=== PATIENT | male | born 1955 | race Caucasian/White ===

== ENCOUNTER → 2018-02-01 09:53 | Outpatient (REF) | payer MEDICAID, SELFPAY ==
[2018-02-01 13:54] LABS: Basophils % 0.3 % (0.1-2.0); Eosinophils # 0.3 K/mm3 (0.0-0.4); Eosinophils % 4.4 % (0.1-12.0); Hemoglobin 14.1 g/dL (14.1-18.0); Lymphocytes # 2.4 K/mm3 (0.7-4.5); Lymphocytes % 34.7 K/mm3 (10-50); Mean Corpuscular HGB Conc 32.1 g/dL (31.8-35.4); Mean Corpuscular Hemoglobin 28.7 pg (27.0-31.2); Mean Corpuscular Volume 89.5 fl (80-94); Mean Platelet Volume 8.4 fl (7.4-10.4); Monocytes # 0.4 K/mm3 (0.1-1.0); Monocytes % 6.1 % (1.7-9.3); Neutrophils # 3.8 K/mm3 (1.8-7.8); Neutrophils % 54.4 % (37.0-80.0); Platelet Count 220 K/mm3 (142-424); Red Blood Count 4.92 M/mm3 (4.60-6.20)
[2018-02-01 14:14] LABS: Alanine Aminotransferase 25 U/L (12-78); Albumin Level 3.7 gm/dL (3.4-5.0); Albumin/Globulin Ratio 0.9 (1.1-1.8); Alkaline Phosphatase 84 U/L (46-116); Anion Gap 14.3 mEq/L (5-15); Aspartate Amino Transferase 16 U/L (15-37); Bilirubin,Total 0.3 mg/dL (0.2-1.0); Blood Urea Nitrogen 13 mg/dL (7-18); Calcium 9.2 mg/dL (8.5-10.1); Carbon Dioxide 27 mmol/L (21.0-32.0); Chloride 103 mmol/L (98-107); Chol/HDL Ratio 4.1 (1-3.5); Cholesterol 124 mg/dL (140-200); Creatinine,Serum 0.91 mg/dL (0.70-1.30); Estimated Glomerular Filt Rate 85 ml/min (>60); GFR (African American) 103 ML/MIN (>60); Globulin 3.9 gm/dl (1.3-3.2); Glucose 243 mg/dL (74-106); HDL Cholesterol 30 mg/dL (27-67); LDL Cholesterol 66 mg/dL (0-130); Potassium 4.3 mmoL/L (3.5-5.1); Sodium 140 mmol/L (136-145); T4 (Thyroxine) 9.5 ug/dl (4.7-13.3); Thyroid Stimulating Hormone 0.03 uIU/ml (0.358-3.740); Total Protein,Serum 7.6 gm/dL (6.4-8.2); Triglycerides 142 mg/dL (30-200); VLDL Cholesterol 28 mg/dL (0-40)
[2018-02-02 06:04] LABS: Vitamin B12 222 pg/mL (232-1245); Vitamin D 25 Hydroxy 42.8 ng/mL (30.0-100.0)
[2018-02-02 16:15] LABS: Hemoglobin A1C 8.8 % (0.0-7.0)
[2018-02-05 12:34] LABS: Testosterone, Total, LC/MS 223.7 ng/dL (264.0-916.0); Testosterone,Free 6.7 pg/mL (6.6-18.1)
== END ==
LOC: LAB 09:53
PROVIDERS: Visit Provider Physician Assistant
DX: E11.9 Type 2 diabetes mellitus without complications (principal); E34.9 Endocrine disorder, unspecified; D51.9 Vitamin B12 deficiency anemia, unspecified; E55.9 Vitamin D deficiency, unspecified
CPT/HCPCS: 80053; 80061; 82607; 82652; 83036; 84402; 84436; 84443; 85025

== ENCOUNTER → 2018-05-27 08:00 | Outpatient (CLI) | payer MEDICAID, SELFPAY ==
--- NOTE | 2018-05-27 08:19 | XR_ITS ---
XR chest 2V HISTORY: ITS.REASON: SOB ORDERING PHYSICIAN: Lety Berman PATIENT AGE: 62 years COMPARISON: 07/28/2015 FINDINGS: There is cardiomegaly without failure. The lungs are clear bilaterally. No acute bony anomalies. IMPRESSION: Cardiomegaly otherwise negative
[2018-05-27 08:50] LABS: Basophils % 0.2 % (0.1-2.0); Eosinophils # 0.5 K/mm3 (0.0-0.4); Eosinophils % 5.6 % (0.1-12.0); Hematocrit 43.6 % (42.0-52.0); Hemoglobin 14.1 g/dL (14.1-18.0); Lymphocytes # 2.5 K/mm3 (0.7-4.5); Lymphocytes % 30.9 K/mm3 (10-50); Mean Corpuscular HGB Conc 32.3 g/dL (31.8-35.4); Mean Corpuscular Hemoglobin 28.1 pg (27.0-31.2); Mean Corpuscular Volume 87.1 fl (80-94); Mean Platelet Volume 7.4 fl (7.4-10.4); Monocytes # 0.4 K/mm3 (0.1-1.0); Monocytes % 4.6 % (1.7-9.3); Neutrophils # 4.8 K/mm3 (1.8-7.8); Neutrophils % 58.6 % (37.0-80.0); Platelet Count 204 K/mm3 (142-424); Red Cell Distribution Width 16.3 % (11.5-17.5); White Blood Count 8.2 K/mm3 (4.8-10.8)
[2018-05-27 10:51] LABS: Alanine Aminotransferase 20 U/L (12-78); Albumin Level 3.6 gm/dL (3.4-5.0); Alkaline Phosphatase 63 U/L (46-116); Anion Gap 12.9 mEq/L (5-15); Aspartate Amino Transferase 16 U/L (15-37); Bilirubin,Total 0.4 mg/dL (0.2-1.0); Blood Urea Nitrogen 10 mg/dL (7-18); Calcium 8.9 mg/dL (8.5-10.1); Carbon Dioxide 28 mmol/L (21.0-32.0); Chloride 102 mmol/L (98-107); Chol/HDL Ratio 3.9 (1-3.5); Cholesterol 143 mg/dL (140-200); Creatinine,Serum 1.11 mg/dL (0.70-1.30); Estimated Glomerular Filt Rate 68 ml/min (>60); GFR (African American) 82 ML/MIN (>60); Globulin 3.6 gm/dl (1.3-3.2); Glucose 160 mg/dL (74-106); HDL Cholesterol 37 mg/dL (27-67); LDL Cholesterol 70 mg/dL (0-130); Potassium 3.9 mmoL/L (3.5-5.1); Sodium 139 mmol/L (136-145); Thyroid Stimulating Hormone 47.91 uIU/ml (0.358-3.740); Total Protein,Serum 7.2 gm/dL (6.4-8.2); Triglycerides 178 mg/dL (30-200); VLDL Cholesterol 36 mg/dL (0-40)
== END ==
PROVIDERS: PCP Physician Assistant; Visit Provider Nurse Practitioner Family
DX: R06.02 Shortness of breath (principal); I25.10 Atherosclerotic heart disease of native coronary artery without angina pectoris; I10 Essential (primary) hypertension; E78.00 Pure hypercholesterolemia, unspecified; E11.9 Type 2 diabetes mellitus without complications
CPT/HCPCS: 36415; 71046; 80053; 80061; 84443; 85025

== ENCOUNTER → 2018-06-04 14:24 | Outpatient (CLI) | payer MEDICAID, SELFPAY ==
[2018-06-04 16:17] LABS: Hemoglobin A1C 9.6 % (0.0-7.0)
[2018-06-07 12:56] LABS: Vitamin B12 495 pg/mL (232-1245)
[2018-06-07 12:57] LABS: Vitamin D 25 Hydroxy 30.6 ng/mL (30.0-100.0)
== END ==
PROVIDERS: Visit Provider Physician Assistant
DX: E11.42 Type 2 diabetes mellitus with diabetic polyneuropathy (principal); E34.9 Endocrine disorder, unspecified
CPT/HCPCS: 82607; 82652; 83036

== ENCOUNTER → 2018-08-30 13:19 | Outpatient (CLI) | payer MEDICAID, SELFPAY ==
[2018-08-30 13:55] LABS: Basophils % 0.3 % (0.1-2.0); Eosinophils # 0.4 K/mm3 (0.0-0.4); Eosinophils % 5.1 % (0.1-12.0); Hematocrit 46.3 % (42.0-52.0); Hemoglobin 14.7 g/dL (14.1-18.0); Lymphocytes # 2.4 K/mm3 (0.7-4.5); Lymphocytes % 29.2 % (10-50); Mean Corpuscular HGB Conc 31.8 g/dL (31.8-35.4); Mean Corpuscular Hemoglobin 27.9 pg (27.0-31.2); Mean Corpuscular Volume 87.6 fl (80-94); Monocytes # 0.5 K/mm3 (0.1-1.0); Monocytes % 6.1 % (1.7-9.3); Neutrophils # 4.9 K/mm3 (1.8-7.8); Neutrophils % 59.3 % (37.0-80.0); Platelet Count 238 K/mm3 (142-424); Red Blood Count 5.28 M/mm3 (4.60-6.20); Red Cell Distribution Width 15.6 % (11.5-17.5); White Blood Count 8.2 K/mm3 (4.8-10.8)
[2018-08-30 14:17] LABS: Alanine Aminotransferase 27 U/L (12-78); Albumin Level 3.5 gm/dL (3.4-5.0); Albumin/Globulin Ratio 0.9 (1.1-1.8); Alkaline Phosphatase 80 U/L (46-116); Anion Gap 15.1 mEq/L (5-15); Aspartate Amino Transferase 11 U/L (15-37); Bilirubin,Total 0.5 mg/dL (0.2-1.0); Blood Urea Nitrogen 16 mg/dL (7-18); Carbon Dioxide 26 mmol/L (21.0-32.0); Chloride 99 mmol/L (98-107); Chol/HDL Ratio 3.9 (1-3.5); Cholesterol 110 mg/dL (140-200); Creatinine,Serum 0.91 mg/dL (0.70-1.30); Estimated Glomerular Filt Rate 85 ml/min (>60); GFR (African American) 102 ML/MIN (>60); Glucose 265 mg/dL (74-106); HDL Cholesterol 28 mg/dL (27-67); LDL Cholesterol 42 mg/dL (0-130); Potassium 4.1 mmoL/L (3.5-5.1); Sodium 136 mmol/L (136-145); T4 (Thyroxine) 11.9 ug/dl (4.7-13.3); Thyroid Stimulating Hormone 0.01 uIU/ml (0.358-3.740); Total Protein,Serum 7.5 gm/dL (6.4-8.2); Triglycerides 200 mg/dL (30-200); VLDL Cholesterol 40 mg/dL (0-40)
[2018-08-30 17:31] LABS: Hemoglobin A1C 8.2 % (0.0-7.0)
[2018-08-31 09:59] LABS: PSA, Free 0.19 ng/mL; Prostate Specific Ag 1.1 ng/mL (0.0-4.0); Vitamin B12 260 pg/mL (232-1245); Vitamin D 25 Hydroxy 37.3 ng/mL (30.0-100.0)
[2018-09-07 15:35] LABS: Testosterone, Total, LC/MS 127.2 ng/dL (264.0-916.0)
== END ==
PROVIDERS: Visit Provider Physician Assistant
DX: Z12.5 Encounter for screening for malignant neoplasm of prostate (principal); E11.9 Type 2 diabetes mellitus without complications; E55.9 Vitamin D deficiency, unspecified; E03.9 Hypothyroidism, unspecified; D51.9 Vitamin B12 deficiency anemia, unspecified; E78.5 Hyperlipidemia, unspecified
CPT/HCPCS: 80053; 80061; 82607; 82652; 83036; 84153; 84154; 84403; 84436; 84443; 85025

== ENCOUNTER → 2018-10-08 13:39 | Outpatient (CLI) | payer MEDICAID, SELFPAY ==
[2018-10-08 17:37] LABS: T4 (Thyroxine) 10.7 ug/dl (4.7-13.3); Thyroid Stimulating Hormone 0.01 uIU/ml (0.358-3.740)
== END ==
PROVIDERS: Visit Provider Physician Assistant
DX: E03.9 Hypothyroidism, unspecified (principal)
CPT/HCPCS: 36415; 84436; 84443

== ENCOUNTER → 2018-12-06 14:48 | Outpatient (CLI) | payer MEDICAID, SELFPAY ==
[2018-12-06 15:46] LABS: Hemoglobin A1C 7.7 % (0.0-7.0)
[2018-12-06 16:01] LABS: Basophils % 0.2 % (0.1-2.0); Eosinophils # 0.3 K/mm3 (0.0-0.4); Eosinophils % 3.7 % (0.1-12.0); Hematocrit 43.3 % (42.0-52.0); Hemoglobin 14.4 g/dL (14.1-18.0); Lymphocytes # 1.8 K/mm3 (0.7-4.5); Lymphocytes % 25.8 % (10-50); Mean Corpuscular HGB Conc 33.3 g/dL (31.8-35.4); Mean Corpuscular Hemoglobin 28.7 pg (27.0-31.2); Mean Corpuscular Volume 86.3 fl (80-94); Mean Platelet Volume 8.2 fl (7.4-10.4); Monocytes # 0.4 K/mm3 (0.1-1.0); Monocytes % 5.8 % (1.7-9.3); Neutrophils # 4.6 K/mm3 (1.8-7.8); Neutrophils % 64.5 % (37.0-80.0); Platelet Count 199 K/mm3 (142-424); Red Blood Count 5.02 M/mm3 (4.60-6.20); Red Cell Distribution Width 15.6 % (11.5-17.5); White Blood Count 7.1 K/mm3 (4.8-10.8)
[2018-12-06 16:52] LABS: Alanine Aminotransferase 31 U/L (12-78); Albumin Level 3.8 gm/dL (3.4-5.0); Alkaline Phosphatase 82 U/L (46-116); Aspartate Amino Transferase 12 U/L (15-37); Bilirubin,Total 0.5 mg/dL (0.2-1.0); Blood Urea Nitrogen 13 mg/dL (7-18); Calcium 9.6 mg/dL (8.5-10.1); Carbon Dioxide 25 mmol/L (21.0-32.0); Chloride 100 mmol/L (98-107); Chol/HDL Ratio 4.3 (1-3.5); Cholesterol 120 mg/dL (140-200); Creatinine,Serum 0.91 mg/dL (0.70-1.30); Estimated Glomerular Filt Rate 85 ml/min (>60); GFR (African American) 102 ML/MIN (>60); Glucose 234 mg/dL (74-106); HDL Cholesterol 28 mg/dL (27-67); LDL Cholesterol 55 mg/dL (0-130); Sodium 138 mmol/L (136-145); T4 (Thyroxine) 11.8 ug/dl (4.7-13.3); Thyroid Stimulating Hormone 0.02 uIU/ml (0.358-3.740); Total Protein,Serum 7.8 gm/dL (6.4-8.2); Triglycerides 187 mg/dL (30-200); VLDL Cholesterol 37 mg/dL (0-40)
[2018-12-08 08:05] LABS: PSA, Free 0.19 ng/mL; Prostate Specific Ag 0.9 ng/mL (0.0-4.0); Vitamin D 25 Hydroxy 37.6 ng/mL (30.0-100.0)
== END ==
PROVIDERS: Visit Provider Physician Assistant
DX: E11.649 Type 2 diabetes mellitus with hypoglycemia without coma (principal); Z79.4 Long term (current) use of insulin
CPT/HCPCS: 80053; 80061; 82652; 83036; 84153; 84154; 84436; 84443; 85025

== ENCOUNTER → 2018-12-14 08:57 | Outpatient (POV) | payer MEDICAID, SELFPAY | PROVIDERS: Visit Provider Otolaryngology | DX: Z00.00 Encounter for general adult medical examination without abnormal findings (principal) ==

== ENCOUNTER → 2018-12-29 12:38 | Outpatient (CLI) | payer MEDICAID, SELFPAY ==
--- NOTE | 2018-12-29 12:48 | CT_ITS ---
CT Temporal bone Without INDICATION: ITS.REASON: OTORRHEA,HEARING LOSS,DYSFUCTION OF EUSTACHIAN TUBES ORDERING PHYSICIAN: Orly Arroyo MD PATIENT AGE: 63 years COMPARISON: 12/18/2015 TECHNIQUE: Axial images are obtained without contrast. Sagittal and coronal reformatted images are reviewed as well. All CT scans at the facility use one or more dose reduction, viz: automated exposure control, ma/kV adjustment per patient size (including targeted exams where dose is matched to indication, i.e. head), or iterative reconstruction technique. FINDINGS: Thin section axial images are obtained of the cervical spine without contrast and compared to prior head CT of 12/18/2015. There is history of prior ear surgery. There is bilateral opacification of the mastoid sinuses with bilateral aditus ad antrum and middle ear opacification. There is deformity of the middle ear ossicles on both sides and may be related to prior surgery and/or infection. There is mild bilateral scutal erosion with partial opacification of the antrum bilaterally. These findings do appear chronic and do not appear significantly changed from 12/18/2015. Soft tissue fullness is present in both external auditory canals is well. Incidental note is made of moderate mucosal thickening of the ethmoid sinuses. IMPRESSION: 1. Bilateral mastoid air cell opacification. 2. Soft tissue/fluid filling the bilateral aditus ad antrum and middle ears with chronic deformity of bilateral ossicles which may be related to prior surgery and/or infection 3. Soft tissue fullness within both external auditory canals. 4.. Paranasal sinus disease
== END ==
PROVIDERS: PCP Physician Assistant; Visit Provider Otolaryngology
DX: H92.12 Otorrhea, left ear (principal); H90.6 Mixed conductive and sensorineural hearing loss, bilateral; H69.83 Other specified disorders of Eustachian tube, bilateral; Z90.89 Acquired absence of other organs
CPT/HCPCS: 70480

== ENCOUNTER → 2019-03-08 14:41 | Outpatient (CLI) | payer MEDICAID, SELFPAY ==
[2019-03-08 15:00] LABS: Basophils % 0.5 % (0.1-2.0); Eosinophils # 0.3 K/mm3 (0.0-0.4); Eosinophils % 3.6 % (0.1-12.0); Hematocrit 46.2 % (42.0-52.0); Hemoglobin 14.7 g/dL (14.1-18.0); Lymphocytes # 2.1 K/mm3 (0.7-4.5); Lymphocytes % 28.9 % (10-50); Mean Corpuscular HGB Conc 31.8 g/dL (31.8-35.4); Mean Corpuscular Hemoglobin 28.4 pg (27.0-31.2); Mean Corpuscular Volume 89.5 fl (80-94); Mean Platelet Volume 8.4 fl (7.4-10.4); Monocytes # 0.5 K/mm3 (0.1-1.0); Monocytes % 6.4 % (1.7-9.3); Neutrophils # 4.3 K/mm3 (1.8-7.8); Neutrophils % 60.7 % (37.0-80.0); Platelet Count 210 K/mm3 (142-424); Red Blood Count 5.16 M/mm3 (4.60-6.20); Red Cell Distribution Width 14.9 % (11.5-17.5); White Blood Count 7.2 K/mm3 (4.8-10.8)
[2019-03-08 15:19] LABS: Alanine Aminotransferase 22 U/L (12-78); Albumin Level 3.6 gm/dL (3.4-5.0); Albumin/Globulin Ratio 0.9 (1.1-1.8); Alkaline Phosphatase 83 U/L (46-116); Anion Gap 17.3 mEq/L (5-15); Aspartate Amino Transferase 10 U/L (15-37); Bilirubin,Total 0.5 mg/dL (0.2-1.0); Blood Urea Nitrogen 16 mg/dL (7-18); Calcium 8.8 mg/dL (8.5-10.1); Carbon Dioxide 24 mmol/L (21.0-32.0); Chloride 103 mmol/L (98-107); Chol/HDL Ratio 3.9 (1-3.5); Cholesterol 108 mg/dL (140-200); Estimated Glomerular Filt Rate 76 ml/min (>60); GFR (African American) 92 ML/MIN (>60); Globulin 3.8 gm/dl (1.3-3.2); Glucose 203 mg/dL (74-106); HDL Cholesterol 28 mg/dL (27-67); LDL Cholesterol 45 mg/dL (0-130); Potassium 4.3 mmoL/L (3.5-5.1); Sodium 140 mmol/L (136-145); T4 (Thyroxine) 7.2 ug/dl (4.7-13.3); Thyroid Stimulating Hormone 0.03 uIU/ml (0.358-3.740); Total Protein,Serum 7.4 gm/dL (6.4-8.2); Triglycerides 173 mg/dL (30-200); VLDL Cholesterol 35 mg/dL (0-40)
[2019-03-08 17:38] LABS: Hemoglobin A1C 7.5 % (0.0-7.0)
[2019-03-10 08:31] LABS: Vitamin D 25 Hydroxy 40.1 ng/mL (30.0-100.0)
[2019-03-10 09:32] LABS: Testosterone,Total 64 ng/dL (264-916)
[2019-03-10 14:08] LABS: Vitamin B12 228 pg/mL (232-1245)
== END ==
PROVIDERS: Visit Provider Physician Assistant
DX: E11.9 Type 2 diabetes mellitus without complications (principal); E03.9 Hypothyroidism, unspecified; D51.9 Vitamin B12 deficiency anemia, unspecified; E34.9 Endocrine disorder, unspecified; E55.9 Vitamin D deficiency, unspecified; Z79.4 Long term (current) use of insulin
CPT/HCPCS: 80053; 80061; 82607; 82652; 83036; 84403; 84436; 84443; 85025

== ENCOUNTER → 2019-06-14 08:10 | Outpatient (CLI) | payer MEDICAID, SELFPAY ==
--- NOTE | 2019-06-14 08:11 | CT_ITS ---
PROCEDURE: CT ABDOMEN PELVIS WO CON CLINICAL HISTORY: Ventral hernia, umbilical hernia Painful umbilical hernia COMPARISON: No exams were available for comparison TECHNIQUE: Axial images obtained with sagittal and coronal reformats. All CT scans at the facility use one or more dose reduction, viz: automated exposure control, ma/kV adjustment per patient size (including targeted exams where dose is matched to indication, i.e. head), or iterative reconstruction technique. FINDINGS: Severe coronary artery calcification is noted. The liver, gallbladder, spleen, adrenal glands, and pancreas have an unremarkable appearance. There is mild haziness of the mesenteric fat with scattered small mesenteric lymph nodes. This is a nonspecific finding. No renal or ureteral calculi. No hydronephrosis. No evidence of appendicitis, intestinal obstruction, free air, or diverticulitis. There is a mild amount of retained colonic feces. There is a small umbilical hernia which contains fat. No evidence of bowel within the hernia. The fat does not appear inflamed within the hernia. No acute bony anomalies. There is a small left inguinal hernia also containing fat IMPRESSION: 1. No acute abdominal or pelvic findings. 2. There is a small umbilical hernia which contains fat. 3. There also a small left inguinal hernia containing fat. 4. Coronary artery disease Dictated by: Mauricio Cunningham MD 06/14/2019 10:14 Signed by: <Electronically signed by Mauricio Cunningham MD in [facility]> 06/14/2019 10:14
[2019-06-21 15:51] LABS: Testosterone, Total, LC/MS 704
[2019-06-21 15:52] LABS: Testosterone,Free 16.3
== END ==
PROVIDERS: Urology; PCP Physician Assistant; Visit Provider Physician Assistant
DX: K42.9 Umbilical hernia without obstruction or gangrene (principal); K43.9 Ventral hernia without obstruction or gangrene; E53.8 Deficiency of other specified B group vitamins; R79.89 Other specified abnormal findings of blood chemistry
CPT/HCPCS: 36415; 74176; 84402; 84403

== ENCOUNTER → 2019-06-14 14:31 | Outpatient (CLI) | payer MEDICAID, SELFPAY | PROVIDERS: Visit Provider Urology | DX: R79.89 Other specified abnormal findings of blood chemistry (principal) | CPT/HCPCS: 36415; 84402; 84403 ==

== ENCOUNTER → 2019-07-04 09:32 | Outpatient (CLI) | payer MEDICAID, SELFPAY ==
--- NOTE | 2019-07-04 09:35 | XR_ITS ---
PROCEDURE: XR KNEE LT 4V CLINICAL INDICATION: KNee pain Knee pain COMPARISON: [id number] KNEE-4 OR 5 VIEWS-RT from 10/16/2015 [id number] KNEE-4 OR 5 VIEWS-LT from 10/16/2015 [id number] KNEE-3 VIEWS-RT from 06/21/2016 Knee L from 05/13/2019 FINDINGS: There are moderate osteoarthritic changes involving the medial and lateral compartment with severe osteoarthritic changes of the patellofemoral joint. Prominent osteophytes are present at the intercondylar region of the distal femur and the tibial spine area. There is a 5 mm calcific density projecting over the lateral joint space suggesting a loose body. No fracture or dislocation. Prominent osteophytes are present along the superior patella IMPRESSION: No change in the moderate to severe osteoarthritis of the left knee with osteophytes and possible loose body along the lateral compartment Dictated by: Mauricio Cunningham MD 07/04/2019 11:43 Electronically signed by Mauricio Cunningham MD in [facility] 07/04/2019 11:43
--- NOTE | 2019-07-04 09:35 | XR_ITS ---
PROCEDURE: XR KNEE RT 4V CLINICAL INDICATION: knee pain COMPARISON: [id number] KNEE-4 OR 5 VIEWS-RT from 10/16/2015 [id number] KNEE-4 OR 5 VIEWS-LT from 10/16/2015 [id number] KNEE-3 VIEWS-RT from 06/21/2016 Knee L from 05/13/2019 FINDINGS: No fracture or dislocation. No lytic or blastic change. There is normal mineralization. Mild osteoarthritic changes are present at the medial lateral compartment with moderate to severe osteoarthritic changes of the patellofemoral joint. Lucency is noted along the superior aspect of the patella consistent with bipartite patella. No fracture or dislocation. No lytic or blastic changes with no significant change from the previous exam.. Other findings:None. IMPRESSION: Osteoarthritic changes as detailed above Dictated by: Mauricio Cunningham MD 07/04/2019 14:17 Electronically signed by Mauricio Cunningham MD in [facility] 07/04/2019 14:17
== END ==
PROVIDERS: PCP Physician Assistant; Visit Provider Orthopaedic Surgery
DX: M25.562 Pain in left knee (principal); M25.561 Pain in right knee
CPT/HCPCS: 73564

== ENCOUNTER → 2019-08-30 10:12 | Outpatient (POV) | payer MEDICAID, SELFPAY | PROVIDERS: Visit Provider Otolaryngology | DX: Z00.00 Encounter for general adult medical examination without abnormal findings (principal) ==

== ENCOUNTER → 2019-09-22 10:19 | Outpatient (CLI) | payer MEDICAID, SELFPAY ==
[2019-09-22 10:21] LABS: Microscopic, Urine URINE MICROSCOPIC (MICROSCOPIC)
[2019-09-22 10:39] LABS: Appearance,Urine CLEAR (Clear); Bilirubin,Urine Negative (Negative); Blood, Urine Negative (Negative); Color,Urine YELLOW (Yellow); Glucose,Urine (UA) 3+ (Negative); Ketones,Urine Negative (Negative); Leukocyte Esterase,Urine Negative (Negative); Nitrate,Urine Negative (Negative); Protein,Urine Negative (Negative); Urobilinogen,Urine 0.2 EU/dl (0.2)
[2019-09-22 10:49] LABS: Basophils % 0.2 % (0.1-2.0); Eosinophils # 0.3 K/mm3 (0.0-0.4); Eosinophils % 3.8 % (0.1-12.0); Hematocrit 46.3 % (42.0-52.0); Hemoglobin 14.8 g/dL (14.1-18.0); Lymphocytes # 1.9 K/mm3 (0.7-4.5); Lymphocytes % 27.5 % (10-50); Mean Corpuscular Hemoglobin 28.5 pg (27.0-31.2); Mean Platelet Volume 8.2 fl (7.4-10.4); Monocytes # 0.3 K/mm3 (0.1-1.0); Monocytes % 4.8 % (1.7-9.3); Neutrophils # 4.5 K/mm3 (1.8-7.8); Neutrophils % 63.7 % (37.0-80.0); Platelet Count 197 K/mm3 (142-424); Red Cell Distribution Width 15.4 % (11.5-17.5)
[2019-09-22 11:11] LABS: Squamous Epithelial Cell,Urine Occasional #/hpf (0-5); WBC,Urine Occasional #/hpf (0-3)
[2019-09-22 11:40] LABS: Anion Gap 14.6 mEq/L (5-15); Blood Urea Nitrogen 11 mg/dL (7-18); Calcium 8.8 mg/dL (8.5-10.1); Carbon Dioxide 30 mmol/L (21.0-32.0); Chloride 100 mmol/L (98-107); Creatinine,Serum 1.07 mg/dL (0.70-1.30); Estimated Glomerular Filt Rate 70 ml/min (>60); GFR (African American) 85 ML/MIN (>60); Glucose 311 mg/dL (74-106); Potassium 4.6 mmoL/L (3.5-5.1); Sodium 140 mmol/L (136-145)
== END ==
PROVIDERS: Visit Provider Surgery
DX: K42.9 Umbilical hernia without obstruction or gangrene (principal)
CPT/HCPCS: 36415; 80048; 81001; 85025

== ENCOUNTER → 2019-10-18 19:06 | Outpatient (CLI) | payer MEDICAID, SELFPAY ==
[2019-10-18 19:29] LABS: Basophils % 0.3 % (0.1-2.0); Eosinophils # 0.3 K/mm3 (0.0-0.4); Eosinophils % 3.7 % (0.1-12.0); Hematocrit 46.4 % (42.0-52.0); Hemoglobin 15.6 g/dL (14.1-18.0); Lymphocytes # 2.8 K/mm3 (0.7-4.5); Lymphocytes % 33.3 % (10-50); Mean Corpuscular HGB Conc 33.5 g/dL (31.8-35.4); Mean Corpuscular Hemoglobin 28.9 pg (27.0-31.2); Mean Corpuscular Volume 86.3 fl (80-94); Mean Platelet Volume 8.3 fl (7.4-10.4); Monocytes # 0.4 K/mm3 (0.1-1.0); Neutrophils # 4.9 K/mm3 (1.8-7.8); Neutrophils % 57.7 % (37.0-80.0); Platelet Count 204 K/mm3 (142-424); Red Blood Count 5.38 M/mm3 (4.60-6.20); Red Cell Distribution Width 15.2 % (11.5-17.5); White Blood Count 8.4 K/mm3 (4.8-10.8)
[2019-10-18 20:02] LABS: Hemoglobin A1C 8.2 % (0.0-7.0)
[2019-10-18 21:51] LABS: Alanine Aminotransferase 21 U/L (12-78); Albumin Level 3.9 gm/dL (3.4-5.0); Albumin/Globulin Ratio 1.1 (1.1-1.8); Alkaline Phosphatase 94 U/L (46-116); Aspartate Amino Transferase 10 U/L (15-37); Bilirubin,Total 0.5 mg/dL (0.2-1.0); Blood Urea Nitrogen 15 mg/dL (7-18); Calcium 9.1 mg/dL (8.5-10.1); Carbon Dioxide 23 mmol/L (21.0-32.0); Chloride 99 mmol/L (98-107); Chol/HDL Ratio 4.2 (1-3.5); Cholesterol 130 mg/dL (140-200); Creatinine,Serum 0.85 mg/dL (0.70-1.30); Estimated Glomerular Filt Rate 91 ml/min (>60); GFR (African American) 111 ML/MIN (>60); Globulin 3.7 gm/dl (1.3-3.2); Glucose 217 mg/dL (74-106); HDL Cholesterol 31 mg/dL (27-67); LDL Cholesterol 55 mg/dL (0-130); Sodium 137 mmol/L (136-145); T4 (Thyroxine) 11.7 ug/dl (4.7-13.3); Thyroid Stimulating Hormone 0.01 uIU/ml (0.358-3.740); Total Protein,Serum 7.6 gm/dL (6.4-8.2); Triglycerides 219 mg/dL (30-200); VLDL Cholesterol 44 mg/dL (0-40)
[2019-10-21 06:27] LABS: Vitamin D 25 Hydroxy 22.1 ng/mL (30.0-100.0)
== END ==
PROVIDERS: Visit Provider Physician Assistant
DX: E11.9 Type 2 diabetes mellitus without complications (principal); E78.5 Hyperlipidemia, unspecified; E55.9 Vitamin D deficiency, unspecified; I10 Essential (primary) hypertension; Z12.5 Encounter for screening for malignant neoplasm of prostate; Z79.84 Long term (current) use of oral hypoglycemic drugs
CPT/HCPCS: 80053; 80061; 82652; 83036; 84436; 84443; 85025; G0103

== ENCOUNTER → 2020-03-14 12:59 | Outpatient (CLI) | payer MEDICAID, SELFPAY ==
[2020-03-14 14:19] LABS: Basophils % 0.7 % (0.1-2.0); Eosinophils # 0.2 K/mm3 (0.0-0.4); Eosinophils % 3.7 % (0.1-12.0); Hematocrit 46.3 % (42.0-52.0); Hemoglobin 15.1 g/dL (14.1-18.0); Lymphocytes # 1.9 K/mm3 (0.7-4.5); Lymphocytes % 29.6 % (10-50); Mean Corpuscular HGB Conc 32.7 g/dL (31.8-35.4); Mean Corpuscular Hemoglobin 28.9 pg (27.0-31.2); Mean Corpuscular Volume 88.3 fl (80-94); Mean Platelet Volume 8.4 fl (7.4-10.4); Monocytes # 0.3 K/mm3 (0.1-1.0); Monocytes % 4.3 % (1.7-9.3); Neutrophils % 61.7 % (37.0-80.0); Platelet Count 226 K/mm3 (142-424); Red Blood Count 5.24 M/mm3 (4.60-6.20); Red Cell Distribution Width 15.4 % (11.5-17.5); White Blood Count 6.5 K/mm3 (4.8-10.8)
[2020-03-14 14:31] LABS: Chloride 101 mmol/L (98-107)
[2020-03-14 14:32] LABS: Potassium 4.3 mmoL/L (3.5-5.1); Sodium 138 mmol/L (136-145)
[2020-03-14 14:34] LABS: Alanine Aminotransferase 20 U/L (12-78); Alkaline Phosphatase 100 U/L (38-126); Anion Gap 14.3 mEq/L (5-15); Aspartate Amino Transferase 21 U/L (17-59); Bilirubin,Total 0.7 mg/dl (0.2-1.3); Blood Urea Nitrogen 14 mg/dl (9-20); Carbon Dioxide 27 mmol/L (22.0-30.0); Estimated Glomerular Filt Rate 86 ml/min (>60); GFR (African American) 103 ML/MIN (>60)
[2020-03-14 14:35] LABS: Albumin Level 4.2 g/dl (3.5-5.0); Albumin/Globulin Ratio 1.3 (1.1-1.8); Calcium 9.3 mg/dl (8.4-10.2); Chol/HDL Ratio 3.4 (1-3.5); Cholesterol 134 mg/dl (140-200); Globulin 3.3 g/dL (1.3-3.2); Glucose 216 mg/dl (74-100); HDL Cholesterol 40 mg/dl (40-60); Total Protein,Serum 7.5 g/dl (6.3-8.2); Triglycerides 259 mg/dl (30-150); VLDL Cholesterol 52 mg/dL (0-40)
[2020-03-14 15:27] LABS: Hemoglobin A1C 8.1 % (4.0-6.0)
[2020-03-14 15:31] LABS: T4 (Thyroxine) 9.7 ug/dl (5.53-11.0)
[2020-03-14 15:45] LABS: Thyroid Stimulating Hormone < 0.02 uIU/mL (0.465-4.68)
[2020-03-15 10:01] LABS: Vitamin B12 399 pg/mL (232-1245)
[2020-03-15 10:01] LABS: Testosterone,Total 84 ng/dL (264-916); Vitamin D 25 Hydroxy 21.4 ng/mL (30.0-100.0)
[2020-03-15 10:49] LABS: Microalbumin, Urine 21.1 ug/mL (Not Estab.)
== END ==
PROVIDERS: Visit Provider Physician Assistant
DX: E11.9 Type 2 diabetes mellitus without complications (principal); D51.9 Vitamin B12 deficiency anemia, unspecified; E34.9 Endocrine disorder, unspecified; E55.9 Vitamin D deficiency, unspecified; Z79.4 Long term (current) use of insulin
CPT/HCPCS: 80053; 80061; 82043; 82607; 82652; 83036; 84403; 84436; 84443; 85025

== ENCOUNTER → 2020-04-02 09:38 | Outpatient (CLI) | payer MEDICAID, SELFPAY ==
--- NOTE | 2020-04-02 09:45 | XR_ITS ---
PROCEDURE: XR KNEE RT 4V CLINICAL INDICATION: rt knee pain COMPARISON: [id number] KNEE-3 VIEWS-RT from 06/21/2016 Knee L from 05/13/2019 XR KNEE LT 4V from 07/04/2019 XR KNEE RT 4V from 07/04/2019 FINDINGS: There is stable mild degenerative narrowing of the medial and lateral compartments and stable moderate narrowing of the patellofemoral compartment. Scattered syndesmophytes are again noted within the superior patellar recess. There is no acute fracture or dislocation. Soft tissues are unremarkable. IMPRESSION: Stable tricompartmental degenerative changes as above, no fracture Dictated by: Tam Connelly 04/02/2020 11:25 Electronically signed by Tam Connelly in [place] 04/02/2020 11:25
== END ==
PROVIDERS: PCP Physician Assistant; Visit Provider Orthopaedic Surgery
DX: M25.561 Pain in right knee (principal)
CPT/HCPCS: 73564

== ENCOUNTER → 2020-04-24 12:03 | Outpatient (CLI) | payer MEDICAID, SELFPAY ==
--- NOTE | 2020-04-24 12:22 | XR_ITS ---
PROCEDURE: XR CHEST 2V CLINICAL HISTORY: pre op Hypertension, shortness of air COMPARISON: CXR CHEST(2 VIEWS-NOT PORTABLE) from 07/28/2015 CXR2V XR chest 2V from 05/27/2018 XR CHEST 2V from 12/13/2019 FINDINGS: The cardiomediastinal silhouette and pulmonary vascularity are within normal limits. The lungs are clear without infiltrates, suspicious nodules, or pleural effusions. No acute bony abnormalities. IMPRESSION: No acute findings. Dictated by: Mauricio Cunningham MD 04/24/2020 21:16 Electronically signed by Mauricio Cunningham MD in [facility] 04/24/2020 21:16
[2020-04-24 12:35] LABS: Basophils % 0.3 % (0.1-2.0); Eosinophils # 0.3 K/mm3 (0.0-0.4); Eosinophils % 3.4 % (0.1-12.0); Hematocrit 42.4 % (42.0-52.0); Hemoglobin 14.5 g/dL (14.1-18.0); Lymphocytes % 38.2 % (10-50); Mean Corpuscular HGB Conc 34.2 g/dL (31.8-35.4); Mean Corpuscular Hemoglobin 30.2 pg (27.0-31.2); Mean Corpuscular Volume 88.3 fl (80-94); Mean Platelet Volume 8.1 fl (7.4-10.4); Monocytes # 0.4 K/mm3 (0.1-1.0); Monocytes % 5.1 % (1.7-9.3); Neutrophils # 4.1 K/mm3 (1.8-7.8); Platelet Count 189 K/mm3 (142-424); Red Cell Distribution Width 15.7 % (11.5-17.5); White Blood Count 7.8 K/mm3 (4.8-10.8)
[2020-04-24 13:00] LABS: Activated Partial Thrombo Time 23.7 seconds (23.6-34.0); INR 0.99 (0.9-1.1); Prothrombin Time 10.2 seconds (9.4-11.8)
[2020-04-24 13:02] LABS: Hemoglobin A1C 8.3 % (4.0-6.0)
[2020-04-24 13:15] LABS: Chloride 101 mmol/L (98-107); Sodium 138 mmol/L (136-145)
[2020-04-24 13:16] LABS: Potassium 4.1 mmoL/L (3.5-5.1)
[2020-04-24 13:18] LABS: Alanine Aminotransferase 23 U/L (12-78); Albumin/Globulin Ratio 1.4 (1.1-1.8); Alkaline Phosphatase 97 U/L (38-126); Anion Gap 16.1 mEq/L (5-15); Aspartate Amino Transferase 19 U/L (17-59); Bilirubin,Total 0.6 mg/dl (0.2-1.3); Blood Urea Nitrogen 9 mg/dl (9-20); Carbon Dioxide 25 mmol/L (22.0-30.0); Estimated Glomerular Filt Rate 86 ml/min (>60); GFR (African American) 103 ML/MIN (>60); Globulin 2.8 g/dL (1.3-3.2); Total Protein,Serum 6.8 g/dl (6.3-8.2)
[2020-04-24 13:19] LABS: Calcium 9.4 mg/dl (8.4-10.2); Chol/HDL Ratio 4.1 (1-3.5); Cholesterol 122 mg/dl (140-200); Glucose 180 mg/dl (74-100); HDL Cholesterol 30 mg/dl (40-60); Triglycerides 266 mg/dl (30-150); VLDL Cholesterol 53 mg/dL (0-40)
[2020-04-24 13:30] LABS: Direct LDL Cholesterol 73.22 mg/dL (100-129)
[2020-04-24 13:36] LABS: T4 (Thyroxine) 8.2 ug/dl (5.53-11.0)
[2020-04-24 13:49] LABS: Thyroid Stimulating Hormone < 0.02 uIU/mL (0.465-4.68)
== END ==
PROVIDERS: Visit Provider Physician Assistant
DX: Z01.818 Encounter for other preprocedural examination (principal)
CPT/HCPCS: 36415; 71046; 80053; 80061; 83036; 84436; 84443; 85025; 85610; 85730

== ENCOUNTER → 2020-05-29 08:51 | Outpatient (CLI) | payer MEDICAID, SELFPAY ==
[2020-05-29 10:23] LABS: Coronavirus 19 IgG Antibody Negative (Negative); Coronavirus 19 IgM Antibody Negative (Negative)
== END ==
PROVIDERS: Visit Provider Orthopaedic Surgery
DX: Z20.828 Contact with and (suspected) exposure to other viral communicable diseases (principal)
CPT/HCPCS: 36415; 86328

== ENCOUNTER 2020-05-31 11:44 | Day surgery (SDC) | payer MEDICAID, SELFPAY ==
[2020-05-31 12:12] VITALS: BP 139/72; PULSE 63; RESP 18; TEMP 36.6; O2SAT 96; BMI 41.0
[2020-05-31 13:43] LABS: POC Glucose,Bedside 185 (70-110)
--- NOTE | 2020-05-31 14:20 | XR_ITS ---
PROCEDURE: XR KNEE RT 2V CLINICAL INDICATION: RT KNEE FOREIGN Foreign body removal COMPARISON: CR XR KNEE RT 4V from 04/02/2020 FINDINGS: Multiple images submitted with the C-arm during the operative procedure. Fluoroscopy time 17 seconds IMPRESSION: C-arm utilization for foreign body removal Dictated by: Mauricio Cunningham MD 05/31/2020 17:09 Mauricio Cunningham MD in [place] 05/31/2020 17:09
[2020-05-31 14:40] VITALS: BP 150/61; PULSE 67; RESP 18; TEMP 36.7; O2SAT 95
--- NOTE | 2020-05-31 14:49 | HMH.ANESCL ---
[facility] Anesthesia Checklist - Patient Identification Patient Identification: Arm Band, Verbal (Name & ) - Structural Data Admitted From: Home Planned Operative Procedure/s: Right knee foreign body removal Consent for Planned Operative Procedure(s) Verified: Yes Verified Documents: Surgical Consent, History and Physical, Cardiac Clearance - NPO Status Verified Time NPO: 23:30 - Chart Verification Results Verified: CBC, BMP, PT, PTT, INR - Additional verifications Anesthesia Reactions: No Hx Blood Transfusions: No Blood Transfusion Reaction: No - Airway Assessment C-Spine Mobility Assessed: Yes TMJ Mobility Assessed: Yes Dentition: Poor Dentition - Neurological Assessment Level of Consciousness: Awake, Alert, Appropriate, Follows Commands Hx Seizures: No Numbness or tingling in extremities: Yes (Peripheral neuropathy) - Anesthesia Plan Anesthesia Risk discussed: Yes Anesthesia Plan: Verified ASA Class: III Anesthesia Type: MAC [facility] History I have reviewed the patient's past medical history: Yes 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: Reports:: Anxiety, Carotid Stenosis, Coronary Artery Disease, Cerebrovascular Accident, Depression, Diabetes Mellitus Type 2, Hyperlipidemia, Hypertension, Lung Disease, Myocardial Infarction Denies:: Cancer, Diabetes Mellitus Type 1, Internal Pacemaker, MRSA, Seizures *Have you ever received a pneumonia vaccine?: Yes *Have you received a flu vaccine this season?: Yes Other 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: Reports: Arthritis, Hypothyroidism, Thyroid Disease. Denies: Blood Transfusion Reaction Anesthesia experience/problems:: no prior complications Laterality Cases: Bilateral: Cataract, Tonsillectomy Other Surgeries: Yes: Cardiac Catheterization, Cardiac Surgery, Colonoscopy, Coronary Stent, Hernia Repair, Other. No: Pacemaker Amputation: No Fractures: Yes - *Social History Smoking Status: Never smoker Alcohol Intake: never Substance Use Type: denies use *Occupational Status:: disabled Housing: house Household Members: spouse *Travel in the last 8 weeks: None - Psychiatric History Pschychiatric History:: Reports:: Anxiety, Depression Family Hx:: Heart Attack, Diabetes, Asthma, Cancer
[2020-05-31 14:50] VITALS: BP 145/85; PULSE 68; RESP 18; O2SAT 96
[2020-05-31 15:00] VITALS: BP 125/66; PULSE 59; RESP 18; O2SAT 97
[2020-05-31 15:01] LABS: POC Glucose,Bedside 145 (70-110)
[2020-05-31 15:10] VITALS: BP 128/57; PULSE 57; RESP 18; O2SAT 97
--- NOTE | 2020-05-31 16:22 | HMH.OPNOTE ---
Date of procedure: 05/31/20 Pre-op Diagnosis:: loose body R knee Post-op Diagnosis:: loose body R knee Procedure performed:: removal of loose body R knee Surgeon:: Orly Hernandez MD Finish Cleaner(s):: Soraya Calderón STRIPPER AND TAPER:: Timothy Camarena Anesthesia: MAC, local Estimated blood loss (mL): 5 Clinical Note:: 64yo M with a history of B/L knee pain, R > L. This has responded well to conservative treatment, including intra-articular corticosteroid injection; the last injection was given on 07/04/2019 (L knee). This did help his pain, and the addition of gabapentin since his that visit helps keep his pain at a manageable level. His primary concern at this time is the R knee, which has no pain at baseline. However, with motion he has frequent sharp, severe pains and locking of the knee. He has a palpable ossification lateral to the patella; when this pops he has pain, but after pushing on the bone and moving it upwards, the pain disappears. This happens several times per day, and he feels if the popping were gone he'd have far fewer issues with the knee. He feels if the lateral ossification were removed, he wound have very few issues with this knee. 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 It is unclear if the bone is intra-articular or not, but being as palpable and mobile as it is, I suspect it may be superficial. I discussed surgery with the patient, and he is not interested in TKA at this time. Additionally, after I discussed the low likelihood of improved pain/long-term function with arthroscopy, the patient is not interested in this either. I discussed the risks of loose body removal surgery with the patient, including but not limited to: bleeding, infection, hemarthrosis, post-operative stiffness, persistent pain and/or limp, and need for additional surgery in the future. The patient vocalized understanding and provided informed consent for the procedure. Operative findings:: limited lateral arthrotomy was made direct visualization of lateral femoral condyle and patellofemoral joint; significant DJD seen with lateral femoral and patellar osteophytes small, mobile osteophyte in lateral parapatellar tissues, accessed through arthrotomy Operative note:: The patient was identified in pre-operative holding and the R leg signed by myself with marking pen. Consent was verified with the patient and all questions were answered. Pre-operative labs were confirmed to be within acceptable limits, and covid antibody screen negative. He was then taken to the OR and transferred to the operative table, where all bony prominences were well-padded. 900mg clindamycin was infused intravenously and light intravenous sedation given. A non-sterile tourniquet was placed on the upper right thigh and the right leg prepped and draped in the usual sterile fashion. Timeout was performed, identifying the correct patient, correct procedure, and correct site. The procedure was begun by providing local analgesia to the surgical site. 10cc of local was infiltrated at the lateral aspect of the knee, just lateral to the patella, directly over the palpable superficial bony loose body. This local was a 50:50 mixture of 1% lidocaine and 0.5% marcaine. The right lower extremity was then exsanguinated with an esmarch and the tourniquet inflated to 250mmHg. A longitudinal incision was made over the lateral aspect of the right knee, aproximately 3cm lateral to the patella and 5cm long. Subcutaneous tissue was bluntly spread with tenotomy scissors and the loose body was not identified. It was felt to be deeper, and a limited lateral arthrotomy was necessary. A fresh 15 blade was used to make a small incision in the lateral joint capsule, around 3cm long, and through this incision the loose body was identified. It was not floating freely, but was tethered to the lateral facet of the patella with fibrous tissue. The bone fragment, along with a small osteophyte on the superolat
== END 2020-05-31 15:10 | disposition home or self-care (01) ==
LOC: OR 11:44
PROVIDERS: PCP Physician Assistant; Visit Provider Orthopaedic Surgery
PROC: (CPT 27331; principal; 2020-05-31 13:30)
DX: M25.761 Osteophyte, right knee (principal); I10 Essential (primary) hypertension; E11.9 Type 2 diabetes mellitus without complications; Z79.4 Long term (current) use of insulin; Z88.0 Allergy status to penicillin; Z79.82 Long term (current) use of aspirin
CPT/HCPCS: 27331; 73560; 76000; 82962; 96374

== ENCOUNTER → 2020-10-25 17:10 | Outpatient (CLI) | payer MEDICAID, SELFPAY ==
[2020-10-25 18:06] LABS: Basophils % 0.4 % (0.1-2.0); Eosinophils # 0.2 K/mm3 (0.0-0.4); Eosinophils % 2.6 % (0.1-12.0); Hematocrit 43.4 % (42.0-52.0); Hemoglobin 14.3 g/dL (14.1-18.0); Lymphocytes # 2.3 K/mm3 (0.7-4.5); Lymphocytes % 33.6 % (10-50); Mean Corpuscular HGB Conc 32.9 g/dL (31.8-35.4); Mean Corpuscular Hemoglobin 30.2 pg (27.0-31.2); Mean Corpuscular Volume 91.7 fl (80-94); Mean Platelet Volume 8.4 fl (7.4-10.4); Monocytes # 0.4 K/mm3 (0.1-1.0); Monocytes % 5.4 % (1.7-9.3); Neutrophils % 58.1 % (37.0-80.0); Platelet Count 228 K/mm3 (142-424); Red Blood Count 4.73 M/mm3 (4.60-6.20); Red Cell Distribution Width 16.2 % (11.5-17.5); White Blood Count 6.8 K/mm3 (4.8-10.8)
[2020-10-25 18:14] LABS: Alanine Aminotransferase 28 U/L (12-78); Albumin Level 4.2 g/dl (3.5-5.0); Albumin/Globulin Ratio 1.3 (1.1-1.8); Alkaline Phosphatase 107 U/L (38-126); Anion Gap 15.4 mEq/L (5-15); Aspartate Amino Transferase 26 U/L (17-59); Bilirubin,Total 0.7 mg/dl (0.2-1.3); Blood Urea Nitrogen 14 mg/dl (9-20); Calcium 9.8 mg/dl (8.4-10.2); Carbon Dioxide 27 mmol/L (22.0-30.0); Chloride 98 mmol/L (98-107); Chol/HDL Ratio 3.8 (1-3.5); Cholesterol 148 mg/dl (140-200); Estimated Glomerular Filt Rate 85 ml/min (>60); GFR (African American) 103 ML/MIN (>60); Globulin 3.3 g/dL (1.3-3.2); Glucose 268 mg/dl (74-100); HDL Cholesterol 39 mg/dl (40-60); Potassium 4.4 mmoL/L (3.5-5.1); Sodium 136 mmol/L (136-145); Total Protein,Serum 7.5 g/dl (6.3-8.2); Triglycerides 211 mg/dl (30-150); VLDL Cholesterol 42 mg/dL (0-40)
[2020-10-25 18:24] LABS: Direct LDL Cholesterol 87.24 mg/dL (100-129)
[2020-10-25 18:30] LABS: 25-OH Vitamin D, Total 20.6 ng/mL (30-100)
[2020-10-25 18:33] LABS: Free T4 (Free Thyroxine) 2.11 ng/dl (0.78-2.19)
[2020-10-25 18:48] LABS: Prostate Specific Ag Screen 0.7 ng/ml (0.0-4.0); Thyroid Stimulating Hormone < 0.02 uIU/mL (0.465-4.68)
[2020-10-25 18:49] LABS: Hemoglobin A1C 8.1 % (4.0-6.0)
[2020-10-25 19:06] LABS: Vitamin B12 316 pg/mL (239-931)
[2020-10-27 19:39] LABS: Testosterone,Total 68 ng/dL (264-916)
== END ==
PROVIDERS: Visit Provider Physician Assistant
DX: E03.9 Hypothyroidism, unspecified (principal); E11.9 Type 2 diabetes mellitus without complications; E78.5 Hyperlipidemia, unspecified; E34.9 Endocrine disorder, unspecified; D51.9 Vitamin B12 deficiency anemia, unspecified; E55.9 Vitamin D deficiency, unspecified; Z12.5 Encounter for screening for malignant neoplasm of prostate; Z79.4 Long term (current) use of insulin
CPT/HCPCS: 80053; 80061; 82306; 82607; 83036; 84403; 84439; 84443; 85025; G0103

== ENCOUNTER → 2020-12-17 13:49 | Outpatient (CLI) | payer MEDICAID, SELFPAY ==
[2020-12-17 14:15] LABS: Microalbumin/Creatinine Ratio 36.8
[2020-12-17 14:16] LABS: Amphetamine/Metha Screen,Urine Negative ng/ml (<1000)
[2020-12-17 14:17] LABS: Barbiturates Screen,Urine Negative ng/ml (<200)
[2020-12-17 14:18] LABS: Benzodiazepines Screen,Urine Negative ng/ml (<200); Cannabinoid Screen,Urine Negative ng/ml (<50)
[2020-12-17 14:19] LABS: Cocaine Screen,Urine Negative ng/ml (<300)
[2020-12-17 14:20] LABS: Methadone Screen,Urine Negative ng/ml (<300); Opiate Screen,Urine Negative ng/ml (<300)
[2020-12-17 14:21] LABS: Phencyclidine Screen,Urine Negative ng/ml (<25)
[2020-12-17 14:22] LABS: Creatinine,Urine Random 47 mg/dL (Not Estab.)
== END ==
PROVIDERS: Visit Provider Physician Assistant
DX: Z79.899 Other long term (current) drug therapy (principal); E11.9 Type 2 diabetes mellitus without complications; Z79.4 Long term (current) use of insulin
CPT/HCPCS: 80305; 82043; 82570

== ENCOUNTER → 2021-02-26 08:38 | Outpatient (CLI) | payer MEDICAID, SELFPAY | PROVIDERS: Visit Provider Surgery | DX: Z01.818 Encounter for other preprocedural examination (principal); Z20.822 Contact with and (suspected) exposure to COVID-19; Z12.11 Encounter for screening for malignant neoplasm of colon | CPT/HCPCS: U0003 ==

== ENCOUNTER → 2021-04-16 14:43 | Outpatient (CLI) | payer MEDICAID, SELFPAY ==
[2021-04-16 14:58] LABS: Basophils % 0.3 % (0.1-2.0); Eosinophils # 0.2 K/mm3 (0.0-0.4); Eosinophils % 3.6 % (0.1-12.0); Hematocrit 40.6 % (42.0-52.0); Hemoglobin 13.9 g/dL (14.1-18.0); Lymphocytes % 30.8 % (10-50); Mean Corpuscular HGB Conc 34.3 g/dL (31.8-35.4); Mean Corpuscular Hemoglobin 30.3 pg (27.0-31.2); Mean Corpuscular Volume 88.3 fl (80-94); Mean Platelet Volume 8.5 fl (7.4-10.4); Monocytes # 0.4 K/mm3 (0.1-1.0); Monocytes % 5.7 % (1.7-9.3); Neutrophils # 3.9 K/mm3 (1.8-7.8); Neutrophils % 59.5 % (37.0-80.0); Platelet Count 196 K/mm3 (142-424); Red Cell Distribution Width 15.6 % (11.5-17.5); White Blood Count 6.6 K/mm3 (4.8-10.8)
[2021-04-16 16:47] LABS: Alanine Aminotransferase 31 U/L (12-78); Albumin Level 4.3 g/dl (3.5-5.0); Albumin/Globulin Ratio 1.4 (1.1-1.8); Alkaline Phosphatase 96 U/L (38-126); Anion Gap 18.3 mEq/L (5-15); Aspartate Amino Transferase 27 U/L (17-59); Bilirubin,Total 0.5 mg/dl (0.2-1.3); Blood Urea Nitrogen 18 mg/dl (9-20); Calcium 9.4 mg/dl (8.4-10.2); Carbon Dioxide 23 mmol/L (22.0-30.0); Chloride 102 mmol/L (98-107); Chol/HDL Ratio 3.9 (1-3.5); Cholesterol 161 mg/dl (140-200); Estimated Glomerular Filt Rate 75 ml/min (>60); GFR (African American) 91 ML/MIN (>60); Globulin 3.1 g/dL (1.3-3.2); Glucose 255 mg/dl (74-100); HDL Cholesterol 41 mg/dl (40-60); Potassium 4.3 mmoL/L (3.5-5.1); Sodium 139 mmol/L (136-145); Total Protein,Serum 7.4 g/dl (6.3-8.2); Triglycerides 229 mg/dl (30-150); VLDL Cholesterol 46 mg/dL (0-40)
[2021-04-16 17:41] LABS: Hemoglobin A1C 9.1 % (4.0-6.0)
[2021-04-16 18:23] LABS: Free T4 (Free Thyroxine) 1.77 ng/dl (0.78-2.19)
[2021-04-16 19:03] LABS: Direct LDL Cholesterol 94.12 mg/dL (100-129)
[2021-04-16 21:33] LABS: Thyroid Stimulating Hormone 0.07 uIU/mL (0.465-4.68)
[2021-04-16 21:52] LABS: Vitamin B12 254 pg/mL (239-931)
[2021-04-16 22:39] LABS: 25-OH Vitamin D, Total 23.4 ng/mL (30-100)
[2021-04-18 09:39] LABS: Testosterone,Total 84 ng/dL (264-916)
== END ==
PROVIDERS: Visit Provider Physician Assistant
DX: R41.3 Other amnesia (principal); E03.9 Hypothyroidism, unspecified; E11.9 Type 2 diabetes mellitus without complications; E78.5 Hyperlipidemia, unspecified; D51.9 Vitamin B12 deficiency anemia, unspecified; E34.9 Endocrine disorder, unspecified; E55.9 Vitamin D deficiency, unspecified; Z79.4 Long term (current) use of insulin
CPT/HCPCS: 80053; 80061; 82306; 82607; 83036; 84403; 84439; 84443; 85025

== ENCOUNTER → 2021-04-23 11:08 | Outpatient (CLI) | payer MEDICAID, SELFPAY | PROVIDERS: Visit Provider Surgery | DX: Z01.818 Encounter for other preprocedural examination (principal); Z20.822 Contact with and (suspected) exposure to COVID-19 | CPT/HCPCS: U0003 ==

== ENCOUNTER 2021-04-25 06:11 | Day surgery (SDC) | payer MEDICAID, SELFPAY ==
[2021-04-23 14:19] VITALS: BMI 44.6
[2021-04-25 06:36] VITALS: BP 126/69; PULSE 64; RESP 20; TEMP 36.6; O2SAT 96
[2021-04-25 06:47] LABS: POC Glucose,Bedside 134 (70-110)
--- NOTE | 2021-04-25 06:54 | P.PN_ITS ---
[facility] Anesthesia Checklist - Patient Identification Patient Identification: Arm Band - Structural Data Admitted From: Home Planned Operative Procedure/s: Colonoscopy Consent for Planned Operative Procedure(s) Verified: Yes - NPO Status Verified Time NPO: 00:00 - Additional verifications Anesthesia Reactions: No Hx Blood Transfusions: No Blood Transfusion Reaction: No - Airway Assessment C-Spine Mobility Assessed: Yes TMJ Mobility Assessed: Yes Dentition: Edentulous - Neurological Assessment Level of Consciousness: Awake Hx Seizures: No Numbness or tingling in extremities: No - Anesthesia Plan Anesthesia Risk discussed: Yes Anesthesia Plan: Verified ASA Class: III Anesthesia Type: MAC [facility] History I have reviewed the patient's past medical history: Yes 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: Reports:: Anxiety, Carotid Stenosis, Coronary Artery Disease, Cerebrovascular Accident, Depression, Diabetes Mellitus Type 2, Hyperlipidemia, Hypertension, Lung Disease, Myocardial Infarction Denies:: Cancer, Diabetes Mellitus Type 1, Internal Pacemaker, MRSA, Seizures *Have you ever received a pneumonia vaccine?: No *Have you received a flu vaccine this season?: Yes Other 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: Reports: Arthritis, Hypothyroidism, Thyroid Disease. Denies: Blood Transfusion Reaction Anesthesia experience/problems:: None Laterality Cases: Right: Arthroscopy Knee, Carotid Endarterectomy, Bilateral: Cataract, Tonsillectomy Other Surgeries: Yes: No Previous Surgery, Cardiac Catheterization, Cardiac Surgery, Colonoscopy, Coronary Stent, Hernia Repair, Other. No: Pacemaker Amputation: No Fractures: Yes - *Social History Last grade of school completed: 11th or 12th Smoking Status: Never smoker Alcohol Intake: never Substance Use Type: denies use *Occupational Status:: disabled Housing: house Household Members: spouse *Travel in the last 8 weeks: None - Psychiatric History Pschychiatric History:: Reports:: Anxiety, Depression Family Hx:: Non-contributory
[2021-04-25 07:18] VITALS: O2SAT 97
[2021-04-25 08:17] VITALS: BP 110/63; PULSE 71; RESP 18; TEMP 36.8; O2SAT 93
--- NOTE | 2021-04-25 08:18 | HMH.SCOPE ---
- Procedure: Date: 04/25/21 Patient Date of :: 1955 Procedure Performed:: Colonoscopy with polypectomy and biopsy Indications:: History of large complex ridge polyp in transverse colon status post piecemeal excision and tattoo Performing Provider:: Phong Navarro MD Referring Provider:: . Sedation:: Monitored anesthesia care Procedure:: After informed consent was obtained the patient was taken to the endoscopy suite. Sedation ensued after the patient was transferred to the left lateral decubitus position. Pulse, blood pressure, and oxygen saturation were monitored throughout the procedure. Digital rectal exam revealed no significant abnormality. The colonoscope was placed in position. The entire colon was evaluated. The colonoscope was carefully removed and the patient was transferred to recovery in stable condition. Please see findings and specimens below for detail. Findings:: Bowel preparation moderate to poor Right colon polyp Complex lobulated large ridge polyp distal to tattoo in transverse colon Distal transverse colon polyp Note: The ridge polyp distal to the tattoo site was biopsied. Attempts to remove by way of snare were unsuccessful after elevation. The polyp was essentially behind a fold and difficult to completely visualize. Additional attempts at removal were deemed unwarranted at this setting. A short-term repeat colonoscopy with focused attention at this site (by the gastroenterology service) is warranted. If the polyp is unable be removed, surgical resection will be required. Specimens:: Right colon polyp Multiple biopsies of complex ridge polyp distal to tattoo in transverse colon Distal transverse colon polyp (snare) Recommendations:: Short-term repeat colonoscopy with focused attention at ridge polyp (by gastroenterology service) Complications:: No immediate with the exception of inability to completely remove polyp at single setting Estimated blood obtained (mL): 1
[2021-04-25 08:27] VITALS: BP 132/80; PULSE 73; RESP 18; O2SAT 96
[2021-04-25 08:37] VITALS: BP 128/79; PULSE 74; RESP 18; O2SAT 99
[2021-04-25 08:47] VITALS: BP 125/72; PULSE 74; RESP 16; O2SAT 100
== END 2021-04-25 08:50 | disposition home or self-care (01) ==
LOC: OUTP 06:12
PROVIDERS: PCP Physician Assistant; Visit Provider Surgery
PROC: 0DJD8ZZ Inspection of Lower Intestinal Tract, Via Natural or Artificial Opening Endoscopic (ICD-10-PCS; CPT 45385; principal; 2021-04-25 07:30)
DX: Z12.11 Encounter for screening for malignant neoplasm of colon (principal); K63.5 Polyp of colon; Z86.010 Personal history of colon polyps; E11.9 Type 2 diabetes mellitus without complications; I10 Essential (primary) hypertension; E78.5 Hyperlipidemia, unspecified; I25.2 Old myocardial infarction; F41.9 Anxiety disorder, unspecified; I25.10 Atherosclerotic heart disease of native coronary artery without angina pectoris; I65.29 Occlusion and stenosis of unspecified carotid artery; Z86.73 Personal history of transient ischemic attack (TIA), and cerebral infarction without residual deficits; E03.9 Hypothyroidism, unspecified; Z95.0 Presence of cardiac pacemaker
CPT/HCPCS: 45385; 45380; 82962; J2704

== ENCOUNTER → 2021-05-08 13:32 | Outpatient (CLI) | payer MEDICAID, SELFPAY ==
--- NOTE | 2021-05-08 13:43 | CT_ITS ---
PROCEDURE: CT HEAD/BRAIN WO CON CLINICAL INDICATION: pain behind left ear Short term memory loss COMPARISON: CT HDWO CT HEAD W/O CONTRAST from 12/18/[address] Temporal bone Without from 12/29/2018 TECHNIQUE: Axial images obtained. All CT scans at the facility use one or more dose reduction, viz: automated exposure control, ma/kV adjustment per patient size (including targeted exams where dose is matched to indication, i.e. head), or iterative reconstruction technique. FINDINGS: No midline shift, mass effect, intracranial hemorrhage, hydrocephalus, or extra-axial fluid collection is evident. The calvarium has an unremarkable appearance. Postsurgical changes are present involving the left mastoid sinus with mucosal thickening in the left mastoid region. There is sclerosis of the mastoid air cells on both sides. Mucosal thickening involves the middle ears on both sides. Intracranial vascular calcification is noted bilaterally. IMPRESSION: 1. No acute intracranial findings. 2. Bilateral mastoid and middle ear disease. The mastoid sinuses may be better evaluated with temporal bone CT if clinically desired Dictated by: Mauricio Cunningham MD 05/09/2021 10:21 Mauricio Cunningham MD in [place] 05/09/2021 10:21
== END ==
PROVIDERS: PCP Physician Assistant; Visit Provider Physician Assistant
DX: R51.9 Headache, unspecified (principal); R41.3 Other amnesia
CPT/HCPCS: 70450

== ENCOUNTER → 2021-05-15 09:17 | Outpatient (CLI) | payer MEDICAID, SELFPAY | PROVIDERS: Visit Provider Internal Medicine Gastroenterology | DX: Z01.812 Encounter for preprocedural laboratory examination (principal); Z11.52 Encounter for screening for COVID-19; Z12.11 Encounter for screening for malignant neoplasm of colon | CPT/HCPCS: U0003 ==

== ENCOUNTER → 2021-05-28 11:54 | Outpatient (CLI) | payer MEDICAID, SELFPAY ==
--- NOTE | 2021-05-28 11:54 | CT_ITS ---
Procedure: CT ANGIO NECK CT ANGIO HEAD CLINICAL HISTORY: memory loss Memory loss and headaches COMPARISON: CT CT HEAD/BRAIN WO CON from 05/08/[address] ANGIO HEAD from 05/28/2021 TECHNIQUE: IV Contrast: 100ml Isovue 370 Axial images obtained with sagittal and coronal reformats. All CT scans at the facility use one or more dose reduction, viz: automated exposure control, ma/kV adjustment per patient size (including targeted exams where dose is matched to indication, i.e. head), or iterative reconstruction technique. FINDINGS: CT angio neck: The aortic arch and brachiocephalic artery and proximal aspect of the common carotids and left subclavian artery appears unremarkable with no significant stenosis. Right carotid: Unremarkable appearing common carotid. There has been a prior right carotid endarterectomy which is widely patent. No evidence of internal carotid stenosis on the right. There is a mild amount of calcific plaque at the petrous portion of the right ICA. The right external carotid is unremarkable. There is mild soft tissue thickening around the right distal common carotid and proximal right ICA consistent with postsurgical change. Left carotid: The common carotid has an unremarkable appearance. Mild amount of eccentric calcific plaque is present at the proximal left ICA with 30 percent stenosis.. The distal left ICA has an unremarkable appearance. Vertebrals: The left vertebral is dominant. Prominent calcific plaque is present in the proximal intracranial segment of the left vertebral artery at the C1 level. Stenosis calculation is somewhat difficult due to the obliquity of the vessel and dense calcification. The stenosis however is felt to be at least 75 percent. The right vertebral artery is hypoplastic only with minimal contribution to the basilar artery. There is a persistent origin of right posterior cerebral artery.. CTA head: Nonocclusive calcific plaque is present in the ICA on both sides within the petrous and cavernous portion. No aneurysm, dissection, or major branch occlusive change apparent. No AVM. There is persistent origin of the right posterior cerebral artery as a normal variant. There No midline shift, mass effect, or enhancing lesion apparent. The left transverse sinus is small as is the left sigmoid sinus. Superior sagittal sinus and right transverse and sigmoid sinus have an unremarkable appearance. The there is a 2.5 x 1.5 cm mucous retention cyst on the left. IMPRESSION: 1. Status post right carotid endarterectomy with widely patent right ICA. 2. Proximally 30 percent stenosis of the proximal left ICA. 3. 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 Dictated by: Mauricio Cunningham MD 05/29/2021 10:04 Mauricio Cunningham MD in [facility] 05/29/2021 10:04
[2021-05-28 13:18] LABS: Anion Gap 11.6 mEq/L (5-15); Blood Urea Nitrogen 9 mg/dl (9-20); Calcium 9.2 mg/dl (8.4-10.2); Carbon Dioxide 28 mmol/L (22.0-30.0); Chloride 103 mmol/L (98-107); Estimated Glomerular Filt Rate 68 ml/min (>60); GFR (African American) 82 ML/MIN (>60); Glucose 190 mg/dl (74-100); Potassium 4.6 mmoL/L (3.5-5.1); Sodium 138 mmol/L (136-145)
== END ==
PROVIDERS: PCP Physician Assistant; Visit Provider Physician Assistant
DX: R41.3 Other amnesia (principal); R51.9 Headache, unspecified; R53.83 Other fatigue
CPT/HCPCS: 36415; 70496; 70498; 80048; Q9967

== ENCOUNTER → 2021-06-24 09:52 | Outpatient (CLI) | payer MEDICAID, SELFPAY | PROVIDERS: PCP Emergency Medicine; Visit Provider Physician Assistant | DX: Z20.822 Contact with and (suspected) exposure to COVID-19 (principal) | CPT/HCPCS: C9803; U0003; U0005 ==

== ENCOUNTER → 2021-08-01 14:11 | Outpatient (CLI) | payer MEDICAID, SELFPAY ==
[2021-08-01 14:22] LABS: Basophils % 0.3 % (0.1-2.0); Eosinophils # 0.2 K/mm3 (0.0-0.4); Eosinophils % 3.1 % (0.1-12.0); Hematocrit 43.2 % (42.0-52.0); Hemoglobin 14.8 g/dL (14.1-18.0); Lymphocytes # 2.2 K/mm3 (0.7-4.5); Lymphocytes % 34.7 % (10-50); Mean Corpuscular HGB Conc 34.2 g/dL (31.8-35.4); Mean Corpuscular Hemoglobin 31.4 pg (27.0-31.2); Mean Corpuscular Volume 91.9 fl (80-94); Mean Platelet Volume 8.6 fl (7.4-10.4); Monocytes # 0.4 K/mm3 (0.1-1.0); Monocytes % 6.1 % (1.7-9.3); Neutrophils # 3.5 K/mm3 (1.8-7.8); Neutrophils % 55.8 % (37.0-80.0); Platelet Count 214 K/mm3 (142-424); Red Blood Count 4.71 M/mm3 (4.60-6.20); Red Cell Distribution Width 14.8 % (11.5-17.5); White Blood Count 6.3 K/mm3 (4.8-10.8)
[2021-08-01 14:31] LABS: Alanine Aminotransferase 29 U/L (12-78); Albumin Level 4.2 g/dl (3.5-5.0); Albumin/Globulin Ratio 1.3 (1.1-1.8); Alkaline Phosphatase 85 U/L (38-126); Anion Gap 14.9 mEq/L (5-15); Aspartate Amino Transferase 27 U/L (17-59); Bilirubin,Total 0.6 mg/dl (0.2-1.3); Blood Urea Nitrogen 12 mg/dl (9-20); Calcium 9.5 mg/dl (8.4-10.2); Carbon Dioxide 25 mmol/L (22.0-30.0); Chloride 99 mmol/L (98-107); Chol/HDL Ratio 3.7 (1-3.5); Cholesterol 158 mg/dl (140-200); Estimated Glomerular Filt Rate 97 ml/min (>60); GFR (African American) 118 ML/MIN (>60); Globulin 3.2 g/dL (1.3-3.2); Glucose 247 mg/dl (74-100); HDL Cholesterol 43 mg/dl (40-60); Potassium 4.9 mmoL/L (3.5-5.1); Sodium 134 mmol/L (136-145); Total Protein,Serum 7.4 g/dl (6.3-8.2); Triglycerides 185 mg/dl (30-150); VLDL Cholesterol 37 mg/dL (0-40)
[2021-08-01 14:34] LABS: Microalbumin/Creatinine Ratio 29.1
[2021-08-01 14:37] LABS: Creatinine,Urine Random 104 mg/dL (Not Estab.)
[2021-08-01 14:47] LABS: 25-OH Vitamin D, Total 31.4 ng/mL (30-100)
[2021-08-01 14:49] LABS: T4 (Thyroxine) 10.2 ug/dl (5.53-11.0)
[2021-08-01 14:51] LABS: Hemoglobin A1C 8.8 % (4.0-6.0)
[2021-08-01 15:03] LABS: Thyroid Stimulating Hormone 0.69 uIU/mL (0.465-4.68)
[2021-08-01 15:20] LABS: Vitamin B12 291 pg/mL (239-931)
[2021-08-07 21:18] LABS: Testosterone, Total, LC/MS 129.8 ng/dL (264.0-916.0); Testosterone,Free 3.6 pg/mL (6.6-18.1)
== END ==
PROVIDERS: Visit Provider Physician Assistant
DX: E11.9 Type 2 diabetes mellitus without complications (principal); I10 Essential (primary) hypertension; E53.8 Deficiency of other specified B group vitamins; R53.83 Other fatigue; E66.9 Obesity, unspecified; Z68.41 Body mass index [BMI] 40.0-44.9, adult; Z79.4 Long term (current) use of insulin
CPT/HCPCS: 80053; 80061; 82043; 82306; 82570; 82607; 83036; 84402; 84403; 84436; 84443; 85025

== ENCOUNTER → 2021-08-28 13:17 | Outpatient (CLI) | payer MEDICAID, SELFPAY | PROVIDERS: PCP Physician Assistant; Visit Provider Nurse Practitioner | DX: Z20.822 Contact with and (suspected) exposure to COVID-19 (principal) | CPT/HCPCS: C9803; U0003; U0005 ==

== ENCOUNTER 2021-09-07 21:26 | Emergency (ER) | payer MEDICAID, SELFPAY ==
[2021-09-07 21:28] VITALS: BP 159/68; PULSE 85; RESP 16; TEMP 36.8; O2SAT 95; BMI 42.0
[2021-09-07 21:56] VITALS: BMI 42.0
--- NOTE | 2021-09-07 21:57 | XR_ITS ---
PROCEDURE INFORMATION: Exam: XR Chest Exam date and time: 09/07/2021 9:57 PM Age: 66 years old Clinical indication: Shortness of breath; Additional info: SOA TECHNIQUE: Imaging protocol: XR of the chest. Views: 2 views. COMPARISON: CR XR CHEST 2V 04/24/2020 12:39 PM FINDINGS: Lungs: Unremarkable. No consolidation. Pleural spaces: Unremarkable. No pleural effusion. No pneumothorax. Heart/Mediastinum: Unremarkable. No cardiomegaly. Bones/joints: Unremarkable. IMPRESSION: No acute findings.
[2021-09-07 22:01] VITALS: BP 144/77; PULSE 76; O2SAT 95
[2021-09-07 22:04] LABS: Coronavirus 19, PCR Not Detected (NotDetected); Influenza A, PCR Not Detected (NotDetected); Influenza B, PCR Not Detected (NotDetected)
[2021-09-07 22:07] LABS: Basophils # 0.1 K/mm3 (0-0.2); Basophils % 0.7 % (0.1-2.0); Eosinophils # 0.1 K/mm3 (0.0-0.4); Eosinophils % 1.4 % (0.1-12.0); Hemoglobin 13.7 g/dL (14.1-18.0); Lymphocytes # 2.4 K/mm3 (0.7-4.5); Lymphocytes % 29.2 % (10-50); Mean Corpuscular HGB Conc 34.2 g/dL (31.8-35.4); Mean Corpuscular Hemoglobin 31.6 pg (27.0-31.2); Mean Corpuscular Volume 92.3 fl (80-94); Mean Platelet Volume 8.4 fl (7.4-10.4); Monocytes # 0.6 K/mm3 (0.1-1.0); Monocytes % 7.3 % (1.7-9.3); Neutrophils % 61.4 % (37.0-80.0); Platelet Count 214 K/mm3 (142-424); Red Blood Count 4.33 M/mm3 (4.60-6.20); Red Cell Distribution Width 15.1 % (11.5-17.5); White Blood Count 8.1 K/mm3 (4.8-10.8)
[2021-09-07 22:13] LABS: Chloride 96 mmol/L (98-107); Potassium 4.4 mmoL/L (3.5-5.1); Sodium 132 mmol/L (136-145)
[2021-09-07 22:16] LABS: Alanine Aminotransferase 28 U/L (12-78); Albumin/Globulin Ratio 1.4 (1.1-1.8); Alkaline Phosphatase 117 U/L (38-126); Anion Gap 14.4 mEq/L (5-15); Aspartate Amino Transferase 23 U/L (17-59); Bilirubin,Total 0.4 mg/dl (0.2-1.3); Blood Urea Nitrogen 18 mg/dl (9-20); Carbon Dioxide 26 mmol/L (22.0-30.0); Creatinine Clearance Estimated 79 mL/min (50-200); Estimated Glomerular Filt Rate 75 ml/min (>60); GFR (African American) 91 ML/MIN (>60); Globulin 2.9 g/dL (1.3-3.2); Total Protein,Serum 6.9 g/dl (6.3-8.2)
[2021-09-07 22:17] LABS: Glucose 470 mg/dl (74-100)
[2021-09-07 22:21] LABS: C-Reactive Protein 58.1 mg/L (0-4)
[2021-09-07 22:22] LABS: Lactic Acid 2.1 mmol/L (0.7-2.1)
[2021-09-07 22:31] VITALS: BP 150/70; PULSE 77; O2SAT 95
[2021-09-07 22:32] LABS: Erythrocyte Sedimentation Rate 46 mm/hr (0-20)
[2021-09-07 22:34] LABS: Procalcitonin 0.056 ng/mL (0.0-2.0)
--- NOTE | 2021-09-07 22:45 | PC.NURSE ---
was notified of patients critical blood glucose level of 470. Ordered to give 10 of regular insulin IV. Verified insulin dosage with Shira Rose rn.
[2021-09-07 23:01] VITALS: BP 136/73; PULSE 72; O2SAT 94
--- NOTE | 2021-09-07 23:08 | HMH.EDURI ---
ED Disposition Clinical Impression: Bronchitis Disposition: Home, Self-Care Condition on Discharge: Good Instructions: DI for Acute Bronchitis Additional Instructions: use meds and see pcp for follow up Prescriptions: Benzonatate [Benzonatate 100mg cap] 100 mg PO TID #21 cap Transmission Status: Pending to [id number] Azithromycin [Zithromax 250mg tab] 250 mg PO DIRECTED #6 tab Transmission Status: Pending to [id number] Referrals: Shira Valladares PA [Primary Care Provider] - - Critical Care Critical Care Time: No Attestation: On 09/07/21, the high probability of a clinically significant, sudden or life threatening deterioration of the following system(s) required my full and direct attention, intervention and personal management. The time I documented below is in addition to time spent performing reported procedures but includes the following listed in this critical care notation. Medical Decision Making - Medical Records Medical records reviewed: Yes: I reviewed the patient's medical records. - Joel Inquiry Pt receiving controlled substance: No Vital Signs: 09/07/21 21:28 09/07/21 22:01 09/07/21 22:31 Temperature 98.3 F Temperature Source Oral Pulse Rate 76 77 Pulse Rate [Apical] 85 Respiratory Rate 16 Blood Pressure 144/77 H 150/70 H Blood Pressure [Right Arm] 159/68 H Blood Pressure Mean 99 105 Blood Pressure Mean [Right Arm] 98 Blood Pressure Source [Right Arm] Automatic Cuff Blood Pressure Position [Right Arm] Sitting 02 Sat by Pulse Oximetry 95 95 95 Oxygen Delivery Method Room Air - Lab Data Lab results reviewed: Yes: I reviewed the patient's lab results. Lab Results 09/07/21 21:49: WBC 8.1, RBC 4.33 L, Hgb 13.7 L, Hct 40.0 L, MCV 92.3, MCH 31.6 H, MCHC 34.2, RDW 15.1, Plt Count 214, MPV 8.4, Neut % (Auto) 61.4, Lymph % (Auto) 29.2, [place] % (Auto) 7.3, Eos % (Auto) 1.4, Baso % (Auto) 0.7, Neut # (Auto) 5.0, Lymph # (Auto) 2.4, [place] # (Auto) 0.6, Eos # (Auto) 0.1, Baso # (Auto) 0.1, ESR 46 H 09/07/21 21:49: Sodium 132 L, Potassium 4.4, Chloride 96 L, Carbon Dioxide 26, Anion Gap 14.4, BUN 18, Creatinine 1.00, Estimated Creat Clear 79, Estimated GFR 75, Est GFR ( Amer) 91, Glucose 470 H*, Calcium 9.0, Total Bilirubin 0.4, AST 23, ALT 28, Alkaline Phosphatase 117, C-Reactive Protein 58.1 H, Total Protein 6.9, Albumin 4.0, Globulin 2.9, Albumin/Globulin Ratio 1.4 09/07/21 21:49: Lactate 2.1 09/07/21 21:49: Procalcitonin 0.056 09/07/21 21:49: SARS-CoV-2 (PCR) Not detected, Influenza A Untype (PCR) Not detected, Influenza Type B (PCR) Not detected Result diagrams: 09/07/21 21:49 09/07/21 21:49 Orders (Tests/Meds): ED MEDICATIONS Generic Name Dose Route Start Last Admin Trade Name Freq PRN Reason Stop Dose Admin Sodium Chloride 1,000 mls @ 999 mls/hr 09/07/21 22:45 09/07/21 22:35 Sod Chlor 0.9% 1000ml Bag IV 09/07/21 23:45 999 mls/hr .Q1H1M OLIVIA Administration Discontinued Medications Generic Name Dose Route Start Last Admin Trade Name Freq PRN Reason Stop Dose Admin Insulin Human Regular 10 unit 09/07/21 22:31 09/07/21 22:35 Insulin Human Regular 100 Units/Ml 10ml Vial IVP 09/07/21 22:32 10 unit ONCE ONE Administration ORDERS Category Date Time Status Rapid Strep Scrn Group A [Strep Scrn Group A (Rapid)] Lab 09/07/21 21:49 Ordered Stat Blood Culture Stat Micro 09/07/21 21:49 Received - Radiology Data #1 Image(s): Chest Image Reviewed: Yes I have reviewed radiologist's interpretation Preliminary Findings: Normal/NAD Medical Decision Narrative: uri sx and has elevated glu -and stable exam and cxr URI/Sore Throat HPI - General Chief Complaint: Upper Respiratory Infection Stated Complaint: cough,REECE, runny nose Time Seen by Provider: 09/07/21 23:08 Mode of Arrival: Ambulatory Source of Information: Patient, Medical Record Limitations: No Limitations
[2021-09-07 23:14] LABS: POC Glucose,Bedside 388 (70-110)
[2021-09-07 23:25] VITALS: BP 118/93; PULSE 80; RESP 20; TEMP 36.8; O2SAT 96
[2021-09-07 23:44] LABS: POC Glucose,Bedside 376 (70-110)
== END 2021-09-07 23:41 | disposition home or self-care (01) ==
PROVIDERS: Emergency Provider Emergency Medicine; PCP Physician Assistant
DX: J20.9 Acute bronchitis, unspecified (principal); Z20.822 Contact with and (suspected) exposure to COVID-19; I10 Essential (primary) hypertension; E78.5 Hyperlipidemia, unspecified; E03.9 Hypothyroidism, unspecified; E11.9 Type 2 diabetes mellitus without complications; F41.8 Other specified anxiety disorders; Z88.0 Allergy status to penicillin; Z79.899 Other long term (current) drug therapy
CPT/HCPCS: 71046; 80053; 82962; 83605; 84145; 85025; 85651; 86140; 87040; 96365; 96375; 99283; C9803; U0003; U0005

== ENCOUNTER → 2021-11-04 11:04 | Outpatient (CLI) | payer MEDICAID, SELFPAY | PROVIDERS: Visit Provider Nurse Practitioner | DX: U07.1 COVID-19 (principal) | CPT/HCPCS: C9803; U0003; U0005 ==

== ENCOUNTER → 2021-11-18 09:38 | Outpatient (CLI) | payer MEDICAID, SELFPAY ==
[2021-11-19 10:39] LABS: Covid-19 Nasal PCR Sendout Lex NOT DETECTED
== END ==
PROVIDERS: PCP Physician Assistant; Visit Provider Nurse Practitioner
DX: Z20.822 Contact with and (suspected) exposure to COVID-19 (principal)
CPT/HCPCS: C9803; U0004; U0005

== ENCOUNTER 2021-12-25 22:17 | Emergency (ER) | payer MEDICAID, SELFPAY ==
--- NOTE | 2021-12-25 22:07 | ECG_ITS ---
APPROVED REPORT Exam: Resting ECG HR:97 bpm ECG Measurements Heart Rate 97 AXES DC 176 P -85 QRSd 94 QRS 79 QT 360 T 70 QTc 415 Conclusion SINUS RHYTHM POSSIBLE LEFT ATRIAL ENLARGEMENT [-0.1mV P-WAVE IN V1/V2] BORDERLINE ECG UNCONFIRMED REPORT Electronically signed by : Florian Hernandez MD 12/26/2021 17:28:08
[2021-12-25 22:17] VITALS: BP 188/91; PULSE 92; RESP 17; TEMP 36.9; O2SAT 98; BMI 42.8
--- NOTE | 2021-12-25 22:27 | XR_ITS ---
PROCEDURE INFORMATION: Exam: XR Chest Exam date and time: 12/25/2021 10:27 PM Age: 66 years old Clinical indication: Sternal or substernal pain; Prior surgery; Surgery type: HX cardiac stent; Patient HX: Chest pain/upper abdomen pain. Nonsmoker TECHNIQUE: Imaging protocol: XR of the chest. Views: 2 views. COMPARISON: CR XR CHEST 2V 09/07/2021 9:57 PM FINDINGS: Lungs: The lungs are adequately inflated. No focal consolidation. Pleural spaces: No pneumothorax or pleural effusion. Heart/Mediastinum: The cardiomediastinal silhouette has normal size and contour. Bones/joints: Multilevel degenerative type changes of the spine. No acute osseous abnormality. Intraperitoneal space: The visualized abdomen is unremarkable. IMPRESSION: No acute cardiopulmonary disease.
[2021-12-25 22:30] VITALS: BP 163/83; PULSE 92; O2SAT 95
[2021-12-25 22:52] LABS: Microscopic, Urine URINE MICROSCOPIC (MICROSCOPIC)
[2021-12-25 22:55] LABS: Appearance,Urine CLEAR (Clear); Blood, Urine Negative (Negative); Color,Urine YELLOW (Yellow); Glucose,Urine (UA) 3+ (Negative); Ketones,Urine Negative (Negative); Leukocyte Esterase,Urine Negative (Negative); Nitrate,Urine Negative (Negative); Protein,Urine Negative (Negative)
[2021-12-25 22:56] LABS: Alanine Aminotransferase 265 U/L (12-78); Albumin Level 4.3 g/dl (3.5-5.0); Alkaline Phosphatase 129 U/L (38-126); Amylase 61 U/L (30-110); Anion Gap 15.3 mEq/L (5-15); Aspartate Amino Transferase 410 U/L (17-59); Bilirubin, Conjugated 1.3 mg/dL (0.0-0.3); Bilirubin,Direct 2.4 mg/dl (0.0-0.4); Bilirubin,Indirect 0.9 mg/dL (0.0-0.9); Bilirubin,Total 3.3 mg/dl (0.2-1.3); Bilirubin,Unconjugated 0.9 mg/dL (0.0-1.1); Blood Urea Nitrogen 12 mg/dl (9-20); Carbon Dioxide 24 mmol/L (22.0-30.0); Chloride 97 mmol/L (98-107); Creatinine Clearance Estimated 79 mL/min (50-200); Estimated Glomerular Filt Rate 97 ml/min (>60); GFR (African American) 118 ML/MIN (>60); INR 0.95 (0.9-1.1); Lipase 424 U/L (23-300); Potassium 4.3 mmoL/L (3.5-5.1); Prothrombin Time 10.8 seconds (10.1-12.5); Sodium 132 mmol/L (136-145); Total Protein,Serum 7.5 g/dl (6.3-8.2)
[2021-12-25 23:00] VITALS: BP 125/77; PULSE 88; O2SAT 95
[2021-12-25 23:01] LABS: Glucose 450 mg/dl (74-100); Lactic Acid 3.1 mmol/L (0.7-2.1)
[2021-12-25 23:02] LABS: C-Reactive Protein 14.4 mg/L (0-4)
[2021-12-25 23:04] LABS: Bilirubin,Urine 1+ (Negative)
--- NOTE | 2021-12-25 23:04 | PC.NURSE ---
MD AWARE OF ELEVATED BLOOD SUGAR.
[2021-12-25 23:06] LABS: WBC,Urine Occasional #/hpf (0-3)
[2021-12-25 23:09] LABS: Erythrocyte Sedimentation Rate 19 mm/hr (0-20)
[2021-12-25 23:16] LABS: Procalcitonin 0.122 ng/mL (0.0-2.0); T4 (Thyroxine) 15.2 ug/dl (5.53-11.0)
--- NOTE | 2021-12-25 23:22 | CT_ITS ---
PROCEDURE INFORMATION: Exam: CT Abdomen And Pelvis With Contrast Exam date and time: 12/25/2021 11:22 PM Age: 66 years old Clinical indication: Abdominal pain; Additional info: Abd pain TECHNIQUE: Imaging protocol: Computed tomography of the abdomen and pelvis with contrast. Radiation optimization: All CT scans at this facility use at least one of these dose optimization techniques: automated exposure control; mA and/or kV adjustment per patient size (includes targeted exams where dose is matched to clinical indication); or iterative reconstruction. Contrast material: ISOVUE; Contrast volume: 75 ml; Contrast route: IV; COMPARISON: CT ABDOMEN PELVIS WO CON 06/14/2019 8:21 AM FINDINGS: Lungs: Lung bases are clear. Pleural spaces: No pleural effusion. Heart: The visualized heart is normal. No pericardial effusion. Liver: Mild enlargement of the liver. Diffusely decreased attenuation of the liver. Gallbladder and bile ducts: The gallbladder has normal size. No biliary ductal dilatation. Pancreas: The pancreas is unremarkable. Spleen: The spleen is unremarkable. Adrenal glands: The adrenal glands are normal. Kidneys and ureters: The kidneys enhance symmetrically without hydronephrosis. Subcentimeter hypodensity within the right kidney is too small further characterize. The ureters have normal course and caliber without stone. Stomach and bowel: The stomach is normal. The small and large bowel have normal course and caliber. No evidence of bowel obstruction. No pericolonic inflammatory stranding. Appendix: The appendix is normal. Intraperitoneal space: No significant peritoneal free fluid. No free peritoneal air. Vasculature: The vasculature demonstrates diffuse mild atherosclerotic calcification. Lymph nodes: No enlarged lymph nodes. Urinary bladder: The bladder is normal without focal wall thickening. Reproductive: Unremarkable as visualized. Bones/joints: Multilevel degenerative type changes of the spine. No acute osseous abnormality. Soft tissues: Fat containing left inguinal hernia. IMPRESSION: 1. No acute intra-abdominal/pelvic abnormality. 2. Hepatic steatosis. 3. Other findings as above.
[2021-12-25 23:27] LABS: Troponin I < 0.01 ng/ml (0.00-0.034)
[2021-12-25 23:29] LABS: Basophils # 0.1 K/mm3 (0-0.2); Basophils % 0.8 % (0.1-2.0); Eosinophils # 0.1 K/mm3 (0.0-0.4); Eosinophils % 1.6 % (0.1-12.0); Hematocrit 43.4 % (42.0-52.0); Hemoglobin 14.5 g/dL (14.1-18.0); Lymphocytes # 1.2 K/mm3 (0.7-4.5); Lymphocytes % 17.6 % (10-50); Mean Corpuscular HGB Conc 33.3 g/dL (31.8-35.4); Mean Corpuscular Hemoglobin 30.1 pg (27.0-31.2); Mean Corpuscular Volume 90.4 fl (80-94); Mean Platelet Volume 8.8 fl (7.4-10.4); Monocytes # 0.4 K/mm3 (0.1-1.0); Monocytes % 5.7 % (1.7-9.3); Neutrophils # 5.2 K/mm3 (1.8-7.8); Neutrophils % 74.4 % (37.0-80.0); Platelet Count 218 K/mm3 (142-424); Red Cell Distribution Width 14.8 % (11.5-17.5)
[2021-12-25 23:30] LABS: Thyroid Stimulating Hormone 0.02 uIU/mL (0.465-4.68)
[2021-12-26] VITALS: BP 142/76; PULSE 73; O2SAT 95
[2021-12-26 00:01] VITALS: PULSE 87
--- NOTE | 2021-12-26 00:13 | HMH.EDNVD ---
ED Disposition Clinical Impression: Elevated LFTs Abdominal pain Qualifiers: Abdominal location: right upper quadrant Qualified Code(s): R10.11 - Right upper quadrant pain Disposition: Home, Self-Care Condition on Discharge: Good Instructions: DI for General Gallbladder Conditions Additional Instructions: fluids and see pcp for follow up Referrals: Shira Valladares PA [Primary Care Provider] - - Critical Care Critical Care Time: No Attestation: On 12/25/21, the high probability of a clinically significant, sudden or life threatening deterioration of the following system(s) required my full and direct attention, intervention and personal management. The time I documented below is in addition to time spent performing reported procedures but includes the following listed in this critical care notation. Medical Decision Making - Medical Records Medical records reviewed: Yes: I reviewed the patient's medical records. - Joel Inquiry Pt receiving controlled substance: No Vital Signs: 12/25/21 22:17 12/25/21 22:30 12/25/21 23:00 Temperature 98.4 F Temperature Source Oral Pulse Rate 92 H 88 Pulse Rate [Left Radial] 92 H Respiratory Rate 17 Blood Pressure 163/83 H 125/77 Blood Pressure [Right Arm] 188/91 H Blood Pressure Mean [Right Arm] 123 Blood Pressure Source [Right Arm] Automatic Cuff Blood Pressure Position [Right Arm] Sitting 02 Sat by Pulse Oximetry 98 95 95 Oxygen Delivery Method Room Air Room Air Room Air 12/26/21 00:00 12/26/21 00:01 12/26/21 00:30 Temperature Temperature Source Pulse Rate 73 87 71 Pulse Rate [Left Radial] Respiratory Rate Blood Pressure 142/76 H 137/65 Blood Pressure [Right Arm] Blood Pressure Mean [Right Arm] Blood Pressure Source [Right Arm] Blood Pressure Position [Right Arm] 02 Sat by Pulse Oximetry 95 95 Oxygen Delivery Method Room Air Room Air 12/26/21 01:00 Temperature Temperature Source Pulse Rate 69 Pulse Rate [Left Radial] Respiratory Rate Blood Pressure 125/71 Blood Pressure [Right Arm] Blood Pressure Mean [Right Arm] Blood Pressure Source [Right Arm] Blood Pressure Position [Right Arm] 02 Sat by Pulse Oximetry 97 Oxygen Delivery Method Room Air - Lab Data Lab results reviewed: Yes: I reviewed the patient's lab results. Lab Results 12/25/21 22:20: Sodium 132 L, Potassium 4.3, Chloride 97 L, Carbon Dioxide 24, Anion Gap 15.3 H, BUN 12, Creatinine 0.80, Estimated Creat Clear 79, Estimated GFR 97, Est GFR ( Amer) 118, Glucose 450 H*, Calcium 9.0, Total Bilirubin 3.3 H, Direct Bilirubin 2.4 H, Conjugated Bilirubin 1.3 H, Indirect Bilirubin 0.9, Unconjugated Bilirubin 0.9, AST 410 H*, ALT 265 H, Alkaline Phosphatase 129 H, Troponin I < 0.01, C-Reactive Protein 14.4 H, Total Protein 7.5, Albumin 4.3, Amylase 61, Lipase 424 H 12/25/21 22:20: ESR 19 12/25/21 22:20: Lactate 3.1 H 12/25/21 22:20: Procalcitonin 0.122, TSH 0.02 L, Thyroxine (T4) 15.2 H 12/25/21 22:20: PT 10.8, INR 0.95 12/25/21 22:20: WBC 7.0, RBC 4.80, Hgb 14.5, Hct 43.4, MCV 90.4, MCH 30.1, MCHC 33.3, RDW 14.8, Plt Count 218, MPV 8.8, Neut % (Auto) 74.4, Lymph % (Auto) 17.6, [place] % (Auto) 5.7, Eos % (Auto) 1.6, Baso % (Auto) 0.8, Neut # (Auto) 5.2, Lymph # (Auto) 1.2, [place] # (Auto) 0.4, Eos # (Auto) 0.1, Baso # (Auto) 0.1 12/25/21 22:47: Urine Color Yellow, Urine Appearance Clear, Urine pH 6.0, Ur Specific [place] 1.010, Urine Protein Negative, Urine Glucose (UA) 3+, Urine Ketones Negative, Urine Blood Negative, Urine Nitrate Negative, Urine Bilirubin 1+ A, Urine Urobilinogen 2.0, Ur Leukocyte Esterase Negative, Urine RBC None, Urine WBC Occasional, Ur Squamous Epith Cells 3-5, Urine Bacteria None 12/26/21 01:39: Troponin I < 0.01 12/26/21 01:39: Lactate 1.5 Result diagrams: 12/25/21 22:20 12/25/21 22:20 Orders (Tests/Meds): ED MEDICATIONS Generic Name Dose Route Start Last Admin Trade Name Freq PRN Reason Stop Dose
--- NOTE | 2021-12-26 00:29 | PC.NURSE ---
Nitro paste removed per MD
[2021-12-26 00:30] VITALS: BP 137/65; PULSE 71; O2SAT 95
[2021-12-26 01:00] VITALS: BP 125/71; PULSE 69; O2SAT 97
[2021-12-26 01:43] LABS: Reflex Lactic Add Lactic Reflex
[2021-12-26 02:02] LABS: Lactic Acid Follow Up (RFLX 1) 1.5 mmol/L (0.7-2.1)
[2021-12-26 02:16] LABS: Troponin I < 0.01 ng/ml (0.00-0.034)
[2021-12-26 02:48] LABS: Hemoglobin A1C 11.3 % (4.0-6.0)
[2021-12-26 03:05] VITALS: BP 119/72; PULSE 74; RESP 18; TEMP 36.6; O2SAT 95
== END 2021-12-26 03:08 | disposition home or self-care (01) ==
PROVIDERS: Emergency Provider Emergency Medicine; PCP Physician Assistant
DX: R10.11 Right upper quadrant pain (principal); R07.9 Chest pain, unspecified; I25.10 Atherosclerotic heart disease of native coronary artery without angina pectoris; R94.5 Abnormal results of liver function studies; F41.8 Other specified anxiety disorders; E11.65 Type 2 diabetes mellitus with hyperglycemia; E78.5 Hyperlipidemia, unspecified; I10 Essential (primary) hypertension; I25.2 Old myocardial infarction; E03.9 Hypothyroidism, unspecified; Z79.899 Other long term (current) drug therapy
CPT/HCPCS: 71046; 74177; 80048; 80076; 81001; 82150; 83036; 83605; 83690; 84145; 84436; 84443; 84484; 85025; 85610; 85651; 86140; 93005; 96365; 96366; 96375; 99284; J2405; Q9967

== ENCOUNTER → 2021-12-27 08:03 | Outpatient (CLI) | payer MEDICAID, SELFPAY ==
--- NOTE | 2021-12-27 08:04 | US_ITS ---
FINAL REPORT CLINICAL HISTORY: epigastric pain, vomiting, elevated LFTs FINDINGS: Sonographic images of the right upper quadrant were obtained. The pancreas is partially obscured.The liver is fatty infiltrated. The gallbladder is partially collapsed with wall thickening up to 6 mm as a nonspecific finding. If indicated, nuclear medicine hepatobiliary scan. The common duct is dilated up to 8 mm as a nonspecific finding. Limited images of the right kidney are unremarkable. IMPRESSION: Partially collapsed gallbladder with nonspecific wall thickening and dilatation of the common duct. If indicated, MRCP may be helpful. Fatty infiltration of the liver. Reviewed, Interpreted and Dictated by Josiah Walden III, MD Transcribed by Matthew Blakely Authenticated by Josiah Walden III, MD on 12/27/2021 09:18:08 AM [facility]
[2021-12-27 13:44] LABS: Alanine Aminotransferase 409 U/L (12-78); Albumin Level 4.1 g/dl (3.5-5.0); Albumin/Globulin Ratio 1.3 (1.1-1.8); Alkaline Phosphatase 193 U/L (38-126); Anion Gap 12.3 mEq/L (5-15); Aspartate Amino Transferase 311 U/L (17-59); Bilirubin,Total 2.5 mg/dl (0.2-1.3); Blood Urea Nitrogen 13 mg/dl (9-20); Calcium 9.1 mg/dl (8.4-10.2); Carbon Dioxide 26 mmol/L (22.0-30.0); Chloride 101 mmol/L (98-107); Estimated Glomerular Filt Rate 97 ml/min (>60); GFR (African American) 118 ML/MIN (>60); Globulin 3.1 g/dL (1.3-3.2); Glucose 270 mg/dl (74-100); Potassium 4.3 mmoL/L (3.5-5.1); Sodium 135 mmol/L (136-145); Total Protein,Serum 7.2 g/dl (6.3-8.2)
[2021-12-27 13:45] LABS: Hemoglobin A1C 10.6 % (4.0-6.0)
[2021-12-28 11:15] LABS: Hep A Ab, IgM Negative (Negative); Hepatitis B Core Antibody IgM Negative (Negative); Hepatitis B Surface Antigen Negative (Negative); Hepatitis C Antibody <0.1 s/co ratio (0.0-0.9)
== END ==
PROVIDERS: PCP Physician Assistant; Visit Provider Physician Assistant
DX: R10.13 Epigastric pain (principal); R79.89 Other specified abnormal findings of blood chemistry; R74.8 Abnormal levels of other serum enzymes; R94.5 Abnormal results of liver function studies
CPT/HCPCS: 76705; 80053; 80074; 83036

== ENCOUNTER → 2021-12-27 14:52 | Outpatient (CLI) | payer MEDICAID, SELFPAY | PROVIDERS: Visit Provider Physician Assistant | DX: R79.89 Other specified abnormal findings of blood chemistry (principal) ==

== ENCOUNTER → 2022-01-07 08:30 | Outpatient (CLI) | payer MEDICAID, SELFPAY ==
--- NOTE | 2022-01-07 08:30 | MR_ITS ---
FINAL REPORT CLINICAL HISTORY: partially collapsed gb. abd pain after eating with nausea and vomiting. abnormal us. COMPARISON: 12/25/2021 FINDINGS: Multiplanar MR imaging of the abdomen was performed without contrast. An MRCP was also obtained. 3-D images were obtained and reviewed. Images of the liver reveal no evidence of mass. The gallbladder is collapsed with mild wall thickening which is nonspecific, chronic cholecystitis is not excluded. The common duct measures 7 mm which is in the upper limits of normal without evidence of bile duct stone. There is a less than 1 cm cyst in the upper pole of the left kidney. IMPRESSION: Collapsed gallbladder with mild wall thickening, chronic cholecystitis is not excluded. Reviewed, Interpreted and Dictated by Josiah Walden III, MD Transcribed by Janay Jade Authenticated by Josiah Walden III, MD on 01/07/2022 12:16:[address] [facility]
== END ==
PROVIDERS: PCP Physician Assistant; Visit Provider Physician Assistant
DX: R93.2 Abnormal findings on diagnostic imaging of liver and biliary tract (principal)
CPT/HCPCS: 74181; 76376

== ENCOUNTER → 2022-01-22 09:52 | Outpatient (CLI) | payer MEDICAID, SELFPAY ==
[2022-01-22 09:55] LABS: MANUAL DIFFERENTIAL MANUAL DIFFERENTIAL (MANUAL DIFF)
[2022-01-22 10:20] LABS: Basophils # 0.1 K/mm3 (0-0.2); Basophils % 0.7 % (0.1-2.0); Eosinophils # 0.3 K/mm3 (0.0-0.4); Eosinophils % 3.8 % (0.1-12.0); Hemoglobin 14.3 g/dL (14.1-18.0); Lymphocytes # 2.1 K/mm3 (0.7-4.5); Lymphocytes % 31.8 % (10-50); Mean Corpuscular HGB Conc 34.1 g/dL (31.8-35.4); Mean Corpuscular Volume 90.7 fl (80-94); Mean Platelet Volume 8.5 fl (7.4-10.4); Monocytes # 0.4 K/mm3 (0.1-1.0); Monocytes % 6.3 % (1.7-9.3); Neutrophils # 3.8 K/mm3 (1.8-7.8); Neutrophils % 57.3 % (37.0-80.0); Platelet Count 207 K/mm3 (142-424); Red Blood Count 4.63 M/mm3 (4.60-6.20); Red Cell Distribution Width 15.3 % (11.5-17.5); White Blood Count 6.6 K/mm3 (4.8-10.8)
[2022-01-22 10:37] LABS: Chloride 101 mmol/L (98-107); Potassium 4.4 mmoL/L (3.5-5.1); Sodium 135 mmol/L (136-145)
[2022-01-22 10:40] LABS: Alanine Aminotransferase 41 U/L (12-78); Albumin/Globulin Ratio 1.4 (1.1-1.8); Alkaline Phosphatase 106 U/L (38-126); Anion Gap 11.4 mEq/L (5-15); Aspartate Amino Transferase 37 U/L (17-59); Bilirubin,Total 0.6 mg/dl (0.2-1.3); Blood Urea Nitrogen 14 mg/dl (9-20); Carbon Dioxide 27 mmol/L (22.0-30.0); Estimated Glomerular Filt Rate 85 ml/min (>60); GFR (African American) 103 ML/MIN (>60); Globulin 2.9 g/dL (1.3-3.2); Total Protein,Serum 6.9 g/dl (6.3-8.2)
[2022-01-22 10:41] LABS: Calcium 8.7 mg/dl (8.4-10.2); Glucose 290 mg/dl (74-100)
[2022-01-22 13:38] LABS: Eosinophils % 2 % (0-3); Lymphocytes % 37 % (10-50); Monocytes % 5 % (2-9); Neutrophils % 56 % (42-76); Platelet Estimate Normal; RBC Morphology Normal; Total Cells Counted 100
== END ==
PROVIDERS: Visit Provider Surgery
DX: K82.9 Disease of gallbladder, unspecified (principal)
CPT/HCPCS: 36415; 80053; 85007; 85014; 85018; 85048; 85049

== ENCOUNTER → 2022-02-25 11:11 | Outpatient (CLI) | payer MEDICAID, SELFPAY | PROVIDERS: Visit Provider Surgery | DX: Z01.812 Encounter for preprocedural laboratory examination (principal); Z11.52 Encounter for screening for COVID-19; K80.10 Calculus of gallbladder with chronic cholecystitis without obstruction; E80.6 Other disorders of bilirubin metabolism | CPT/HCPCS: C9803; U0003; U0005 ==

== ENCOUNTER 2022-02-27 07:34 | Day surgery (SDC) | payer MEDICAID, SELFPAY ==
[2022-02-25 11:30] VITALS: BMI 42.7
[2022-02-27] VITALS (10 sets, daily range): BP systolic 95–169; BP diastolic 47–78; PULSE 58–73; RESP 12–18; TEMP 36.2–38; O2SAT 92–97
[2022-02-27 08:09] LABS: POC Glucose,Bedside 288 (70-110)
--- NOTE | 2022-02-27 08:32 | P.PN_ITS ---
[facility] Anesthesia Checklist - Patient Identification Patient Identification: Arm Band, Verbal (Name & ) - Structural Data Admitted From: Home Planned Operative Procedure/s: Laparascopic Cholecystectomy Consent for Planned Operative Procedure(s) Verified: Yes Verified Documents: Surgical Consent - NPO Status Verified Time NPO: 00:00 - Chart Verification Results Verified: CBC, BMP - Additional verifications Anesthesia Reactions: No Hx Blood Transfusions: No Blood Transfusion Reaction: No - Airway Assessment C-Spine Mobility Assessed: Yes TMJ Mobility Assessed: Yes Dentition: Edentulous - Neurological Assessment Level of Consciousness: Awake, Alert, Appropriate - Anesthesia Plan Anesthesia Risk discussed: Yes ASA Class: III Anesthesia Type: General [facility] History I have reviewed the patient's past medical history: Yes 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: Reports:: Anxiety, Carotid Stenosis, Coronary Artery Disease, Cerebrovascular Accident, Depression, Diabetes Mellitus Type 2, Hyperlipidemia, Hypertension, Lung Disease, Myocardial Infarction Denies:: Cancer, Diabetes Mellitus Type 1, Internal Pacemaker, MRSA, Seizures *Have you ever received a pneumonia vaccine?: Yes *Have you received a flu vaccine this season?: Yes Other 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: Reports: Arthritis, Hypothyroidism, Thyroid Disease. Denies: Blood Transfusion Reaction Anesthesia experience/problems:: none Laterality Cases: Right: Arthroscopy Knee, Carotid Endarterectomy, Bilateral: Tonsillectomy Other Surgeries: Yes: No Previous Surgery, Cardiac Catheterization, Cardiac Surgery, Colonoscopy, Coronary Stent, Hernia Repair, Other. No: Pacemaker Amputation: No Fractures: Yes - *Social History Last grade of school completed: 11th or 12th Smoking Status: Never smoker Alcohol Intake: never Substance Use Type: denies use *Occupational Status:: disabled Housing: house Household Members: spouse *Travel in the last 8 weeks: None - Psychiatric History Pschychiatric History:: Reports:: Anxiety, Depression Family Hx:: Cancer
--- NOTE | 2022-02-27 10:19 | HMH.OPNOTE ---
Date of procedure: 02/27/22 Pre-op Diagnosis:: Chronic calculus cholecystitis Post-op Diagnosis:: Same Procedure performed:: Laparoscopic cholecystectomy Surgeon:: Phong Navarro MD SENIOR BUSINESS PROCESS ANALYST:: Marianne Segura Anesthesia: GETMilad Estimated blood loss (mL): 15 Operative findings:: Severe infundibular thickening Dome down approach utilized secondary to severe infundibular thickening Operative note:: After informed consent was obtained, the patient was taken to the operating room and placed in the supine position. General anesthesia was induced and the abdomen was prepped and draped in a sterile fashion. After infiltration with local anesthetic an infraumbilical incision was made. A Veress needle was placed in position. The abdomen was insufflated. A 5 mm optical trocar was placed in position. Under direct visualization, a 12 mm trocar was placed in the subxiphoid position and 2 additional 5 mm trocars were placed in the right upper quadrant. The gallbladder was elevated up and over the liver margin. The tissue around the cystic duct was carefully dissected. Severe infundibular thickening noted. A dome down approach was chosen secondary to these findings. Harmonic richard were utilized to dissect the gallbladder away from the liver margin with careful attention to the control of the cystic artery. Endoloops (x2) were then placed at the infundibulum. Transection above this site with harmonic richard was completed. The gallbladder was placed in a retrieval bag and removed through the subxiphoid trocar site. The right upper quadrant was thoroughly irrigated. No active bleeding or bile leak was noted. Fascia at the subxiphoid trocar site was reapproximated utilizing the NeoClose device. The remaining trocars were removed. All wounds were irrigated and skin was closed with 4-0 Monocryl in a subcuticular fashion. Steri-Strips were applied. The patient's anesthetic agents were reversed and extubation was completed prior to transfer to recovery in stable condition. Condition: stable Disposition: PACU Specimens:: Gallbladder and contents Complications:: No immediate
--- NOTE | 2022-02-27 10:29 | P.PN_ITS ---
[facility] Anesthesia Record Part I Intake, IV Amount: 900 Estimated blood loss (mL): 15 Urine output (mL): 0 Blood Pressure: 95/47 SaO2: 92 Pulse Rate: 58 Respiratory Rate: 16 Temperature: 98.1 F Patient is:: Drowsy, Oral/Nasal airway Stable to PACU at:: 10:28
[2022-02-27 10:42] LABS: POC Glucose,Bedside 274 (70-110)
--- NOTE | 2022-02-28 08:15 | HMH.ANESII ---
[facility] Anesthesia Record Part II Discharge Time: 10:58 Destination: Surgical Day Care (OP Surgery) PACU nurse assessment reviewed?: Yes Patient Condition:: Good Anesthesia Complications:: None Swallowing reflex intact?: Yes Cyanosis?: No Blood Pressure: 122/61 Pulse Rate: 63 Temperature: 97.7 F Mental Status: Alert & Oriented Pain level:: 0 Nausea and/or vomitting:: None Intake, IV Amount: 0
[2022-02-28 08:16] VITALS: BP 122/61; PULSE 63; TEMP 36.5
== END 2022-02-27 11:30 | disposition home or self-care (01) ==
LOC: OR 07:35
PROVIDERS: PCP Physician Assistant; Visit Provider Surgery
PROC: 0FT44ZZ Resection of Gallbladder, Percutaneous Endoscopic Approach (ICD-10-PCS; CPT 47562; principal; 2022-02-27 09:15)
DX: K80.10 Calculus of gallbladder with chronic cholecystitis without obstruction (principal); I65.29 Occlusion and stenosis of unspecified carotid artery; I25.10 Atherosclerotic heart disease of native coronary artery without angina pectoris; E11.9 Type 2 diabetes mellitus without complications; E78.5 Hyperlipidemia, unspecified; I10 Essential (primary) hypertension; I25.2 Old myocardial infarction; J84.9 Interstitial pulmonary disease, unspecified; F41.9 Anxiety disorder, unspecified; F32.A Depression, unspecified; E03.9 Hypothyroidism, unspecified; Z86.73 Personal history of transient ischemic attack (TIA), and cerebral infarction without residual deficits
CPT/HCPCS: 47562; 82962; 96374; J2405

== ENCOUNTER 2022-04-05 15:10 | Emergency (ER) | payer MEDICAID, SELFPAY ==
[2022-04-05 15:30] VITALS: BP 116/77; PULSE 80; RESP 16; TEMP 36.9; O2SAT 98; BMI 42.8
--- NOTE | 2022-04-05 15:42 | HMH.EDUTC ---
[facility] [place] Clinical Impression: Exposure to COVID-19 virus, Upper respiratory infection, viral Disposition: Home, Self-Care Condition on Discharge: Good Instructions: DI for Viral Upper Respiratory Infection -- Adult Additional Instructions: covid swab was sent to lab, call tomorrow for results. self isolate until test results are known to be negative No sign of a bacterial infection. Likely viral. Viruses can take 7-14 days to run their course. Nasal saline and bulb syringe or nose Jena to remove nasal drainage to help with nasal congestion. Hard to eat, drink, sleep with nasal congestion so important to keep this cleaned out. Monitor temp. Tylenol or Motrin as needed for pain or fever Encourage fluids, water, Gatorade, Powerade, Pedialyte if /toddler/child Warm salt water gargles Warm fluids Sore throat lozenges Sleep elevated Humidifier/vaporizer Follow-up immediately for new or worsening symptoms or no noticeable improvement over the next 48-72 hours. Referrals: Shira Valladares PA [Primary Care Provider] - Time of Disposition: 15:45 Medical Decision Making - Joel Inquiry Pt receiving controlled substance: No Vital Signs: 04/05/22 15:30 Temperature 98.4 F Temperature Source Oral Pulse Rate [Right Brachial] 80 Respiratory Rate 16 Blood Pressure [Right Arm] 116/77 Blood Pressure Mean [Right Arm] 90 Blood Pressure Source [Right Arm] Automatic Cuff Blood Pressure Position [Right Arm] Sitting 02 Sat by Pulse Oximetry 98 Oxygen Delivery Method Room Air Orders (Tests/Meds): ORDERS Category Date Time Status Covid-19 Nasal PCR ([facility]) Routine Lab 04/05/22 15:26 Ordered [facility] [place] - General Chief complaint: [facility] Stated complaint: covid exposure Time Seen by Provider: 04/05/22 15:42 Mode of Arrival: Ambulatory Source of Information: Patient Limitations: No Limitations Description of Symptoms (Recalled from Triage Doc. by RN): PATIENT C/O HEAD COLD X 4-5 DAYS. RECENTLY EXPOSED TO COVID HEENT Symptoms (Recalled from RN notes): Yes Resp Symptoms (Recalled from RN notes): No Skin Symptoms (Recalled from RN notes): No MS Symptoms (Recalled from RN notes): No Functional Status (Recalled from RN notes): WNL - History of Present Illness Provider Complaint: 66 yr old male presents for nasal congestion and headache for 3-4 days. Has been exposed to covid - Related Data Home Medications Medication Instructions Recorded Confirmed ranolazine 500 mg tablet,extended 500 mg PO ONCE tab 11/17/19 03/25/22 release,12 hr aspirin 325 mg tablet 325 mg PO DAILY 03/14/20 03/25/22 Blood Sugar Diagnostic [Blood See Rx Instructions .ROUTE 12/25/21 03/25/22 Glucose Test] .MEDSUPPLY Blood-Glucose Meter [Blood Glucose See Rx Instructions .ROUTE 12/25/21 03/25/22 Monitoring] NEEDED PRN Clopidogrel Bisulfate [Plavix] See Rx Instructions .ROUTE .COMPLEX 12/25/21 03/25/22 Isosorbide Mononitrate [Isosorbide See Rx Instructions .ROUTE .COMPLEX 02/25/22 03/25/22 Mononitrate ER] Lactulose 10 g PO DAILY 02/25/22 03/25/22 Metoprolol Succinate [Metoprolol See Rx Instructions .ROUTE .COMPLEX 02/25/22 03/25/22 Succinate 25mg Tablet*] Previous Rx's Medication Instructions Recorded atorvastatin 80 mg tablet 80 mg PO DAILY #90 tab 05/28/20 canagliflozin 300 mg tablet See Rx Instructions .ROUTE 06/19/20 .COMPLEX #90 tab metformin 500 mg tablet 1,000 mg PO BID #360 tab 06/21/21 lisinopril 2.5 mg tablet 2.5 mg PO DAILY #90 tab 08/12/21 citalopram 40 mg tablet See Rx Instructions .ROUTE 10/28/21 .COMPLEX #90 tab glimepiride 4 mg tablet See Rx Instructions .ROUTE 10/28/21 .COMPLEX #90 tab insulin glargine 100 unit/mL (3 30 unit SQ HS #15 ml 11/12/21 mL) subcutaneous pen cholecalciferol (vitamin D3) 25 1,000 unit PO DAILY #90 cap 12/26/21 mcg (1,000 unit) capsule levothyroxine 200 mcg tablet See Rx Instructions .ROUTE 01/13/22 .COMPLEX #90 tab levothyroxine 50
[2022-04-05 15:44] VITALS: BP 116/77; PULSE 80; RESP 16; TEMP 36.9; O2SAT 98
== END 2022-04-05 15:50 | disposition home or self-care (01) ==
PROVIDERS: Emergency Provider Nurse Practitioner Family; PCP Physician Assistant
DX: J06.9 Acute upper respiratory infection, unspecified (principal); R51.9 Headache, unspecified; R09.81 Nasal congestion; Z20.822 Contact with and (suspected) exposure to COVID-19
CPT/HCPCS: 99212; C9803; G0463; U0003; U0005

== ENCOUNTER → 2022-04-10 16:42 | Outpatient (CLI) | payer MEDICAID, SELFPAY ==
[2022-04-10 14:57] LABS: Basophils % 0.2 % (0.1-2.0); Eosinophils # 0.2 K/mm3 (0.0-0.4); Eosinophils % 2.7 % (0.1-12.0); Hematocrit 38.2 % (42.0-52.0); Hemoglobin 13.1 g/dL (14.1-18.0); Lymphocytes # 1.9 K/mm3 (0.7-4.5); Lymphocytes % 29.4 % (10-50); Mean Corpuscular HGB Conc 34.4 g/dL (31.8-35.4); Mean Corpuscular Volume 90.3 fl (80-94); Mean Platelet Volume 8.2 fl (7.4-10.4); Monocytes # 0.4 K/mm3 (0.1-1.0); Monocytes % 6.2 % (1.7-9.3); Neutrophils # 3.9 K/mm3 (1.8-7.8); Neutrophils % 61.5 % (37.0-80.0); Platelet Count 203 K/mm3 (142-424); Red Blood Count 4.23 M/mm3 (4.60-6.20); Red Cell Distribution Width 14.7 % (11.5-17.5); White Blood Count 6.3 K/mm3 (4.8-10.8)
[2022-04-10 15:26] LABS: Chloride 102 mmol/L (98-107); Potassium 4.7 mmoL/L (3.5-5.1); Sodium 135 mmol/L (136-145)
[2022-04-10 15:29] LABS: Alanine Aminotransferase 34 U/L (12-78); Albumin/Globulin Ratio 1.4 (1.1-1.8); Alkaline Phosphatase 104 U/L (38-126); Anion Gap 14.7 mEq/L (5-15); Aspartate Amino Transferase 34 U/L (17-59); Bilirubin,Total 0.5 mg/dl (0.2-1.3); Blood Urea Nitrogen 9 mg/dl (9-20); Calcium 8.9 mg/dl (8.4-10.2); Carbon Dioxide 23 mmol/L (22.0-30.0); Cholesterol 117 mg/dl (140-200); Estimated Glomerular Filt Rate 114 ml/min (>60); GFR (African American) 137 ML/MIN (>60); Globulin 2.9 g/dL (1.3-3.2); Glucose 347 mg/dl (74-100); Total Protein,Serum 6.9 g/dl (6.3-8.2); Triglycerides 171 mg/dl (30-150); VLDL Cholesterol 34 mg/dL (0-40)
[2022-04-10 15:30] LABS: Chol/HDL Ratio 3.8 (1-3.5); HDL Cholesterol 31 mg/dl (40-60)
[2022-04-10 15:40] LABS: Direct LDL Cholesterol 65.42 mg/dL (100-129)
[2022-04-10 15:45] LABS: 25-OH Vitamin D, Total 31.7 ng/mL (30-100)
[2022-04-10 16:00] LABS: Thyroid Stimulating Hormone < 0.02 uIU/mL (0.465-4.68)
[2022-04-14 12:08] LABS: Testosterone, Total, LC/MS 186.2 ng/dL (264.0-916.0)
== END ==
PROVIDERS: Visit Provider Physician Assistant
DX: E11.40 Type 2 diabetes mellitus with diabetic neuropathy, unspecified (principal); E29.1 Testicular hypofunction; E66.9 Obesity, unspecified; Z68.41 Body mass index [BMI] 40.0-44.9, adult; Z79.4 Long term (current) use of insulin
CPT/HCPCS: 80053; 80061; 82306; 83036; 84402; 84403; 84443; 85025

== ENCOUNTER → 2022-04-18 10:22 | Outpatient (CLI) | payer MEDICAID, SELFPAY ==
[2022-04-18 10:43] LABS: Influenza A, PCR Not Detected (NotDetected); Influenza B, PCR Not Detected (NotDetected)
[2022-04-18 11:28] LABS: Coronavirus 19, PCR Detected (NotDetected)
== END ==
PROVIDERS: PCP Physician Assistant; Visit Provider Physician Assistant
DX: U07.1 COVID-19 (principal)
CPT/HCPCS: C9803; U0003; U0005

== ENCOUNTER → 2023-03-06 12:05 | Outpatient (CLI) | payer MEDICARE, MEDICAID, SELFPAY ==
--- NOTE | 2023-03-06 12:52 | XR_ITS ---
FINAL REPORT CLINICAL HISTORY: right knee pain FINDINGS: RIGHT KNEE 3 views of the right knee were obtained. There is no acute fracture or dislocation. There are moderate degenerative changes. A small joint effusion is seen. Visualized joint spaces are normally aligned. Soft tissues are unremarkable. IMPRESSION: No acute bony abnormality. Reviewed, Interpreted and Dictated by Josiah Walden III, MD Transcribed by Edda Cevallos Authenticated and [facility]
[2023-03-06 13:16] LABS: Basophils % 0.3 % (0.1-2.0); Eosinophils # 0.2 K/mm3 (0.0-0.4); Eosinophils % 2.8 % (0.1-12.0); Hematocrit 39.2 % (42.0-52.0); Lymphocytes # 2.5 K/mm3 (0.7-4.5); Lymphocytes % 32.2 % (10-50); Mean Corpuscular Hemoglobin 29.9 pg (27.0-31.2); Mean Corpuscular Volume 90.5 fl (80-94); Mean Platelet Volume 8.3 fl (7.4-10.4); Monocytes # 0.4 K/mm3 (0.1-1.0); Monocytes % 5.3 % (1.7-9.3); Neutrophils # 4.5 K/mm3 (1.8-7.8); Neutrophils % 59.3 % (37.0-80.0); Platelet Count 232 K/mm3 (142-424); Red Blood Count 4.33 M/mm3 (4.60-6.20); Red Cell Distribution Width 14.9 % (11.5-17.5); White Blood Count 7.6 K/mm3 (4.8-10.8)
[2023-03-06 14:31] LABS: Alanine Aminotransferase 34 U/L (12-78); Albumin Level 4.1 g/dl (3.5-5.0); Albumin/Globulin Ratio 1.4 (1.1-1.8); Alkaline Phosphatase 123 U/L (38-126); Anion Gap 17.7 mEq/L (5-15); Aspartate Amino Transferase 36 U/L (17-59); Bilirubin,Total 0.5 mg/dl (0.2-1.3); Blood Urea Nitrogen 14 mg/dl (9-20); Calcium 8.9 mg/dl (8.4-10.2); Carbon Dioxide 25 mmol/L (22.0-30.0); Chloride 98 mmol/L (98-107); Chol/HDL Ratio 3.7 (1-3.5); Cholesterol 136 mg/dl (140-200); Estimated Glomerular Filt Rate 85 ml/min (>60); GFR (African American) 102 ML/MIN (>60); Globulin 2.9 g/dL (1.3-3.2); Glucose 270 mg/dl (74-100); HDL Cholesterol 37 mg/dl (40-60); Potassium 4.7 mmoL/L (3.5-5.1); Sodium 136 mmol/L (136-145); Triglycerides 225 mg/dl (30-150); VLDL Cholesterol 45 mg/dL (0-40)
[2023-03-06 14:32] LABS: 25-OH Vitamin D, Total 32.4 ng/mL (30-100)
[2023-03-06 14:47] LABS: Free T4 (Free Thyroxine) 1.53 ng/dl (0.78-2.19)
[2023-03-06 15:03] LABS: Prostate Specific Ag Screen 0.6 ng/ml (0.0-4.0); Thyroid Stimulating Hormone 0.33 uIU/mL (0.465-4.68)
[2023-03-06 15:22] LABS: Vitamin B12 208 pg/mL (239-931)
[2023-03-06 15:47] LABS: Hemoglobin A1C 9.7 % (4.0-6.0)
[2023-03-08 06:47] LABS: Testosterone,Total 79 ng/dL (264-916)
== END ==
PROVIDERS: PCP Physician Assistant; Visit Provider Physician Assistant
DX: E11.65 Type 2 diabetes mellitus with hyperglycemia (principal); R53.83 Other fatigue; Z12.5 Encounter for screening for malignant neoplasm of prostate; E55.9 Vitamin D deficiency, unspecified; J30.9 Allergic rhinitis, unspecified; K59.00 Constipation, unspecified; E03.9 Hypothyroidism, unspecified; Z79.4 Long term (current) use of insulin; M25.561 Pain in right knee
CPT/HCPCS: 36415; 73562; 80053; 80061; 82306; 82607; 83036; 84403; 84439; 84443; 85025; G0103

== ENCOUNTER → 2023-04-09 07:44 | Outpatient (CLI) | payer MEDICARE, MEDICAID, SELFPAY ==
--- NOTE | 2023-04-09 07:52 | XR_ITS ---
FINAL REPORT CLINICAL HISTORY: low back pain after fall FINDINGS: LUMBAR SPINE Five views demonstrate no acute fracture. There are mild to moderate degenerative changes with multilevel osteophytes. There is mild rightward curvature. There are mild vascular calcifications. There is no malalignment. IMPRESSION: No acute bony abnormality. Reviewed, Interpreted and Dictated by Josiah Walden III, MD Transcribed by Mayco Parks Authenticated and [facility]
== END ==
PROVIDERS: PCP Physician Assistant; Visit Provider Physician Assistant
DX: M54.50 Low back pain, unspecified (principal); W19.XXXA Unspecified fall, initial encounter
CPT/HCPCS: 72110

== ENCOUNTER → 2023-04-21 07:14 | Outpatient (CLI) | payer MEDICARE, MEDICAID, SELFPAY ==
--- NOTE | 2023-04-21 07:14 | CT_ITS ---
FINAL REPORT TECHNIQUE: Axial imaging of the lumbar spine was obtained without contrast. Sagittal and coronal reformatted images were also obtained and reviewed. This study was performed with techniques to keep radiation doses as low as reasonably achievable (ALARA). Individualized dose reduction techniques using automated exposure control or adjustment of mA and/or kV according to the patient's size were employed. CLINICAL HISTORY: Low back pain, fall 2 weeks ago. FINDINGS: There is no fracture. There is mild retrolisthesis of L2 on 3 with vacuum phenomenon. Moderate degenerative changes are present. L1-L2: An annular bulge is present with mild left neural foraminal narrowing. L2-L3: An annular bulge is present. Facet arthropathy and osteophytes are present. There is a left foraminal disc protrusion with left L3 nerve root impingement. There is moderate right and severe left neural foraminal narrowing. There is mild central canal stenosis with an AP diameter of the thecal sac of 8 mm. L3-L4: An annular bulge is present. Facet arthropathy and osteophytes are present. There is moderate right and mild left neural foraminal narrowing. L4-L5: An annular bulge is present. Facet arthropathy and osteophytes are present. There is moderate bilateral neural foraminal narrowing. L5-S1: An annular bulge is present. Facet arthropathy and osteophytes are present. There is severe bilateral neural foraminal narrowing. There is spurring of the sacroiliac joints. IMPRESSION: Left foraminal disc protrusion at L2-3 results in left L3 nerve root impingement, severe left neural foraminal narrowing and mild central canal stenosis. Multilevel degenerative disc disease and spondylosis. Reviewed, Interpreted and Dictated by Josiah Walden III, MD Transcribed by Janay Jade Authenticated and [facility]
== END ==
PROVIDERS: PCP Physician Assistant; Visit Provider Physician Assistant
DX: M54.50 Low back pain, unspecified (principal)
CPT/HCPCS: 72131

== ENCOUNTER → 2023-04-24 09:00 | Outpatient (CLI) | payer MEDICARE, MEDICAID, SELFPAY ==
--- NOTE | 2023-04-24 09:03 | XR_ITS ---
FINAL REPORT CLINICAL HISTORY: Lt knee pain COMPARISON: 02/01/2019 FINDINGS: LEFT KNEE SERIES Three views of the left knee were obtained. There is no acute fracture or dislocation. There is mild and moderate degenerative change that is stable. There are chronic calcifications adjacent to the patella. IMPRESSION: Mild and moderate degenerative change that is stable. Reviewed, Interpreted and Dictated by Josiah Walden III, MD Transcribed by Mayco Parks Authenticated and . [facility]
== END ==
PROVIDERS: PCP Physician Assistant; Visit Provider Orthopaedic Surgery
DX: M25.562 Pain in left knee (principal)
CPT/HCPCS: 73562

== ENCOUNTER 2023-05-26 10:14 | Emergency (ER) | payer MEDICARE, MEDICAID, SELFPAY ==
[2023-05-26 10:15] VITALS: BP 121/83; PULSE 85; RESP 19; TEMP 36.7; O2SAT 98; BMI 44.1
[2023-05-26 10:37] LABS: UTC Strep Screen (Rapid) Negative (Negative)
--- NOTE | 2023-05-26 10:40 | EXP.UTC ---
Discharge Plan Disposition Patient Disposition: Home, Self-Care Condition: Good Prescriptions Prescriptions: New cefdinir 300 mg capsule 300 mg PO BID 10 Days Qty: 20 0RF benzonatate 100 mg capsule 100 mg PO TID PRN (Reason: cough) Qty: 30 0RF No Action aspirin 325 mg tablet 325 mg PO DAILY ranolazine 500 mg tablet extended release 12 hr 500 mg PO ONCE Patient Comments: TAKE 1 TABLET BY MOUTH ONCE DAILY ergocalciferol (vitamin D2) 1,250 mcg (50,000 unit) capsule See Rx Instructions .ROUTE .COMPLEX Qty: 14 0RF Dose Instruction: Take 1 capsule by mouth once a week Rx Instructions: Take 1 capsule by mouth once a week gabapentin 600 mg tablet See Rx Instructions .ROUTE .COMPLEX Qty: 90 2RF Dose Instruction: TAKE 1 TABLET BY MOUTH EVERY 8 HOURS FOR PAIN Rx Instructions: TAKE 1 TABLET BY MOUTH EVERY 8 HOURS FOR PAIN Trulicity 0.75 mg/0.5 mL pen injector 0.75 mg SQ WEEKLY Qty: 2 2RF Rx Instructions: Inject 0.75 mg ONCE A WEEK (instead of daily like Victoza) for 4 weeks, then we will change to next dpse (1.5 mg - call me and I will send) Invokana 300 mg tablet 300 mg PO DAILY Qty: 30 2RF (DME) Omnipod 5 G6 Intro Kit (Gen 5) Cartridge See Rx Instructions .Route Qty: 1 0RF Rx Instructions: As directed (DME) Omnipod 5 G6 Pods (Gen 5) Cartridge See Rx Instructions .Route Qty: 5 5RF Rx Instructions: As directed atorvastatin 80 mg tablet 80 mg PO DAILY Qty: 90 0RF Rx Instructions: TAKE 1 TABLET BY MOUTH AT BEDTIME FOR CHOLESTEROL (DME) pen needle, diabetic [BD Ultra-Fine Short Pen Needle] 31 gauge x 5/16 needle See Rx Instructions .ROUTE .COMPLEX Qty: 100 2RF Dose Instruction: USE 1 SUBCUTANEOUSLY TWICE DAILY Rx Instructions: USE 1 SUBCUTANEOUSLY TWICE DAILY isosorbide mononitrate 120 mg tablet extended release 24 hr See Rx Instructions .ROUTE .COMPLEX Qty: 90 3RF Dose Instruction: TAKE 1 TABLET BY MOUTH ONCE DAILY FOR HEART Rx Instructions: TAKE 1 TABLET BY MOUTH ONCE DAILY FOR HEART lisinopril 2.5 mg tablet 2.5 mg PO DAILY Qty: 90 3RF (DME) blood sugar diagnostic Strip See Rx Instructions .Route .MEDSUPPLY Qty: 100 2RF Rx Instructions: test 3 times daily or As directed (DME) blood-glucose meter Kit See Rx Instructions .Route NEEDED Qty: 1 0RF Rx Instructions: test sugar three time daily or As directed citalopram 40 mg tablet See Rx Instructions .Route .COMPLEX Qty: 90 3RF Rx Instructions: TAKE 1 TABLET BY MOUTH ONCE DAILY FOR DEPRESSION (DME) lancets [Accu-Chek Softclix Lancets] Misc See Rx Instructions .ROUTE .COMPLEX Qty: 100 2RF Dose Instruction: USE TO CHECK GLUCOSE THREE TIMES DAILY OR DIRECTED Rx Instructions: USE TO CHECK GLUCOSE THREE TIMES DAILY OR DIRECTED cholecalciferol (vitamin D3) [Vitamin D3] 25 mcg (1,000 unit) capsule See Rx Instructions .ROUTE .COMPLEX Qty: 90 0RF Dose Instruction: TAKE 1 CAPSULE BY MOUTH ONCE DAILY FOR SUPPLEMENT Rx Instructions: TAKE 1 CAPSULE BY MOUTH ONCE DAILY FOR SUPPLEMENT metoprolol succinate 25 mg tablet extended release 24 hr See Rx Instructions .ROUTE .COMPLEX Qty: 90 0RF Dose Instruction: Take 1 tablet by mouth once daily for blood pressure Rx Instructions: Take 1 tablet by mouth once daily for blood pressure testosterone cypionate 200 mg/mL oil 200 mg IM WEEKLY Qty: 5 5RF (DME) Dexcom G7 Sensor Device See Rx Instructions .ROUTE .COMPLEX Qty: 1 0RF Dose Instruction: USE DIRECTED Rx Instructions: USE DIRECTED (DME) Dexcom G7 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
[2023-05-26 11:01] VITALS: BP 121/83; PULSE 85; RESP 19; TEMP 36.7; O2SAT 98
== END 2023-05-26 11:02 | disposition home or self-care (01) ==
PROVIDERS: Emergency Provider Nurse Practitioner; PCP Physician Assistant
DX: H66.93 Otitis media, unspecified, bilateral (principal); J02.9 Acute pharyngitis, unspecified; E11.40 Type 2 diabetes mellitus with diabetic neuropathy, unspecified; I25.10 Atherosclerotic heart disease of native coronary artery without angina pectoris; E78.5 Hyperlipidemia, unspecified; I10 Essential (primary) hypertension; E03.9 Hypothyroidism, unspecified; E55.9 Vitamin D deficiency, unspecified; E11.36 Type 2 diabetes mellitus with diabetic cataract; Z86.73 Personal history of transient ischemic attack (TIA), and cerebral infarction without residual deficits
CPT/HCPCS: 87880; 99212; 99214; G0463

== ENCOUNTER 2023-06-20 19:09 | Observation (INO) | payer MEDICARE, MEDICAID, SELFPAY ==
[2023-06-20 19:11] VITALS: BP 155/64; PULSE 78; RESP 18; TEMP 36.6; O2SAT 95; BMI 43.2
[2023-06-20 19:15] VITALS: BP 155/64; PULSE 87; RESP 18; O2SAT 96
--- NOTE | 2023-06-20 19:24 | XR_ITS ---
PROCEDURE INFORMATION: Exam: XR Left Foot Exam date and time: 06/20/2023 7:29 PM Age: 67 years old Clinical indication: Pain; Foot; Left; Additional info: Nail puncture plantar, infection TECHNIQUE: Imaging protocol: Radiologic exam of the left foot. Views: 3 or more views. COMPARISON: CR XR KNEE LT 3V 04/24/2023 9:14 AM FINDINGS: Bones/joints: There is a plantar calcaneal enthesophyte. No acute osseous injury. Soft tissues: There is some soft tissue swelling. No radiopaque foreign body is seen. Vasculature: Scattered atherosclerotic disease of the arterial vasculature. IMPRESSION: No radiopaque foreign body or acute osseous abnormality.
--- NOTE | 2023-06-20 19:26 | ED_ITS ---
Discharge Plan Disposition Patient Disposition: Admitted Chief Complaint: Skin/Abscess/Foreign Body Prescriptions Prescriptions: No Action aspirin 325 mg tablet 325 mg PO DAILY ranolazine 500 mg tablet extended release 12 hr 500 mg PO ONCE Patient Comments: TAKE 1 TABLET BY MOUTH ONCE DAILY ergocalciferol (vitamin D2) 1,250 mcg (50,000 unit) capsule See Rx Instructions .ROUTE .COMPLEX Qty: 14 0RF Dose Instruction: Take 1 capsule by mouth once a week Rx Instructions: Take 1 capsule by mouth once a week gabapentin 600 mg tablet See Rx Instructions .ROUTE .COMPLEX Qty: 90 2RF Dose Instruction: TAKE 1 TABLET BY MOUTH EVERY 8 HOURS FOR PAIN Rx Instructions: TAKE 1 TABLET BY MOUTH EVERY 8 HOURS FOR PAIN Trulicity 0.75 mg/0.5 mL pen injector 0.75 mg SQ WEEKLY Qty: 2 2RF Rx Instructions: Inject 0.75 mg ONCE A WEEK (instead of daily like Victoza) for 4 weeks, then we will change to next dpse (1.5 mg - call me and I will send) Invokana 300 mg tablet 300 mg PO DAILY Qty: 30 2RF (DME) Omnipod 5 G6 Intro Kit (Gen 5) Cartridge See Rx Instructions .Route Qty: 1 0RF Rx Instructions: As directed (DME) Omnipod 5 G6 Pods (Gen 5) Cartridge See Rx Instructions .Route Qty: 5 5RF Rx Instructions: As directed atorvastatin 80 mg tablet 80 mg PO DAILY Qty: 90 0RF Rx Instructions: TAKE 1 TABLET BY MOUTH AT BEDTIME FOR CHOLESTEROL (DME) pen needle, diabetic [BD Ultra-Fine Short Pen Needle] 31 gauge x 5/16 needle See Rx Instructions .ROUTE .COMPLEX Qty: 100 2RF Dose Instruction: USE 1 SUBCUTANEOUSLY TWICE DAILY Rx Instructions: USE 1 SUBCUTANEOUSLY TWICE DAILY lisinopril 2.5 mg tablet 2.5 mg PO DAILY Qty: 90 3RF (DME) blood sugar diagnostic Strip See Rx Instructions .Route .MEDSUPPLY Qty: 100 2RF Rx Instructions: test 3 times daily or As directed (DME) blood-glucose meter Kit See Rx Instructions .Route NEEDED Qty: 1 0RF Rx Instructions: test sugar three time daily or As directed citalopram 40 mg tablet See Rx Instructions .Route .COMPLEX Qty: 90 3RF Rx Instructions: TAKE 1 TABLET BY MOUTH ONCE DAILY FOR DEPRESSION (DME) lancets [Accu-Chek Softclix Lancets] Misc See Rx Instructions .ROUTE .COMPLEX Qty: 100 2RF Dose Instruction: USE TO CHECK GLUCOSE THREE TIMES DAILY OR DIRECTED Rx Instructions: USE TO CHECK GLUCOSE THREE TIMES DAILY OR DIRECTED metoprolol succinate 25 mg tablet extended release 24 hr See Rx Instructions .ROUTE .COMPLEX Qty: 90 0RF Dose Instruction: Take 1 tablet by mouth once daily for blood pressure Rx Instructions: Take 1 tablet by mouth once daily for blood pressure testosterone cypionate 200 mg/mL oil 200 mg IM WEEKLY Qty: 5 5RF (DME) Dexcom G7 [facility] See Rx Instructions .ROUTE .COMPLEX Qty: 1 0RF Dose Instruction: USE DIRECTED Rx Instructions: USE DIRECTED metformin 500 mg tablet See Rx Instructions .ROUTE .COMPLEX Qty: 360 2RF Dose Instruction: TAKE 2 TABLETS BY MOUTH TWICE DAILY FOR DIABETES Rx Instructions: TAKE 2 TABLETS BY MOUTH TWICE DAILY FOR DIABETES tramadol 50 mg tablet 50 mg PO Q8H PRN (Reason: pain) Qty: 30 0RF glimepiride 4 mg tablet See Rx Instructions .ROUTE .COMPLEX Qty: 90 0RF Dose Instruction: TAKE 1 TABLET BY MOUTH ONCE DAILY FOR DIABETES Rx Instructions: TAKE 1 TABLET BY MOUTH ONCE DAILY FOR DIABETES levothyroxine 200 mcg tablet See Rx Instructions .ROUTE .COMPLEX Qty: 90 0RF Dose Instruction: TAKE 1 TABLET BY MOUTH ONCE DAILY, TAKE WITH 50 MCG TABLET FOR A TOTAL OF 250 MCG Rx Instructions: TAKE 1 TABLET BY MOUTH ONCE DAILY, TAKE WITH 50 MCG TABLET FOR A TOTAL OF 250 MCG insulin asp prt-insulin aspart [Novolog Mix 70-30FlexPen U-100] 100 unit/mL (70-30) insulin pen See Rx Instructions .ROUTE .COMPLEX Qty: 15 0RF Dose Instruction: INJECT 10 UNITS SUBCUTANEOUSLY TWICE DAILY Rx Instructions: INJECT 10 UNITS SUBCUTANEOUSLY TWICE DAILY clopidogrel 75 mg tablet See Rx Instructions .ROUTE .COMPLEX Qty: 90 0RF Dose Instruction: TAKE 1 TABLET BY MOUTH ONCE DAILY FOR BLOOD THINNING Rx Instructions: TAKE 1 TABLET BY MOUTH ONCE DAILY FOR BLOOD THINNING insulin glargine [Lantus Solostar U-100 Insulin] 100 unit/mL (3 mL) insulin pen See Rx Instructions .ROUTE .COMPLEX Qty: 15 0RF Dose Instruction: INJECT 30 UNITS SUBCUTANEOUSLY AT BEDTIME FOR DIABETES Rx Instructions: INJECT 30 UNITS SUBCUTANEOUSLY AT BEDTIME FOR DIABETES azithromycin [Zithromax Z-Timmy] 250 mg tablet See Rx Instructions PO .COMPLEX Qty: 6 0RF Rx Instructions: For 250 mg dose pack: take 500 mg today (day 1), then 250 mg for 4 days (days 2-5) PO methylprednisolone [Medrol (Timmy)] 4 mg tablets,dose pack See Rx Instructions PO PER PKG DIR Qty: 21 0RF Rx Instructions: PO PER PKG DIR (DME) pen needle, diabetic [BD Ultra-Fine Mini Pen Needle] 31 gauge x 3/16 needle See Rx Instructions .ROUTE .COMPLEX Qty: 100 0RF Dose Instruction: USE DIRECTED Rx Instructions: USE DIRECTED cholecalciferol (vitamin D3) [Vitamin D3] 25 mcg (1,000 unit) capsule See Rx Instructions .ROUTE .COMPLEX Qty: 90 0RF Dose Instruction: TAKE 1 CAPSULE BY MOUTH ONCE DAILY FOR SUPPLEMENT Rx Instructions: TAKE 1 CAPSULE BY MOUTH ONCE DAILY FOR SUPPLEMENT Trulicity 1.5 mg/0.5 mL pen injector 1.5 mg SQ WEEKLY Qty: 2 2RF isosorbide mononitrate 120 mg tablet extended release 24 hr See Rx Instructions .ROUTE .COMPLEX Qty: 90 0RF Dose Instruction: TAKE 1 TABLET BY MOUTH ONCE DAILY FOR HEART Rx Instructions: TAKE 1 TABLET BY MOUTH ONCE DAILY FOR HEART (DME) Dexcom G7 Sensor Device See Rx Instructions .ROUTE .COMPLEX Qty: 3 2RF Dose Instruction: USE DIRECTED Rx Instructions: USE DIRECTED lactulose 10 GM/15 ML solution 10 g PO DAILY benzonatate 100 mg capsule 100 mg PO TID PRN (Reason: cough) Qty: 30 0RF Referrals Follow up/Referrals: Shira Valladares PA [Primary Care Provider] - See instructions Clinical Impressions Clinical Impression: Cellulitis of left leg, Infected puncture wound of plantar aspect of foot Instructions Patient Instructions: DI for Skin Abscess Discharge ED Provider: Cindi Grubbs General Adult HPI General Chief complaint: Skin/Abscess/Foreign Body Stated complaint: l foot stepped on nail Time Seen by Provider: 06/20/23 19:23 History of Present Illness HPI narrative: Patient is a 67-year-old male with a history of type 2 diabetes and peripheral neuropathy of his lower extremities presenting today with spreading redness and pain of his left lower extremity after stepping on a nail through a rubber soled shoe 2 days ago. Given his neuropathy he did not know that this happened for almost 24 hours and today has had worsening redness pain and swelling on his left lower extremity circumferentially extending up his leg. No fevers or chills or systemic symptoms. He has any on his hand and believes that he got the entire thing out when he was able to identify it and pull it out. No retained foreign body suspected. Related Data Home Medications Medication Instructions Recorded Confirmed ranolazine 500 mg tablet,extended 500 mg PO ONCE Chest pain 11/17/19 04/24/23 release,12 hr aspirin 325 mg tablet 325 mg PO DAILY heart 03/14/20 04/24/23 lactulose 10 gram/15 mL oral 10 g PO DAILY stomach 02/25/22 04/24/23 solution Previous Rx's Medication Instructions Recorded atorvastatin 80 mg tablet 80 mg PO DAILY Cholesterol #90 tabs 05/28/20 pen needle, diabetic 31 gauge x #100 ea 03/26/2202/24 (BD Ultra-Fine Short Pen Needle) lisinopril 2.5 mg tablet 2.5 mg PO DAILY blood pressure #90 07/15/22 tabs blood sugar diagnostic #100 ea 09/24/22 blood-glucose meter #1 ea 09/24/22 citalopram 40 mg tablet See Rx Instructions .Route 11/11/22 .COMPLEX mood #90 tabs lancets (Accu-Chek Softclix #100 ea 11/26/22 Lancets) metoprolol succinate 25 mg See Rx Instructions .Route 01/27/23 tablet,extended release 24 hr .COMPLEX #90 tabs canagliflozin 300 mg tablet 300 mg PO DAILY #30 tabs 03/11/23 (Invokana) dulaglutide 0.75 mg/0.5 mL 0.75 mg (0.5 mL) SQ WEEKLY #2 mL 03/11/23 [facility] ergocalciferol (vitamin D2) 1,250 See Rx Instructions .Route 03/11/23 mcg (50,000 unit) capsule .COMPLEX #14 caps gabapentin 600 mg tablet See Rx Instructions .Route 03/11/23 .COMPLEX #90 tabs insulin pump cart,automated,BT #5 ea 03/11/23 (Omnipod 5 G6 Pods (Gen 5) subcutaneous cartridge) insulin pump cartridge,automated #1 ea 03/11/23 dose,BT with controller subcutaneous (Omnipod 5 G6 Intro Kit (Gen 5) subcutaneous cartridge with controller) testosterone cypionate 200 mg/mL 200 mg IM WEEKLY #5 mL 03/17/23 intramuscular oil blood-glucose meter,continuous #1 ea 03/20/23 (Dexcom G7 Molecular Biologist) metformin 500 mg tablet See Rx Instructions .Route 03/23/23 .COMPLEX #360 tabs glimepiride 4 mg tablet See Rx Instructions .Route 04/15/23 .COMPLEX #90 tabs levothyroxine 200 mcg tablet See Rx Instructions .Route 04/15/23 .COMPLEX #90 tabs tramadol 50 mg tablet 50 mg PO Q8H PRN pain #30 tabs 04/15/23 insulin aspar prot-insulin aspart See Rx Instructions .Route 05/07/23 100 unit/mL (70-30) subcutaneous .COMPLEX #15 mL pen (Novolog Mix 70-30FlexPen U-100) clopidogrel 75 mg tablet See Rx Instructions .Route 05/19/23 .COMPLEX #90 tabs Lantus Solostar U-100 Insulin 100 See Rx Instructions .Route 05/22/23 unit/mL (3 mL) subcutaneous pen .COMPLEX #15 mL (insulin glargine) benzonatate 100 mg capsule 100 mg PO TID PRN cough #30 caps 05/26/23 azithromycin 250 mg tablet See Rx Instructions PO .COMPLEX 05/27/23 (Zithromax Z-Timmy) congestion #6 tabs methylprednisolone 4 mg tablets in See Rx Instructions PO PER PKG DIR 05/27/23 a dose pack (Medrol (Timmy)) congestion #21 tabs pen needle, diabetic 31 gauge x #100 ea 05/28/2312/25 (BD Ultra-Fine Mini Pen Needle) cholecalciferol (vitamin D3) 25 See Rx Instructions .Route 06/02/23 mcg (1,000 unit) capsule (Vitamin .COMPLEX #90 caps D3) dulaglutide 1.5 mg/0.5 mL 1.5 mg (0.5 mL) SQ WEEKLY #2 mL 06/03/23 subcutaneous pen injector ([facility]) isosorbide mononitrate 120 mg See Rx Instructions .Route 06/08/23 tablet,extended release 24 hr .COMPLEX #90 tabs blood-glucose sensor (Dexcom G7 #3 ea 06/16/23 Sensor device) Allergies Allergy/AdvReac Type Severity Reaction Status Date / Time Penicillins [PENICILLINS] Allergy Unknown Verified 04/24/23 09:45 [facility] Disclaimer: The information contained in this section may have been updated after the patient was seen, as this information can be updated by other users. 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 Allergic rhinitis CAD (coronary artery disease) Cataract CVA (cerebral vascular accident) Diabetes Diabetic neuropathy associated with type 2 diabetes mellitus Hernia Hyperlipidemia Hypertension Hypothyroidism Insomnia Lumbar nerve root impingement Testosterone deficiency Type 2 diabetes mellitus Vitamin B12 deficiency anemia Vitamin D deficiency Surgical History H/O carotid endarterectomy History of coronary artery stent placement Hx laparoscopic cholecystectomy Status post middle ear reconstruction Family History Other Family history of cancer Family history of myocardial infarction Social History Smoking Status: Never smoker second hand exposure: Yes alcohol intake: never substance use type: denies use current occupational status: disabled Travel in the last 8 weeks: None household members: spouse housing: house current occupational exposures/hazards: No caffeine: Yes ROS Obtained: Yes All systems reviewed & no additional complaints except as documented Physical Exam General General appearance: alert Respiratory Respiratory exam: Present normal lung sounds bilaterally Cardiovascular Cardiovascular exam: Absent tachycardia Extremities Exam Extremities exam: Present other (Left lower extremity there is circumferential swelling and erythema and tenderness over the foot and distal tib-fib area there is a 0.5 cm central punctate wound on the plantar aspect of the left foot with out any focal fluctuance or purulent drainage) Neurological Exam Neurological exam: Present alert and oriented X3 Medical Decision Making Joel Inquiry Pt receiving controlled substance: No Vital Signs: 06/20/23 19:11 06/20/23 19:15 Temperature 98 F Temperature Source Oral Pulse Rate 87 Pulse Rate [Left] 78 Respiratory Rate 18 18 Blood Pressure 155/64 H Blood Pressure [Right Arm] 155/64 H Blood Pressure Mean 99 Blood Pressure Mean [Right Arm] 94 Blood Pressure Source [Right Arm] Automatic Cuff Blood Pressure Position [Right Arm] Sitting 02 Sat by Pulse Oximetry 95 96 Oxygen Delivery Method Room Air Lab Data Lab results reviewed: Yes I reviewed the patient's lab results. Lab Results 06/20/23 19:35: WBC 8.9, RBC 4.28 L, Hgb 12.2 L, Hct 37.9 L, MCV 88.6, MCH 28.5, MCHC 32.2, RDW 15.5, Plt Count 220, MPV 8.3, Neut % (Auto) 69.9, Lymph % (Auto) 22.8, Dane % (Auto) 4.9, Eos % (Auto) 2.1, Baso % (Auto) 0.2, Neut # (Auto) 6.2, Lymph # (Auto) 2.0, Dane # (Auto) 0.4, Eos # (Auto) 0.2, Baso # (Auto) 0.0, Sodium 133 L, Potassium 4.3, Chloride 100, Carbon Dioxide 23, Anion Gap 14.3, BUN 16, Creatinine 1.20, Estimated Creat Clear 65, Estimated GFR 61, Est GFR ( Amer) 74, Glucose 296 H, Lactate 1.7, Calcium 9.2, Total Bilirubin 0.8, AST 25, ALT 27, Alkaline Phosphatase 88, Total Protein 7.3, Albumin 3.7, Globulin 3.6 H, Albumin/Globulin Ratio 1.0 L 06/20/23 19:35 06/20/23 19:35 Orders (Tests/Meds): ED MEDICATIONS Generic Name Dose Route Start Last Admin Trade Name Freq PRN Reason Stop Dose Admin Lactated Ringer's 1,000 mls @ 999 mls/hr 06/20/23 19:30 06/20/23 19:46 Lactated Ringer's 1000 Ml Bag IV 06/20/23 20:30 999 mls/hr .Q1H1M OLIVIA Administration Vancomycin HCl 2,500 mg/ 250 mls @ 125 mls/hr 06/20/23 20:00 Sodium Chloride IV 06/20/23 21:59 ONCE ONE Miscellaneous 1 each 06/20/23 19:30 Vancomycin Consult Request NOTAPPLIC 07/20/23 19:29 CONSULT PHARMACY OLIVIA Discontinued Medications Generic Name Dose Route Start Last Admin Trade Name Freq PRN Reason Stop Dose Admin Cefepime HCl 2 gm/ Sodium 100 mls @ 200 mls/hr 06/20/23 19:25 06/20/23 19:53 Chloride IV 06/20/23 19:54 200 mls/hr ONCE ONE Administration Tetanus/Reduced Diphtheria/Acell Pertussis 0.5 ml 06/20/23 19:28 06/20/23 19:54 Tet/Diphth/Pert-Adult 0.5ml Syringe IM 06/20/23 19:29 0.5 ml .ONCE ONE Administration ORDERS Category Date Time Status Foot XR left minimum 3 views [XR foot LT min 3V] Stat Exams 06/20/23 19:24 Taken CBC w/Auto Diff [Complete Blood Count Auto Diff] Stat Lab 06/20/23 19:35 Completed CMP [Comprehensive Metabolic Panel] Stat Lab 06/20/23 19:35 Results CRP [C-Reactive Protein] Stat Lab 06/20/23 19:35 Results Lactic Acid Stat Lab 06/20/23 19:35 Completed Blood Culture Stat Micro 06/20/23 19:50 Ordered Wound Culture and Gram Stain Stat Micro 06/20/23 19:26 Ordered Medical Decision Narrative: 67-year-old male with peripheral diabetic neuropathy presenting today with cellulitis without evidence of an abscess or retained foreign body of the left foot in the distal left lower extremity. This is very concerning in the setting of a puncture wound that went through the rubber sole of his shoe specifically for pseudomonal infection. Staff is certainly on the differential as well we will give vancomycin and cefepime to cover both of those organisms. It is unlikely that he will have advanced evidence of osteomyelitis but that is certainly downstream concern with this particular problem as well. I expect x- rays did not show any bony degenerative changes at this point or any subcutaneous gas as a necrotizing soft tissue infection is less likely as well. Patient will need to be admitted for IV antibiotics. He has been made aware of this and is agreeable to this plan. Reassessment 8:06 PM x-ray performed which I personally interpreted which does not show a foreign body or any osteomyelitis or any subcutaneous gas. No evidence of sepsis when taking to consideration the labs that have returned. Patient was admitted to hospital medicine for further treatment with IV antibiotics after I discussed with [facility]. Procedures Miscellaneous Procedure Procedure Performed: Limited soft tissue ultrasound Indication: Erythema following puncture wound to the plantar aspect of the foot several days ago Identified structures: Location: Soft tissues of the left foot and distal leg Findings: Cobblestoning circumferentially in the distal third of the left lower extremity in the foot no evidence of a focal drainable fluid collection and no foreign body noted at the insertion site of the puncture wound Impression: Cellulitis without drainable fluid collection or retained foreign body Images are saved to permanent archive The study was technically adequate Soft Tissue CPT Codes: CPT Lower Extremity: 54425-47 This study was performed by me, and I personally interpreted all images/videos. Based on my clinical judgement, these images were adequate and did not necessitate further imaging. Critical Care Critical Care Time Critical Care Time: No
[2023-06-20] MEDS: LACTATED RINGERS 1000ML 1,000 ML 999 ML IV (19:46)
[2023-06-20 19:49] LABS: Basophils % 0.2 % (0.1-2.0); Eosinophils # 0.2 K/mm3 (0.0-0.4); Eosinophils % 2.1 % (0.1-12.0); Hematocrit 37.9 % (42.0-52.0); Hemoglobin 12.2 g/dL (14.1-18.0); Lymphocytes % 22.8 % (10-50); Mean Corpuscular HGB Conc 32.2 g/dL (31.8-35.4); Mean Corpuscular Hemoglobin 28.5 pg (27.0-31.2); Mean Corpuscular Volume 88.6 fl (80-94); Mean Platelet Volume 8.3 fl (7.4-10.4); Monocytes # 0.4 K/mm3 (0.1-1.0); Monocytes % 4.9 % (1.7-9.3); Neutrophils # 6.2 K/mm3 (1.8-7.8); Neutrophils % 69.9 % (37.0-80.0); Platelet Count 220 K/mm3 (142-424); Red Blood Count 4.28 M/mm3 (4.60-6.20); Red Cell Distribution Width 15.5 % (11.5-17.5); White Blood Count 8.9 K/mm3 (4.8-10.8)
[2023-06-20 19:52] LABS: Chloride 100 mmol/L (98-107); Potassium 4.3 mmoL/L (3.5-5.1); Sodium 133 mmol/L (136-145)
[2023-06-20] MEDS: CEFEPIME HCL 2 GM in 0.9 % SODIUM CHLORIDE 100 ML IV (19:53)
[2023-06-20] MEDS: TET/DIPHTH/PERT-ADULT 0.5ML SYRINGE 0.5 ML IM (19:54)
[2023-06-20 19:55] LABS: Alanine Aminotransferase 27 U/L (12-78); Albumin Level 3.7 g/dl (3.5-5.0); Alkaline Phosphatase 88 U/L (38-126); Anion Gap 14.3 mEq/L (5-15); Aspartate Amino Transferase 25 U/L (17-59); Bilirubin,Total 0.8 mg/dl (0.2-1.3); Blood Urea Nitrogen 16 mg/dl (9-20); Carbon Dioxide 23 mmol/L (22.0-30.0); Creatinine Clearance Estimated 65 mL/min (50-200); Estimated Glomerular Filt Rate 61 ml/min (>60); GFR (African American) 74 ML/MIN (>60); Globulin 3.6 g/dL (1.3-3.2); Total Protein,Serum 7.3 g/dl (6.3-8.2)
[2023-06-20 19:56] LABS: Calcium 9.2 mg/dl (8.4-10.2); Glucose 296 mg/dl (74-100); Lactic Acid 1.7 mmol/L (0.7-2.1)
--- NOTE | 2023-06-20 20:01 | PC.NURSE ---
verified 2.5 GM vanc dosing with Maria M BATISTA
--- NOTE | 2023-06-20 20:05 | PC.NURSE ---
spoke with Anne hematology supervisor requesting a room on Med/surg to be admitted for LLE cellulitis
--- NOTE | 2023-06-20 20:05 | PC.NURSE ---
Dr Grubbs speaking to hospitalist
--- NOTE | 2023-06-20 20:09 | PC.NURSE ---
Myrna Butcher called hotel housekeeper for admission
[2023-06-20] MEDS: VANCOMYCIN HCL 2,500 MG in 0.9 % SODIUM CHLORIDE 250 ML 125 MG IV (20:16)
[2023-06-20] MEDS: VANCOMYCIN CONSULT REQUEST 1 EACH NOTAPPLIC (20:17)
--- NOTE | 2023-06-20 20:26 | PC.NURSE ---
attempted to call report, Jes to call back
[2023-06-20 20:32] VITALS: BP 150/64; PULSE 78; RESP 18; TEMP 36.6; O2SAT 97
--- NOTE | 2023-06-20 20:43 | EXP.HP ---
History of Present Illness *Admission Date: 06/20/23 *Reason for visit:: left foot cellulitis *History of present illness: This is a 67-year-old male with a history of uncontrolled type 2 diabetes and peripheral neuropathy of his lower extremities, HTN, HLD, Hypothyroidism, morbid obesity who presented today with spreading redness and pain of his left lower extremity after stepping on a nail 2 days ago. Given his neuropathy he did not noticed until almost 24 hours after the incident, and today started with worsening redness pain and swelling on his left lower extremity extending up his leg. No fevers or chills or systemic symptoms. He believes that he got the entire nail out, after pulled out himself. No retained foreign body suspected. Admitted for further treatment. [facility] Disclaimer: The information contained in this section may have been updated after the patient was seen, as this information can be updated by other users. 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 Allergic rhinitis CAD (coronary artery disease) Cataract CVA (cerebral vascular accident) Diabetes Diabetic neuropathy associated with type 2 diabetes mellitus Hernia Hyperlipidemia Hypertension Hypothyroidism Insomnia Lumbar nerve root impingement Testosterone deficiency Type 2 diabetes mellitus Vitamin B12 deficiency anemia Vitamin D deficiency Surgical History H/O carotid endarterectomy History of coronary artery stent placement Hx laparoscopic cholecystectomy Status post middle ear reconstruction Family History Other Family history of cancer Family history of myocardial infarction Social History (Updated 06/20/23 @ 21:13 by Jes Red RN) Smoking Status: Never smoker second hand exposure: Yes alcohol intake: never substance use type: denies use current occupational status: disabled Travel in the last 8 weeks: None household members: spouse housing: house current occupational exposures/hazards: No caffeine: Yes Review of Systems Review of Systems Review of systems:: pertinent systems reviewed and negative unless documented below Meds Home Medications and Allergies Home Medications Medication Instructions Recorded Confirmed Type ranolazine 500 mg tablet,extended 500 mg PO DAILY Chest pain 11/17/19 06/21/23 History release,12 hr aspirin 325 mg tablet 325 mg PO DAILY Heart Health 03/14/20 06/21/23 History blood sugar diagnostic #100 ea 09/24/22 06/21/23 Rx blood-glucose meter #1 ea 09/24/22 06/21/23 Rx atorvastatin 80 mg tablet 80 mg PO HS Cholesterol 06/21/23 06/21/23 History blood-glucose meter,continuous 06/21/23 06/21/23 History (Dexcom G7 Dope House Operator Helper) blood-glucose sensor (Dexcom G7 06/21/23 06/21/23 History Sensor device) cholecalciferol (vitamin D3) 25 25 mcg PO DAILY Supplement 06/21/23 06/21/23 History mcg (1,000 unit) capsule (Vitamin D3) citalopram 40 mg tablet 40 mg PO DAILY mood 06/21/23 06/21/23 History clopidogrel 75 mg tablet 75 mg PO DAILY Platelet Inhibitor 06/21/23 06/21/23 History dulaglutide 1.5 mg/0.5 mL 1.5 mg SQ WEEKLY Diabetes 06/21/23 06/21/23 History subcutaneous pen injector (Trulicity) gabapentin 600 mg tablet 600 mg PO TID Pain 06/21/23 06/21/23 History glimepiride 4 mg tablet 4 mg PO DAILY Diabetes 06/21/23 06/21/23 History insulin aspar prot-insulin aspart 10 unit SQ BID Diabetes 06/21/23 06/21/23 History 100 unit/mL (70-30) subcutaneous pen (Novolog Mix 70-30FlexPen U-100) insulin glargine 100 unit/mL (3 30 unit SQ HS Diabetes 06/21/23 06/21/23 History mL) subcutaneous pen (Lantus Solostar U-100 Insulin) insulin pump cart,automated,BT 06/21/23 06/21/23 History (Omnipod 5 G6 Pods (Gen 5) subcutaneous cartridge) insulin pump cartridge,automated 06/21/23 06/21/23 History dose,BT with controller subcutaneous (Omnipod 5 G6 Intro Kit (Gen 5) subcutaneous cartridge with controller) isosorbide mononitrate 120 mg 120 mg PO DAILY High Blood Pressure 06/21/23 06/21/23 History tablet,extended release 24 hr lancets (Accu-Chek Softclix 06/21/23 06/21/23 History Lancets) levothyroxine 200 mcg tablet 200 mcg PO DAILY thyroid 06/21/23 06/21/23 History lisinopril 2.5 mg tablet 2.5 mg PO DAILY High Blood Pressure 06/21/23 06/21/23 History metformin 500 mg tablet 1,000 mg PO BIDWMEAL Diabetes 06/21/23 06/21/23 History pen needle, diabetic 31 gauge x 06/21/23 06/21/23 History 3/16 (BD Ultra-Fine Mini Pen Needle) pen needle, diabetic 31 gauge x 06/21/23 06/21/23 History 5/16 (BD Ultra-Fine Short Pen Needle) New Prescriptions to Start Prescriptions: Allergies Allergy/AdvReac Type Severity Reaction Status Date / Time Penicillins [PENICILLINS] Allergy Unknown Verified 04/24/23 09:45 Exam Data for Last 24 hours Vital signs and Labs for Last 24 Hours: Temp Pulse Resp BP Pulse Ox O2 Del Method 98 F 78 18 150/64 H 96 Room Air 06/20/23 20:32 06/20/23 20:32 06/20/23 20:32 06/20/23 20:32 06/20/23 19:15 06/20/23 20:32 Laboratory Results - last 24 hr 06/20/23 19:35: WBC 8.9, RBC 4.28 L, Hgb 12.2 L, Hct 37.9 L, MCV 88.6, MCH 28.5, MCHC 32.2, RDW 15.5, Plt Count 220, MPV 8.3, Neut % (Auto) 69.9, Lymph % (Auto) 22.8, [place] % (Auto) 4.9, Eos % (Auto) 2.1, Baso % (Auto) 0.2, Neut # (Auto) 6.2, Lymph # (Auto) 2.0, [place] # (Auto) 0.4, Eos # (Auto) 0.2, Baso # (Auto) 0.0, Sodium 133 L, Potassium 4.3, Chloride 100, Carbon Dioxide 23, Anion Gap 14.3, BUN 16, Creatinine 1.20, Estimated Creat Clear 65, Estimated GFR 61, Est GFR ( Amer) 74, Glucose 296 H, Lactate 1.7, Calcium 9.2, Total Bilirubin 0.8, AST 25, ALT 27, Alkaline Phosphatase 88, C-Reactive Protein 124.0 H, Total Protein 7.3, Albumin 3.7, Globulin 3.6 H, Albumin/Globulin Ratio 1.0 L I & O for Last 24 hours: Intake & Output 06/17/23 06/18/23 06/19/23 06/20/23 23:59 23:59 23:59 23:59 Weight 140.614 kg *Routine HEENT Exam Head: Present normocephalic and atraumatic Eye: Present EOMI, PERRL and normal accommodation ENT: Present mucous membranes moist *Routine Respiratory Exam Respiratory: Present normal respiratory effort, able to speak in complete sentences and symmetric chest movement *Routine Cardiovascular Exam Cardiovascular: Present RRR, Normal S1 and Normal S2 *Routine Abdominal Exam Abdominal: Present soft, normoactive bowel sounds and obese *Routine Rectal Exam Rectal:: other *Routine Genitalia Exam Genitalia:: other H&P: Result Imaging and Cardiology EKG: Status: image reviewed by me and Preliminary report FOOT Xray : Status: image reviewed by me and final report Assessment and Plan *Assessment and plan (1) Infected puncture wound of plantar aspect of foot: Status: Acute Qualifiers: Encounter type: initial encounter Laterality: left Qualified Code(s): S91.332A - Puncture wound without foreign body, left foot, initial encounter; L08.9 - Local infection of the skin and subcutaneous tissue, unspecified Category: Medical Code(s): S91.339A - Puncture wound without foreign body, unspecified foot, initial encounter; L08.9 - Local infection of the skin and subcutaneous tissue, unspecified (2) Cellulitis of left leg: Status: Acute Category: Medical Code(s): L03.116 - Cellulitis of left lower limb (3) Type 2 diabetes mellitus with diabetic neuropathy: Status: Acute Qualifiers: Diabetes mellitus long term acute care registered nurse insulin use: without long term acute care registered nurse use Qualified Code(s): E11.40 - Type 2 diabetes mellitus with diabetic neuropathy, unspecified Category: Medical Code(s): E11.40 - Type 2 diabetes mellitus with diabetic neuropathy, unspecified (4) Hypertension: Status: Chronic Qualifiers: Hypertension type: essential hypertension Qualified Code(s): I10 - Essential (primary) hypertension Category: Medical Code(s): I10 - Essential (primary) hypertension (5) Hypothyroidism: Status: Chronic Qualifiers: Hypothyroidism type: unspecified Qualified Code(s): E03.9 - Hypothyroidism, unspecified Category: Medical Code(s): E03.9 - Hypothyroidism, unspecified (6) Hyperlipidemia: Status: Chronic Qualifiers: Hyperlipidemia type: unspecified Qualified Code(s): E78.5 - Hyperlipidemia, unspecified Category: Medical Code(s): E78.5 - Hyperlipidemia, unspecified (7) Morbid obesity with body mass index (BMI) of 40.0 to 49.9: Status: Chronic Category: Medical Code(s): E66.01 - Morbid (severe) obesity due to excess calories Plan 67-year-old male with a history of uncontrolled type 2 diabetes and peripheral neuropathy of his lower extremities, last A1c 9.7, HTN, HLD, Hypothyroidism and morbid obesity who presented today with spreading redness and pain of his left lower extremity after stepping on a nail 2 days ago. patient pulled it out after almost 24hrs in place. Tetanus shot was renewed at ER. Foot Xray concerning of soft tissue inflammation. low suspicious of OM. initial labs work were reviewed they are grossly unremarkable. elevated C protein and physical findings elevates concern for soft tissue infection. Due to uncontrolled diabetes with well know history of peripheral neuropathy, and after discussion made with ER doctor, about finding; decision for admission was made. Plans as follow: -Infected puncture wound of plantar aspect of left foot: Admission from Medical services. 30 continue monitor of vital signs. Tylenol IV and vancomycin. Pharmacy to dose. Would be fever, and no other signs of septic signs. Pain management with Tylenol and morphine as needed. No wound care needed, keep area clean and leave open to air. Tetanus shot renewed. -Cellulitis of the left leg: secondary to above. Continue IV abx. repeat lab in the morning. repeat labs in the morning. -Uncontrolled IDDM: obtain A1c. accucheck before meals. Diabetes diet. 1800 cals. sliding scale. reconcile and resume home insuline . - others chronic comorbidities: HTN, Hypothyroidism, HLDreconcile and resume home meds. patient on statin, aspirin, senior living plavix.(unclear reason), and synthroid. lissinopril and metoprolol SCD for DVT prohylaxis. On protonix. Full code Rounded on patient after nurse practitioner. Personally examined and interviewed patient. Agree with exam findings and care plan as documented.
--- NOTE | 2023-06-20 20:57 | PC.NURSE ---
Patient arrived to floor via wheelchair at 20:54.
[2023-06-20 21:00] VITALS: BP 124/57; PULSE 71; RESP 18; TEMP 36.8; O2SAT 96
[2023-06-20 21:33] LABS: POC Glucose,Bedside 247 (70-110)
[2023-06-20] MEDS: PANTOPRAZOLE 40MG TABLET 40 MG PO (21:53)
[2023-06-20] MEDS: humaLOG 100 UNITS/ML 3ML VIAL (SSI) SQ (21:53)
[2023-06-20] MEDS: 0.9 % SODIUM CHLORIDE 1000ML 1,000 ML 50 ML IV (21:54)
[2023-06-20 23:47] VITALS: BMI 41.9
[2023-06-21 04:00] VITALS: BP 134/73; PULSE 65; RESP 20; TEMP 36.4; O2SAT 98
[2023-06-21] MEDS: humaLOG 100 UNITS/ML 3ML VIAL (SSI) SQ ×4 (05:53→22:09)
[2023-06-21 05:56] LABS: POC Glucose,Bedside 211 (70-110)
[2023-06-21 06:51] LABS: Basophils % 0.2 % (0.1-2.0); Eosinophils # 0.3 K/mm3 (0.0-0.4); Eosinophils % 3.4 % (0.1-12.0); Hematocrit 38.4 % (42.0-52.0); Hemoglobin 12.3 g/dL (14.1-18.0); Lymphocytes # 1.9 K/mm3 (0.7-4.5); Lymphocytes % 23.8 % (10-50); Mean Corpuscular HGB Conc 32.1 g/dL (31.8-35.4); Mean Corpuscular Hemoglobin 28.6 pg (27.0-31.2); Mean Corpuscular Volume 89.1 fl (80-94); Mean Platelet Volume 8.2 fl (7.4-10.4); Monocytes # 0.5 K/mm3 (0.1-1.0); Monocytes % 5.9 % (1.7-9.3); Neutrophils # 5.4 K/mm3 (1.8-7.8); Neutrophils % 66.7 % (37.0-80.0); Platelet Count 208 K/mm3 (142-424); Red Blood Count 4.31 M/mm3 (4.60-6.20); Red Cell Distribution Width 15.4 % (11.5-17.5); White Blood Count 8.2 K/mm3 (4.8-10.8)
[2023-06-21 06:59] LABS: Alanine Aminotransferase 23 U/L (12-78); Albumin Level 3.7 g/dl (3.5-5.0); Alkaline Phosphatase 76 U/L (38-126); Anion Gap 12.6 mEq/L (5-15); Aspartate Amino Transferase 20 U/L (17-59); Bilirubin,Total 0.7 mg/dl (0.2-1.3); Blood Urea Nitrogen 15 mg/dl (9-20); Calcium 8.6 mg/dl (8.4-10.2); Carbon Dioxide 27 mmol/L (22.0-30.0); Chloride 99 mmol/L (98-107); Creatinine Clearance Estimated 69 mL/min (50-200); Estimated Glomerular Filt Rate 67 ml/min (>60); GFR (African American) 81 ML/MIN (>60); Globulin 3.6 g/dL (1.3-3.2); Glucose 223 mg/dl (74-100); Magnesium 1.8 mg/dl (1.6-2.3); Potassium 3.6 mmoL/L (3.5-5.1); Sodium 135 mmol/L (136-145); Total Protein,Serum 7.3 g/dl (6.3-8.2)
[2023-06-21 07:24] VITALS: BP 121/62; PULSE 119; RESP 18; TEMP 36.6; O2SAT 97
[2023-06-21] MEDS: LEVOFLOXACIN/D5W 750 MG/150 ML 750 MG/150 ML PIGGYBACK 100 MG IV (07:38)
[2023-06-21 07:40] LABS: Hemoglobin A1C 9.8 % (4.0-6.0)
[2023-06-21] MEDS: PANTOPRAZOLE 40MG TABLET 40 MG PO (08:04)
--- NOTE | 2023-06-21 08:45 | EXP.PHA.CONS ---
Pharmacy Consult Date: 06/21/23 Time: 08:45 Referring provider: DR. MEDINA Reason for Consult:: VANCOMYCIN DOSING Allergies Allergy/AdvReac Type Severity Reaction Status Date / Time Penicillins [PENICILLINS] Allergy Unknown Verified 04/24/23 09:45 Home Medications Medication Instructions Recorded Confirmed Type ranolazine 500 mg tablet,extended 500 mg PO ONCE Chest pain 11/17/19 04/24/23 History release,12 hr aspirin 325 mg tablet 325 mg PO DAILY heart 03/14/20 04/24/23 History atorvastatin 80 mg tablet 80 mg PO DAILY Cholesterol #90 tabs 05/28/20 04/24/23 Rx lactulose 10 gram/15 mL oral 10 g PO DAILY stomach 02/25/22 04/24/23 History solution pen needle, diabetic 31 gauge x #100 ea 03/26/22 04/24/23 Rx 5/16 (BD Ultra-Fine Short Pen Needle) lisinopril 2.5 mg tablet 2.5 mg PO DAILY blood pressure #90 07/15/22 04/24/23 Rx tabs blood sugar diagnostic #100 ea 09/24/22 04/24/23 Rx blood-glucose meter #1 ea 09/24/22 04/24/23 Rx citalopram 40 mg tablet See Rx Instructions .Route 11/11/22 04/24/23 Rx .COMPLEX mood #90 tabs lancets (Accu-Chek Softclix #100 ea 11/26/22 04/24/23 Rx Lancets) metoprolol succinate 25 mg See Rx Instructions .Route 01/27/23 04/24/23 Rx tablet,extended release 24 hr .COMPLEX #90 tabs canagliflozin 300 mg tablet 300 mg PO DAILY #30 tabs 03/11/23 04/24/23 Rx (Invokana) dulaglutide 0.75 mg/0.5 mL 0.75 mg (0.5 mL) SQ WEEKLY #2 mL 03/11/23 04/24/23 Rx subcutaneous pen injector (Trulicity) ergocalciferol (vitamin D2) 1,250 See Rx Instructions .Route 03/11/23 04/24/23 Rx mcg (50,000 unit) capsule .COMPLEX #14 caps gabapentin 600 mg tablet See Rx Instructions .Route 03/11/23 04/24/23 Rx .COMPLEX #90 tabs insulin pump cart,automated,BT #5 ea 03/11/23 04/24/23 Rx (Omnipod 5 G6 Pods (Gen 5) subcutaneous cartridge) insulin pump cartridge,automated #1 ea 03/11/23 04/24/23 Rx dose,BT with controller subcutaneous (Omnipod 5 G6 Intro Kit (Gen 5) subcutaneous cartridge with controller) testosterone cypionate 200 mg/mL 200 mg IM WEEKLY #5 mL 03/17/23 04/24/23 Rx intramuscular oil blood-glucose meter,continuous #1 ea 03/20/23 04/24/23 Rx (Dexcom G7 Glost Tile Sorter) metformin 500 mg tablet See Rx Instructions .Route 03/23/23 04/24/23 Rx .COMPLEX #360 tabs glimepiride 4 mg tablet See Rx Instructions .Route 04/15/23 04/24/23 Rx .COMPLEX #90 tabs levothyroxine 200 mcg tablet See Rx Instructions .Route 04/15/23 04/24/23 Rx .COMPLEX #90 tabs tramadol 50 mg tablet 50 mg PO Q8H PRN pain #30 tabs 04/15/23 04/24/23 Rx insulin aspar prot-insulin aspart See Rx Instructions .Route 05/07/23 Rx 100 unit/mL (70-30) subcutaneous .COMPLEX #15 mL pen (Novolog Mix 70-30FlexPen U-100) clopidogrel 75 mg tablet See Rx Instructions .Route 05/19/23 Rx .COMPLEX #90 tabs Lantus Solostar U-100 Insulin 100 See Rx Instructions .Route 05/22/23 Rx unit/mL (3 mL) subcutaneous pen .COMPLEX #15 mL (insulin glargine) benzonatate 100 mg capsule 100 mg PO TID PRN cough #30 caps 05/26/23 Rx azithromycin 250 mg tablet See Rx Instructions PO .COMPLEX 05/27/23 Rx (Zithromax Z-Timmy) congestion #6 tabs methylprednisolone 4 mg tablets in See Rx Instructions PO PER PKG DIR 05/27/23 Rx a dose pack (Medrol (Timmy)) congestion #21 tabs pen needle, diabetic 31 gauge x #100 ea 05/28/23 Rx 12/25 (BD Ultra-Fine Mini Pen Needle) cholecalciferol (vitamin D3) 25 See Rx Instructions .Route 06/02/23 Rx mcg (1,000 unit) capsule (Vitamin .COMPLEX #90 caps D3) dulaglutide 1.5 mg/0.5 mL 1.5 mg (0.5 mL) SQ WEEKLY #2 mL 06/03/23 Rx [facility] isosorbide mononitrate 120 mg See Rx Instructions .Route 06/08/23 Rx tablet,extended release 24 hr .COMPLEX #90 tabs blood-glucose sensor (Dexcom G7 #3 ea 06/16/23 Rx Sensor device) New Prescriptions to Start Prescriptions: Height: 1.8 m Weight: 135.806 kg Laboratory Results:: Laboratory Results - last 24 hr 06/20/23 19:35: WBC 8.9, RBC 4.28 L, Hgb 12.2 L, Hct 37.9 L, MCV 88.6, MCH 28.5, MCHC 32.2, RDW 15.5, Plt Count 220, MPV 8.3, Neut % (Auto) 69.9, Lymph % (Auto) 22.8, [place] % (Auto) 4.9, Eos % (Auto) 2.1, Baso % (Auto) 0.2, Neut # (Auto) 6.2, Lymph # (Auto) 2.0, [place] # (Auto) 0.4, Eos # (Auto) 0.2, Baso # (Auto) 0.0, Sodium 133 L, Potassium 4.3, Chloride 100, Carbon Dioxide 23, Anion Gap 14.3, BUN 16, Creatinine 1.20, Estimated Creat Clear 65, Estimated GFR 61, Est GFR ( Amer) 74, Glucose 296 H, Lactate 1.7, Calcium 9.2, Total Bilirubin 0.8, AST 25, ALT 27, Alkaline Phosphatase 88, C-Reactive Protein 124.0 H, Total Protein 7.3, Albumin 3.7, Globulin 3.6 H, Albumin/Globulin Ratio 1.0 L 06/20/23 21:14: POC Glucose 247 H 06/21/23 05:49: POC Glucose 211 H 06/21/23 06:42: WBC 8.2, RBC 4.31 L, Hgb 12.3 L, Hct 38.4 L, MCV 89.1, MCH 28.6, MCHC 32.1, RDW 15.4, Plt Count 208, MPV 8.2, Neut % (Auto) 66.7, Lymph % (Auto) 23.8, [place] % (Auto) 5.9, Eos % (Auto) 3.4, Baso % (Auto) 0.2, Neut # (Auto) 5.4, Lymph # (Auto) 1.9, [place] # (Auto) 0.5, Eos # (Auto) 0.3, Baso # (Auto) 0.0, Sodium 135 L, Potassium 3.6, Chloride 99, Carbon Dioxide 27, Anion Gap 12.6, BUN 15, Creatinine 1.10, Estimated Creat Clear 69, Estimated GFR 67, Est GFR ( Amer) 81, Glucose 223 H D, Hemoglobin A1c 9.8 H, Calcium 8.6, Magnesium 1.8, Total Bilirubin 0.7, AST 20, ALT 23, Alkaline Phosphatase 76, Total Protein 7.3, Albumin 3.7, Globulin 3.6 H, Albumin/Globulin Ratio 1.0 L 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: 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 (Updated 06/20/23 @ 21:48 by Jermaine Hernandez APRN) Allergic rhinitis CAD (coronary artery disease) Cataract CVA (cerebral vascular accident) Diabetes Diabetic neuropathy associated with type 2 diabetes mellitus Hernia Hyperlipidemia Hypertension Hypothyroidism Insomnia Lumbar nerve root impingement Testosterone deficiency Type 2 diabetes mellitus Vitamin B12 deficiency anemia Vitamin D deficiency Assessment and Plan Assessment and plan all Dx Assessment and Plan for all problems:: Pharmacokinetic dosing service Objective: Patient: Floor: Age: 67 yo Serum creatinine: 1.10 mg/dL Height: 70.9 Inches Weight (kg): 135.8 Assessment: IBW (kg): 75.07 Dosing wt(kg): 135.8 Estimated Creatinine clearance (ml/min): 71.1 CRCL method: Cockcroft and Gault using ibw(default). Drug selected: Vancomycin Loading dose (mg): Vd (liters): 108.6 (factor used: 0.8 L/kg) Ari (hr-1): 0.063 Half life (hrs): 11.00 CLvanco=?? 6.842 L/hr Recommended dose: 2000 mg Interval: 12 hrs Infusion time (hrs): 2.0 Predicted peak (mcg/mL): 32.6 Predicted trough (mcg/mL): 17.36 Total body weight is being used for vancomycin dosing. Recommendations: Give Vancomycin 2000 mg q 12 hrs with an expected Cpeak of 32.6 mcg/ml and an expected Ctrough of 17.36 mcg/ml AUC 0-24 /PHILIPPE Data: PHILIPPE 0.5 mcg/mL:?? AUC/PHILIPPE:? 1169.2 PHILIPPE 1.0 mcg/mL:?? AUC/PHILIPPE:? 584.6 --------- PHILIPPE 1.5 mcg/mL:?? AUC/PHILIPPE:? 389.7 PHILIPPE 2.0 mcg/mL:?? AUC/PHILIPPE:? 292.3 Thank you for the consult, will continue to follow. -BREE STRATTOND
[2023-06-21] MEDS: VANCOMYCIN HCL 2,000 MG in 0.9 % SODIUM CHLORIDE 250 ML 125 MG IV ×2 (10:32→22:18)
--- NOTE | 2023-06-21 10:39 | HMH.PHAINT1 ---
Pharmacy Intervention Comments: MEDICATION RECONCILIATION COMPLETED ON PATIENT USING EXTERNAL FILL HISTORY FROM PHARMACY AND LIST FROM PCP OFFICE. -KIKO MURRAY, BREED
[2023-06-21 12:02] LABS: POC Glucose,Bedside 267 (70-110)
--- NOTE | 2023-06-21 13:27 | EXP.ACUTE.PN ---
Subjective *Date: 06/21/23 *Time: 13:27 Interval history: Patient feeling well this morning. Slept overnight with his BiPAP. Denies any pain in his left leg. Stable on room air. No chest pain or shortness of breath. Afebrile. Medical Exam Vital signs and Labs for Last 24 Hours: Vital Signs Temp Pulse Pulse Resp BP BP Pulse Ox 06/21/23 09:00 06/21/23 08:00 06/21/23 07:24 97.9 F 119 H 18 121/62 97 06/21/23 04:00 97.5 F L 65 20 134/73 98 06/21/23 06:36 06/21/23 04:31 06/21/23 03:00 06/21/23 00:55 06/20/23 23:00 06/20/23 21:00 06/20/23 21:00 98.2 F 71 18 124/57 L 96 06/20/23 20:32 98 F 78 18 150/64 H 06/20/23 19:15 87 18 155/64 H 96 06/20/23 19:11 98 F 78 18 155/64 H 95 O2 Del Method 06/21/23 09:00 Room Air 06/21/23 08:00 Room Air 06/21/23 07:24 Room Air 06/21/23 04:00 Room Air 06/21/23 06:36 Room Air 06/21/23 04:31 Room Air 06/21/23 03:00 Room Air 06/21/23 00:55 Room Air 06/20/23 23:00 Room Air 06/20/23 21:00 Room Air 06/20/23 21:00 Room Air 06/20/23 20:32 Room Air 06/20/23 19:15 06/20/23 19:11 Room Air Intake and Output 06/20/23 06/21/23 06/21/23 23:59 07:59 15:59 Intake Total 1210 / 1450 240 / 1450 Output Total 0 / 0 0 / 0 Balance 1210 / 1450 240 / 1450 Intake: Intake, Oral Amount 960 / 1200 240 / 1200 Intake, Total IV Amount 250 / 250 Vancomycin HCl 2,500 mg In 0.9 250 / 250 % Sodium Chloride 250 ml @ 125 mls/hr IV ONCE ONE Rx#:[id number] Output: Output, Urine Amount 0 / 0 0 / 0 Other: Number of Unmeasured Voids 1 0 Number of Bowel Movements 2 Weight 135.806 kg 135.806 kg Patient Weight 06/21/23 23:59 Weight 135.806 kg Laboratory Results - last 24 hr 06/20/23 19:35: WBC 8.9, RBC 4.28 L, Hgb 12.2 L, Hct 37.9 L, MCV 88.6, MCH 28.5, MCHC 32.2, RDW 15.5, Plt Count 220, MPV 8.3, Neut % (Auto) 69.9, Lymph % (Auto) 22.8, [place] % (Auto) 4.9, Eos % (Auto) 2.1, Baso % (Auto) 0.2, Neut # (Auto) 6.2, Lymph # (Auto) 2.0, [place] # (Auto) 0.4, Eos # (Auto) 0.2, Baso # (Auto) 0.0, Sodium 133 L, Potassium 4.3, Chloride 100, Carbon Dioxide 23, Anion Gap 14.3, BUN 16, Creatinine 1.20, Estimated Creat Clear 65, Estimated GFR 61, Est GFR ( Amer) 74, Glucose 296 H, Lactate 1.7, Calcium 9.2, Total Bilirubin 0.8, AST 25, ALT 27, Alkaline Phosphatase 88, C-Reactive Protein 124.0 H, Total Protein 7.3, Albumin 3.7, Globulin 3.6 H, Albumin/Globulin Ratio 1.0 L 06/20/23 21:14: POC Glucose 247 H 06/21/23 05:49: POC Glucose 211 H 06/21/23 06:42: WBC 8.2, RBC 4.31 L, Hgb 12.3 L, Hct 38.4 L, MCV 89.1, MCH 28.6, MCHC 32.1, RDW 15.4, Plt Count 208, MPV 8.2, Neut % (Auto) 66.7, Lymph % (Auto) 23.8, [place] % (Auto) 5.9, Eos % (Auto) 3.4, Baso % (Auto) 0.2, Neut # (Auto) 5.4, Lymph # (Auto) 1.9, [place] # (Auto) 0.5, Eos # (Auto) 0.3, Baso # (Auto) 0.0, Sodium 135 L, Potassium 3.6, Chloride 99, Carbon Dioxide 27, Anion Gap 12.6, BUN 15, Creatinine 1.10, Estimated Creat Clear 69, Estimated GFR 67, Est GFR ( Amer) 81, Glucose 223 H D, Hemoglobin A1c 9.8 H, Calcium 8.6, Magnesium 1.8, Total Bilirubin 0.7, AST 20, ALT 23, Alkaline Phosphatase 76, Total Protein 7.3, Albumin 3.7, Globulin 3.6 H, Albumin/Globulin Ratio 1.0 L 06/21/23 11:49: POC Glucose 267 H I & O for Labs for Last 24 Hours: Intake & Output 06/18/23 06/19/23 06/20/23 06/21/23 23:59 23:59 23:59 23:59 Intake Total 1450 / 1450 Output Total 0 / 0 Balance 1450 / 1450 Weight 135.806 kg 135.806 kg Microbiology Reports for the Last 24 Hours: Microbiology 06/20/23 19:50 Foot,Left Gram Stain - Final Constitutional: Present no acute distress, morbidly obese and chronically ill appearing Head: Present atraumatic and normocephalic ENT: Present normal exam Neck: Present normal inspection Respiratory: Present distant breath sounds and normal respiratory effort; Absent rhonchi, wheezes or crackles Cardiac: Present Reg Rate and Rhythm GI: Present normal bowel sounds; Absent tenderness Extremities: Present normal inspection, full ROM and edema (Trace bilateral lower extremities.); Absent tenderness Skin: Present intact and erythema (Improving erythema left lower leg and foot. Receding from leading edge marked yesterday. Small puncture site middle of plantar surface left foot. No drainage.) Neuro: Present Grossly Intact, alert, awake, oriented x 3 and moves all extremities Assessment and Plan *Assessment and plan (1) Infected puncture wound of plantar aspect of foot: Status: Acute Qualifiers: Encounter type: initial encounter Laterality: left Qualified Code(s): S91.332A - Puncture wound without foreign body, left foot, initial encounter; L08.9 - Local infection of the skin and subcutaneous tissue, unspecified Category: Medical Code(s): S91.339A - Puncture wound without foreign body, unspecified foot, initial encounter; L08.9 - Local infection of the skin and subcutaneous tissue, unspecified (2) Cellulitis of left leg: Status: Acute Category: Medical Code(s): L03.116 - Cellulitis of left lower limb (3) Type 2 diabetes mellitus with diabetic neuropathy: Status: Acute Qualifiers: Diabetes mellitus group home insulin use: without remote computer terminal operator use Qualified Code(s): E11.40 - Type 2 diabetes mellitus with diabetic neuropathy, unspecified Category: Medical Code(s): E11.40 - Type 2 diabetes mellitus with diabetic neuropathy, unspecified (4) Hypertension: Status: Chronic Qualifiers: Hypertension type: essential hypertension Qualified Code(s): I10 - Essential (primary) hypertension Category: Medical Code(s): I10 - Essential (primary) hypertension (5) Hypothyroidism: Status: Chronic Qualifiers: Hypothyroidism type: unspecified Qualified Code(s): E03.9 - Hypothyroidism, unspecified Category: Medical Code(s): E03.9 - Hypothyroidism, unspecified (6) Hyperlipidemia: Status: Chronic Qualifiers: Hyperlipidemia type: unspecified Qualified Code(s): E78.5 - Hyperlipidemia, unspecified Category: Medical Code(s): E78.5 - Hyperlipidemia, unspecified (7) Morbid obesity with body mass index (BMI) of 40.0 to 49.9: Status: Chronic Category: Medical Code(s): E66.01 - Morbid (severe) obesity due to excess calories Plan 67-year-old male with a history of uncontrolled type 2 diabetes and peripheral neuropathy of his lower extremities, last A1c 9.7, HTN, HLD, Hypothyroidism and morbid obesity who presented today with spreading redness and pain of his left lower extremity after stepping on a nail 2 days ago. patient pulled it out after almost 24hrs in place. Tetanus shot was renewed at ER. Foot Xray concerning of soft tissue inflammation. Tolerating IV antibiotics. Seeing some improvement this morning. Necessitates at least 24 to 48 hours of IV antibiotics before transitioning to oral therapy. Continue inpatient care. Problems addressed as follows: -Infected puncture wound of plantar aspect of left foot: -Cellulitis of left leg Continue IV antibiotics with levofloxacin and vancomycin. Tylenol p.o. as needed for fever pain Continue close monitoring of kidney function and Vanco level for risk of toxicity. CRP elevated at 124. Repeat level ordered for the morning. -Uncontrolled IDDM: -A1c 9.8 Diabetic diet Sliding scale insulin with fingersticks ACHS Resume home glargine 30 units nightly. Class III obesity complicates all aspects of his care Hypertension CAD - Blood pressure well controlled at this time. Continue isosorbide mononitrate 120 mg daily. We will hold lisinopril at this time given normotension -Continue Lipitor 80 mg daily Neuropathy: Continue home gabapentin regimen 600 mg 3 times daily Hypothyroidism: Continue home levothyroxine 200 mcg daily Full code Diabetic diet
[2023-06-21 15:29] VITALS: BP 133/64; PULSE 58; RESP 18; TEMP 37; O2SAT 98
[2023-06-21] MEDS: 0.9 % SODIUM CHLORIDE 1000ML 1,000 ML 50 ML IV (16:14)
[2023-06-21 16:29] LABS: POC Glucose,Bedside 288 (70-110)
--- NOTE | 2023-06-21 18:45 | PC.NURSE ---
pt has done well today. ambulates independently. denies any pain in leg/foot. reports he has not been checking his blood sugar @ home. educated pt. he is pleasant and appropriate
[2023-06-21 20:00] VITALS: BP 146/73; PULSE 60; RESP 18; TEMP 36.6; O2SAT 97
[2023-06-21 20:41] LABS: POC Glucose,Bedside 217 (70-110)
[2023-06-21] MEDS: GABAPENTIN 600MG TABLET 600 MG PO (21:59)
[2023-06-21] MEDS: ATORVASTATIN 40MG TABLET 80 MG PO (22:00)
[2023-06-21] MEDS: INSULIN GLARGINE 100 UNITS/ML 3ML FLEXPEN 30 UNIT SQ (22:11)
[2023-06-22 04:00] VITALS: BP 146/71; PULSE 52; RESP 18; TEMP 36.3; O2SAT 100; BMI 43.8
--- NOTE | 2023-06-22 04:18 | PC.NURSE ---
no new events through shift. will cont with poc
[2023-06-22 05:58] LABS: POC Glucose,Bedside 227 (70-110)
[2023-06-22] MEDS: humaLOG 100 UNITS/ML 3ML VIAL (SSI) SQ ×2 (06:40→12:02)
[2023-06-22] MEDS: LEVOTHYROXINE 100MCG (0.1MG) TAB 200 MCG PO (06:41)
[2023-06-22 06:47] LABS: Basophils % 0.2 % (0.1-2.0); Eosinophils # 0.2 K/mm3 (0.0-0.4); Hematocrit 39.3 % (42.0-52.0); Hemoglobin 12.3 g/dL (14.1-18.0); Lymphocytes # 2.1 K/mm3 (0.7-4.5); Lymphocytes % 35.2 % (10-50); Mean Corpuscular HGB Conc 31.3 g/dL (31.8-35.4); Mean Corpuscular Hemoglobin 28.1 pg (27.0-31.2); Mean Corpuscular Volume 89.7 fl (80-94); Mean Platelet Volume 8.1 fl (7.4-10.4); Monocytes # 0.4 K/mm3 (0.1-1.0); Monocytes % 5.9 % (1.7-9.3); Neutrophils # 3.3 K/mm3 (1.8-7.8); Neutrophils % 54.6 % (37.0-80.0); Platelet Count 210 K/mm3 (142-424); Red Blood Count 4.38 M/mm3 (4.60-6.20); Red Cell Distribution Width 15.3 % (11.5-17.5)
[2023-06-22 06:56] LABS: Alanine Aminotransferase 20 U/L (12-78); Albumin Level 3.6 g/dl (3.5-5.0); Alkaline Phosphatase 80 U/L (38-126); Anion Gap 11.1 mEq/L (5-15); Aspartate Amino Transferase 20 U/L (17-59); Bilirubin,Total 0.4 mg/dl (0.2-1.3); Blood Urea Nitrogen 13 mg/dl (9-20); Calcium 8.9 mg/dl (8.4-10.2); Carbon Dioxide 27 mmol/L (22.0-30.0); Chloride 100 mmol/L (98-107); Creatinine Clearance Estimated 76 mL/min (50-200); Estimated Glomerular Filt Rate 75 ml/min (>60); GFR (African American) 91 ML/MIN (>60); Globulin 3.6 g/dL (1.3-3.2); Glucose 221 mg/dl (74-100); Magnesium 1.8 mg/dl (1.6-2.3); Potassium 4.1 mmoL/L (3.5-5.1); Sodium 134 mmol/L (136-145); Total Protein,Serum 7.2 g/dl (6.3-8.2)
[2023-06-22 07:03] LABS: C-Reactive Protein 60.8 mg/L (0-4)
[2023-06-22 08:00] VITALS: BP 120/69; PULSE 55; RESP 18; TEMP 36.4; O2SAT 98
[2023-06-22] MEDS: LEVOFLOXACIN/D5W 750 MG/150 ML 750 MG/150 ML PIGGYBACK 100 MG IV (08:23)
[2023-06-22] MEDS: ISOSORBIDE MONO 60MG TAB.ER.24H 120 MG PO (08:24)
[2023-06-22] MEDS: GABAPENTIN 600MG TABLET 600 MG PO ×2 (08:24→12:00)
[2023-06-22] MEDS: DOCUSATE SODIUM 100 MG CAPSULE PO (08:24)
[2023-06-22] MEDS: CITALOPRAM 40MG TABLET 40 MG PO (08:24)
[2023-06-22] MEDS: CLOPIDOGREL 75MG TAB 75 MG PO (08:24)
[2023-06-22] MEDS: PANTOPRAZOLE 40MG TABLET 40 MG PO (08:24)
[2023-06-22 09:21] LABS: Erythrocyte Sedimentation Rate 91 mm/hr (0-20)
[2023-06-22 10:27] LABS: Vancomycin,Trough 11.7 ug/mL (5.0-10.0)
[2023-06-22 10:53] LABS: POC Glucose,Bedside 277 (70-110)
--- NOTE | 2023-06-22 11:06 | P.CONPHA_ITS ---
Pharmacy Consult Date: 06/22/23 Time: 11:06 Referring provider: DR MEEK Reason for Consult:: VANCOMYCIN TROUGH LEVEL OBTAINED. Allergies Allergy/AdvReac Type Severity Reaction Status Date / Time Penicillins [PENICILLINS] Allergy Unknown Verified 04/24/23 09:45 Home Medications Medication Instructions Recorded Confirmed Type ranolazine 500 mg tablet,extended 500 mg PO DAILY Chest pain 11/17/19 06/21/23 History release,12 hr aspirin 325 mg tablet 325 mg PO DAILY Heart Health 03/14/20 06/21/23 History blood sugar diagnostic #100 ea 09/24/22 06/21/23 Rx blood-glucose meter #1 ea 09/24/22 06/21/23 Rx atorvastatin 80 mg tablet 80 mg PO HS Cholesterol 06/21/23 06/21/23 History blood-glucose meter,continuous 06/21/23 06/21/23 History (Dexcom G7 [employer]) blood-glucose sensor (Dexcom G7 06/21/23 06/21/23 History Sensor device) cholecalciferol (vitamin D3) 25 25 mcg PO DAILY Supplement 06/21/23 06/21/23 History mcg (1,000 unit) capsule (Vitamin D3) citalopram 40 mg tablet 40 mg PO DAILY mood 06/21/23 06/21/23 History clopidogrel 75 mg tablet 75 mg PO DAILY Platelet Inhibitor 06/21/23 06/21/23 History dulaglutide 1.5 mg/0.5 mL 1.5 mg SQ WEEKLY Diabetes 06/21/23 06/21/23 History subcutaneous pen injector (Trulicity) gabapentin 600 mg tablet 600 mg PO TID Pain 06/21/23 06/21/23 History glimepiride 4 mg tablet 4 mg PO DAILY Diabetes 06/21/23 06/21/23 History insulin aspar prot-insulin aspart 10 unit SQ BID Diabetes 06/21/23 06/21/23 History 100 unit/mL (70-30) subcutaneous pen (Novolog Mix 70-30FlexPen U-100) insulin glargine 100 unit/mL (3 30 unit SQ HS Diabetes 06/21/23 06/21/23 History mL) subcutaneous pen (Lantus Solostar U-100 Insulin) insulin pump cart,automated,BT 06/21/23 06/21/23 History (Omnipod 5 G6 Pods (Gen 5) subcutaneous cartridge) insulin pump cartridge,automated 06/21/23 06/21/23 History dose,BT with controller subcutaneous (Omnipod 5 G6 Intro Kit (Gen 5) subcutaneous cartridge with controller) isosorbide mononitrate 120 mg 120 mg PO DAILY High Blood Pressure 06/21/23 06/21/23 History tablet,extended release 24 hr lancets (Accu-Chek Softclix 06/21/23 06/21/23 History Lancets) levothyroxine 200 mcg tablet 200 mcg PO DAILY thyroid 06/21/23 06/21/23 History lisinopril 2.5 mg tablet 2.5 mg PO DAILY High Blood Pressure 06/21/23 06/21/23 History metformin 500 mg tablet 1,000 mg PO BIDWMEAL Diabetes 06/21/23 06/21/23 History metoprolol succinate 25 mg 25 mg PO DAILY Hypertension 06/21/23 06/21/23 History tablet,extended release 24 hr pen needle, diabetic 31 gauge x 06/21/23 06/21/23 History 3/16 (BD Ultra-Fine Mini Pen Needle) pen needle, diabetic 31 gauge x 06/21/23 06/21/23 History 5/16 (BD Ultra-Fine Short Pen Needle) New Prescriptions to Start Prescriptions: Height: 1.8 m Weight: 142.003 kg Laboratory Results:: Laboratory Results - last 24 hr 06/21/23 11:49: POC Glucose 267 H 06/21/23 16:13: POC Glucose 288 H 06/21/23 20:25: POC Glucose 217 H 06/22/23 05:43: POC Glucose 227 H 06/22/23 06:04: WBC 6.0 D, RBC 4.38 L, Hgb 12.3 L, Hct 39.3 L, MCV 89.7, MCH 28.1, MCHC 31.3 L, RDW 15.3, Plt Count 210, MPV 8.1, Neut % (Auto) 54.6, Lymph % (Auto) 35.2, [place] % (Auto) 5.9, Eos % (Auto) 4.0, Baso % (Auto) 0.2, Neut # (Auto) 3.3, Lymph # (Auto) 2.1, [place] # (Auto) 0.4, Eos # (Auto) 0.2, Baso # (Auto) 0.0, ESR 91 H, Sodium 134 L, Potassium 4.1, Chloride 100, Carbon Dioxide 27, Anion Gap 11.1, BUN 13, Creatinine 1.00, Estimated Creat Clear 76, Estimated GFR 75, Est GFR ( Amer) 91, Glucose 221 H, Calcium 8.9, Magnesium 1.8, Total Bilirubin 0.4, AST 20, ALT 20, Alkaline Phosphatase 80, C-Reactive Protein 60.8 H D, Total Protein 7.2, Albumin 3.6, Globulin 3.6 H, Albumin/Globulin Ratio 1.0 L 06/22/23 09:15: Vancomycin Trough 11.7 H 06/22/23 10:46: POC Glucose 277 H 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: 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 (Updated 06/20/23 @ 21:48 by Jermaine Hernandez APRN) Allergic rhinitis CAD (coronary artery disease) Cataract CVA (cerebral vascular accident) Diabetes Diabetic neuropathy associated with type 2 diabetes mellitus Hernia Hyperlipidemia Hypertension Hypothyroidism Insomnia Lumbar nerve root impingement Testosterone deficiency Type 2 diabetes mellitus Vitamin B12 deficiency anemia Vitamin D deficiency Assessment and Plan Assessment and plan all Dx Assessment and Plan for all problems:: VANCOMYCIN TROUGH LEVEL OBTAINED OF 11.7 MCG/ML (06/22/23 AT 09:15) RECOMMEND CONTINUING CURRENT VANCOMYCIN DOSING REGIMEN OF VANCOMYCIN 2000 MG IV Q8H.
--- NOTE | 2023-06-22 11:41 | EXP.DC.SUM ---
General Admission date:: 06/20/23 Discharge date: 06/22/23 HPI HPI HPI: This is a 67-year-old male with a history of uncontrolled type 2 diabetes and peripheral neuropathy of his lower extremities, HTN, HLD, Hypothyroidism, morbid obesity who presented today with spreading redness and pain of his left lower extremity after stepping on a nail 2 days ago. Given his neuropathy he did not noticed until almost 24 hours after the incident, and today started with worsening redness pain and swelling on his left lower extremity extending up his leg. No fevers or chills or systemic symptoms. He believes that he got the entire nail out, after pulled out himself. No retained foreign body suspected. Admitted for further treatment. Hospital Course Hospital Course Hospital Course: 67-year-old male with a history of uncontrolled type 2 diabetes and peripheral neuropathy of his lower extremities, last A1c 9.7, HTN, HLD, Hypothyroidism and morbid obesity who presented today with spreading redness and pain of his left lower extremity after stepping on a nail 2 days ago. patient pulled it out after almost 24hrs in place. Tetanus shot was renewed at ER. Foot Xray concerning of soft tissue inflammation. Tolerating IV antibiotics. Saw improvement during admission with improvement in erythema. Blood cultures remain negative. Transition to oral antibiotics to complete 7 days of antibiotics total. Follow-up with PCP in the next 1 to 2 weeks to evaluate for resolution. Stable for discharge home. Problems addressed as follows: -Infected puncture wound of plantar aspect of left foot: -Cellulitis of left leg Patient with puncture on bottom of left foot. Started on IV antibiotics with Levaquin and vancomycin. Improvement in erythema and swelling. No significant pain or fever during admission. CRP improved from 124-60. Stable for discharge home to complete antibiotics with an oral regimen. Continue levofloxacin to complete 7 days total. Transitioned to Bactrim twice daily to complete 7 days for staph coverage. We will hold patient's lisinopril until completes Bactrim. -Uncontrolled IDDM: -A1c 9.8 Diabetic diet. Sliding scale insulin with fingersticks ACHS during admission. Resumed home glargine 30 units nightly. Resume home regimen at discharge. Class III obesity complicates all aspects of his care Hypertension CAD - Blood pressure well controlled at this time. Continue isosorbide mononitrate 120 mg daily. We will hold lisinopril at this time given normotension. Hold Lisinopril until completes bactrim course. Continue Lipitor 80 mg daily Neuropathy: Continue home gabapentin regimen 600 mg 3 times daily Hypothyroidism: Continue home levothyroxine 200 mcg daily Stable for dischare home. Complete antibiotics as prescribed. Follow-up with PCP in 1 to 2 weeks. Exam Data for Last 24 hours Vital signs and Labs for Last 24 Hours: Temp Pulse Resp BP Pulse Ox O2 Del Method 97.6 F 55 L 18 120/69 98 Room Air 06/22/23 08:00 06/22/23 08:00 06/22/23 08:00 06/22/23 08:00 06/22/23 08:00 06/22/23 09:17 Laboratory Results - last 24 hr 06/21/23 11:49: POC Glucose 267 H 06/21/23 16:13: POC Glucose 288 H 06/21/23 20:25: POC Glucose 217 H 06/22/23 05:43: POC Glucose 227 H 06/22/23 06:04: WBC 6.0 D, RBC 4.38 L, Hgb 12.3 L, Hct 39.3 L, MCV 89.7, MCH 28.1, MCHC 31.3 L, RDW 15.3, Plt Count 210, MPV 8.1, Neut % (Auto) 54.6, Lymph % (Auto) 35.2, [place] % (Auto) 5.9, Eos % (Auto) 4.0, Baso % (Auto) 0.2, Neut # (Auto) 3.3, Lymph # (Auto) 2.1, [place] # (Auto) 0.4, Eos # (Auto) 0.2, Baso # (Auto) 0.0, ESR 91 H, Sodium 134 L, Potassium 4.1, Chloride 100, Carbon Dioxide 27, Anion Gap 11.1, BUN 13, Creatinine 1.00, Estimated Creat Clear 76, Estimated GFR 75, Est GFR ( Amer) 91, Glucose 221 H, Calcium 8.9, Magnesium 1.8, Total Bilirubin 0.4, AST 20, ALT 20, Alkaline Phosphatase 80, C-Reactive Protein 60.8 H D, Total Protein 7.2, Albumin 3.6, Globulin 3.6 H, Albumin/Globulin Ratio 1.0 L 06/22/23 09:15: Vancomycin Trough 11.7 H 06/22/23 10:46: POC Glucose 277 H I & O for Last 24 hours: Intake & Output 06/19/23 06/20/23 06/21/23 06/22/23 23:59 23:59 23:59 23:59 Intake Total 1929 847 / 847 Output Total 0 / 0 125 / 125 Balance 1929 722 / 722 Weight 135.806 kg 135.806 kg 142.003 kg Microbiology Reports for the Last 24 Hours: Microbiology 06/20/23 19:50 Foot,Left Gram Stain - Final 06/20/23 19:50 Foot,Left Wound Culture - Preliminary Gram Positive Cocci Constitutional Constitutional: no acute distress and morbidly obese *Routine HEENT Exam Head: Present normocephalic Eye: Present EOMI and PERRL ENT: Present mucous membranes moist *Routine Neck Exam Neck: Present supple; Absent lymphadenopathy *Routine Respiratory Exam Respiratory: Present CTA bilaterally *Routine Cardiovascular Exam Cardiovascular: Present RRR *Routine Abdominal Exam Abdominal: Present soft and normoactive bowel sounds; Absent tenderness *Routine Extremities Exam Extremities: Present edema (trace BLE); Absent cyanosis or clubbing *Routine Skin Exam Skin: Present warm; Absent rash Comments: Erythema more or less resolved left lower extremity. Minimal streaking of left foot. No bleeding or weeping from puncture site. *Routine Neurological Exam Neurological: Present alert, oriented X3 and moving all extremities; Absent altered mental status Results Data Completed and Pending Labs on day of discharge: Labs from last 24 hours 06/22/23 06/22/23 06/22/23 10:46 09:15 06:04 WBC 6.0 D RBC 4.38 L Hgb 12.3 L Hct 39.3 L MCV 89.7 MCH 28.1 MCHC 31.3 L RDW 15.3 Plt Count 210 MPV 8.1 Neut % (Auto) 54.6 Lymph % (Auto) 35.2 [place] % (Auto) 5.9 Eos % (Auto) 4.0 Baso % (Auto) 0.2 Neut # (Auto) 3.3 Lymph # (Auto) 2.1 [place] # (Auto) 0.4 Eos # (Auto) 0.2 Baso # (Auto) 0.0 ESR 91 H Sodium 134 L Potassium 4.1 Chloride 100 Carbon Dioxide 27 Anion Gap 11.1 BUN 13 Creatinine 1.00 Estimated Creat Clear 76 Estimated GFR 75 Est GFR ( Amer) 91 Glucose 221 H POC Glucose 277 H Calcium 8.9 Magnesium 1.8 Total Bilirubin 0.4 AST 20 ALT 20 Alkaline Phosphatase 80 C-Reactive Protein 60.8 H D Total Protein 7.2 Albumin 3.6 Globulin 3.6 H Albumin/Globulin Ratio 1.0 L Vancomycin Trough 11.7 H 06/22/23 06/21/23 06/21/23 05:43 20:25 16:13 WBC RBC Hgb Hct MCV MCH MCHC RDW Plt Count MPV Neut % (Auto) Lymph % (Auto) [place] % (Auto) Eos % (Auto) Baso % (Auto) Neut # (Auto) Lymph # (Auto) [place] # (Auto) Eos # (Auto) Baso # (Auto) ESR Sodium Potassium Chloride Carbon Dioxide Anion Gap BUN Creatinine Estimated Creat Clear Estimated GFR Est GFR ( Amer) Glucose POC Glucose 227 H 217 H 288 H Calcium Magnesium Total Bilirubin AST ALT Alkaline Phosphatase C-Reactive Protein Total Protein Albumin Globulin Albumin/Globulin Ratio Vancomycin Trough 06/21/23 11:49 WBC RBC Hgb Hct MCV MCH MCHC RDW Plt Count MPV Neut % (Auto) Lymph % (Auto) [place] % (Auto) Eos % (Auto) Baso % (Auto) Neut # (Auto) Lymph # (Auto) [place] # (Auto) Eos # (Auto) Baso # (Auto) ESR Sodium Potassium Chloride Carbon Dioxide Anion Gap BUN Creatinine Estimated Creat Clear Estimated GFR Est GFR ( Amer) Glucose POC Glucose 267 H Calcium Magnesium Total Bilirubin AST ALT Alkaline Phosphatase C-Reactive Protein Total Protein Albumin Globulin Albumin/Globulin Ratio Vancomycin Trough Preliminary micro results at discharge 06/20/23 19:50 Wound Culture - Preliminary Foot,Left Gram Positive Cocci DS: Diagnosis Discharge Diagnosis (1) Infected puncture wound of plantar aspect of foot: Status: Acute Code(s): S91.339A - Puncture wound without foreign body, unspecified foot, initial encounter; L08.9 - Local infection of the skin and subcutaneous tissue, unspecified Qualifiers: Encounter type: initial encounter Laterality: left Qualified Code(s): S91.332A - Puncture wound without foreign body, left foot, initial encounter; L08.9 - Local infection of the skin and subcutaneous tissue, unspecified (2) Cellulitis of left leg: Status: Acute Code(s): L03.116 - Cellulitis of left lower limb (3) Type 2 diabetes mellitus with diabetic neuropathy: Status: Acute Code(s): E11.40 - Type 2 diabetes mellitus with diabetic neuropathy, unspecified Qualifiers: Diabetes mellitus intermodal truck driver insulin use: without intermodal truck driver use Qualified Code(s): E11.40 - Type 2 diabetes mellitus with diabetic neuropathy, unspecified (4) Hypertension: Status: Chronic Code(s): I10 - Essential (primary) hypertension Qualifiers: Hypertension type: essential hypertension Qualified Code(s): I10 - Essential (primary) hypertension (5) Hypothyroidism: Status: Chronic Code(s): E03.9 - Hypothyroidism, unspecified Qualifiers: Hypothyroidism type: unspecified Qualified Code(s): E03.9 - Hypothyroidism, unspecified (6) Hyperlipidemia: Status: Chronic Code(s): E78.5 - Hyperlipidemia, unspecified Qualifiers: Hyperlipidemia type: unspecified Qualified Code(s): E78.5 - Hyperlipidemia, unspecified (7) Morbid obesity with body mass index (BMI) of 40.0 to 49.9: Status: Chronic Code(s): E66.01 - Morbid (severe) obesity due to excess calories Meds Home Medications and Allergies Home Medications Medication Instructions Recorded Confirmed Type ranolazine 500 mg tablet,extended 500 mg PO DAILY Chest pain 11/17/19 06/21/23 History release,12 hr aspirin 325 mg tablet 325 mg PO DAILY Heart Health 03/14/20 06/21/23 History blood sugar diagnostic #100 ea 09/24/22 06/21/23 Rx blood-glucose meter #1 ea 09/24/22 06/21/23 Rx atorvastatin 80 mg tablet 80 mg PO HS Cholesterol 06/21/23 06/21/23 History blood-glucose meter,continuous 06/21/23 06/21/23 History (Dexcom G7 Partition Assembly Machine Operator) blood-glucose sensor (Dexcom G7 06/21/23 06/21/23 History Sensor device) cholecalciferol (vitamin D3) 25 25 mcg PO DAILY Supplement 06/21/23 06/21/23 History mcg (1,000 unit) capsule (Vitamin D3) citalopram 40 mg tablet 40 mg PO DAILY mood 06/21/23 06/21/23 History clopidogrel 75 mg tablet 75 mg PO DAILY Platelet Inhibitor 06/21/23 06/21/23 History dulaglutide 1.5 mg/0.5 mL 1.5 mg SQ WEEKLY Diabetes 06/21/23 06/21/23 History subcutaneous pen injector (Trulicity) gabapentin 600 mg tablet 600 mg PO TID Pain 06/21/23 06/21/23 History glimepiride 4 mg tablet 4 mg PO DAILY Diabetes 06/21/23 06/21/23 History insulin aspar prot-insulin aspart 10 unit SQ BID Diabetes 06/21/23 06/21/23 History 100 unit/mL (70-30) subcutaneous pen (Novolog Mix 70-30FlexPen U-100) insulin glargine 100 unit/mL (3 30 unit SQ HS Diabetes 06/21/23 06/21/23 History mL) subcutaneous pen (Lantus Solostar U-100 Insulin) insulin pump cart,automated,BT 06/21/23 06/21/23 History (Omnipod 5 G6 Pods (Gen 5) subcutaneous cartridge) insulin pump cartridge,automated 06/21/23 06/21/23 History dose,BT with controller subcutaneous (Omnipod 5 G6 Intro Kit (Gen 5) subcutaneous cartridge with controller) isosorbide mononitrate 120 mg 120 mg PO DAILY High Blood Pressure 06/21/23 06/21/23 History tablet,extended release 24 hr lancets (Accu-Chek Softclix 06/21/23 06/21/23 History Lancets) levothyroxine 200 mcg tablet 200 mcg PO DAILY thyroid 06/21/23 06/21/23 History lisinopril 2.5 mg tablet 2.5 mg PO DAILY High Blood Pressure 06/21/23 06/21/23 History metformin 500 mg tablet 1,000 mg PO BIDWMEAL Diabetes 06/21/23 06/21/23 History metoprolol succinate 25 mg 25 mg PO DAILY Hypertension 06/21/23 06/21/23 History tablet,extended release 24 hr pen needle, diabetic 31 gauge x 06/21/23 06/21/23 History 3/16 (BD Ultra-Fine Mini Pen Needle) pen needle, diabetic 31 gauge x 06/21/23 06/21/23 History 5/16 (BD Ultra-Fine Short Pen Needle) levofloxacin 750 mg tablet 750 mg PO DAILY 5 days #5 tabs 06/22/23 Rx sulfamethoxazole 800 1 tab PO BID 5 days #10 tabs 06/22/23 Rx mg-trimethoprim 160 mg tablet (Bactrim DS) New Prescriptions to Start Prescriptions: levofloxacin DianeJonathon sulfamethoxazole-trimethoprim [Bactrim DS] DianeJonathon brown Allergies Allergy/AdvReac Type Severity Reaction Status Date / Time Penicillins [PENICILLINS] Allergy Unknown Verified 04/24/23 09:45 Discharge Plan Disposition Patient Disposition: Home, Self-Care Condition: Good Follow up Plan Follow up with: Shira Valladares PA [Primary Care Provider] - 06/29/23 1:00 pm Prescriptions/Medication Reconciliation: New levofloxacin 750 mg tablet 750 mg PO DAILY 5 Days Qty: 5 0RF Rx Instructions: start tomorrow 06/23/23 sulfamethoxazole-trimethoprim [Bactrim DS] 800-160 mg tablet 1 tab PO BID 5 Days Qty: 10 0RF Continued aspirin 325 mg tablet 325 mg PO DAILY ranolazine 500 mg tablet extended release 12 hr 500 mg PO DAILY Patient Comments: TAKE 1 TABLET BY MOUTH ONCE DAILY (DME) blood sugar diagnostic Strip See Rx Instructions .Route .MEDSUPPLY Qty: 100 2RF Rx Instructions: test 3 times daily or As directed (DME) blood-glucose meter Kit See Rx Instructions .Route NEEDED Qty: 1 0RF Rx Instructions: test sugar three time daily or As directed metformin 500 mg tablet 1,000 mg PO BIDWMEAL atorvastatin 80 mg tablet 80 mg PO HS Rx Instructions: TAKE 1 TABLET BY MOUTH AT BEDTIME FOR CHOLESTEROL gabapentin 600 mg tablet 600 mg PO TID citalopram 40 mg tablet 40 mg PO DAILY clopidogrel 75 mg tablet 75 mg PO DAILY isosorbide mononitrate 120 mg tablet extended release 24 hr 120 mg PO DAILY (DME) lancets [Accu-Chek Softclix Lancets] Misc See Rx Instructions .ROUTE .COMPLEX Rx Instructions: USE TO CHECK GLUCOSE THREE TIMES DAILY OR DIRECTED glimepiride 4 mg tablet 4 mg PO DAILY levothyroxine 200 mcg tablet 200 mcg PO DAILY cholecalciferol (vitamin D3) [Vitamin D3] 25 mcg (1,000 unit) capsule 25 mcg PO DAILY (DME) pen needle, diabetic [BD Ultra-Fine Short Pen Needle] 31 gauge x 5/16 needle See Rx Instructions MISCELLANEOUS Rx Instructions: USE 1 SUBCUTANEOUSLY TWICE DAILY insulin asp prt-insulin aspart [Novolog Mix 70-30FlexPen U-100] 100 unit/mL (70-30) insulin pen 10 unit SQ BID (DME) pen needle, diabetic [BD Ultra-Fine Mini Pen Needle] 31 gauge x 3/16 needle See Rx Instructions .ROUTE .COMPLEX Rx Instructions: USE DIRECTED insulin glargine [Lantus Solostar U-100 Insulin] 100 unit/mL (3 mL) insulin pen 30 unit SQ HS (DME) Dexcom G7 Sensor Device See Rx Instructions .ROUTE .COMPLEX Rx Instructions: USE DIRECTED (DME) Dexcom G7 Partition Assembly Machine Operator Misc See Rx Instructions .ROUTE .COMPLEX Rx Instructions: USE DIRECTED Trulicity 1.5 mg/0.5 mL pen injector 1.5 mg SQ WEEKLY (DME) Omnipod 5 G6 Pods (Gen 5) Cartridge See Rx Instructions .ROUTE Rx Instructions: As directed (DME) Omnipod 5 G6 Intro Kit (Gen 5) Cartridge See Rx Instructions .ROUTE Rx Instructions: As directed metoprolol succinate 25 mg tablet extended release 24 hr 25 mg PO DAILY Patient Comments: TAKE 1 TABLET BY MOUTH ONCE DAILY FOR BLOOD PRESSURE Held lisinopril 2.5 mg tablet 2.5 mg PO DAILY Hold Instructions: until completes Bactrim (antibiotics) course Problem Reconciliation Problems Reviewed?: Yes Patient Discharge Instructions ACTIVITY: Continue current activity DIET: continue same diet Patient Instructions: DI for Cellulitis -- Adult, Cellulitis Providers Primary Care Provider: Shira Valladares Admit Provider: Jonathon Contreras Attending Provider: Jonathon Contreras
[2023-06-22] MEDS: VANCOMYCIN HCL 2,000 MG in 0.9 % SODIUM CHLORIDE 250 ML 125 MG IV (11:58)
--- NOTE | 2023-06-23 14:09 | CARE MANAGER ---
Contacted patient related to hospital discharge. Patient is aware of follow up appointments and medication changes. Denies questions or concerns. MARYANA Soria
== END 2023-06-22 14:16 | disposition home or self-care (01) ==
LOC: ER 20:07 → 2ND 20:14
PROVIDERS: Nurse Practitioner Family; Admitting Provider Internal Medicine Adolescent Medicine; Emergency Provider Student in an Organized Health Care Education/Training Program; PCP Physician Assistant; Visit Provider Internal Medicine Adolescent Medicine
DX: S91.332A Puncture wound without foreign body, left foot, initial encounter (principal); L03.116 Cellulitis of left lower limb; E11.40 Type 2 diabetes mellitus with diabetic neuropathy, unspecified; I10 Essential (primary) hypertension; E03.9 Hypothyroidism, unspecified; E78.5 Hyperlipidemia, unspecified; E66.01 Morbid (severe) obesity due to excess calories; L08.9 Local infection of the skin and subcutaneous tissue, unspecified; Z68.41 Body mass index [BMI] 40.0-44.9, adult; W45.0XXA Nail entering through skin, initial encounter; Z23 Encounter for immunization
CPT/HCPCS: 36415; 73630; 80053; 80202; 82962; 83036; 83605; 83735; 85025; 85651; 86140; 87040; 87070; 87077; 87186; 87205; 90715; 99285; G0378; J1956; J3370

== ENCOUNTER 2023-07-31 18:35 | Emergency (ER) | payer MEDICARE, MEDICAID, SELFPAY ==
[2023-07-31 18:35] VITALS: BP 151/92; PULSE 74; RESP 17; TEMP 36.9; O2SAT 96; BMI 43.2
--- NOTE | 2023-07-31 18:37 | EXP.UTC ---
Discharge Plan Disposition Patient Disposition: Home, Self-Care Prescriptions Prescriptions: New Paxlovid 300 mg (150 mg x 2)-100 mg tablets,dose pack See Rx Instructions .ROUTE .COMPLEX Qty: 30 0RF Rx Instructions: take TWO 150 mg tablets of nirmatrelvir with ONE 100 mg tablet of ritonavir twice daily for 5 days azithromycin [Zithromax] 250 mg tablet 250 mg PO UD DOSE PK Qty: 6 0RF Rx Instructions: Take two (2) tablets today, then one (1) tablet days #2 thru #5 benzonatate [benzonatate] 100 mg capsule 100 mg PO TIDP PRN (Reason: Cough) Qty: 30 0RF No Action aspirin 325 mg tablet 325 mg PO DAILY ranolazine 500 mg tablet extended release 12 hr 500 mg PO DAILY Patient Comments: TAKE 1 TABLET BY MOUTH ONCE DAILY insulin asp prt-insulin aspart [Novolog Mix 70-30FlexPen U-100] 100 unit/mL (70-30) insulin pen 16 unit SQ BID Qty: 15 0RF Trulicity 3 mg/0.5 mL pen injector 3 mg SQ WEEKLY Qty: 2 2RF (DME) blood sugar diagnostic Strip See Rx Instructions .Route .MEDSUPPLY Qty: 100 2RF Rx Instructions: test 3 times daily or As directed (DME) pen needle, diabetic [BD Ultra-Fine Mini Pen Needle] 31 gauge x 3/16 needle See Rx Instructions .ROUTE .COMPLEX Qty: 100 0RF Dose Instruction: USE DIRECTED Rx Instructions: USE DIRECTED levothyroxine 200 mcg tablet 200 mcg PO DAILY Qty: 90 1RF insulin glargine [Lantus Solostar U-100 Insulin] 100 unit/mL (3 mL) insulin pen See Rx Instructions .ROUTE .COMPLEX Qty: 15 0RF Dose Instruction: INJECT 30 UNITS SUBCUTANEOUSLY AT BEDTIME FOR DIABETES Rx Instructions: INJECT 30 UNITS SUBCUTANEOUSLY AT BEDTIME FOR DIABETES metformin 500 mg tablet 1,000 mg PO BIDWMEAL atorvastatin 80 mg tablet 80 mg PO HS Rx Instructions: TAKE 1 TABLET BY MOUTH AT BEDTIME FOR CHOLESTEROL gabapentin 600 mg tablet 600 mg PO TID citalopram 40 mg tablet 40 mg PO DAILY clopidogrel 75 mg tablet 75 mg PO DAILY isosorbide mononitrate 120 mg tablet extended release 24 hr 120 mg PO DAILY (DME) lancets [Accu-Chek Softclix Lancets] Misc See Rx Instructions .ROUTE .COMPLEX Rx Instructions: USE TO CHECK GLUCOSE THREE TIMES DAILY OR DIRECTED glimepiride 4 mg tablet 4 mg PO DAILY lisinopril 2.5 mg tablet 2.5 mg PO DAILY Hold Instructions: until completes Bactrim (antibiotics) course cholecalciferol (vitamin D3) [Vitamin D3] 25 mcg (1,000 unit) capsule 25 mcg PO DAILY (DME) pen needle, diabetic [BD Ultra-Fine Short Pen Needle] 31 gauge x 5/16 needle See Rx Instructions MISCELLANEOUS Rx Instructions: USE 1 SUBCUTANEOUSLY TWICE DAILY (DME) pen needle, diabetic [BD Ultra-Fine Mini Pen Needle] 31 gauge x 3/16 needle See Rx Instructions .ROUTE .COMPLEX Rx Instructions: USE DIRECTED (DME) Dexcom G7 Sensor Device See Rx Instructions .ROUTE .COMPLEX Rx Instructions: USE DIRECTED (DME) Dexcom G7 Search Engine Optimization Manager Misc See Rx Instructions .ROUTE .COMPLEX Rx Instructions: USE DIRECTED (DME) Omnipod 5 G6 Pods (Gen 5) Cartridge See Rx Instructions .Route Rx Instructions: As directed (DME) Omnipod 5 G6 Intro Kit (Gen 5) Cartridge See Rx Instructions .Route Rx Instructions: As directed metoprolol succinate 25 mg tablet extended release 24 hr 25 mg PO DAILY Patient Comments: TAKE 1 TABLET BY MOUTH ONCE DAILY FOR BLOOD PRESSURE Referrals Follow up/Referrals: Shira Valladares PA [Primary Care Provider] - See instructions Activity Restrictions/Add. Instructions Additional Instructions/Restrictions: Drink plenty of fluids. Take tylenol or ibuprofen for pain or fever. Take the medications as directed. Follow up with your regular doctor. GO TO THE ER FOR ANY WORSENING SYMPTOMS Don't start the paxlovid
[2023-07-31 19:42] VITALS: BP 151/92; PULSE 74; RESP 17; TEMP 36.9; O2SAT 96
== END 2023-07-31 19:42 | disposition home or self-care (01) ==
PROVIDERS: Emergency Provider Nurse Practitioner Family; PCP Physician Assistant
DX: R05.9 Cough, unspecified (principal); I25.10 Atherosclerotic heart disease of native coronary artery without angina pectoris; I11.9 Hypertensive heart disease without heart failure; E11.40 Type 2 diabetes mellitus with diabetic neuropathy, unspecified; E78.5 Hyperlipidemia, unspecified; E03.9 Hypothyroidism, unspecified; E55.9 Vitamin D deficiency, unspecified; G47.00 Insomnia, unspecified; J30.9 Allergic rhinitis, unspecified; E53.9 Vitamin B deficiency, unspecified; Z79.4 Long term (current) use of insulin; Z86.73 Personal history of transient ischemic attack (TIA), and cerebral infarction without residual deficits; Z20.822 Contact with and (suspected) exposure to COVID-19
CPT/HCPCS: 87635; 99212; 99214; G0463

== ENCOUNTER 2023-11-05 10:47 | Emergency (ER) | payer MEDICARE, MEDICAID, SELFPAY ==
[2023-11-05 11:20] VITALS: BP 143/73; PULSE 73; RESP 19; TEMP 36.8; O2SAT 98; BMI 44.1
[2023-11-05 11:32] LABS: Adenovirus,PCR Not Detected (NotDetected); Coronavirus 19, PCR Not Detected (NotDetected); Coronavirus 229E Not Detected (NotDetected); Coronavirus NL63 Not Detected (NotDetected); Coronavirus OC43 Not Detected (NotDetected); Coronovirus HKU1,PCR Not Detected (NotDetected); Human Metapneumovirus Not Detected (NotDetected); Influenza A, PCR Not Detected (NotDetected); Influenza AH1, 2009 Not Detected (NotDetected); Influenza AH1, PCR Not Detected (NotDetected); Influenza AH3,PCR Not Detected (NotDetected); Influenza B, PCR Not Detected (NotDetected); Parainfluenza 1, PCR Not Detected (NotDetected); Parainfluenza 2, PCR Not Detected (NotDetected); Parainfluenza 3, PCR Not Detected (NotDetected); Parainfluenza 4, PCR Not Detected (NotDetected); Rhinovirus/Enterovirus Not Detected (NotDetected)
--- NOTE | 2023-11-05 11:37 | ED_ITS ---
Discharge Plan Disposition Patient Disposition: Home, Self-Care Condition: Good Prescriptions Prescriptions: No Action aspirin 325 mg tablet 325 mg PO DAILY ranolazine 500 mg tablet extended release 12 hr 500 mg PO DAILY Patient Comments: TAKE 1 TABLET BY MOUTH ONCE DAILY (DME) blood sugar diagnostic Strip See Rx Instructions .Route .MEDSUPPLY Qty: 100 2RF Rx Instructions: test 3 times daily or As directed levothyroxine 200 mcg tablet 200 mcg PO DAILY Qty: 90 1RF metoprolol succinate 25 mg tablet extended release 24 hr See Rx Instructions .ROUTE .COMPLEX Qty: 90 0RF Dose Instruction: Take 1 tablet by mouth once daily for blood pressure Rx Instructions: Take 1 tablet by mouth once daily for blood pressure (DME) pen needle, diabetic [BD Ultra-Fine Mini Pen Needle] 31 gauge x 3/16 needle See Rx Instructions .ROUTE .COMPLEX Qty: 100 12RF Dose Instruction: USE DIRECTED Rx Instructions: USE DIRECTED insulin glargine [Lantus Solostar U-100 Insulin] 100 unit/mL (3 mL) insulin pen See Rx Instructions .ROUTE .COMPLEX Qty: 15 5RF Dose Instruction: INJECT 30 UNITS SUBCUTANEOUSLY AT BEDTIME FOR DIABETES Rx Instructions: INJECT 30 UNITS SUBCUTANEOUSLY AT BEDTIME FOR DIABETES glimepiride 4 mg tablet See Rx Instructions .ROUTE .COMPLEX Qty: 90 0RF Dose Instruction: TAKE 1 TABLET BY MOUTH ONCE DAILY FOR DIABETES Rx Instructions: TAKE 1 TABLET BY MOUTH ONCE DAILY FOR DIABETES Trulicity 3 mg/0.5 mL pen injector See Rx Instructions .ROUTE .COMPLEX Qty: 4 5RF Dose Instruction: INJECT 3 MG SUBCUTANEOUSLY ONCE A WEEK Rx Instructions: INJECT 3 MG SUBCUTANEOUSLY ONCE A WEEK isosorbide mononitrate 120 mg tablet extended release 24 hr See Rx Instructions .ROUTE .COMPLEX Qty: 90 3RF Dose Instruction: TAKE 1 TABLET BY MOUTH ONCE DAILY FOR HEART Rx Instructions: TAKE 1 TABLET BY MOUTH ONCE DAILY FOR HEART insulin lispro protamin-lispro [Humalog Mix 75-25 KwikPen] 100 unit/mL (75-25) insulin pen 16 unit SQ BID Qty: 15 4RF gabapentin 600 mg tablet See Rx Instructions .ROUTE .COMPLEX Qty: 90 0RF Dose Instruction: TAKE 1 TABLET BY MOUTH EVERY 8 HOURS FOR PAIN Rx Instructions: TAKE 1 TABLET BY MOUTH EVERY 8 HOURS FOR PAIN Paxlovid 300 mg (150 mg x 2)-100 mg tablets,dose pack See Rx Instructions .ROUTE .COMPLEX Qty: 30 0RF Rx Instructions: take TWO 150 mg tablets of nirmatrelvir with ONE 100 mg tablet of ritonavir twice daily for 5 days azithromycin [Zithromax] 250 mg tablet 250 mg PO UD DOSE PK Qty: 6 0RF Rx Instructions: Take two (2) tablets today, then one (1) tablet days #2 thru #5 benzonatate [benzonatate] 100 mg capsule 100 mg PO TIDP PRN (Reason: Cough) Qty: 30 0RF metformin 500 mg tablet 1,000 mg PO BIDWMEAL atorvastatin 80 mg tablet 80 mg PO HS Rx Instructions: TAKE 1 TABLET BY MOUTH AT BEDTIME FOR CHOLESTEROL citalopram 40 mg tablet 40 mg PO DAILY clopidogrel 75 mg tablet 75 mg PO DAILY (DME) lancets [Accu-Chek Softclix Lancets] Misc See Rx Instructions .ROUTE .COMPLEX Rx Instructions: USE TO CHECK GLUCOSE THREE TIMES DAILY OR DIRECTED lisinopril 2.5 mg tablet 2.5 mg PO DAILY Hold Instructions: until completes Bactrim (antibiotics) course cholecalciferol (vitamin D3) [Vitamin D3] 25 mcg (1,000 unit) capsule 25 mcg PO DAILY (DME) pen needle, diabetic [BD Ultra-Fine Short Pen Needle] 31 gauge x 5/16 needle See Rx Instructions MISCELLANEOUS Rx Instructions: USE 1 SUBCUTANEOUSLY TWICE DAILY (DME) pen needle, diabetic [BD Ultra-Fine Mini Pen Needle] 31 gauge x 3/16 needle See Rx Instructions .ROUTE .COMPLEX Rx Instructions: USE DIRECTED (DME) Dexcom G7 Sensor Device See Rx Instructions .ROUTE .COMPLEX Rx Instructions: USE DIRECTED (DME) Dexcom G7 Telegraph Messenger 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 Instructions Additional Instructions/Restrictions: *Monitor Temp, Over the counter Motrin or Tylenol as directed/as needed Tylenol every 4 hours and Motrin every 6 hours (as long as your family doctor has told you that you can take it) for fever or pain. and straight to ER if unable to lower temp less than 101.0 after medication given *Warm salt water gargles may help to soothe the throat *Throat Lozenges? *Warm fluids like tea with honey may help to soothe the throat? *Sleep elevated *Humidifier/Vaporizer Follow up IMMEDIATELY for new or worsening symptoms or no Noticeable improvement over the next 48-72 hours. 911 for difficulty breathing or swallowing You were tested for today for Upper Respiratory Panel with COVID19 your test result should be back in the next 24-48 hours, you check your results on the [facility] Portal if your COVID test is positive you must Quarantine for 5 days Clinical Impressions Clinical Impression: Exposure to influenza Instructions Patient Instructions: DI for Viral Syndrome, DI for Influenza -- Adult, DI for Respiratory Syncytial Virus -- Adults Discharge ED Provider: Nancy Roman [facility] [place] HPI General Stated complaint: cough RSV exposure flu exposure Mode of Arrival: Ambulatory Source of Information: Patient Limitations: No Limitations Time Seen by Provider: 11/05/23 11:37 Description of Symptoms (Recalled from Triage Doc. by RN): PATIENT C/O COUGH, BODY ACHES AND CHILLS. RECENTLY EXPOSED TO FLU AND RSV HEENT Symptoms (Recalled from RN notes): No Resp Symptoms (Recalled from RN notes): Yes Skin Symptoms (Recalled from RN notes): No MS Symptoms (Recalled from RN notes): No Functional Status (Recalled from RN notes): WNL History of Present Illness Provider Complaint: Patient states that he was recently around family that has since tested positive for flu and RSV and now he is having symptoms States that he has been having chills, body aches, and cough wanting to get tested Related Data Home Medications Medication Instructions Recorded Confirmed ranolazine 500 mg tablet,extended 500 mg PO DAILY Chest pain 11/17/19 08/20/23 release,12 hr aspirin 325 mg tablet 325 mg PO DAILY Heart Health 03/14/20 08/20/23 atorvastatin 80 mg tablet 80 mg PO HS Cholesterol 06/21/23 08/20/23 blood-glucose meter,continuous 06/21/23 08/20/23 (Dexcom G7 Telegraph Messenger) blood-glucose sensor (Dexcom G7 06/21/23 08/20/23 Sensor device) cholecalciferol (vitamin D3) 25 25 mcg PO DAILY Supplement 06/21/23 08/20/23 mcg (1,000 unit) capsule (Vitamin D3) citalopram 40 mg tablet 40 mg PO DAILY mood 06/21/23 08/20/23 clopidogrel 75 mg tablet 75 mg PO DAILY Platelet Inhibitor 06/21/23 08/20/23 insulin pump cart,automated,BT 06/21/23 08/20/23 (Omnipod 5 G6 Pods (Gen 5) subcutaneous cartridge) insulin pump cartridge,automated 06/21/23 08/20/23 dose,BT with controller subcutaneous (Omnipod 5 G6 Intro Kit (Gen 5) subcutaneous cartridge with controller) lancets (Accu-Chek Softclix 06/21/23 08/20/23 Lancets) lisinopril 2.5 mg tablet 2.5 mg PO DAILY High Blood Pressure 06/21/23 08/20/23 metformin 500 mg tablet 1,000 mg PO BIDWMEAL Diabetes 06/21/23 08/20/23 pen needle, diabetic 31 gauge x 06/21/23 08/20/23 3/16 (BD Ultra-Fine Mini Pen Needle) pen needle, diabetic 31 gauge x 06/21/23 08/20/23 516 (BD Ultra-Fine Short Pen Needle) Previous Rx's Medication Instructions Recorded blood sugar diagnostic #100 ea 09/24/22 levothyroxine 200 mcg tablet 200 mcg PO DAILY thyroid #90 tabs 07/16/23 azithromycin 250 mg tablet 250 mg PO UD DOSE PK #6 tabs 07/31/23 (Zithromax) benzonatate 100 mg capsule 100 mg PO TIDP PRN Cough #30 caps 07/31/23 nirmatrelvir 300 mg (150 mg See Rx Instructions PO .COMPLEX 07/31/23 x2)-ritonavir 100 mg tablet,dose #30 tabs pack (Paxlovid) metoprolol succinate 25 mg See Rx Instructions .Route 08/10/23 tablet,extended release 24 hr .COMPLEX #90 tabs pen needle, diabetic 31 gauge x #100 ea 08/21/23 3/16 (BD Ultra-Fine Mini Pen Needle) Lantus Solostar U-100 Insulin 100 See Rx Instructions .Route 09/01/23 unit/mL (3 mL) subcutaneous pen .COMPLEX #15 mL (insulin glargine) glimepiride 4 mg tablet See Rx Instructions .Route 09/01/23 .COMPLEX #90 tabs dulaglutide 3 mg/0.5 mL See Rx Instructions .Route 09/21/23 subcutaneous pen injector .COMPLEX #4 mL (Trulicity) isosorbide mononitrate 120 mg See Rx Instructions .Route 09/21/23 tablet,extended release 24 hr .COMPLEX #90 tabs insulin lispro protamine-lispro 16 unit (0.16 mL) SQ BID Diabetes 09/24/23 100 unit/mL (75-25) subcutaneous #15 mL pen (Humalog Mix 75-25 KwikPen) gabapentin 600 mg tablet See Rx Instructions .Route 09/25/23 .COMPLEX #90 tabs Allergies Allergy/AdvReac Type Severity Reaction Status Date / Time Penicillins [PENICILLINS] Allergy Unknown Verified 08/20/23 09:23 Worker's Comp Is this a Worker's Comp case?: [facility] Disclaimer: The information contained in this section may have been updated after the patient was seen, as this information can be updated by other users. 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 Allergic rhinitis CAD (coronary artery disease) Cataract CVA (cerebral vascular accident) Diabetes Diabetic neuropathy associated with type 2 diabetes mellitus Hernia Hyperlipidemia Hypertension Hypothyroidism Insomnia Lumbar nerve root impingement Skin tag Testosterone deficiency Tinea pedis of both feet Type 2 diabetes mellitus Vitamin B12 deficiency anemia Vitamin D deficiency Surgical History H/O carotid endarterectomy History of coronary artery stent placement Hx laparoscopic cholecystectomy Status post middle ear reconstruction Family History Other Family history of cancer Family history of myocardial infarction Social History Smoking Status: Never smoker second hand exposure: Yes alcohol intake: never substance use type: denies use current occupational status: disabled Travel in the last 8 weeks: None household members: spouse housing: house current occupational exposures/hazards: No caffeine: Yes ROS Obtained: Yes All systems reviewed & no additional complaints except as documented and Yes Systems reviewed as appropriate & no additional complaints except as documented Constitutional Constitutional: Reports system reviewed and no additional complaints, except as documented, Reports as per HPI, Reports body ache and Reports chills Eyes Eyes: Reports system reviewed and no additional complaints, except as documented and Reports as per HPI ENT Ears, Nose, Mouth, and Throat: Reports system reviewed and no additional complaints, except as documented and Reports as per HPI Cardiovascular Cardiovascular: Reports system reviewed and no additional complaints, except as documented and Reports as per HPI Respiratory Respiratory: Reports system reviewed and no additional complaints, except as documented, Reports as per HPI, Denies shortness of breath, Denies chest congestion, Reports cough and Denies wheezing Gastrointestinal Gastrointestingal: Reports system reviewed and no additional complaints, except as documented and as per HPI Allergic/Immunologic Allergic/Immunologic: Denies wheezing Physical Exam General General appearance: alert and in no apparent distress ENT ENT exam: Present mucous membranes moist Expanded ENT Exam Nose exam: Absent sinus tenderness Throat exam: Present normal inspection Respiratory Respiratory exam: Present normal lung sounds bilaterally; Absent respiratory distress or wheezes Cardiovascular Cardiovascular exam: Present regular rate, normal rhythm and normal heart sounds Neurological Exam Neurological exam: Present alert, oriented X3 and normal gait Medical Decision Making Joel Inquiry Pt receiving controlled substance: No Joel was queried for this patient: No Vital Signs: 11/05/23 11:20 Temperature 98.3 F Temperature Source Oral Pulse Rate [Left Brachial] 73 Respiratory Rate 19 Blood Pressure [Left Arm] 143/73 H Blood Pressure Mean [Left Arm] 96 Blood Pressure Source [Left Arm] Automatic Cuff Blood Pressure Position [Left Arm] Sitting 02 Sat by Pulse Oximetry 98 Oxygen Delivery Method Room Air Orders (Tests/Meds): ORDERS Category Date Time Status Full Resp Panel w/COVID ([facility]) Routine Lab 11/05/23 11:10 Received
[2023-11-05 11:42] VITALS: BP 143/73; PULSE 73; RESP 19; TEMP 36.8; O2SAT 98
[2023-11-05 13:28] LABS: Respiratory Syncytial Virus Detected (NotDetected)
== END 2023-11-05 11:50 | disposition home or self-care (01) ==
PROVIDERS: Emergency Provider Nurse Practitioner; PCP Physician Assistant
DX: R05.9 Cough, unspecified (principal); R68.83 Chills (without fever); I25.10 Atherosclerotic heart disease of native coronary artery without angina pectoris; E11.36 Type 2 diabetes mellitus with diabetic cataract; E11.40 Type 2 diabetes mellitus with diabetic neuropathy, unspecified; E78.5 Hyperlipidemia, unspecified; I10 Essential (primary) hypertension; E03.9 Hypothyroidism, unspecified; Z86.73 Personal history of transient ischemic attack (TIA), and cerebral infarction without residual deficits
CPT/HCPCS: 87632; 87635; 99212; 99213; G0463

== ENCOUNTER 2023-11-20 17:25 | Emergency (ER) | payer MEDICARE, MEDICAID, SELFPAY ==
--- NOTE | 2023-11-20 17:28 | ED_ITS ---
Discharge Plan Disposition Patient Disposition: Home, Self-Care Condition: Good Prescriptions Prescriptions: New cephalexin [cephalexin] 500 mg tablet 500 mg PO BID 10 Days Qty: 20 0RF benzonatate 100 mg capsule 100 mg PO BID PRN (Reason: cough) Qty: 10 0RF No Action aspirin 325 mg tablet 325 mg PO DAILY ranolazine 500 mg tablet extended release 12 hr 500 mg PO DAILY Patient Comments: TAKE 1 TABLET BY MOUTH ONCE DAILY (DME) blood sugar diagnostic Strip See Rx Instructions .Route .MEDSUPPLY Qty: 100 2RF Rx Instructions: test 3 times daily or As directed levothyroxine 200 mcg tablet 200 mcg PO DAILY Qty: 90 1RF metoprolol succinate 25 mg tablet extended release 24 hr See Rx Instructions .ROUTE .COMPLEX Qty: 90 0RF Dose Instruction: Take 1 tablet by mouth once daily for blood pressure Rx Instructions: Take 1 tablet by mouth once daily for blood pressure (DME) pen needle, diabetic [BD Ultra-Fine Mini Pen Needle] 31 gauge x 3/16 needle See Rx Instructions .ROUTE .COMPLEX Qty: 100 12RF Dose Instruction: USE DIRECTED Rx Instructions: USE DIRECTED insulin glargine [Lantus Solostar U-100 Insulin] 100 unit/mL (3 mL) insulin pen See Rx Instructions .ROUTE .COMPLEX Qty: 15 5RF Dose Instruction: INJECT 30 UNITS SUBCUTANEOUSLY AT BEDTIME FOR DIABETES Rx Instructions: INJECT 30 UNITS SUBCUTANEOUSLY AT BEDTIME FOR DIABETES glimepiride 4 mg tablet See Rx Instructions .ROUTE .COMPLEX Qty: 90 0RF Dose Instruction: TAKE 1 TABLET BY MOUTH ONCE DAILY FOR DIABETES Rx Instructions: TAKE 1 TABLET BY MOUTH ONCE DAILY FOR DIABETES Trulicity 3 mg/0.5 mL pen injector See Rx Instructions .ROUTE .COMPLEX Qty: 4 5RF Dose Instruction: INJECT 3 MG SUBCUTANEOUSLY ONCE A WEEK Rx Instructions: INJECT 3 MG SUBCUTANEOUSLY ONCE A WEEK isosorbide mononitrate 120 mg tablet extended release 24 hr See Rx Instructions .ROUTE .COMPLEX Qty: 90 3RF Dose Instruction: TAKE 1 TABLET BY MOUTH ONCE DAILY FOR HEART Rx Instructions: TAKE 1 TABLET BY MOUTH ONCE DAILY FOR HEART insulin lispro protamin-lispro [Humalog Mix 75-25 KwikPen] 100 unit/mL (75-25) insulin pen 16 unit SQ BID Qty: 15 4RF gabapentin 600 mg tablet See Rx Instructions .ROUTE .COMPLEX Qty: 90 0RF Dose Instruction: TAKE 1 TABLET BY MOUTH EVERY 8 HOURS FOR PAIN Rx Instructions: TAKE 1 TABLET BY MOUTH EVERY 8 HOURS FOR PAIN dextromethorphan-guaifenesin [Delsym Cough-Chest Congest DM] 5-100 mg/5 mL liquid 10 ml PO Q8H PRN (Reason: cough) Qty: 1000 0RF citalopram 40 mg tablet 40 mg PO DAILY Qty: 90 0RF Paxlovid 300 mg (150 mg x 2)-100 mg tablets,dose pack See Rx Instructions .ROUTE .COMPLEX Qty: 30 0RF Rx Instructions: take TWO 150 mg tablets of nirmatrelvir with ONE 100 mg tablet of ritonavir twice daily for 5 days metformin 500 mg tablet 1,000 mg PO BIDWMEAL atorvastatin 80 mg tablet 80 mg PO HS Rx Instructions: TAKE 1 TABLET BY MOUTH AT BEDTIME FOR CHOLESTEROL clopidogrel 75 mg tablet 75 mg PO DAILY (DME) lancets [Accu-Chek Softclix Lancets] Misc See Rx Instructions .ROUTE .COMPLEX Rx Instructions: USE TO CHECK GLUCOSE THREE TIMES DAILY OR DIRECTED lisinopril 2.5 mg tablet 2.5 mg PO DAILY Hold Instructions: until completes Bactrim (antibiotics) course cholecalciferol (vitamin D3) [Vitamin D3] 25 mcg (1,000 unit) capsule 25 mcg PO DAILY (DME) pen needle, diabetic [BD Ultra-Fine Short Pen Needle] 31 gauge x 5/16 needle See Rx Instructions MISCELLANEOUS Rx Instructions: USE 1 SUBCUTANEOUSLY TWICE DAILY (DME) pen needle, diabetic [BD Ultra-Fine Mini Pen Needle] 31 gauge x 3/16 needle See Rx Instructions .ROUTE .COMPLEX Rx Instructions: USE DIRECTED (DME) Dexcom G7 Sensor Device See Rx Instructions .ROUTE .COMPLEX Rx Instructions: USE DIRECTED (DME) Dexcom G7 Clamp Truck Driver 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 Instructions Additional Instructions/Restrictions: Start antibiotic patient to take as ordered for a full length of time even if you feel better. Sinus infections do not get better overnight. It may take 2-3 days to notice much improvement so be sure to use conservative measures as discussed for symptoms. Flonase 1 spray each nostril daily to help with nasal congestion, sinus and ear pressure/information Increase fluids Humidifier/vaporizer as needed Tylenol and ibuprofen as needed for fever or pain. If symptoms do not improve or get worse return or be seen in the ER Follow-up with primary care this week Clinical Impressions Clinical Impression: Acute maxillary sinusitis Qualifiers: Recurrence: non-recurrent Qualified Code(s): J01.00 - Acute maxillary sinusitis, unspecified Instructions Patient Instructions: DI for Sinusitis Discharge ED Provider: Shira Valladares [facility] [place] HPI General Stated complaint: rsv+11/05 feeling worse Time Seen by Provider: 11/20/23 17:48 Related Data Home Medications Medication Instructions Recorded Confirmed ranolazine 500 mg tablet,extended 500 mg PO DAILY Chest pain 11/17/19 08/20/23 release,12 hr aspirin 325 mg tablet 325 mg PO DAILY Heart Health 03/14/20 08/20/23 atorvastatin 80 mg tablet 80 mg PO HS Cholesterol 06/21/23 08/20/23 blood-glucose meter,continuous 06/21/23 08/20/23 (Dexcom G7 Clamp Truck Driver) blood-glucose sensor (Dexcom G7 06/21/23 08/20/23 Sensor device) cholecalciferol (vitamin D3) 25 25 mcg PO DAILY Supplement 06/21/23 08/20/23 mcg (1,000 unit) capsule (Vitamin D3) clopidogrel 75 mg tablet 75 mg PO DAILY Platelet Inhibitor 06/21/23 08/20/23 insulin pump cart,automated,BT 06/21/23 08/20/23 (Omnipod 5 G6 Pods (Gen 5) subcutaneous cartridge) insulin pump cartridge,automated 06/21/23 08/20/23 dose,BT with controller subcutaneous (Omnipod 5 G6 Intro Kit (Gen 5) subcutaneous cartridge with controller) lancets (Accu-Chek Softclix 06/21/23 08/20/23 Lancets) lisinopril 2.5 mg tablet 2.5 mg PO DAILY High Blood Pressure 06/21/23 08/20/23 metformin 500 mg tablet 1,000 mg PO BIDWMEAL Diabetes 06/21/23 08/20/23 pen needle, diabetic 31 gauge x 06/21/23 08/20/23 3/16 (BD Ultra-Fine Mini Pen Needle) pen needle, diabetic 31 gauge x 06/21/23 08/20/23 5/16 (BD Ultra-Fine Short Pen Needle) Previous Rx's Medication Instructions Recorded blood sugar diagnostic #100 ea 09/24/22 levothyroxine 200 mcg tablet 200 mcg PO DAILY thyroid #90 tabs 07/16/23 nirmatrelvir 300 mg (150 mg See Rx Instructions PO .COMPLEX 07/31/23 x2)-ritonavir 100 mg tablet,dose #30 tabs pack (Paxlovid) metoprolol succinate 25 mg See Rx Instructions .Route 08/10/23 tablet,extended release 24 hr .COMPLEX #90 tabs pen needle, diabetic 31 gauge x #100 ea 08/21/23 3/16 (BD Ultra-Fine Mini Pen Needle) Lantus Solostar U-100 Insulin 100 See Rx Instructions .Route 09/01/23 unit/mL (3 mL) subcutaneous pen .COMPLEX #15 mL (insulin glargine) glimepiride 4 mg tablet See Rx Instructions .Route 09/01/23 .COMPLEX #90 tabs dulaglutide 3 mg/0.5 mL See Rx Instructions .Route 09/21/23 subcutaneous pen injector .COMPLEX #4 mL (Trulicity) isosorbide mononitrate 120 mg See Rx Instructions .Route 09/21/23 tablet,extended release 24 hr .COMPLEX #90 tabs insulin lispro protamine-lispro 16 unit (0.16 mL) SQ BID Diabetes 09/24/23 100 unit/mL (75-25) subcutaneous #15 mL pen (Humalog Mix 75-25 KwikPen) gabapentin 600 mg tablet See Rx Instructions .Route 09/25/23 .COMPLEX #90 tabs dextromethorphan-guaifenesin 5 10 ml PO Q8H PRN cough #1,000 mL 11/19/23 mg-100 mg/5 mL oral liquid (Delsym Cough-Chest Congestion DM) benzonatate 100 mg capsule 100 mg PO BID PRN cough #10 caps 11/20/23 cephalexin 500 mg tablet 500 mg PO BID 10 days #20 tabs 11/20/23 citalopram 40 mg tablet 40 mg PO DAILY mood #90 tabs 11/24/23 Allergies Allergy/AdvReac Type Severity Reaction Status Date / Time Penicillins [PENICILLINS] Allergy Unknown Verified 11/20/23 17:[address] [facility] Disclaimer: The information contained in this section may have been updated after the patient was seen, as this information can be updated by other users. 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 , [employer]) Allergic rhinitis CAD (coronary artery disease) Cataract CVA (cerebral vascular accident) Diabetes Diabetic neuropathy associated with type 2 diabetes mellitus Hernia Hyperlipidemia Hypertension Hypothyroidism Insomnia Lumbar nerve root impingement Skin tag Testosterone deficiency Tinea pedis of both feet Type 2 diabetes mellitus Vitamin B12 deficiency anemia Vitamin D deficiency Surgical History , [employer]) H/O carotid endarterectomy History of coronary artery stent placement Hx laparoscopic cholecystectomy Status post middle ear reconstruction Family History , [employer]) Family history of cancer Family history of myocardial infarction Social History , [employer]) Smoking Status: Never smoker second hand exposure: Yes alcohol intake: never substance use type: denies use current occupational status: disabled Travel in the last 8 weeks: None household members: spouse housing: house current occupational exposures/hazards: No caffeine: Yes
[2023-11-20 17:30] VITALS: BP 156/74; PULSE 69; RESP 18; TEMP 36.8; O2SAT 97; BMI 44.4
--- NOTE | 2023-11-20 17:47 | ED_ITS ---
Discharge Plan Disposition Patient Disposition: Home, Self-Care Condition: Good Prescriptions Prescriptions: New cephalexin [cephalexin] 500 mg tablet 500 mg PO BID 10 Days Qty: 20 0RF benzonatate 100 mg capsule 100 mg PO BID PRN (Reason: cough) Qty: 10 0RF No Action aspirin 325 mg tablet 325 mg PO DAILY ranolazine 500 mg tablet extended release 12 hr 500 mg PO DAILY Patient Comments: TAKE 1 TABLET BY MOUTH ONCE DAILY (DME) blood sugar diagnostic Strip See Rx Instructions .Route .MEDSUPPLY Qty: 100 2RF Rx Instructions: test 3 times daily or As directed levothyroxine 200 mcg tablet 200 mcg PO DAILY Qty: 90 1RF metoprolol succinate 25 mg tablet extended release 24 hr See Rx Instructions .ROUTE .COMPLEX Qty: 90 0RF Dose Instruction: Take 1 tablet by mouth once daily for blood pressure Rx Instructions: Take 1 tablet by mouth once daily for blood pressure (DME) pen needle, diabetic [BD Ultra-Fine Mini Pen Needle] 31 gauge x 3/16 needle See Rx Instructions .ROUTE .COMPLEX Qty: 100 12RF Dose Instruction: USE DIRECTED Rx Instructions: USE DIRECTED insulin glargine [Lantus Solostar U-100 Insulin] 100 unit/mL (3 mL) insulin pen See Rx Instructions .ROUTE .COMPLEX Qty: 15 5RF Dose Instruction: INJECT 30 UNITS SUBCUTANEOUSLY AT BEDTIME FOR DIABETES Rx Instructions: INJECT 30 UNITS SUBCUTANEOUSLY AT BEDTIME FOR DIABETES glimepiride 4 mg tablet See Rx Instructions .ROUTE .COMPLEX Qty: 90 0RF Dose Instruction: TAKE 1 TABLET BY MOUTH ONCE DAILY FOR DIABETES Rx Instructions: TAKE 1 TABLET BY MOUTH ONCE DAILY FOR DIABETES Trulicity 3 mg/0.5 mL pen injector See Rx Instructions .ROUTE .COMPLEX Qty: 4 5RF Dose Instruction: INJECT 3 MG SUBCUTANEOUSLY ONCE A WEEK Rx Instructions: INJECT 3 MG SUBCUTANEOUSLY ONCE A WEEK isosorbide mononitrate 120 mg tablet extended release 24 hr See Rx Instructions .ROUTE .COMPLEX Qty: 90 3RF Dose Instruction: TAKE 1 TABLET BY MOUTH ONCE DAILY FOR HEART Rx Instructions: TAKE 1 TABLET BY MOUTH ONCE DAILY FOR HEART insulin lispro protamin-lispro [Humalog Mix 75-25 KwikPen] 100 unit/mL (75-25) insulin pen 16 unit SQ BID Qty: 15 4RF gabapentin 600 mg tablet See Rx Instructions .ROUTE .COMPLEX Qty: 90 0RF Dose Instruction: TAKE 1 TABLET BY MOUTH EVERY 8 HOURS FOR PAIN Rx Instructions: TAKE 1 TABLET BY MOUTH EVERY 8 HOURS FOR PAIN dextromethorphan-guaifenesin [Delsym Cough-Chest Congest DM] 5-100 mg/5 mL liquid 10 ml PO Q8H PRN (Reason: cough) Qty: 1000 0RF Paxlovid 300 mg (150 mg x 2)-100 mg tablets,dose pack See Rx Instructions .ROUTE .COMPLEX Qty: 30 0RF Rx Instructions: take TWO 150 mg tablets of nirmatrelvir with ONE 100 mg tablet of ritonavir twice daily for 5 days metformin 500 mg tablet 1,000 mg PO BIDWMEAL atorvastatin 80 mg tablet 80 mg PO HS Rx Instructions: TAKE 1 TABLET BY MOUTH AT BEDTIME FOR CHOLESTEROL citalopram 40 mg tablet 40 mg PO DAILY clopidogrel 75 mg tablet 75 mg PO DAILY (DME) lancets [Accu-Chek Softclix Lancets] Misc See Rx Instructions .ROUTE .COMPLEX Rx Instructions: USE TO CHECK GLUCOSE THREE TIMES DAILY OR DIRECTED lisinopril 2.5 mg tablet 2.5 mg PO DAILY Hold Instructions: until completes Bactrim (antibiotics) course cholecalciferol (vitamin D3) [Vitamin D3] 25 mcg (1,000 unit) capsule 25 mcg PO DAILY (DME) pen needle, diabetic [BD Ultra-Fine Short Pen Needle] 31 gauge x 5/16 needle See Rx Instructions MISCELLANEOUS Rx Instructions: USE 1 SUBCUTANEOUSLY TWICE DAILY (DME) pen needle, diabetic [BD Ultra-Fine Mini Pen Needle] 31 gauge x 3/16 needle See Rx Instructions .ROUTE .COMPLEX Rx Instructions: USE DIRECTED (DME) Dexcom G7 Sensor Device See Rx Instructions .ROUTE .COMPLEX Rx Instructions: USE DIRECTED (DME) 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 Instructions Additional Instructions/Restrictions: Start antibiotic patient to take as ordered for a full length of time even if you feel better. Sinus infections do not get better overnight. It may take 2-3 days to notice much improvement so be sure to use conservative measures as discussed for symptoms. Flonase 1 spray each nostril daily to help with nasal congestion, sinus and ear pressure/information Increase fluids Humidifier/vaporizer as needed Tylenol and ibuprofen as needed for fever or pain. If symptoms do not improve or get worse return or be seen in the ER Follow-up with primary care this week Clinical Impressions Clinical Impression: Acute maxillary sinusitis Qualifiers: Recurrence: non-recurrent Qualified Code(s): J01.00 - Acute maxillary sinusitis, unspecified Instructions Patient Instructions: DI for Sinusitis Discharge ED Provider: Shira Valladares [facility] [place] General Stated complaint: rsv+11/05 feeling worse Mode of Arrival: Ambulatory Source of Information: Patient Limitations: No Limitations Time Seen by Provider: 11/20/23 17:48 Description of Symptoms (Recalled from Triage Doc. by RN): Pt was RSV + on 11/05/2023 he stated that its not getting better. He is complaining of REECE, cough, drainage, and weak. HEENT Symptoms (Recalled from RN notes): Yes Resp Symptoms (Recalled from RN notes): No Skin Symptoms (Recalled from RN notes): No MS Symptoms (Recalled from RN notes): No Functional Status (Recalled from RN notes): n/a History of Present Illness Provider Complaint: 68 yr old male presents for REECE, cough, thick yellow/green drainage, and weak. tested + for RSV on 11/05/2023 he stated that its not getting better. 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) blood-glucose sensor (Dexcom G7 06/21/23 08/20/23 Sensor device) cholecalciferol (vitamin D3) 25 25 mcg PO DAILY Supplement 06/21/23 08/20/23 mcg (1,000 unit) capsule (Vitamin D3) citalopram 40 mg tablet 40 mg PO DAILY mood 06/21/23 08/20/23 clopidogrel 75 mg tablet 75 mg PO DAILY Platelet Inhibitor 06/21/23 08/20/23 insulin pump cart,automated,BT 06/21/23 08/20/23 (Omnipod 5 G6 Pods (Gen 5) subcutaneous cartridge) insulin pump cartridge,automated 06/21/23 08/20/23 dose,BT with controller subcutaneous (Omnipod 5 G6 Intro Kit (Gen 5) subcutaneous cartridge with controller) lancets (Accu-Chek Softclix 06/21/23 08/20/23 Lancets) lisinopril 2.5 mg tablet 2.5 mg PO DAILY High Blood Pressure 06/21/23 08/20/23 metformin 500 mg tablet 1,000 mg PO BIDWMEAL Diabetes 06/21/23 08/20/23 pen needle, diabetic 31 gauge x 06/21/23 08/20/23 3/16 (BD Ultra-Fine Mini Pen Needle) pen needle, diabetic 31 gauge x 06/21/23 08/20/23 5/16 (BD Ultra-Fine Short Pen Needle) Previous Rx's Medication Instructions Recorded blood sugar diagnostic #100 ea 09/24/22 levothyroxine 200 mcg tablet 200 mcg PO DAILY thyroid #90 tabs 07/16/23 nirmatrelvir 300 mg (150 mg See Rx Instructions PO .COMPLEX 07/31/23 x2)-ritonavir 100 mg tablet,dose #30 tabs pack (Paxlovid) metoprolol succinate 25 mg See Rx Instructions .Route 08/10/23 tablet,extended release 24 hr .COMPLEX #90 tabs pen needle, diabetic 31 gauge x #100 ea 08/21/23 3/16 (BD Ultra-Fine Mini Pen Needle) Lantus Solostar U-100 Insulin 100 See Rx Instructions .Route 09/01/23 unit/mL (3 mL) subcutaneous pen .COMPLEX #15 mL (insulin glargine) glimepiride 4 mg tablet See Rx Instructions .Route 09/01/23 .COMPLEX #90 tabs dulaglutide 3 mg/0.5 mL See Rx Instructions .Route 09/21/23 subcutaneous pen injector .COMPLEX #4 mL (Trulicity) isosorbide mononitrate 120 mg See Rx Instructions .Route 09/21/23 tablet,extended release 24 hr .COMPLEX #90 tabs insulin lispro protamine-lispro 16 unit (0.16 mL) SQ BID Diabetes 09/24/23 100 unit/mL (75-25) subcutaneous #15 mL pen (Humalog Mix 75-25 KwikPen) gabapentin 600 mg tablet See Rx Instructions .Route 09/25/23 .COMPLEX #90 tabs dextromethorphan-guaifenesin 5 10 ml PO Q8H PRN cough #1,000 mL 11/19/23 mg-100 mg/5 mL oral liquid (Delsym Cough-Chest Congestion DM) benzonatate 100 mg capsule 100 mg PO BID PRN cough #10 caps 11/20/23 cephalexin 500 mg tablet 500 mg PO BID 10 days #20 tabs 11/20/23 Allergies Allergy/AdvReac Type Severity Reaction Status Date / Time Penicillins [PENICILLINS] Allergy Unknown Verified 11/20/23 17:44 Worker's Comp Is this a Worker's Comp case?: [facility] Disclaimer: The information contained in this section may have been updated after the patient was seen, as this information can be updated by other users. 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) H/O carotid endarterectomy History of coronary artery stent placement Hx laparoscopic cholecystectomy Status post middle ear reconstruction Family History , FURNITURE BUILDER) Family history of cancer Family history of myocardial infarction Social History , 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 BUILDER) Smoking Status: Never smoker second hand exposure: Yes alcohol intake: never substance use type: denies use current occupational status: disabled Travel in the last 8 weeks: None household members: spouse housing: house current occupational exposures/hazards: No caffeine: Yes ROS Obtained: Yes All systems reviewed & no additional complaints except as documented Constitutional Constitutional: Reports system reviewed and no additional complaints, except as documented, Reports as per HPI and Reports headache(s) Eyes Eyes: Reports system reviewed and no additional complaints, except as documented ENT Ears, Nose, Mouth, and Throat: Reports system reviewed and no additional complaints, except as documented, Reports as per HPI, Reports headache(s), Reports nasal discharge, Reports sinus pain, Reports sinus pressure and Reports sore throat Cardiovascular Cardiovascular: Reports system reviewed and no additional complaints, except as documented Respiratory Respiratory: Reports system reviewed and no additional complaints, except as documented Gastrointestinal Gastrointestingal: Reports system reviewed and no additional complaints, except as documented Integumentary/Breasts Skin/Breast: Reports system reviewed and no additional complaints, except as documented Neurologic Neurologic: Reports system reviewed and no additional complaints, except as documented and Reports headache(s) Endocrine Endocrine: Reports system reviewed and no additional complaints, except as documented Hematologic/Lymphatic Henatologic/Lymphatic: Reports system reviewed and no additional complaints, except as documented Allergic/Immunologic Allergic/Immunologic: Reports system reviewed and no additional complaints, except as documented Physical Exam General General appearance: alert and in no apparent distress Head Head exam: atraumatic Eye Eye exam: Present normal appearance and PERRL ENT ENT exam: Present mucous membranes moist and TM's normal bilaterally Expanded ENT Exam Nose exam: Present sinus tenderness Respiratory Respiratory exam: Present normal lung sounds bilaterally Cardiovascular Cardiovascular exam: Present regular rate and normal rhythm Neurological Exam Neurological exam: Present alert and oriented X3 Skin Skin exam: Present warm and intact Medical Decision Making Medical Records Medical records reviewed: Yes I reviewed the patient's medical records. Joel Inquiry Pt receiving controlled substance: No Joel was queried for this patient: No Vital Signs: 11/20/23 17:30 Temperature 98.2 F Temperature Source Oral Pulse Rate [Right Radial] 69 Respiratory Rate 18 Blood Pressure [Right Arm] 156/74 H Blood Pressure Mean [Right Arm] 101 Blood Pressure Source [Right Arm] Automatic Cuff Blood Pressure Position [Right Arm] Sitting 02 Sat by Pulse Oximetry 97 Oxygen Delivery Method Room Air Lab Data Lab results reviewed: Yes I reviewed the patient's lab results.
[2023-11-20] MEDS: DEXAMETHASONE 4MG/ML 1ML VIAL 4 MG IM (17:50)
[2023-11-20 18:17] VITALS: BP 156/74; PULSE 69; RESP 18; TEMP 36.8; O2SAT 97
== END 2023-11-20 18:16 | disposition home or self-care (01) ==
PROVIDERS: Emergency Provider Physician Assistant; PCP Physician Assistant
DX: J01.00 Acute maxillary sinusitis, unspecified (principal); R51.9 Headache, unspecified; R05.8 Other specified cough; R53.1 Weakness; E11.9 Type 2 diabetes mellitus without complications; E78.5 Hyperlipidemia, unspecified; E03.9 Hypothyroidism, unspecified; Z79.4 Long term (current) use of insulin; Z79.84 Long term (current) use of oral hypoglycemic drugs; Z79.85 Long-term (current) use of injectable non-insulin antidiabetic drugs
CPT/HCPCS: 96372; 99212; 99214; G0463

== ENCOUNTER 2023-12-09 18:13 | Outpatient (CLI) | payer MEDICARE, MEDICAID, SELFPAY ==
[2023-12-09 18:20] LABS: Basophils % 0.3 % (0.1-2.0); Eosinophils # 0.2 K/mm3 (0.0-0.4); Eosinophils % 3.2 % (0.1-12.0); Hematocrit 38.8 % (42.0-52.0); Hemoglobin 12.8 g/dL (14.1-18.0); Lymphocytes % 31.3 % (10-50); Mean Corpuscular Hemoglobin 31.7 pg (27.0-31.2); Mean Platelet Volume 8.7 fl (7.4-10.4); Monocytes # 0.4 K/mm3 (0.1-1.0); Monocytes % 6.5 % (1.7-9.3); Neutrophils # 3.7 K/mm3 (1.8-7.8); Neutrophils % 58.8 % (37.0-80.0); Platelet Count 202 K/mm3 (142-424); Red Blood Count 4.04 M/mm3 (4.60-6.20); Red Cell Distribution Width 15.4 % (11.5-17.5); White Blood Count 6.2 K/mm3 (4.8-10.8)
[2023-12-09 18:34] LABS: Alanine Aminotransferase 35 U/L (12-78); Albumin Level 3.9 g/dl (3.5-5.0); Albumin/Globulin Ratio 1.3 (1.1-1.8); Alkaline Phosphatase 107 U/L (38-126); Anion Gap 13.7 mEq/L (5-15); Aspartate Amino Transferase 37 U/L (17-59); Bilirubin,Total 0.5 mg/dl (0.2-1.3); Blood Urea Nitrogen 12 mg/dl (9-20); Calcium 9.4 mg/dl (8.4-10.2); Carbon Dioxide 24 mmol/L (22.0-30.0); Chloride 103 mmol/L (98-107); Cholesterol 136 mg/dl (140-200); Estimated Glomerular Filt Rate 84 ml/min (>60); GFR (African American) 102 ML/MIN (>60); Globulin 3.1 g/dL (1.3-3.2); Glucose 260 mg/dl (74-100); HDL Cholesterol 34 mg/dl (40-60); Potassium 4.7 mmoL/L (3.5-5.1); Sodium 136 mmol/L (136-145); Triglycerides 148 mg/dl (30-150); VLDL Cholesterol 30 mg/dL (0-40)
[2023-12-09 18:52] LABS: 25-OH Vitamin D, Total 27.8 ng/mL (30-100)
[2023-12-09 19:10] LABS: Thyroid Stimulating Hormone 0.15 uIU/mL (0.465-4.68)
[2023-12-09 19:29] LABS: Vitamin B12 236 pg/mL (239-931)
[2023-12-10 12:05] LABS: Iron 61 ug/dL (49-181)
[2023-12-10 12:15] LABS: Total Iron Binding Capacity 330 ug/dL (261-462)
[2023-12-10 12:43] LABS: Ferritin 34.6 ng/ml (17.9-464)
[2023-12-11 08:19] LABS: Testosterone,Total 66 ng/dL (264-916)
[2023-12-12 11:57] LABS: Peripheral Smear Review Scanned Result
== END 2023-12-09 23:59 ==
LOC: LAB.DROPOF 18:14
PROVIDERS: PCP Physician Assistant; Visit Provider Physician Assistant
DX: E34.9 Endocrine disorder, unspecified; E11.40 Type 2 diabetes mellitus with diabetic neuropathy, unspecified; E55.9 Vitamin D deficiency, unspecified; Z79.4 Long term (current) use of insulin
CPT/HCPCS: 80053; 80061; 82306; 82607; 82728; 83036; 83540; 83550; 84403; 84443; 85025

== ENCOUNTER 2023-12-30 13:35 | Outpatient (CLI) | payer MEDICARE, MEDICAID, SELFPAY ==
[2023-12-30 14:06] LABS: Basophils % 0.6 % (0.1-2.0); Eosinophils # 0.3 K/mm3 (0.0-0.4); Eosinophils % 3.9 % (0.1-12.0); Hematocrit 38.7 % (42.0-52.0); Hemoglobin 12.5 g/dL (14.1-18.0); Lymphocytes # 2.1 K/mm3 (0.7-4.5); Lymphocytes % 31.6 % (10-50); Mean Corpuscular HGB Conc 32.4 g/dL (31.8-35.4); Mean Corpuscular Hemoglobin 30.4 pg (27.0-31.2); Mean Corpuscular Volume 93.8 fl (80-94); Mean Platelet Volume 8.5 fl (7.4-10.4); Monocytes # 0.4 K/mm3 (0.1-1.0); Monocytes % 5.4 % (1.7-9.3); Neutrophils # 3.8 K/mm3 (1.8-7.8); Neutrophils % 58.6 % (37.0-80.0); Platelet Count 216 K/mm3 (142-424); Red Blood Count 4.13 M/mm3 (4.60-6.20); Red Cell Distribution Width 15.2 % (11.5-17.5); White Blood Count 6.5 K/mm3 (4.8-10.8)
[2023-12-30 15:03] LABS: Lactate Dehydrogenase 166 U/L (313-618)
[2023-12-30 16:00] LABS: Ferritin 27.3 ng/ml (17.9-464)
[2023-12-31 05:09] LABS: Haptoglobin 119 mg/dL (32-363)
== END 2023-12-30 23:59 ==
LOC: LAB 13:36
PROVIDERS: PCP Physician Assistant; Visit Provider Internal Medicine Medical Oncology
DX: D64.9 Anemia, unspecified (principal); Z79.899 Other long term (current) drug therapy
CPT/HCPCS: 36415; 82728; 82746; 83010; 83615; 85025; 86880

== ENCOUNTER 2024-01-18 07:26 | Day surgery (SDC) | payer MEDICARE, MEDICAID, SELFPAY ==
[2024-01-18] VITALS (13 sets, daily range): BP systolic 109–168; BP diastolic 57–100; PULSE 57–68; RESP 16–20; TEMP 36.9; O2SAT 61–98; BMI 44.7
--- NOTE | 2024-01-18 07:01 | IR_ITS ---
APPROVED REPORT Patient Location: Outpatient PROCEDURES Selective coronary angiogram Drug-eluting stent deployment to the ostial proximal LAD Drug-eluting stent deployment to the proximal mid circumflex artery INDICATION Coronary artery disease, Angina pectoris Informed consent was obtained prior to the procedure. COMPLICATIONS NONE Estimated Blood Loss: LESS THAN 10 ML TECHNIQUE One percent lidocaine used to anesthetize the right anterior aspect of the wrist. The right radial artery was accessed via the Seldinger technique. A 6 Georgian sheath was placed in the right radial artery. 2.5 mg of Verapamil, 800 mcg of nitroglycerin, 1mg Lidocaine and 5000 U Heparin were given through the arterial sheath. The papa catheter was also used to perform selective coronary angiogram. At the end of the diagnostic angiogram therapeutic heparin was administered giving a therapeutic ACT and the guide catheter was placed in left main artery followed by Choice PT extra-support wire. A 3.5 x 22 mm Tolu frontier stent was placed in the proximal LAD and deployed at 20 kayli. A 4 mm x 12 mm noncompliant balloon was then placed in the proximal and midportion and deployed at 24 kayli further post dilating the stenosis. Excellent angiographic results were obtained. Following this the wire was placed in the circumflex artery and the guide liner was advanced. A 3 mm x 26 mm Wild [place] frontier stent was placed in the mid circumflex artery deployed at 20 kayli reducing the stenosis. There was residual proximal stenosis therefore an additional 3 mm x 22 mm Tolu frontier stent was placed proximal to the stent yet still overlapping the stent deployed at 22 kayli. Excellent angiographic results were obtained with FREDDY-3 flow being present down the LAD and circumflex artery before and after the procedure. At the end the procedure the apparatus was removed the sheath was removed and hemostasis was achieved using TR banding patient was transferred to the postop holding in stable condition ANGIOGRAPHIC RESULTS The left main artery Normal The left anterior descending artery Has proximal calcified 70% stenosis followed by mid vessel stent which is widely patent free of in-stent restenosis with excellent proximal distal transitioning The circumflex artery Is a dominant vessel with a proximal 50% stenosis and a mid vessel 70 to 80% stenosis The right coronary artery Nondominant proximally occluded The SUNSHINE ventriculogram reveals Not performed The left ventricular end-diastolic pressure Not measured IMPRESSION Severe three-vessel coronary disease as described above Successful stenting of the proximal LAD severe disease reduced to 0% with 1 drug-eluting stent Widely patent mid LAD stent Severe disease in the proximal and mid circumflex artery as described above with successful stenting reducing the disease to 0% with 2 contiguous drug-eluting stents Chronically occluded right coronary PLAN 1. Dual antiplatelet therapy 2. Avoidance of tobacco products 3. Risk factor modification 4. Cardiac rehabilitation 5. LDL less than 55 to be achieved with high intensity statin Electronically signed by : Juan Rosenbaum MD 01/21/2024 14:46:04
[2024-01-18 08:16] LABS: Basophils # 0.1 K/mm3 (0-0.2); Basophils % 0.7 % (0.1-2.0); Eosinophils # 0.3 K/mm3 (0.0-0.4); Eosinophils % 4.1 % (0.1-12.0); Hematocrit 38.5 % (42.0-52.0); Hemoglobin 12.6 g/dL (14.1-18.0); Lymphocytes # 2.1 K/mm3 (0.7-4.5); Lymphocytes % 30.2 % (10-50); Mean Corpuscular HGB Conc 32.8 g/dL (31.8-35.4); Mean Corpuscular Hemoglobin 30.2 pg (27.0-31.2); Mean Corpuscular Volume 91.9 fl (80-94); Mean Platelet Volume 8.9 fl (7.4-10.4); Monocytes # 0.4 K/mm3 (0.1-1.0); Monocytes % 5.9 % (1.7-9.3); Neutrophils # 4.2 K/mm3 (1.8-7.8); Neutrophils % 59.1 % (37.0-80.0); Platelet Count 223 K/mm3 (142-424); Red Blood Count 4.19 M/mm3 (4.60-6.20); Red Cell Distribution Width 14.9 % (11.5-17.5); White Blood Count 7.1 K/mm3 (4.8-10.8)
[2024-01-18 08:23] LABS: Chloride 102 mmol/L (98-107); Sodium 136 mmol/L (136-145)
[2024-01-18 08:24] LABS: Potassium 4.3 mmoL/L (3.5-5.1)
[2024-01-18 08:26] LABS: Anion Gap 9.3 mEq/L (5-15); Blood Urea Nitrogen 13 mg/dl (9-20); Carbon Dioxide 29 mmol/L (22.0-30.0); Creatinine Clearance Estimated 77 mL/min (50-200); Estimated Glomerular Filt Rate 97 ml/min (>60); GFR (African American) 117 ML/MIN (>60)
[2024-01-18 08:27] LABS: Calcium 9.3 mg/dl (8.4-10.2); Glucose 277 mg/dl (74-100)
[2024-01-18] MEDS: diphenhydrAMINE 50MG/ML VIAL 50 MG IV (10:08)
[2024-01-18] MEDS: HEPARIN 1,000 UNITS/ML 10ML VIAL (CATH LAB) 10000 UNIT IV (10:09)
[2024-01-18] MEDS: VERAPAMIL 2.5MG/ML 2ML VIAL 2.5 MG IV (10:09)
[2024-01-18] MEDS: LIDOCAINE 1% 10ML MDV 20 ML IJ (10:09)
[2024-01-18] MEDS: NITROGLYCERIN 800MCG/8ML SYR (CATH LAB) 800 MCG IA (10:09)
[2024-01-18] MEDS: 0.9 % SODIUM CHLORIDE 500 ML 25 ML IV (10:10)
[2024-01-18] MEDS: HEPARIN 1,000 UNITS/500ML NS (CATH LAB) 3000 UNIT IV (10:10)
[2024-01-18] MEDS: MIDAZOLAM HCL 1MG/1ML 5ML VIAL 1 MG IV (11:01)
[2024-01-18] MEDS: FENTANYL 100MCG/2ML VIAL 50 MCG IV (11:01)
[2024-01-18] MEDS: PRASUGREL 10MG TAB 60 MG PO (11:22)
[2024-01-18] MEDS: IOPAMIDOL-370 (76%);100ML BOTTLE 150 ML IV (12:29)
[2024-01-18 14:26] LABS: CATHL Activated Clotting Time > 400 SEC (74-125)
== END 2024-01-18 14:45 | disposition home or self-care (01) ==
PROVIDERS: PCP Physician Assistant; Visit Provider Internal Medicine
DX: R94.31 Abnormal electrocardiogram [ECG] [EKG] (principal); R60.9 Edema, unspecified; R06.09 Other forms of dyspnea; I25.110 Atherosclerotic heart disease of native coronary artery with unstable angina pectoris; E11.9 Type 2 diabetes mellitus without complications; Z79.4 Long term (current) use of insulin; Z79.899 Other long term (current) drug therapy; E55.9 Vitamin D deficiency, unspecified; E03.9 Hypothyroidism, unspecified; E78.5 Hyperlipidemia, unspecified; I10 Essential (primary) hypertension
CPT/HCPCS: 80048; 85025; 85347; 92928; 93454; 99152; 99153; C1725; C1760; C1769; C1876; C9600; J1644; Q9967

== ENCOUNTER 2024-01-21 12:04 | Outpatient (CLI) | payer MEDICARE, MEDICAID, SELFPAY ==
[2024-01-21 12:34] LABS: Basophils % 0.4 % (0.1-2.0); Eosinophils # 0.3 K/mm3 (0.0-0.4); Eosinophils % 4.3 % (0.1-12.0); Hematocrit 39.6 % (42.0-52.0); Lymphocytes # 2.1 K/mm3 (0.7-4.5); Lymphocytes % 31.5 % (10-50); Mean Corpuscular HGB Conc 32.8 g/dL (31.8-35.4); Mean Corpuscular Hemoglobin 30.3 pg (27.0-31.2); Mean Corpuscular Volume 92.5 fl (80-94); Mean Platelet Volume 7.5 fl (7.4-10.4); Monocytes # 0.4 K/mm3 (0.1-1.0); Monocytes % 5.9 % (1.7-9.3); Neutrophils # 3.9 K/mm3 (1.8-7.8); Platelet Count 221 K/mm3 (142-424); Red Blood Count 4.28 M/mm3 (4.60-6.20); White Blood Count 6.8 K/mm3 (4.8-10.8)
[2024-01-21 14:13] LABS: Chloride 101 mmol/L (98-107); Potassium 4.7 mmoL/L (3.5-5.1); Sodium 133 mmol/L (136-145)
[2024-01-21 14:16] LABS: Anion Gap 11.7 mEq/L (5-15); Blood Urea Nitrogen 16 mg/dl (9-20); Calcium 9.5 mg/dl (8.4-10.2); Carbon Dioxide 25 mmol/L (22.0-30.0); Estimated Glomerular Filt Rate 97 ml/min (>60); GFR (African American) 117 ML/MIN (>60); Glucose 353 mg/dl (74-100)
== END 2024-01-21 23:59 | disposition home or self-care (01) ==
LOC: LAB 12:05
PROVIDERS: PCP Physician Assistant; Visit Provider Internal Medicine
DX: I25.10 Atherosclerotic heart disease of native coronary artery without angina pectoris (principal); Z79.899 Other long term (current) drug therapy
CPT/HCPCS: 36415; 80048; 85025

== ENCOUNTER 2024-01-26 08:48 | Outpatient (RCR) | payer MEDICARE, MEDICAID, SELFPAY | END 2024-03-24 10:00 | disposition home or self-care (01) | LOC: PT 08:48 | PROVIDERS: Visit Provider Internal Medicine | DX: I25.10 Atherosclerotic heart disease of native coronary artery without angina pectoris (principal); Z95.5 Presence of coronary angioplasty implant and graft | CPT/HCPCS: 93798 ==

== ENCOUNTER 2024-03-01 13:17 | Outpatient (CLI) | payer MEDICARE, MEDICAID, SELFPAY ==
--- NOTE | 2024-03-01 13:18 | CA_ITS ---
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: LOI Rojas, RVS Ht: 5 ft 11 in Wt: 318lbs BSA: 2.57 BP: 118/50 mmHg Indications: ABN EKG, CAD 10 coronary stents, DM, HTN, HLD 2D Dimensions IVSd 1.73 cm M: 0.6-1.2 LVEF (Visual) 70.80 % PWd 1.24 cm M: 0.6 - 1.2 LA Volume 96.60 mL LVDd 5.10 cm M: 4.2 - 5.9 LA Volume Index 37.59 mL/m2 (M/F) 16-34 LVDs 3.04 cm M: 2.5 - 4.0 Left Atrium 4.89 cm M: 3.0 - 4.0 M-Mode Dimensions RVDd 2.95 cm (0.9-2.6) LA Diam 4.71 cm (1.9-4.0) LVDd 4.78 cm (3.5-5.7) LVDs 2.91 cm (3.5-5.7) IVSd 1.97 cm (0.6-1.1) PWd 1.25 cm (0.6-1.1) EF (Teich) 69.50% EPSs 0.22 cm FS 39.10% EDV (Teich) 106.50 mL TAPSE 2.61 (<1.7) ESV (Teich) 32.50 mL LV Diastology E Decel Time 313 (160-240 msec) E/A Ratio 1.14 MED A' 9.00 cm/s LAT A' 12.90 cm/s Aortic Valve SHEKHAR Index 1.01 cm2/m2 AoV Peak Ivan. 180.0 (50-130 cm/s) AO Peak GR. 13.00 mmHg AO Mean GR. 7.60 (<5 mmHg) AO VTI 39.4 (18-25 cm) SHEKHAR (VTI) 2.65 (2.5-4.5 cm2) Mitral Valve MV A Velocity 69.0 (40-130 cm/s) E/A Ratio 1.14 MV Mean Gr. 1.60 (<2mmHg) Pulmonary Valve PV Peak Velocity 134.0 (50-150 cm/s) Tricuspid Valve TR P. Velocity 156.00 cm/s RAP Estimate 10.00 mmHg RVSP 19.70 mmHg Left Ventricle The left ventricle is normal size. The left ventricular systolic function is normal. The left ventricular ejection fraction is within the normal range. There is increased LV wall thickness. There is normal LV segmental wall motion. The left ventricular diastolic function is normal. LVEF is 55%. Right Ventricle The right ventricle is normal size. The right ventricular systolic function is normal. Atria Left atrium is mildly dilated. The right atrium size is normal. There is no Doppler evidence of interatrial shunt. Aortic Valve The aortic valve is mildly thickened. There is no aortic valvular stenosis. Trace aortic regurgitation. Mitral Valve The mitral valve leaflets are mildly thickened. No evidence of mitral valve stenosis. There is no mitral valve regurgitation noted. Tricuspid Valve The tricuspid valve leaflets are thin and pliable. Trace tricuspid regurgitation. RVSP is normal. Pulmonic Valve The pulmonary valve is normal in structure. Trace pulmonic regurgitation. Great Vessels The aortic root is normal in size. The ascending aorta is not well-visualized IVC is normal in size and collapses >50% with inspiration. Pericardium There is no pericardial effusion. Other Information Study Quality: Fair Conclusion Normal biventricular systolic function. Mild LA dilation. No significant valvular stenosis or regurgitation. Electronically signed by : Magui Arias MD 03/01/2024 15:28:18
== END 2024-03-01 23:59 | disposition home or self-care (01) ==
LOC: RT 13:18
PROVIDERS: PCP Physician Assistant; Visit Provider Nurse Practitioner
DX: R94.31 Abnormal electrocardiogram [ECG] [EKG] (principal); I51.7 Cardiomegaly; Z98.890 Other specified postprocedural states; E11.59 Type 2 diabetes mellitus with other circulatory complications
CPT/HCPCS: 93306

== ENCOUNTER 2024-04-03 18:32 | Emergency (ER) | payer MEDICARE, MEDICAID, SELFPAY ==
[2024-04-03 20:15] VITALS: BP 139/45; PULSE 62; RESP 18; TEMP 36.6; O2SAT 98; BMI 44.0
--- NOTE | 2024-04-03 20:45 | EXP.UTC ---
Discharge Plan Disposition Patient Disposition: Home, Self-Care Condition: Good Prescriptions Prescriptions: New cephalexin 500 mg tablet 500 mg PO BID 10 Days Qty: 20 0RF mupirocin 2 % ointment 1 applic topical BID Qty: 15 0RF No Action lisinopril 20 mg tablet 20 mg PO DAILY Qty: 30 5RF metoprolol succinate [Toprol XL] 50 mg tablet extended release 24 hr 50 mg PO DAILY Qty: 30 5RF spironolactone [Aldactone] 25 mg tablet 12.5 mg PO DAILY Qty: 30 2RF aspirin 325 mg tablet 325 mg PO DAILY mupirocin 2 % ointment 1 applic topical BID 14 Days Qty: 15 0RF Ozempic 0.25 mg or 0.5 mg (2 mg/3 mL) pen injector 0.5 mg SQ WEEKLY 30 Days Qty: 3.68 2RF Rx Instructions: for 4 weeks ranolazine 500 mg tablet extended release 12 hr 500 mg PO DAILY Patient Comments: TAKE 1 TABLET BY MOUTH ONCE DAILY gabapentin 600 mg tablet See Rx Instructions .ROUTE .COMPLEX Qty: 90 2RF Dose Instruction: TAKE 1 TABLET BY MOUTH EVERY 8 HOURS FOR PAIN Rx Instructions: TAKE 1 TABLET BY MOUTH EVERY 8 HOURS FOR PAIN testosterone cypionate [Depo-Testosterone] 200 mg/mL oil 200 mg IM Q4W Qty: 1 0RF (DME) blood sugar diagnostic Strip See Rx Instructions .Route .MEDSUPPLY Qty: 100 2RF Rx Instructions: test 3 times daily or As directed (DME) pen needle, diabetic [BD Ultra-Fine Mini Pen Needle] 31 gauge x 3/16 needle See Rx Instructions .ROUTE .COMPLEX Qty: 100 12RF Dose Instruction: USE DIRECTED Rx Instructions: USE DIRECTED insulin glargine [Lantus Solostar U-100 Insulin] 100 unit/mL (3 mL) insulin pen See Rx Instructions .ROUTE .COMPLEX Qty: 15 5RF Dose Instruction: INJECT 30 UNITS SUBCUTANEOUSLY AT BEDTIME FOR DIABETES Rx Instructions: INJECT 30 UNITS SUBCUTANEOUSLY AT BEDTIME FOR DIABETES isosorbide mononitrate 120 mg tablet extended release 24 hr See Rx Instructions .ROUTE .COMPLEX Qty: 90 3RF Dose Instruction: TAKE 1 TABLET BY MOUTH ONCE DAILY FOR HEART Rx Instructions: TAKE 1 TABLET BY MOUTH ONCE DAILY FOR HEART insulin lispro protamin-lispro [Humalog Mix 75-25 KwikPen] 100 unit/mL (75-25) insulin pen 16 unit SQ BID Qty: 15 4RF prasugrel [Effient] 10 mg tablet 10 mg PO DAILY Qty: 30 12RF citalopram 40 mg tablet See Rx Instructions .ROUTE .COMPLEX Qty: 90 0RF Dose Instruction: TAKE 1 TABLET BY MOUTH ONCE DAILY FOR MOOD Rx Instructions: TAKE 1 TABLET BY MOUTH ONCE DAILY FOR MOOD glimepiride 4 mg tablet See Rx Instructions .ROUTE .COMPLEX Qty: 90 0RF Dose Instruction: TAKE 1 TABLET BY MOUTH ONCE DAILY FOR DIABETES Rx Instructions: TAKE 1 TABLET BY MOUTH ONCE DAILY FOR DIABETES Trulicity 3 mg/0.5 mL pen injector See Rx Instructions .ROUTE .COMPLEX Qty: 4 5RF Dose Instruction: INJECT 3 MG SUBCUTANEOUSLY ONCE A WEEK Rx Instructions: INJECT 3 MG SUBCUTANEOUSLY ONCE A WEEK levothyroxine 175 mcg tablet See Rx Instructions .ROUTE .COMPLEX Qty: 90 0RF Dose Instruction: Take 1 tablet by mouth once daily Rx Instructions: Take 1 tablet by mouth once daily furosemide 20 mg tablet See Rx Instructions .ROUTE .COMPLEX Qty: 90 3RF Dose Instruction: Take 1 tablet by mouth once daily Rx Instructions: Take 1 tablet by mouth once daily metformin 500 mg tablet See Rx Instructions .ROUTE .COMPLEX Qty: 360 0RF Hold Instructions: Resume on 01/21/24. hold for 2 days Dose Instruction: TAKE 2 TABLETS BY MOUTH TWICE DAILY FOR DIABETES Rx Instructions: TAKE 2 TABLETS BY MOUTH TWICE DAILY FOR DIABETES atorvastatin 80 mg tablet 80 mg PO HS Rx Instructions: TAKE 1 TABLET BY MOUTH AT BEDTIME FOR CHOLESTEROL (DME) lancets [Accu-Chek Softclix Lancets] Misc See Rx Instructions .ROUTE .COMPLEX Rx Instructions: USE TO CHECK GLUCOSE THREE TIMES DAILY OR DIRECTED cholecalciferol (vitamin D3) [Vitamin D3] 25 mcg (1,000 unit) capsule 25 mcg PO DAILY (DME) pen needle, diabetic [BD Ultra-Fine Short Pen Needle] 31 gauge x 5/16 needle See Rx Instructions MISCELLANEOUS Rx Instructions: USE 1 SUBCUTANEOUSLY TWICE DAILY (DME) pen needle, diabetic [BD Ultra-Fine Mini Pen Needle] 31 gauge x 3/16 needle See Rx Instructions .ROUTE .COMPLEX Rx Instructions: USE DIRECTED (DME) Dexcom G7 Sensor Device See Rx Instructions .ROUTE .COMPLEX Rx Instructions: USE DIRECTED (DME) Dexcom G7 Catering Manager Misc See Rx Instructions .ROUTE .COMPLEX Rx Instructions: USE DIRECTED Referrals Follow up/Referrals: Shira Valladares PA [Primary Care Provider] - See instructions Activity Restrictions/Add. Instructions Additional Instructions/Restrictions: follow up with pcp to have area rechecked antibiotics as ordered clean bid and apply cream return if symptoms do not improve or worsen Clinical Impressions Clinical Impression: Skin ulcer of lower leg Instructions Patient Instructions: DI for Cellulitis -- Adult Discharge ED Provider: [facility]Heather [facility] HPI General Stated complaint: red,swollen sore right leg Mode of Arrival: Ambulatory Source of Information: Patient Limitations: No Limitations Time Seen by Provider: 04/03/24 20:45 Description of Symptoms (Recalled from Triage Doc. by RN): Pt's symptoms are sore on right leg for about 3weeks. HEENT Symptoms (Recalled from RN notes): No Resp Symptoms (Recalled from RN notes): No Skin Symptoms (Recalled from RN notes): No MS Symptoms (Recalled from RN notes): No Functional Status (Recalled from RN notes): n/a History of Present Illness Provider Complaint: 68 yr old male presents for sore on right leg for about 3weeks and now has red around area. Related Data Home Medications Medication Instructions Recorded Confirmed ranolazine 500 mg tablet,extended 500 mg PO DAILY Chest pain 11/17/19 03/28/24 release,12 hr atorvastatin 80 mg tablet 80 mg PO HS Cholesterol 06/21/23 03/28/24 blood-glucose meter,continuous 06/21/23 03/28/24 (Dexcom G7 Catering Manager) blood-glucose sensor (Dexcom G7 06/21/23 03/28/24 Sensor device) cholecalciferol (vitamin D3) 25 25 mcg PO DAILY Supplement 06/21/23 03/28/24 mcg (1,000 unit) capsule (Vitamin D3) lancets (Accu-Chek Softclix 06/21/23 03/28/24 Lancets) pen needle, diabetic 31 gauge x 06/21/23 03/28/24 3/16 (BD Ultra-Fine Mini Pen Needle) pen needle, diabetic 31 gauge x 06/21/23 03/28/24 5/16 (BD Ultra-Fine Short Pen Needle) aspirin 325 mg tablet 325 mg PO DAILY 03/28/24 03/28/24 Previous Rx's Medication Instructions Recorded blood sugar diagnostic #100 ea 09/24/22 pen needle, diabetic 31 gauge x #100 ea 08/21/23 3/16 (BD Ultra-Fine Mini Pen Needle) Lantus Solostar U-100 Insulin 100 See Rx Instructions .Route 09/01/23 unit/mL (3 mL) subcutaneous pen .COMPLEX #15 mL (insulin glargine) isosorbide mononitrate 120 mg See Rx Instructions .Route 09/21/23 tablet,extended release 24 hr .COMPLEX #90 tabs insulin lispro protamine-lispro 16 unit (0.16 mL) SQ BID Diabetes 09/24/23 100 unit/mL (75-25) subcutaneous #15 mL pen (Humalog Mix 75-25 KwikPen) gabapentin 600 mg tablet See Rx Instructions .Route 12/09/23 .COMPLEX #90 tabs testosterone cypionate 200 mg/mL 200 mg IM Q4W #1 mL 12/09/23 intramuscular oil (Depo-Testosterone) lisinopril 20 mg tablet 20 mg PO DAILY #30 tabs 01/06/24 metoprolol succinate 50 mg 50 mg PO DAILY #30 tabs 01/06/24 tablet,extended release 24 hr (Toprol XL) spironolactone 25 mg tablet 12.5 mg (1/2 x 25 mg) PO DAILY #30 01/06/24 (Aldactone) tabs prasugrel 10 mg tablet (Effient) 10 mg PO DAILY #30 tabs 01/19/24 citalopram 40 mg tablet See Rx Instructions .Route 02/19/24 .COMPLEX #90 tabs glimepiride 4 mg tablet See Rx Instructions .Route 02/22/24 .COMPLEX #90 tabs dulaglutide 3 mg/0.5 mL See Rx Instructions .Route 02/25/24 subcutaneous pen injector .COMPLEX #4 mL (Trulicity) semaglutide 0.25 mg or 0.5 mg (2 0.5 mg (0.736 mL) SQ WEEKLY 30 03/10/24 mg/3 mL) subcutaneous pen injector days #3.68 mL (Ozempic) levothyroxine 175 mcg tablet See Rx Instructions .Route 03/18/24 .COMPLEX #90 tabs furosemide 20 mg tablet See Rx Instructions .Route 03/25/24 .COMPLEX #90 tabs mupirocin 2 % topical ointment 1 applic topical BID infection 14 03/28/24 days #15 grams metformin 500 mg tablet See Rx Instructions .Route 03/30/24 .COMPLEX #360 tabs cephalexin 500 mg tablet 500 mg PO BID 10 days #20 tabs 04/03/24 mupirocin 2 % topical ointment 1 applic topical BID #15 grams 04/03/24 Allergies Allergy/AdvReac Type Severity Reaction Status Date / Time Penicillins [PENICILLINS] Allergy Unknown Verified 04/03/24 20:29 Worker's Comp Is this a Worker's Comp case?: No [facility] Disclaimer: The information contained in this section may have been updated after the patient was seen, as this information can be updated by other users. 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) Lumbar nerve root impingement Hernia Cataract CAD (coronary artery disease) CVA (cerebral vascular accident) Tinea pedis of both feet Skin tag Diabetes Insomnia Allergic rhinitis Hyperlipidemia Hypertension Hypothyroidism Vitamin B12 deficiency anemia Vitamin D deficiency Testosterone deficiency Type 2 diabetes mellitus Diabetic neuropathy associated with type 2 diabetes mellitus Surgical History , HAND FORMER HELPER) H/O carotid endarterectomy Hx laparoscopic cholecystectomy Status post middle ear reconstruction History of coronary artery stent placement Family History , HAND FORMER HELPER) Family history of cancer Family history of myocardial infarction Social History , HAND FORMER HELPER) Smoking Status: Never smoker second hand exposure: Yes alcohol intake: never substance use type: denies use current occupational status: disabled Travel in the last 8 weeks: None household members: spouse housing: house current occupational exposures/hazards: No caffeine: Yes ROS Obtained: Yes All systems reviewed & no additional complaints except as documented Constitutional Constitutional: Reports system reviewed and no additional complaints, except as documented Eyes Eyes: Reports system reviewed and no additional complaints, except as documented Respiratory Respiratory: Reports system reviewed and no additional complaints, except as documented Gastrointestinal Gastrointestingal: Reports system reviewed and no additional complaints, except as documented Musculoskeletal Musculoskeletal: Reports system reviewed and no additional complaints, except as documented Integumentary/Breasts Skin/Breast: Reports system reviewed and no additional complaints, except as documented, Reports as per HPI, Reports redness and Reports wounds Neurologic Neurologic: Reports system reviewed and no additional complaints, except as documented Endocrine Endocrine: Reports system reviewed and no additional complaints, except as documented Hematologic/Lymphatic Henatologic/Lymphatic: Reports system reviewed and no additional complaints, except as documented Allergic/Immunologic Allergic/Immunologic: Reports system reviewed and no additional complaints, except as documented Physical Exam General General appearance: alert and in no apparent distress Eye Eye exam: Present normal appearance ENT ENT exam: Present normal exam Respiratory Respiratory exam: Present normal lung sounds bilaterally Cardiovascular Cardiovascular exam: Present regular rate and normal rhythm Neurological Exam Neurological exam: Present alert and oriented X3 Skin Skin exam: Present warm and erythema Expanded Skin Exam Body image: 1. small quarter size red area with scab Medical Decision Making Medical Records Medical records reviewed: Yes I reviewed the patient's medical records. Joel Inquiry Pt receiving controlled substance: No Joel was queried for this patient: No Vital Signs: 04/03/24 20:15 Temperature 97.9 F Temperature Source Oral Pulse Rate [Right Radial] 62 Respiratory Rate 18 Blood Pressure [Right Arm] 139/45 L Blood Pressure Mean [Right Arm] 76 Blood Pressure Source [Right Arm] Automatic Cuff Blood Pressure Position [Right Arm] Sitting 02 Sat by Pulse Oximetry 98 Oxygen Delivery Method Room Air
[2024-04-03 21:28] VITALS: BP 139/45; PULSE 62; RESP 18; TEMP 36.6; O2SAT 98
== END 2024-04-03 21:28 | disposition home or self-care (01) ==
PROVIDERS: Emergency Provider Nurse Practitioner Family; PCP Physician Assistant
DX: L97.919 Non-pressure chronic ulcer of unspecified part of right lower leg with unspecified severity (principal); E11.9 Type 2 diabetes mellitus without complications; Z79.4 Long term (current) use of insulin; Z79.84 Long term (current) use of oral hypoglycemic drugs; Z79.85 Long-term (current) use of injectable non-insulin antidiabetic drugs
CPT/HCPCS: 99212; 99214; G0463

== ENCOUNTER 2024-07-19 07:47 | Outpatient (CLI) | payer MEDICARE, MEDICAID, SELFPAY ==
--- NOTE | 2024-07-19 07:51 | CA_ITS ---
FINAL REPORT TECHNIQUE: Color Doppler, duplex Doppler and lance scale sonography of the bilateral neck arterial vasculature was performed. Velocities were measured in the carotid arteries. Stenosis evaluation based on the validated velocity criteria. CLINICAL HISTORY: H/O Right CEA, Left SUMEET, HTN, HLD, DM, CAD-10 coronary stents. COMPARISON: None FINDINGS: The peak systolic velocity of the right common carotid artery is 98 cm/s. The peak systolic velocity of the right internal carotid artery is 127 cm/s and end diastolic velocity 27 cm/s. The ICA/CCA ratio is 1.68. A mild amount of plaque is present. The right external carotid artery is patent. The right vertebral artery is patent with antegrade flow. The peak systolic velocity of the left common carotid artery is 101 cm/s. The peak systolic velocity of the left internal carotid artery is 123 cm/s and end diastolic velocity 32 cm/s. The ICA/CCA ratio is 1.32. A mild amount of plaque is present. The left external carotid artery is patent.The left vertebral artery is patent with antegrade flow. IMPRESSION: Less than 50% bilateral carotid stenoses. Bilateral patent vertebral arteries with antegrade flow. If indicated, CTA or MRA could further evaluate. Reviewed, Interpreted and Dictated by Josiah Walden III, MD Transcribed by Tatiana Jenkins Authenticated and [facility]
== END 2024-07-19 23:59 | disposition home or self-care (01) ==
LOC: RT 07:48
PROVIDERS: PCP Physician Assistant; Visit Provider Nurse Practitioner
DX: I65.22 Occlusion and stenosis of left carotid artery (principal)
CPT/HCPCS: 93880

== ENCOUNTER 2024-08-11 17:34 | Outpatient (CLI) | payer MEDICARE, MEDICAID, SELFPAY | END 2024-08-11 23:59 | disposition home or self-care (01) | LOC: LAB.DROPOF 17:34 | PROVIDERS: PCP Nurse Practitioner; Visit Provider Nurse Practitioner | DX: B35.1 Tinea unguium (principal) | CPT/HCPCS: 87102; 87206; 87220 ==

== ENCOUNTER 2024-09-12 09:25 | Outpatient (CLI) | payer MEDICARE, MEDICAID, SELFPAY ==
[2024-09-12 18:36] LABS: Basophils % 0.5 % (0.1-2.0); Eosinophils # 0.3 K/mm3 (0.0-0.4); Eosinophils % 4.5 % (0.1-12.0); Hematocrit 37.7 % (42.0-52.0); Hemoglobin 12.6 g/dL (14.1-18.0); Lymphocytes # 2.6 K/mm3 (0.7-4.5); Lymphocytes % 34.8 % (10-50); Mean Corpuscular HGB Conc 33.6 g/dL (31.8-35.4); Mean Corpuscular Hemoglobin 30.6 pg (27.0-31.2); Mean Corpuscular Volume 91.1 fl (80-94); Mean Platelet Volume 8.7 fl (7.4-10.4); Monocytes # 0.4 K/mm3 (0.1-1.0); Monocytes % 5.7 % (1.7-9.3); Neutrophils % 54.5 % (37.0-80.0); Platelet Count 216 K/mm3 (142-424); Red Blood Count 4.14 M/mm3 (4.60-6.20); Red Cell Distribution Width 14.6 % (11.5-17.5); White Blood Count 7.4 K/mm3 (4.8-10.8)
[2024-09-12 18:52] LABS: Microalbumin/Creatinine Ratio 40.6
[2024-09-12 18:55] LABS: Creatinine,Urine Random 148 mg/dL (Not Estab.)
[2024-09-12 19:09] LABS: Alanine Aminotransferase 19 U/L (12-78); Albumin Level 3.9 g/dl (3.5-5.0); Albumin/Globulin Ratio 1.3 (1.1-1.8); Alkaline Phosphatase 88 U/L (38-126); Anion Gap 11.4 mEq/L (5-15); Aspartate Amino Transferase 18 U/L (17-59); Bilirubin,Total 0.4 mg/dl (0.2-1.3); Blood Urea Nitrogen 13 mg/dl (9-20); Calcium 9.3 mg/dl (8.4-10.2); Carbon Dioxide 29 mmol/L (22.0-30.0); Chloride 102 mmol/L (98-107); Chol/HDL Ratio 3.4 (1-3.5); Cholesterol 124 mg/dl (140-200); Estimated Glomerular Filt Rate 84 ml/min (>60); GFR (African American) 102 ML/MIN (>60); Globulin 3.1 g/dL (1.3-3.2); Glucose 185 mg/dl (74-100); HDL Cholesterol 37 mg/dl (40-60); Potassium 4.4 mmoL/L (3.5-5.1); Sodium 138 mmol/L (136-145); Triglycerides 148 mg/dl (30-150); VLDL Cholesterol 30 mg/dL (0-40)
[2024-09-12 19:21] LABS: Direct LDL Cholesterol 70.04 mg/dL (100-129)
[2024-09-12 19:41] LABS: Prostate Specific Ag Screen 0.5 ng/ml (0.0-4.0); Thyroid Stimulating Hormone 0.04 uIU/mL (0.465-4.68)
[2024-09-12 20:00] LABS: Vitamin B12 198 pg/mL (239-931)
[2024-09-12 20:28] LABS: Hemoglobin A1C 7.1 % (4.0-6.0)
== END 2024-09-12 23:59 | disposition home or self-care (01) ==
LOC: LAB.DROPOF 09-13 14:49
PROVIDERS: PCP Internal Medicine; Visit Provider Internal Medicine
DX: E03.9 Hypothyroidism, unspecified (principal); D64.9 Anemia, unspecified; E78.5 Hyperlipidemia, unspecified; E11.40 Type 2 diabetes mellitus with diabetic neuropathy, unspecified; E53.8 Deficiency of other specified B group vitamins; I10 Essential (primary) hypertension; Z12.5 Encounter for screening for malignant neoplasm of prostate; E55.9 Vitamin D deficiency, unspecified
CPT/HCPCS: 80053; 80061; 82043; 82306; 82570; 82607; 83036; 84443; 85025; G0103

== ENCOUNTER 2024-10-03 14:08 | Emergency (ER) | payer MEDICARE, MEDICAID, SELFPAY ==
[2024-10-03 14:08] VITALS: BP 132/56; PULSE 67; RESP 16; TEMP 36.7; O2SAT 97; BMI 42.0
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
[2024-10-03] MEDS: DOXYCYCLINE HYCL 100 MG TABLET PO (16:02)
[2024-10-03 16:04] VITALS: BP 130/61; PULSE 64; RESP 18; TEMP 36.7; O2SAT 98
--- NOTE | 2024-10-09 09:49 | PC.NURSE ---
WOUND CULTURE DISCUSSED WITH DR MEDINA, CALLED TO CHECK ON PT PT STATES FOOT IS HEALING, WILL CALL TOMORROW AM TO SCHEDULE EARLIER APPT WITH PODIATRY
== END 2024-10-03 16:05 | disposition home or self-care (01) ==
PROVIDERS: Emergency Provider Emergency Medicine; PCP Internal Medicine
DX: T25.221A Burn of second degree of right foot, initial encounter (principal); E11.8 Type 2 diabetes mellitus with unspecified complications; M79.671 Pain in right foot; X16.XXXA Contact with hot heating appliances, radiators and pipes, initial encounter; Y93.89 Activity, other specified; Y92.009 Unspecified place in unspecified non-institutional (private) residence as the place of occurrence of the external cause; Z79.84 Long term (current) use of oral hypoglycemic drugs
CPT/HCPCS: 87070; 87077; 87186; 87205; 99283

== ENCOUNTER 2024-10-10 13:19 | Outpatient (CLI) | payer MEDICARE, MEDICAID, SELFPAY ==
[2024-10-10 14:10] LABS: Basophils % 0.1 % (0.1-2.0); Eosinophils # 0.3 K/mm3 (0.0-0.4); Eosinophils % 3.2 % (0.1-12.0); Hematocrit 35.8 % (42.0-52.0); Hemoglobin 11.9 g/dL (14.1-18.0); Lymphocytes # 3.2 K/mm3 (0.7-4.5); Lymphocytes % 33.6 % (10-50); Mean Corpuscular HGB Conc 33.2 g/dL (31.8-35.4); Mean Corpuscular Hemoglobin 30.1 pg (27.0-31.2); Mean Corpuscular Volume 90.6 fl (80-94); Mean Platelet Volume 9.8 fl (7.4-10.4); Monocytes # 0.6 K/mm3 (0.1-1.0); Monocytes % 6.4 % (1.7-9.3); Neutrophils # 5.3 K/mm3 (1.8-7.8); Neutrophils % 56.1 % (37.0-80.0); Platelet Count 212 K/mm3 (142-424); Red Blood Count 3.95 M/mm3 (4.60-6.20); Red Cell Distribution Width 13.2 % (11.5-17.5); White Blood Count 9.4 K/mm3 (4.8-10.8)
[2024-10-10 14:32] LABS: Albumin Level 3.8 g/dl (3.5-5.0); Chloride 104 mmol/L (98-107); Sodium 134 mmol/L (136-145)
[2024-10-10 14:35] LABS: Alanine Aminotransferase 19 U/L (12-78); Albumin/Globulin Ratio 1.3 (1.1-1.8); Alkaline Phosphatase 83 U/L (38-126); Aspartate Amino Transferase 21 U/L (17-59); Bilirubin,Total 0.4 mg/dl (0.2-1.3); Blood Urea Nitrogen 14 mg/dl (9-20); Calcium 9.2 mg/dl (8.4-10.2); Carbon Dioxide 22 mmol/L (22.0-30.0); Estimated Glomerular Filt Rate 75 ml/min (>60); GFR (African American) 90 ML/MIN (>60); Globulin 2.9 g/dL (1.3-3.2); Glucose 148 mg/dl (74-100); Total Protein,Serum 6.7 g/dl (6.3-8.2)
[2024-10-10 14:37] LABS: Iron 60 ug/dL (49-181)
[2024-10-10 14:41] LABS: C-Reactive Protein 12.2 mg/L (0-4)
[2024-10-10 14:47] LABS: Total Iron Binding Capacity 322 ug/dL (261-462)
[2024-10-10 15:04] LABS: Erythrocyte Sedimentation Rate 25 mm/hr (0-20)
[2024-10-10 15:11] LABS: Ferritin 29.5 ng/ml (17.9-464)
[2024-10-10 15:46] LABS: Vitamin B12 200 pg/mL (239-931)
[2024-10-10 15:47] LABS: Folate 6.81 ng/mL
[2024-10-10 15:51] LABS: Hemoglobin A1C 7.2 % (4.0-6.0)
== END 2024-10-10 23:59 | disposition home or self-care (01) ==
LOC: LAB 13:20
PROVIDERS: Nurse Practitioner; PCP Internal Medicine; Visit Provider Internal Medicine
DX: R60.9 Edema, unspecified (principal); E53.8 Deficiency of other specified B group vitamins; D64.9 Anemia, unspecified; T81.30XA Disruption of wound, unspecified, initial encounter; B95.7 Other staphylococcus as the cause of diseases classified elsewhere; E11.9 Type 2 diabetes mellitus without complications; Z79.84 Long term (current) use of oral hypoglycemic drugs; Z79.85 Long-term (current) use of injectable non-insulin antidiabetic drugs; Z79.4 Long term (current) use of insulin
CPT/HCPCS: 36415; 80053; 82607; 82728; 82746; 83036; 83540; 83550; 85025; 85651; 86140; 87070; 87077; 87186; 87205

== ENCOUNTER 2024-10-24 09:45 | Outpatient (CLI) | payer MEDICARE, MEDICAID, SELFPAY ==
--- NOTE | 2024-10-24 09:52 | XR_ITS ---
FINAL REPORT CLINICAL HISTORY: Foot Pain x3 weeks COMPARISON: None FINDINGS: RIGHT FOOT: Four views show no evidence of acute displaced fracture or dislocation of the visualized bony architecture. There are mild degenerative changes in the midfoot and hindfoot. Moderate calcaneal spurring is present. IMPRESSION: Chronic degenerative changes are present without acute bony abnormality. Reviewed, Interpreted and Dictated by Myrna Guy MD Transcribed by Marimar Hauser Authenticated and . [facility]
== END 2024-10-24 23:59 | disposition home or self-care (01) ==
LOC: RAD 09:49
PROVIDERS: PCP Internal Medicine; Visit Provider Nurse Practitioner
DX: M79.671 Pain in right foot (principal)
CPT/HCPCS: 73630

== ENCOUNTER 2024-11-09 08:59 | Outpatient (CLI) | payer MEDICARE, MEDICAID, SELFPAY ==
[2024-11-09 19:00] LABS: Thyroid Stimulating Hormone 0.08 uIU/mL (0.465-4.68)
== END 2024-11-09 23:59 | disposition home or self-care (01) ==
LOC: LAB.DROPOF 11-10 09:00
PROVIDERS: PCP Internal Medicine; Visit Provider Internal Medicine
DX: E03.9 Hypothyroidism, unspecified (principal)
CPT/HCPCS: 84443

== ENCOUNTER 2025-01-09 11:45 | Outpatient (CLI) | payer MEDICARE, MEDICAID, SELFPAY ==
[2025-01-09 20:09] LABS: Hemoglobin A1C 7.9 % (4.0-6.0)
[2025-01-09 20:58] LABS: Alanine Aminotransferase 21 U/L (12-78); Albumin/Globulin Ratio 1.3 (1.1-1.8); Alkaline Phosphatase 82 U/L (38-126); Anion Gap 15.7 mEq/L (5-15); Aspartate Amino Transferase 21 U/L (17-59); Bilirubin,Total 0.4 mg/dl (0.2-1.3); Blood Urea Nitrogen 15 mg/dl (9-20); Calcium 9.8 mg/dl (8.4-10.2); Carbon Dioxide 24 mmol/L (22.0-30.0); Chloride 101 mmol/L (98-107); Chol/HDL Ratio 3.9 (1-3.5); Cholesterol 147 mg/dl (140-200); Estimated Glomerular Filt Rate 75 ml/min (>60); GFR (African American) 90 ML/MIN (>60); Globulin 3.2 g/dL (1.3-3.2); Glucose 249 mg/dl (74-100); HDL Cholesterol 38 mg/dl (40-60); Potassium 4.7 mmoL/L (3.5-5.1); Sodium 136 mmol/L (136-145); Total Protein,Serum 7.2 g/dl (6.3-8.2); Triglycerides 174 mg/dl (30-150); VLDL Cholesterol 35 mg/dL (0-40)
[2025-01-09 21:11] LABS: Direct LDL Cholesterol 76.33 mg/dL (100-129)
[2025-01-09 21:13] LABS: Free T4 (Free Thyroxine) 1.36 ng/dl (0.78-2.19)
[2025-01-09 21:33] LABS: Thyroid Stimulating Hormone 0.48 uIU/mL (0.465-4.68)
[2025-01-09 21:52] LABS: Vitamin B12 176 pg/mL (239-931)
== END 2025-01-09 23:59 | disposition home or self-care (01) ==
LOC: LAB.DROPOF 01-10 13:31
PROVIDERS: PCP Family Medicine; Visit Provider Family Medicine
DX: E53.8 Deficiency of other specified B group vitamins (principal); E11.40 Type 2 diabetes mellitus with diabetic neuropathy, unspecified; E78.5 Hyperlipidemia, unspecified; I10 Essential (primary) hypertension; E03.9 Hypothyroidism, unspecified
CPT/HCPCS: 80053; 80061; 82607; 83036; 84439; 84443

== ENCOUNTER 2025-02-06 12:19 | Outpatient (CLI) | payer MEDICARE, MEDICAID, SELFPAY ==
--- NOTE | 2025-02-06 12:37 | CA_ITS ---
APPROVED REPORT EXAM: Comprehensive 2D, Doppler, and color-flow Echocardiogram Emt Driver: Amisha Mtz CRT Ht: 5 ft 11 in Wt: 305lbs BSA: 2.52 BP: 127/50 mmHg Indications: CVA/TIA, Diabetes, CAD, Hyperlipidemia, Hypertension/HDD, 10 stents 2D Dimensions LA Volume 82.30 mL LA Volume Index 31.90 mL/m2 (M/F) 16-34 M-Mode Dimensions RVDd 2.65 cm (0.9-2.6) LA Diam 4.62 cm (1.9-4.0) LVDd 4.78 cm (3.5-5.7) LVDs 3.17 cm (3.5-5.7) IVSd 2.37 cm (0.6-1.1) PWd 0.84 cm (0.6-1.1) EF (Teich) 62.40% FS 33.70% EDV (Teich) 106.50 mL TAPSE 2.81 (<1.7) ESV (Teich) 40.00 mL LV Diastology E Decel Time 223 (160-240 msec) E/A Ratio 0.90 MED A' 11.00 cm/s LAT A' 15.20 cm/s Aortic Valve SHEKHAR Index 0.95 cm2/m2 AoV Peak Ivan. 169.0 (50-130 cm/s) AO Peak GR. 11.40 mmHg AO Mean GR. 7.00 (<5 mmHg) AO VTI 40.5 (18-25 cm) SHEKHAR (VTI) 2.45 (2.5-4.5 cm2) Mitral Valve MV E Max Ivan. 80.0 (40-130 cm/s) MV A Velocity 89.0 (40-130 cm/s) E/A Ratio 0.90 MV PHT 65.0 ms Pulmonary Valve PV Peak Velocity 226.0 (50-150 cm/s) Tricuspid Valve TR P. Velocity 259.00 cm/s RAP Estimate 10.00 mmHg RVSP 36.90 mmHg Left Ventricle The left ventricle is normal size. The left ventricular systolic function is normal. The left ventricular ejection fraction is within the normal range. There is increased LV wall thickness. There is normal LV segmental wall motion. Diastolic function is indeterminate. LVEF is 55%. Right Ventricle The right ventricle is normal size. The right ventricular systolic function is normal. Atria Left atrium is mildly dilated. Right atrium is mildly dilated. There is no Doppler evidence of interatrial shunt. Aortic Valve Aortic valve is mildly thickened. Trace aortic regurgitation. There is no aortic valvular stenosis. Mitral Valve The mitral valve is normal in structure. No evidence of mitral valve stenosis. Trace mitral regurgitation. Tricuspid Valve Tricuspid valve is grossly normal in structure and function. Trace tricuspid regurgitation. There is insufficient TR jet to estimate RVSP. Pulmonic Valve The pulmonary valve is normal in structure. Trace pulmonic regurgitation. Great Vessels The aortic root is normal in size. IVC is normal in size and collapses >50% with inspiration. Pericardium There is no pericardial effusion. Other Information Study Quality: Fair Conclusion Normal biventricular systolic function. Mild biatrial dilation. No significant valvular stenosis or regurgitation. Electronically signed by : Magui Arias MD 02/12/2025 17:02:42
== END 2025-02-06 23:59 | disposition home or self-care (01) ==
LOC: RT 12:20
PROVIDERS: PCP Family Medicine; Visit Provider Nurse Practitioner
DX: I51.7 Cardiomegaly (principal); R01.1 Cardiac murmur, unspecified; R94.31 Abnormal electrocardiogram [ECG] [EKG]
CPT/HCPCS: 93306

== ENCOUNTER 2025-02-20 06:47 | Day surgery (SDC) | payer MEDICARE, MEDICAID, SELFPAY ==
[2025-02-20 07:14] VITALS: BMI 42.8
[2025-02-20] MEDS: LACTATED RINGERS 1000ML 1,000 ML 50 ML IV (07:17)
[2025-02-20 07:20] VITALS: BP 101/66; PULSE 56; RESP 18; TEMP 36.1; O2SAT 98
[2025-02-20 07:32] LABS: POC Glucose,Bedside 135 (70-110)
--- NOTE | 2025-02-20 07:46 | EXP.ANES.CKL ---
[facility] Disclaimer: The information contained in this section may have been updated after the patient was seen, as this information can be updated by other users. 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 Abnormal colonoscopy Rhinitis B12 deficiency Wears hearing aid MAX (obstructive sleep apnea) MAX currently symptomatic on auto BiPAP. Good compliance but needs a different mask due to large leak per night. Perforation of left tympanic membrane He has had a quite a large perforation for many years. I would like to see if we can get this ear more dry and less inflamed. Otitis externa of right ear Left chronic otitis media Drainage from ear, left Perforated tympanic membrane Impacted cerumen of right ear Ear pain, left Clogged ear Vitamin D deficiency Lumbar nerve root impingement Hernia Cataract CAD (coronary artery disease) CVA (cerebral vascular accident) Tinea pedis of both feet Skin tag Diabetes Insomnia Allergic rhinitis Hyperlipidemia Hypertension Hypothyroidism Vitamin B12 deficiency anemia Testosterone deficiency Type 2 diabetes mellitus Diabetic neuropathy associated with type 2 diabetes mellitus Surgical History History of tonsillectomy History of hernia repair H/O carotid endarterectomy Hx laparoscopic cholecystectomy Status post middle ear reconstruction History of coronary artery stent placement Family History Other Diabetes Family history of cancer Family history of myocardial infarction Social History (Updated 02/20/25 @ 07:18 by John Eaton RN) Smoking Status: Never smoker second hand exposure: Yes alcohol intake: never substance use type: denies use current occupational status: disabled Travel in the last 8 weeks?: None household members: spouse housing: house current occupational exposures/hazards: No caffeine: Yes Have you lived/traveled outside [place] in past 30 days?: No Contact w/someone who lives/traveled outside US past 30 days?: No Exposure to someone with infectious disease in past 14 days?: No Do you have a fever (greater than 100.4 F or 38 C)?: No Have you tested positive for COVID-19?: No Exposed to someone with COVID-19 in past 14 days?: Yes Do you have a sore throat?: No Do you have a cough?: No Do you have any weakness?: No Are you experiencing any nausea/vomitting?: No Do you have any diarrhea?: No Are you experiencing any unusual bleeding?: No Do you have any muscle aches/pain?: No Do you have any abdominal pain?: No Are you experiencing loss of taste or smell?: No [facility] Anesthesia Checklist Patient Identification Patient Identification: Arm Band Structural Data Admitted From: Home Planned Operative Procedure/s: Colonoscopy Consent for Planned Operative Procedure(s) Verified: Yes Verified Documents: Surgical Consent, History and Physical and Cardiac Clearance NPO Status Verified Time NPO: 05:15 Additional verifications Anesthesia Reactions: No Hx Blood Transfusions: No Blood Transfusion Reaction: No Airway Assessment Mallampati Score:: Class III C-Spine Mobility Assessed: Yes TMJ Mobility Assessed: Yes Dentition: Edentulous Anesthesia Plan Anesthesia Risk discussed: Yes Anesthesia Plan: Verified ASA Class: III Anesthesia Type: MAC
[2025-02-20 07:59] VITALS: O2SAT 100
--- NOTE | 2025-02-20 07:59 | EXP.HP ---
History of Present Illness *Admission Date: 02/20/25 *Reason for visit:: Surveillance colonoscopy-history of adenomatous colon polyps *History of present illness: Mr. Guidry is a 69-year-old gentleman who is here for surveillance colonoscopy secondary to a personal history of adenomatous polyps. He had a colonoscopy in April 2021 (Phong Navarro M.D.) and had a large flat ridge polyp in the right colon that was tattooed and removed in piecemeal and this was adenomatous. He had 2 additional adenomatous polyps removed at that time. The examination is deemed medically necessary for surveillance colonoscopy. The patient has been seen, interviewed and examined prior to the procedure by both myself and the anesthesia provider. [facility] Disclaimer: The information contained in this section may have been updated after the patient was seen, as this information can be updated by other users. 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 Abnormal colonoscopy Rhinitis B12 deficiency Wears hearing aid MAX (obstructive sleep apnea) MAX currently symptomatic on auto BiPAP. Good compliance but needs a different mask due to large leak per night. Perforation of left tympanic membrane He has had a quite a large perforation for many years. I would like to see if we can get this ear more dry and less inflamed. Otitis externa of right ear Left chronic otitis media Drainage from ear, left Perforated tympanic membrane Impacted cerumen of right ear Ear pain, left Clogged ear Vitamin D deficiency Lumbar nerve root impingement Hernia Cataract CAD (coronary artery disease) CVA (cerebral vascular accident) Tinea pedis of both feet Skin tag Diabetes Insomnia Allergic rhinitis Hyperlipidemia Hypertension Hypothyroidism Vitamin B12 deficiency anemia Testosterone deficiency Type 2 diabetes mellitus Diabetic neuropathy associated with type 2 diabetes mellitus Surgical History History of tonsillectomy History of hernia repair H/O carotid endarterectomy Hx laparoscopic cholecystectomy Status post middle ear reconstruction History of coronary artery stent placement Family History Other Diabetes Family history of cancer Family history of myocardial infarction Social History (Updated 02/20/25 @ 07:18 by John Eaton RN) Smoking Status: Never smoker second hand exposure: Yes alcohol intake: never substance use type: denies use current occupational status: disabled Travel in the last 8 weeks?: None household members: spouse housing: house current occupational exposures/hazards: No caffeine: Yes Have you lived/traveled outside US in past 30 days?: No Contact w/someone who lives/traveled outside US past 30 days?: No Exposure to someone with infectious disease in past 14 days?: No Do you have a fever (greater than 100.4 F or 38 C)?: No Have you tested positive for COVID-19?: No Exposed to someone with COVID-19 in past 14 days?: Yes Do you have a sore throat?: No Do you have a cough?: No Do you have any weakness?: No Are you experiencing any nausea/vomitting?: No Do you have any diarrhea?: No Are you experiencing any unusual bleeding?: No Do you have any muscle aches/pain?: No Do you have any abdominal pain?: No Are you experiencing loss of taste or smell?: No Other 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 Have you received the Pneumonia Vaccine: Yes Review of Systems Review of Systems Review of systems (narrative): Negative *Cardiovascular Comments: Negative *Gastrointestinal Comments: Negative *Genitourinary Comments: Negative *Musculoskeletal Comments: Negative *Neurologic Comments: Negative Meds Home Medications and Allergies Home Medications ?Medication ?Instructions ?Recorded ?Confirmed ?Type ranolazine 500 mg tablet,extended 500 mg PO DAILY Chest pain 11/17/19 02/20/25 History release,12 hr blood sugar diagnostic #100 ea 09/24/22 02/20/25 Rx atorvastatin 80 mg tablet 80 mg PO HS Cholesterol 06/21/23 02/20/25 History pen needle, diabetic 31 gauge x 06/21/23 02/20/25 History 5/16 (BD Ultra-Fine Short Pen Needle) pen needle, diabetic 31 gauge x #100 ea 08/21/23 02/20/25 Rx 3/16 (BD Ultra-Fine Mini Pen Needle) prasugrel HCl 10 mg tablet 10 mg PO DAILY #30 tabs 01/19/24 02/20/25 Rx (Effient) aspirin 81 mg tablet,delayed 81 mg PO DAILY 05/10/24 02/20/25 History release (Adult Low Dose Aspirin) glimepiride 4 mg tablet See Rx Instructions .Route 06/06/24 02/20/25 Rx .COMPLEX #90 tabs blood-glucose meter #1 ea 06/29/24 02/20/25 Rx Lantus Solostar U-100 Insulin 100 See Rx Instructions .Route 09/07/24 02/20/25 Rx unit/mL (3 mL) subcutaneous pen .COMPLEX #15 mL (insulin glargine) lancets (Accu-Chek Softclix #100 ea 09/07/24 02/20/25 Rx Lancets) blood-glucose sensor (Dexcom G7 #1 ea 09/20/24 02/20/25 Rx Sensor device) blood-glucose,steam conditioning operator,cont #3 ea 09/20/24 02/20/25 Rx (Dexcom G7 Pediatric Allergist) isosorbide mononitrate 120 mg See Rx Instructions .Route 09/23/24 02/20/25 Rx tablet,extended release 24 hr .COMPLEX #90 tabs semaglutide 2 mg/dose (8 mg/3 mL) See Rx Instructions .Route 10/10/24 02/20/25 Rx subcutaneous pen injector (Ozempic) .COMPLEX #3 mL mupirocin 2 % topical ointment 1 applic topical BID infection 14 10/24/24 02/20/25 Rx days #15 grams pramipexole 0.25 mg tablet 0.25 mg PO TID #90 tabs 11/09/24 02/20/25 Rx testosterone cypionate 200 mg/mL 200 mg IM Q4W #1 mL 11/09/24 02/20/25 Rx intramuscular oil (Depo-Testosterone) insulin lispro protamine-lispro See Rx Instructions .Route 11/30/24 02/20/25 Rx 100 unit/mL (75-25) subcutaneous .COMPLEX #15 mL pen citalopram 40 mg tablet See Rx Instructions .Route 12/02/24 02/20/25 Rx .COMPLEX #90 tabs metoprolol succinate 50 mg 50 mg PO DAILY #30 tabs 12/12/24 02/20/25 Rx tablet,extended release 24 hr (Toprol XL) VITAMIN D3 25MCG (1000 IU) CAP See Rx Instructions .Route 12/15/24 02/20/25 Rx .COMPLEX #90 caps levothyroxine 125 mcg capsule 125 mcg PO DAILY #30 caps 12/19/24 02/20/25 Rx spironolactone 25 mg tablet 12.5 mg (1/2 x 25 mg) PO DAILY 90 12/26/24 02/20/25 Rx (Aldactone) days #45 tabs metformin 500 mg tablet See Rx Instructions .Route 01/05/25 02/20/25 Rx .COMPLEX #360 tabs fluticasone propionate 50 1 spray intranasal BID #16 grams 01/09/25 02/20/25 Rx mcg/actuation nasal spray,suspension (Allergy Relief (fluticasone)) cyanocobalamin (vitamin B-12) 1,000 mcg PO DAILY #90 caps 01/10/25 02/20/25 Rx 1,000 mcg capsule lisinopril 10 mg tablet 10 mg PO DAILY #90 tabs 01/10/25 02/20/25 Rx pen needle, diabetic 31 gauge x #100 ea 01/27/25 02/20/25 Rx 3/16 gabapentin 800 mg tablet 800 mg PO TID #90 tabs 02/07/25 02/20/25 Rx cyanocobalamin (vitamin B-12) 1,000 mcg IM QMONTH #1 ea 02/08/25 02/20/25 Rx 1,000 mcg/mL injection kit sodium,potassium,mag sulfates 17.5 See Rx Instructions PO .COMPLEX 02/10/25 02/20/25 Rx gram-3.13 gram-1.6 gram oral soln #354 mL (Suprep Bowel Prep Kit) clopidogrel 75 mg tablet (Plavix) 75 mg PO DAILY 02/20/25 02/20/25 History New Prescriptions to Start Prescriptions: Allergies Allergy/AdvReac Type Severity Reaction Status Date / Time Penicillins (PENICILLINS) Allergy Unknown Other Verified 02/20/25 07:19 Exam Data for Last 24 hours Vital signs and Labs for Last 24 Hours: Temp Pulse Resp BP Pulse Ox O2 Del Method 97.0 F L 56 L 18 101/66 L 98 Room Air 02/20/25 07:20 02/20/25 07:20 02/20/25 07:20 02/20/25 07:20 02/20/25 07:20 02/20/25 07:20 Laboratory Results - last 24 hr 02/20/25 07:23: POC Glucose 135 H I & O for Last 24 hours: Intake & Output 02/17/25 02/18/25 02/19/25 02/20/25 23:59 23:59 23:59 23:59 Weight 307 lb *Routine HEENT Exam Head: Present normocephalic Eye: Present EOMI and PERRL ENT: Present mucous membranes moist *Routine Neck Exam Neck: Present supple *Routine Respiratory Exam Respiratory: Present CTA bilaterally *Routine Cardiovascular Exam Cardiovascular: Present RRR *Routine Abdominal Exam Abdominal: Present soft and normoactive bowel sounds; Absent tenderness *Routine Rectal Exam Rectal:: deferred *Routine Genitalia Exam Genitalia:: deferred *Routine Extremities Exam Extremities: Absent cyanosis, clubbing or edema *Routine Skin Exam Skin: Present warm; Absent rash *Routine Neurological Exam Neurological: Present alert and oriented X3 Assessment and Plan *Assessment and plan (1) Personal history of adenomatous and serrated colon polyps: Status: Acute Category: Medical Code(s): Z86.0101 - Personal history of adenomatous and serrated colon polyps Plan A/P: 1. Personal history of adenomatous colon polyps is the preprocedural diagnosis. The patient will be anesthetized/sedated using MAC sedation. The patient has been seen and examined. Cardiac and lung assessment prior to the examination is stable. Proceed with planned surveillance colonoscopy.
--- NOTE | 2025-02-20 08:02 | P.PCN_ITS ---
[facility] Procedure Note Date: 02/20/25 Time: 08:38 Procedure Note:: Colonoscopy Procedure Report: Colonoscopy with cold snare polypectomy Endoscopist: Sathya Eastman II, MD Referring physician: Florian Og MD Date of Procedure: February 20, 2025 Equipment: Olympus 190 variable stiffness pediatric colonoscope Sedation: MAC sedation Indication: Mr. Guidry is a 69-year-old gentleman who is here for follow-up surveillance colonoscopy secondary to a personal history of adenomatous colon p olyps. He did have a colonoscopy in April 2021 (Phong Navarro M.D.) and had a complex lobulated large ridge polyp in the transverse colon that was behind a fold and difficult to visualize. Attempts to remove by way of snare were unsuccessful after elevation/submucosal injection. The patient did have 2 additional adenomatous polyps (ascending and transverse). The patient reports no abdominal pain, weight loss, change in his bowel habits or rectal bleeding. He has had some intentional weight loss with Ozempic. He reports no family history of colon cancer. Procedure: Prior to the procedure, a history and physical exam was performed, and patient's medications and allergies were reviewed. The risks, benefits and alternatives of the sedation and procedure were discussed with the patient. All questions were answered and informed consent was obtained. The patient was brought to the procedure room. Patient identification and proposed procedure were verified by the physician and the nurse. The patient was placed in a left lateral decubitus position and the scope was passed under direct vision. Throughout the procedure, the patient's blood pressure, pulse, and oxygen saturations were monitored continuously. The colonoscopy was accomplished without difficulty. The patient tolerated the procedure well. Findings: On digital rectal examination there was normal rectal tone. There were no external hemorrhoids. The colonoscope was introduced through the anal canal to the rectum and advanced to the cecum. The ileocecal valve and appendiceal orifice were identified. The scope was advanced a short distance into the ileum which appeared grossly normal. The scope was then withdrawn into the colon. There were 2 polyps in the cecum (4 and 5 mm) and the larger ridge polyp along and behind haustral fold in the transverse colon. This was at least 30 mm in length and was elongated and very flat. Because of the prior submucosal injection of the polyp it was not deemed safe to inject this again because of submucosal fibrosis. Instead, the polyp was surveyed from both the antegrade and retrograde positions. This was to determine the amount of adenomatous tissue behind the fold. Next, the polyp was removed in piecemeal via cold snare polypectomy. Multiple washings were obtained to ascertain whether there is any remaining adenomatous tissue and after wide resection of this flat elongated adenomatous polyp, there is no bleeding at the polypectomy site and the scope was withdrawn further. There were a few scattered diverticuli in the descending and sigmoid colon. There was moderate tortuosity of the colon upon insertion to the cecum. There were no other mucosal abnormalities identified. Upon retroflexion within the rectum there were grade 2 internal hemorrhoids. The preparation was good throughout with [place] Preparation Score of 8 out of 9. The cecal time was 21 minutes. Impression: 1. Flat laterally spreading granular adenoma (30 mm in length) in transverse colon adjacent to tattoo?status post piecemeal cold snare removal 2. 2 additional diminutive adenomatous polyps 3. Mild left-sided diverticulosis 4. Grade 2 internal hemorrhoids Plan: I will follow-up the polyp histology and recommend repeat surveillance colonoscopy in 6 months to ensure that there is no residual adenoma. I will discuss the findings with the patient and family.
[2025-02-20 08:40] VITALS: BP 89/44; PULSE 57; RESP 18; TEMP 36.2; O2SAT 89
[2025-02-20 08:50] VITALS: BP 105/52; PULSE 52; RESP 16; TEMP 36.1; O2SAT 97
[2025-02-20 09:00] VITALS: BP 105/54; PULSE 51; RESP 16; TEMP 36.1; O2SAT 97
[2025-02-20 09:10] VITALS: BP 125/73; PULSE 51; RESP 18; TEMP 36.1; O2SAT 98
--- NOTE | 2025-02-22 12:02 | SUR.PREOP ---
PT. called preop asking when he could restart his blood thinners (plavix & effient). Dr. Eastman called and orders for patient to continue his aspirin 81 mg daily and to restart his plavis and effient on Thursday, February 24. Discussed with pt. over the phone, verbally states he understands and instructed to call if he has any questions or concerns.
== END 2025-02-20 09:29 | disposition home or self-care (01) ==
PROVIDERS: PCP Family Medicine; Visit Provider Internal Medicine Gastroenterology
PROC: 0DJD8ZZ Inspection of Lower Intestinal Tract, Via Natural or Artificial Opening Endoscopic (ICD-10-PCS; CPT 45378; principal; 2025-02-20 08:30)
DX: Z12.11 Encounter for screening for malignant neoplasm of colon (principal); Z86.0101 Personal history of adenomatous and serrated colon polyps; K63.5 Polyp of colon; D12.3 Benign neoplasm of transverse colon; K57.30 Diverticulosis of large intestine without perforation or abscess without bleeding; K64.1 Second degree hemorrhoids; E11.9 Type 2 diabetes mellitus without complications
CPT/HCPCS: 45385; 82962; J2704; J7120

== ENCOUNTER 2025-04-18 22:09 | Emergency (ER) | payer MEDICARE, MEDICAID, SELFPAY ==
--- OUTSIDE RECORDS SUMMARY | 2025-04-18 22:54 | XMS_ITS | Clinical Summary ---
Author Organization [facility] [place] [address] Care Team Providers Care Machine Grinder Name Role Phone Unavailable Primary Care Provider Unavailabl e Social History Tobacco Use Types Packs/Day Years Used Date Smoking Tobacco: Never Assessed Sex and Gender Information Value Date Recorded Sex Assigned at Not on file Legal Sex Male 11:25 PM EDT Gender Identity Not on file Sexual Orientation Not on file Plan of Treatment Health Maintenance Due Date Last Done Comments Annual Wellness Exam 1960 Hepatitis C Screening 1975 DTaP/TDaP/Td (1 - Tdap) 1976 Cologuard 2002 Colon Cancer Screening 2002 Colonoscopy 2002 FIT 2002 Sigmoidoscopy 2002 Virtual Colonography 2002 Pneumococcal Vaccine 50+ (1 of 1 - PCV) 2007 Zoster (1 of 2) 2007 COVID-19 Vaccine (2023-2 5 season) 2024 Influenza Vaccine (#1) 2025 Hepatitis B Vaccine Aged Out No longe r eligible based on patient's age to complete this topic Meningococcal B Vaccine Aged Out No l onger eligible based on patient's age to complete this topic
--- OUTSIDE RECORDS SUMMARY | 2025-04-18 22:54 | XMS_ITS | Clinical Summary ---
Author Organization Healthcare Address [address] [place] [address] Care Team Providers Care Crimper Operator Name Role Phone Leonard Madrigal MD Primary Care Provider + [phone] Allergies Active Allergy Reactions Criticality Noted Date Comments Penicillin G Unknown - Patient st ates they do not know rxn details Low 06/22/2017 Medications aspirin 325 MG EC tablet 7 Active atorvastatin (Lipitor) 80 MG tablet Take 1 tablet daily 7 Active canagliflozin (Invokana) 300 MG 7 Active citalopram (CeleXA) 40 MG tablet Take 1 tablet daily 7 Active furosemide (Lasix) 40 MG tablet Take 1 tablet daily as directed 7 Active gabapentin (Neurontin) 600 MG tablet Take 1 tablet 3 times daily 7 Active glimepiride (Amaryl) 4 MG tablet Take 1 tablet twice daily 7 Active isosorbide mononitrate ER (Imdur) 120 MG 24 hr tablet Take 1 tablet daily 7 Active levothyroxine (Synthroid, Levoxyl) 200 MCG tablet Take 1 tablet daily 7 Active metFORMIN (Glucophage) 500 MG tablet Take 2 tablets twice daily 7 Active metoprolol succinate XL (Toprol-XL) 25 MG 24 hr tablet Take 1/2 tablet daily 7 Active Neomycin-Polymyx in-HC 1 % solution 7 Active potassium chloride CR (Klor-Con M20) 20 MEQ ER tablet Take 1 tablet daily 7 Active SITagliptin (Januvia) 100 MG tablet Take 1 tablet daily 7 Active canagliflozin (Invokana) 300 MG 7 Active Active Problems Problem Noted Date Diagnosed Date Acute suppurative otitis media 04/13/2019 Chronic otitis media 04/13/2019 CKD (chronic kidney disease) stage 2, GFR 60-89 ml/min 06/29/2017 Hypertension 06/29/2017 Diabetes mellitus 06/22/2017 Microalbuminuria 04/17/2017 Family History 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 Relation Name Comments Asthma Father Diabetes Father Heart attack Father Hypertension Father Other cancer Father Relation Name Status Comments Father Social History Tobacco Use Types Packs/Day Years Used Date Smoking Tobacco: Never Alcohol Use Standard Drinks/Week Comments No 0 (1 standard drink = 0.6 oz pur e alcohol) Sex and Gender Information Value Date Recorded Sex Assigned at Not on file Legal Sex Male 8:49 PM EDT Gender Identity Not on file Sexual Orientation Not on file Last Filed Vital Signs Vital Sign Reading Time Taken Comments Blood Pressure 151/72 04/13/2019 11:16 AM EDT Pulse 72 04/13/2019 11:16 AM EDT Temperature - - Respiratory Rate - - Oxygen Saturation - - Inhaled Oxygen Concentration - - Weight 134 kg (295 lb) 04/13/2019 11:16 AM EDT Height 182.9 cm (6') 04/13/2019 11:16 AM EDT Body Mass Index 40.01 04/13/2019 11:16 AM EDT Plan of Treatment Health Maintenance Due Date Last Done Comments [facility]-Depression Screening 1957 [facility]-Infant/Child/Adol SDOH Screenings 1955 [facility]- SDOH Screenings 1975 [facility]-Adult SDOH Screenings 1975 [facility]-DTaP,Tdap,and Td Vaccine s (1 - Tdap) 1976 CT Colonography 2002 Colonoscopy 2002 FIT-DNA 2002 FIT 2002 FOBT 2002 Sigmoidoscopy 2002 [facility]-Colorectal Cancer Screening 2002 [facility]-Pneumococcal Vaccine: 50 + Years (1 of 1 - PCV) 2007 [facility]-Zoster Vaccines (1 of 2) 2007 [id number] Vaccine (1 - 20 24-25 season) 2024 [facility]-Influenza Vaccine (#1) 2025 [facility]-RSV Vaccine: 60+ Years o r (1 - 1-dose 75+ series) 2032 HPV Vaccines Aged Out No longer eligi ble based on patient's age to complete this topic [facility]-HIB Vaccines Aged Out No longer e ligible based on patient's age to complete this topic [facility]-Hepatitis A Vaccines Aged Out No longer eligible based on patient's age to complete this topic [facility]-IPV Vaccines Aged Out No longer e ligible based on patient's age to complete this topic [facility]-Rotavirus Vaccines Aged Out No lo nger eligible based on patient's age to complete this topic Insurance [employer] Care Teams Crimper Operator Relationship Specialty Start Date End Date Leonard Madrigal MD [address] [place] [address] ASHLEY Hui [id number] PCP - General 02/22/21
[2025-04-18 23:38] VITALS: BP 000/00; PULSE 0; RESP 0; TEMP -17.7; TEMP 0; O2SAT 0
[2025-04-18 23:39] VITALS: BP 000/00; PULSE 0; RESP 0; TEMP -17.7; TEMP 0; O2SAT 0
== END 2025-04-18 23:41 | disposition left against medical advice (07) ==
PROVIDERS: Emergency Provider Emergency Medicine; PCP Family Medicine
DX: Z53.21 Procedure and treatment not carried out due to patient leaving prior to being seen by health care provider (principal)
CPT/HCPCS: 99211

== ENCOUNTER 2025-05-13 12:07 | Emergency (ER) | payer MEDICARE, MEDICAID, SELFPAY ==
[2025-05-13] VITALS (8 sets, daily range): BP systolic 107–140; BP diastolic 52–61; PULSE 54–57; RESP 14–18; TEMP 36.9–37; O2SAT 96–98; BMI 42.5
--- NOTE | 2025-05-13 12:17 | XR_ITS ---
PROCEDURE INFORMATION: Exam: XR Left Hand Exam date and time: 05/13/2025 12:25 PM Age: 69 years old Clinical indication: Injury or trauma; Other: Laceration, left thumb TECHNIQUE: Imaging protocol: Radiologic exam of the left hand. Views: 1 or 2 views. COMPARISON: No relevant prior studies available. FINDINGS: Bones/joints: Severely comminuted, predominantly transverse fracture distal phalanx 1st digit. No articular extension. Multiple radiopaque foreign bodies along the palmar aspect soft tissues adjacent to the fracture. Flexion 5th digit PIP joint. Soft tissues: See Bones/joints finding. IMPRESSION: 1. Severely comminuted, predominantly transverse fracture distal phalanx 1st digit. No articular extension. 2. Multiple radiopaque foreign bodies along the palmar aspect soft tissues adjacent to the fracture.
--- OUTSIDE RECORDS SUMMARY | 2025-05-13 12:27 | XMS_ITS | Clinical Summary ---
Author Organization [facility] [place] [address] Care Team Providers Care Glass Ribbon Machine Operator Name Role Phone Unavailable Primary Care Provider [...]
--- OUTSIDE RECORDS SUMMARY | 2025-05-13 12:27 | XMS_ITS | Clinical Summary ---
Author Organization [facility] Address [address] [place] [address] Care Team Providers Care Assisted Sales Representative Name Role Phone Leonard Madrigal MD Primary Care Provider Allergies Active Allergy Reactions Criticality Noted Date Comments Penicillins Hives Low 09/17/2020 As child Medications Invokana 300 MG tablet tablet Take 1 tablet by mouth Daily. 06/19/20 20 Active citalopram (CeleXA) 40 MG tablet Take 1 tablet by mouth Daily. 07/04/20 20 Active clopidogrel (PLAVIX) 75 MG tablet Take 1 tablet by mouth Daily. 09/03/20 20 Active gabapentin (NEURONTIN) 600 MG tablet Take 1 tablet by mouth 3 (Three) Times a Day. 09/07/20 20 Active glimepiride (AMARYL) 4 MG tablet Take 1 tablet by mouth Daily. 07/04/20 20 Active isosorbide mononitrate (IMDUR) 120 MG 24 hr tablet Take 1 tablet by mouth Daily. 06/19/20 20 Active lisinopril (PRINIVIL,ZESTR IL) 2.5 MG tablet Take 1 tablet by mouth Daily. for blood pressure 06/21/20 20 Active metFORMIN (GLUCOPHAGE) 500 MG tablet Take 2 tablets by mouth 2 (two) times a day. 09/07/20 20 Active metoprolol succinate XL (TOPROL-XL) 25 MG 24 hr tablet Take 1 tablet by mouth Daily. for blood pressure 07/04/20 20 Active Januvia 100 MG tablet Take 1 tablet by mouth Daily. 09/03/20 20 Active levothyroxine (SYNTHROID, LEVOTHROID) 200 MCG tablet Take 1 tablet by mouth Daily. Active aspirin 325 MG tablet Take 1 tablet by mouth Daily. Active Trulicity 0.75 MG/0.5ML solution pen-injector INJECT 1 SYRINGE SUBCUTANEOUSLY ONCE A WEEK (INSTEAD OF DAILY LIKE VICTOZA) FOR 4 WEEKS, THEN WE WILL CHANGE THE NEXT DOSE(1.5MG, CALL ME AND I WILL SEND) 04/27/20 23 Active vitamin D (ERGOCALCIFEROL ) 1.25 MG (18840 UT) capsule capsule Take 1 capsule by mouth 1 (One) Time Per Week. 04/03/20 23 Active Insulin Lispro Prot & Lispro (humaLOG 75-25) (75-25) 100 UNIT/ML suspension pen-injector pen INJECT 10 UNITS SUBCUTANEOUSLY TWICE DAILY 03/12/20 23 Active Testosterone Cypionate (DEPOTESTOTERON E CYPIONATE) 200 MG/ML injection INJECT 1 ML (CC) INTRAMUSCULARLY ONCE A WEEK 03/31/20 23 Active Lantus SoloStar 100 UNIT/ML injection pen INJECT 30 UNITS SUBCUTANEOUSLY AT BEDTIME FOR DIABETES 04/06/20 23 Active atorvastatin (LIPITOR) 80 MG tablet Take 1 tablet by mouth once daily 90 tablet 2 10/13/19 24 Active ranolazine (RANEXA) 500 MG 12 hr tablet Take 1 tablet by mouth once daily 90 tablet 02/01/20 25 Active Active Problems Problem Noted Date Diagnosed Date Bilateral carotid artery occlusion 05/14/2023 Assessment & Plan (05/14/2023 2:09 PM EDT): Known history of left carotid stenosis that was mild and right carotid stenosis that was severe and he is s/p right carotid endarterectomy on 10/17/2019. Plan annual follow-up of carotid stenosis. Stenosis of left vertebral artery 08/05/2021 Hypertension 10/17/2020 Assessment & Plan (05/14/2023 2:04 PM EDT): Blood pressure today 126/68. He reports that he is compliant with all of his current medications for blood pressure control including metoprolol, lisinopril, and isosorbide mono. Plan to continue current medications. Dyslipidemia on statin 10/17/2020 CAD s/p prior stenting 10/17/2020 Assessment & Plan (05/14/2023 2:07 PM EDT): Known long history of coronary artery disease. He has had multiple heart caths and multiple stents. Last heart cath was 08/12/2018 showing LAD- prox, mid, distal LUCIUS are patent , Cx multiple stents are patent & RCA occlusion that fills via collaterals from the LCA. He denies any changes or increase his symptoms. He has shortness of air with exertion and reports this is stable. He has a trace amount of edema around his sock line of the bilateral lower extremities. He reports this is not new. He denies any chest pains. Plan to continue current medical management of aspirin 325 mg, Plavix 75 mg, isosorbide mono, lisinopril, metoprolol and Ranexa. H/O CVA 10/17/2020 T2DM on insulin and oral agents 10/17/2020 Bilateral hearing aid use 10/17/2020 GERD 10/17/2020 Hypothyroidism on Rx 10/17/2020 Class 3 severe obesity in adult 10/17/2020 MAX on BiPAP 10/17/2020 Assessment & Plan (05/14/2023 2:08 PM EDT): Unknown baseline MAX. He has been a long-term user of PAP therapy. He is a very faithful user of PAP therapy. He is currently on BiPAP therapy. Download is reviewed with good control and good compliance. He is benefiting from BiPAP therapy with plan to continue BiPAP therapy. Prescription for BiPAP supplies to the DME of his choice. H/O + COVID-19 (09/18/20) 10/17/2020 R CEA 10/17/20 09/17/2020 Overview (10/18/2020): 80-90% R ICA stenosis (S/P Right CEA 10/17/2020) Family History 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 Relation Name Comments No Known Problems Brother Heart attack Father COPD Mother Cancer Mother Cancer Sister Relation Name Status Comments Brother Father Mother Sister Social History Tobacco Use Types Packs/Day Years Used Date Smoking Tobacco: Never Passive Smoke Exposure: Never Smokeless Tobacco: Never Tobacco Cessation:Counseling Given: No Alcohol Use Standard Drinks/Week Comments Never 0 (1 standard drink = 0.6 oz pur e alcohol) AUDIT-C Answer Date Recorded Q1: How often do you have a drink containing alc ohol? Never 12/10/2020 Average Number of Drinks Not on file 021 Frequency of Binge Drinking Not on file 10/2020 Abuse Screen Answer Date Recorded Unsafe at Home or Work/School Not on file Feels Threatened by Someone? Not on file 08/2023 Does Anyone Keep You from Co ntacting Others or Doint Things Outside the Home? Not on file 07/22/2023 Physical Sign of Abuse Present Not on file 1 Housing Stability Answer Date Recorded Current Living Arrangements Not on file 07/12 Potentially Unsafe Housing Conditions Not on kamran e 07/22/2023 Family and Community Support Answer Toro e Recorded Help with Day-to-Day Activities Not on file 07/22/2023 Lonely or Isolated Not on file 07/22/2023 Employment Answer Date Recorded Do you want help finding or keeping work or a pollo b? Not on file 07/22/2023 Disabilities Answer Date Recorded Concentrating, Remembering, or Making Decisions Difficulty Not on file 07/22/2023 Doing Errands Independently Difficulty Not on fi le 07/22/2023 Education Answer Date Recorded Help with school or training? 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 Not on file Not on file Not on file Last Filed Vital Signs Vital Sign Reading Time Taken Comments Blood Pressure 148/65 07/13/2023 1:29 PM EDT Pulse 83 05/14/2023 12:14 PM EDT Temperature 36.2 C (97.1 F) 08/05/2021 2:12 PM EDT Respiratory Rate 18 10/18/2020 8:00 AM EST Oxygen Saturation 96% 05/14/2023 12:14 PM EDT Inhaled Oxygen Concentration - - Weight 146 kg (322 lb) 07/13/2023 1:29 PM EDT Height 180.3 cm (5' 11 ) 07/13/2023 1:29 PM EDT Body Mass Index 44.91 07/13/2023 1:29 PM EDT Plan of Treatment Health Maintenance Due Date Last Done Comments DIABETIC EYE EXAM 1967 DIABETIC FOOT EXAM 1967 URINE MICROALBUMIN-CREATININ E RATIO (uACR) 1967 COLOGUARD 2002 COLON CANCER SCREENING 5 YEA R SIGMOIDOSCOPY 2002 COLONOSCOPY 2002 [address] CANCER SCREENING 2002 CT COLONOGRAPHY 2002 FECAL OCCULT BLOOD TEST 2002 FIT Testing (1 year) 2002 ZOSTER VACCINE (1 of 2) 2007 ANNUAL WELLNESS VISIT 09/11/2020 HEPATITIS C SCREENING 09/11/2020 HEMOGLOBIN A1C 04/14/2021 10/15/2020, 09/18/2020 AAA SCREEN ONCE 2022 COVID-19 Vaccine (2023-2 5 season) 2024 01/17/2021 INFLUENZA VACCINE 07/12/2025 09/10/2022, , 07/26/2020, Additional history exists TDAP/TD VACCINES (4 - Td or Tdap) 06/20/2033 06/20/2023, 08/21/2018, 07/03/2015 Pneumococcal Vaccine 50+ Completed 022, 03/24/2017, 03/24/2017 Medical Devices Implanted Type Area Airline Pilot Device Identifier Shelf Expiration Date Model / Serial / Lot [employer] Vasc[employer]ard 1x6cm - [id number] Implanted:Qty: 1 on 10/17/2020 by Marcelo Sung MD at [facility] Implant Right: Carotid SYNOVIS 05/09/2025 [id number] / / [id number] Implant Description:bilat cataract a nd x7 stents in heart, Mesh in umbilical hernia Procedures Procedure Name Priority Date/Time Associated Diagnosis Comments HEMOGLOBIN A1C Routine 10/15/2020 9:01 AM EST Carotid stenosis, asymptomatic, right from Last 3 Months or Most Recently Relevant to Health Maintenance Results * (ABNORMAL) Hemoglobin A1c (10/15/2020 9:01 AM EST) Hemoglobin A1C 8.70(H) 4.80 - 5.60 % 10/15/2020 9:45 AM EST [facility] Blood Venipuncture / Unknown 10/15/2020 9:01 AM EST 10/15/2020 9:24 AM EST Narrative [facility] - 10/15/2020 9:45 AM EST Hemoglobin A1C Ranges: Increased Risk for Diabetes 5.7% to 6.4% Diabetes >= 6.5% Diabetic Goal < 7.0% Maddy Rasmussen PA-C LAB BLOOD ORDERABLES Final R esult [facility]
[address] [place] [address], from Last 3 Months or Most Recently Relevant to Health Maintenance Additional Health Concerns Infection Onset Date Last Indicated COVID (History) 09/18/2020 10/16/2020 Insurance [employer] [facility] MEDICARE ADVANTAGE [facility] HMO NON PAR Advance Directives * CPR (Attempt to Resuscitate) (Latest Code Status on File) Date Activated Date Inactivated Comments 10/17/2020 12:52 PM 10/18/2020 3:02 PM Question Answer Comments Code Status (Patient has no pulse and is not breathing): CPR (Attempt to Resuscitate) Medical Interventions (Patie nt has pulse or is breathing): Full Care Teams Assisted Sales Representative Relationship Specialty Start Date End Date Leonard Madrigal MD [address] [facility] [address] ATTN: [place] [address] PCP - General Emergency Medicine 09/15/16
--- OUTSIDE RECORDS SUMMARY | 2025-05-13 12:27 | XMS_ITS | Clinical Summary ---
Author Organization Healthcare Address [address] [place] [address] Care Team Providers Care Tax Form Preparer Name Role Phone Leonard Madrigal MD Primary Care Provider + [phone] Allergies Active Allergy Reactions Criticality Noted Date [...] 2007 UKY-Zoster Vaccines (1 of 2) 2007 [id number] Vaccine (1 - 20 24-25 season) 2024 [...] this topic Insurance [employer] Care Teams Tax Form Preparer Relationship Specialty Start Date End Date Leonard Madrigal MD [address] [place] [address] [place] Hui [address] PCP - General 02/22/21
--- NOTE | 2025-05-13 12:50 | ED_ITS ---
Discharge Plan Disposition Patient Disposition: Home, Self-Care Prescriptions Prescriptions: New cefadroxil 500 mg capsule 500 mg PO BID 14 Days Qty: 28 0RF No Action mupirocin 2 % ointment 1 applic topical BID 14 Days Qty: 15 0RF lisinopril 10 mg tablet 10 mg PO DAILY Qty: 90 3RF cyanocobalamin (vitamin B-12) 1,000 mcg/mL kit 1,000 mcg IM QMONTH Qty: 1 11RF ranolazine 500 mg tablet extended release 12 hr 500 mg PO DAILY Patient Comments: TAKE 1 TABLET BY MOUTH ONCE DAILY aspirin [Adult Low Dose Aspirin] 81 mg tablet,delayed release (DR/EC) 81 mg PO DAILY testosterone cypionate [Depo-Testosterone] 200 mg/mL oil 200 mg IM Q4W Qty: 1 4RF sulfamethoxazole-trimethoprim [Bactrim DS] 800-160 mg tablet 1 tab PO BID 10 Days Qty: 20 0RF (DME) blood sugar diagnostic Strip See Rx Instructions .Route .MEDSUPPLY Qty: 100 2RF Rx Instructions: test 3 times daily or As directed (DME) pen needle, diabetic [BD Ultra-Fine Mini Pen Needle] 31 gauge x 3/16 needle See Rx Instructions .ROUTE .COMPLEX Qty: 100 12RF Dose Instruction: USE DIRECTED Rx Instructions: USE DIRECTED (DME) blood-glucose meter Kit See Rx Instructions .ROUTE .MEDSUPPLY Qty: 1 0RF Rx Instructions: As directed or BID Give him whatever the insurance will pay for along with the lancets and test strips (DME) lancets [Accu-Chek Softclix Lancets] Misc See Rx Instructions .ROUTE .COMPLEX Qty: 100 0RF Rx Instructions: USE TO CHECK GLUCOSE THREE TIMES DAILY OR DIRECTED insulin glargine [Lantus Solostar U-100 Insulin] 100 unit/mL (3 mL) insulin pen See Rx Instructions .ROUTE .COMPLEX Qty: 15 5RF Dose Instruction: INJECT 30 UNITS SUBCUTANEOUSLY AT BEDTIME FOR DIABETES Rx Instructions: INJECT 30 UNITS SUBCUTANEOUSLY AT BEDTIME FOR DIABETES isosorbide mononitrate 120 mg tablet extended release 24 hr See Rx Instructions .ROUTE .COMPLEX Qty: 90 3RF Dose Instruction: TAKE 1 TABLET BY MOUTH ONCE DAILY FOR HEART Rx Instructions: TAKE 1 TABLET BY MOUTH ONCE DAILY FOR HEART metoprolol succinate [Toprol XL] 50 mg tablet extended release 24 hr 50 mg PO DAILY Qty: 30 5RF VITAMIN D3 25MCG (1000 IU) CAP See Rx Instructions .ROUTE .COMPLEX Qty: 90 0RF Dose Instruction: TAKE 1 CAPSULE BY MOUTH ONCE DAILY FOR SUPPLEMENT Rx Instructions: TAKE 1 CAPSULE BY MOUTH ONCE DAILY FOR SUPPLEMENT spironolactone [Aldactone] 25 mg tablet 12.5 mg PO DAILY 90 Days Qty: 45 2RF cyanocobalamin (vitamin B-12) 1,000 mcg capsule 1,000 mcg PO DAILY Qty: 90 1RF (DME) pen needle, diabetic 31 gauge x 3/16 needle See Rx Instructions .ROUTE .COMPLEX Qty: 100 2RF Rx Instructions: USE DIRECTEDor bid pramipexole 0.25 mg tablet 0.25 mg PO TID Qty: 90 2RF citalopram 40 mg tablet See Rx Instructions .ROUTE .COMPLEX Qty: 90 0RF Dose Instruction: TAKE 1 TABLET BY MOUTH ONCE DAILY FOR MOOD Rx Instructions: TAKE 1 TABLET BY MOUTH ONCE DAILY FOR MOOD glimepiride 4 mg tablet See Rx Instructions .ROUTE .COMPLEX Qty: 90 0RF Dose Instruction: TAKE 1 TABLET BY MOUTH ONCE DAILY FOR DIABETES Rx Instructions: TAKE 1 TABLET BY MOUTH ONCE DAILY FOR DIABETES Ozempic 2 mg/dose (8 mg/3 mL) pen injector See Rx Instructions .ROUTE .COMPLEX Qty: 3 3RF Dose Instruction: INJECT 2MG SUBCUTANEOUSLY ONCE WEEKLY Rx Instructions: INJECT 2MG SUBCUTANEOUSLY ONCE WEEKLY levothyroxine 125 mcg capsule 125 mcg PO DAILY Qty: 30 2RF gabapentin 800 mg tablet 800 mg PO TID Qty: 90 2RF (DME) Dexcom G7 Core Finisher Misc See Rx Instructions .ROUTE .COMPLEX Qty: 3 2RF Rx Instructions: USE DIRECTED or bid metformin 500 mg tablet See Rx Instructions .ROUTE .COMPLEX Qty: 360 0RF Dose Instruction: TAKE 2 TABLETS BY MOUTH TWICE DAILY FOR DIABETES Rx Instructions: TAKE 2 TABLETS BY MOUTH TWICE DAILY FOR DIABETES (DME) Dexcom G7 Sensor Device See Rx Instructions .ROUTE .COMPLEX Qty: 1 3RF Rx Instructions: USE DIRECTED or bid fluticasone propionate 50 mcg/actuation spray,suspension See Rx Instructions .ROUTE .COMPLEX Qty: 16 3RF Dose Instruction: Use 1 spray(s) in each nostril twice daily Rx Instructions: Use 1 spray(s) in each nostril twice daily insulin lispro protamin-lispro 100 unit/mL (75-25) insulin pen See Rx Instructions .ROUTE .COMPLEX Qty: 15 8RF Dose Instruction: INJECT 16 UNITS SUBCUTANEOULSY TWICE DAILY FOR DIABETES Rx Instructions: INJECT 16 UNITS SUBCUTANEOULSY TWICE DAILY FOR DIABETES atorvastatin 80 mg tablet 80 mg PO HS Rx Instructions: TAKE 1 TABLET BY MOUTH AT BEDTIME FOR CHOLESTEROL (DME) pen needle, diabetic [BD Ultra-Fine Short Pen Needle] 31 gauge x 5/16 needle See Rx Instructions MISCELLANEOUS Rx Instructions: USE 1 SUBCUTANEOUSLY TWICE DAILY Referrals Follow up/Referrals: Florian Og MD [Primary Care Provider, Family Practice] - See instructions Activity Restrictions/Add. Instructions Additional Instructions/Restrictions: You were found to have an open fracture to the end of your left thumb that will require additional antibiotics. You are being prescribed Duricef. Take this for the full 14 days as prescribed. You also have [facility]. They will contact you to schedule an appointment. Keep the splint on your finger until you are seen by them in clinic. If you develop any new or worsening symptoms, such as signs of infection with increased redness, swelling, pus draining from the wound or fever, return to the emergency department for evaluation. You can take Tylenol and ibuprofen to help with symptoms. Clinical Impressions Clinical Impression: Open fracture of left thumb, Laceration of thumb Instructions Patient Instructions: DI for Laceration Repair Print Language Print Language: Liberian Discharge ED Provider: Rolando Lanier General Adult HPI General Chief complaint: Wound/Laceration Stated complaint: L thumb laceration Time Seen by Provider: 05/13/25 12:13 Mode of Arrival: Ambulatory Source of Information: Patient Description of Symptoms (Recalled from ER Triage Doc. by RN): pt presents to ED with laceration to left thumb from cork grinder. pt reports he was using a cork grinder to cut steel approx 15 minutes ago when cork grinder slipped adn caught his thumb. pt reports hx of tetanus shot approx 1 year ago. History of Present Illness HPI narrative: Roc Guidry is a 69-year-old male with a history of diabetes, hypertension, hyperlipidemia, obesity, coronary artery disease who presents to the emergency department for complaints of a laceration to his left thumb. Patient states that he was at home using a cork grinder when it slipped and cut his left thumb. He states that this happened approximately 20 minutes prior to arrival. He states that his last tetanus shot was approximately 2 to 3 years ago. He denies any numbness or tingling. He states that he was previously on a blood thinner but was taken off of it 1.5 to 2 weeks ago. He has no other complaints or concerns at this time. Related Data Home Medications ?Medication ?Instructions ?Recorded ?Confirmed ranolazine 500 mg tablet,extended 500 mg PO DAILY Ches t pain 11/17/19 04/19/25 release,12 hr atorvastatin 80 mg tablet 80 mg PO HS Cholesterol 06/1204/19/25 pen needle, diabetic 31 gauge x 06/21/23 04/19/2502/24 (BD Ultra-Fine Short Pen Needle) aspirin 81 mg tablet,delayed 81 mg PO DAILY 05/10/24 0 04/19/25 release (Adult Low Dose Aspirin) Previous Rx's ?Medication ?Instructions ?Recorded blood sugar diagnostic #100 ea 09/24/22 pen needle, diabetic 31 gauge x #100 ea 08/21/2312/25 (BD Ultra-Fine Mini Pen Needle) blood-glucose meter #1 ea 06/29/24 Lantus Solostar U-100 Insulin 100 See Rx Instructions .Route 09/07/24 unit/mL (3 mL) subcutaneous pen .COMPLEX #15 mL (insulin glargine) lancets (Accu-Chek Softclix #100 ea 09/07/24 Lancets) isosorbide mononitrate 120 mg See Rx Instructions .Rou te 09/23/24 tablet,extended release 24 hr .COMPLEX #90 tabs mupirocin 2 % topical ointment 1 applic topical BID in fection 14 10/24/24 days #15 grams testosterone cypionate 200 mg/mL 200 mg IM Q4W #1 mL 0 11/09/24 intramuscular oil (Depo-Testosterone) metoprolol succinate 50 mg 50 mg PO DAILY #30 tabs 01/03 tablet,extended release 24 hr (Toprol XL) VITAMIN D3 25MCG (1000 IU) CAP See Rx Instructions .Ro irma 12/15/24 .COMPLEX #90 caps spironolactone 25 mg tablet 12.5 mg (1/2 x 25 mg) PO D AILY 90 12/26/24 (Aldactone) days #45 tabs cyanocobalamin (vitamin B-12) 1,000 mcg PO DAILY #90 c aps 01/10/25 1,000 mcg capsule lisinopril 10 mg tablet 10 mg PO DAILY #90 tabs 11/05 pen needle, diabetic 31 gauge x #100 ea 01/27/25/ cyanocobalamin (vitamin B-12) 1,000 mcg IM QMONTH #1 e a 02/08/25 1,000 mcg/mL injection kit pramipexole 0.25 mg tablet 0.25 mg PO TID #90 tabs citalopram 40 mg tablet See Rx Instructions .Route 0 03/10/25 .COMPLEX #90 tabs glimepiride 4 mg tablet See Rx Instructions .Route 0 03/10/25 .COMPLEX #90 tabs semaglutide 2 mg/dose (8 mg/3 mL) See Rx Instructions .Route 03/16/25 subcutaneous pen injector ([employer]) .COMPLEX #3 mL gabapentin 800 mg tablet 800 mg PO TID #90 tabs 04/07 levothyroxine 125 mcg capsule 125 mcg PO DAILY #30 cap s 04/07/25 blood-glucose,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 machine operator,cont #3 ea 04/11/25 (Dexcom G7 Core Finisher) metformin 500 mg tablet See Rx Instructions .Route 0 04/11/25 .COMPLEX #360 tabs blood-glucose sensor (Dexcom G7 #1 ea 04/12/25 Sensor device) sulfamethoxazole 800 1 tab PO BID 10 days #20 tab s 04/19/25 mg-trimethoprim 160 mg tablet (Bactrim DS) fluticasone propionate 50 See Rx Instructions .Route 0 05/01/25 mcg/actuation nasal .COMPLEX #16 grams spray,suspension insulin lispro protamine-lispro See Rx Instructions .R oute 05/05/25 100 unit/mL (75-25) subcutaneous .COMPLEX #15 mL pen cefadroxil 500 mg capsule 500 mg PO BID 14 days #28 ca ps 05/13/25 Allergies Allergy/AdvReac Type Severity Reaction Status Date / Time Penicillins (PENICILLINS) Allergy Unknown Other Verified 04/19/25 10:39 [facility] Disclaimer: The information contained in this section may have been updated after the patient was seen, as this information can be updated by other users. 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 (Updated 05/13/25 @ 14:33 by Rolando Lanier MD) Right foot injury Abnormal colonoscopy Rhinitis B12 deficiency Wears hearing aid MAX (obstructive sleep apnea) Perforation of left tympanic membrane Otitis externa of right ear Left chronic otitis media Drainage from ear, left Perforated tympanic membrane Impacted cerumen of right ear Ear pain, left Clogged ear Vitamin D deficiency Lumbar nerve root impingement Hernia Cataract CAD (coronary artery disease) CVA (cerebral vascular accident) Tinea pedis of both feet Skin tag Diabetes Insomnia Allergic rhinitis Hyperlipidemia Hypertension Hypothyroidism Vitamin B12 deficiency anemia Testosterone deficiency Type 2 diabetes mellitus Diabetic neuropathy associated with type 2 diabetes mellitus Surgical History History of tonsillectomy History of hernia repair H/O carotid endarterectomy Hx laparoscopic cholecystectomy Status post middle ear reconstruction History of coronary artery stent placement Family History Other Diabetes Family history of cancer Family history of myocardial infarction Social History Smoking Status: Never smoker second hand exposure: Yes alcohol intake: never substance use type: denies use current occupational status: disabled Travel in the last 8 weeks?: None household members: spouse housing: house current occupational exposures/hazards: No caffeine: Yes Have you lived/traveled outside [place] in past 30 days?: No Contact w/someone who lives/traveled outside [place] past 30 days?: No Exposure to someone with infectious disease in past 14 days?: No Do you have a fever (greater than 100.4 F or 38 C)?: No Have you tested positive for COVID-19?: No Exposed to someone with COVID-19 in past 14 days?: No Do you have a sore throat?: No Do you have a cough?: No Do you have any weakness?: No Do you have any diarrhea?: No Are you experiencing any unusual bleeding?: No Do you have any muscle aches/pain?: No Do you have any abdominal pain?: No Are you experiencing loss of taste or smell?: No Other 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 Have you received the Pneumonia Vaccine: Yes ROS Obtained: Yes Systems reviewed as appropriate & no additional complaints except as documented Physical Exam General General appearance: alert and in no apparent distress Head Head exam: atraumatic Eye Eye exam: Present normal appearance ENT ENT exam: Present normal external ear exam Neck Neck exam: Present full ROM Chest Chest inspection: Present symmetric chest wall rise Respiratory Respiratory exam: Present normal lung sounds bilaterally; Absent respiratory distress Cardiovascular Cardiovascular exam: Present regular rate and normal rhythm Abdominal Exam Abdominal exam: Present soft; Absent tenderness or guarding exam: Present deferred Extremities Exam Extremities exam: Present normal inspection Expanded Upper Extremity Exam Left: Hand L/R front image: 2 1. laceration Hand L/R back image: 2 1. laceration Comment: Tenderness to the distal phalanx. Laceration measuring approximately 3 cm as mentioned above. This does not appear involve the nailbed. There is no subungual hematoma. Back Exam Back exam: Present normal inspection Neurological Exam Neurological exam: Present alert and oriented X3 Psychiatric Psychiatric exam: Present normal affect Skin Skin exam: Present warm and dry Medical Decision Making Medical Records Screening: Per USPSTF and CDC recommendations, given the prevalence of disease in our region, it is our hospital?s policy to screen for HIV and viral Hepatitis for all patients aged 18 and over and those with ongoing risk factors. Joel Inquiry Pt receiving controlled substance: No Vital Signs: 05/13/25 12:15 05/13/25 12:17 05/13/25 12:31 Temperature 98.6 F Temperature Source Oral Pulse Rate 57 L 54 L Pulse Rate [Left Radial] 54 L Respiratory Rate 16 Blood Pressure 140/52 L 107/53 L Blood Pressure [Right Arm] 140/52 L Blood Pressure Mean Blood Pressure Mean [Right Arm] 81 Blood Pressure Source Blood Pressure Position 02 Sat by Pulse Oximetry 97 98 97 Oxygen Delivery Method 05/13/25 13:01 05/13/25 13:30 05/13/25 14:00 Temperature Temperature Source Pulse Rate 55 L 55 L 55 L Pulse Rate [Left Radial] Respiratory Rate 18 Blood Pressure 116/56 L 123/61 107/59 L Blood Pressure [Right Arm] Blood Pressure Mean 75 Blood Pressure Mean [Right Arm] Blood Pressure Source Blood Pressure Position 02 Sat by Pulse Oximetry 97 98 98 Oxygen Delivery Method 05/13/25 14:30 05/13/25 15:01 Temperature 98.4 F Temperature Source Oral Pulse Rate 55 L 56 L Pulse Rate [Left Radial] Respiratory Rate 14 Blood Pressure 109/59 L 109/59 L Blood Pressure [Right Arm] Blood Pressure Mean Blood Pressure Mean [Right Arm] Blood Pressure Source Automatic Cuff Blood Pressure Position Supine 02 Sat by Pulse Oximetry 97 Oxygen Delivery Method Room Air Orders (Tests/Meds): ED MEDICATIONS Discontinued Medications Generic Name Dose Route Start Last Admin Trade Name Sigrid PRN Reason Stop Dose Admin Cefazolin Sodium 2 gm/ Sodium 100 mls @ 200 mls/hr 05/13/25 13:30 05/13/25 14:21 Chloride IV 05/13/25 13:59 200 mls/hr ONCE ONE Administration Lidocaine HCl 10 ml 05/13/25 14:20 05/13/25 14:21 Lidocaine 1% 10ml Mdv SUBCUT 05/13/25 14:21 10 ml ONCE ONE Administration ORDERS Category Date Time Status Hand XR left 2 views [XR hand LT 2V] Stat Exams 05/13/25 12:17 Completed Medical Decision Narrative: Roc Guidry is a 69-year-old male with a history of diabetes, hypertension, hyperlipidemia, obesity, coronary artery disease who presents to the emergency department for complaints of a laceration to his left thumb. Patient states that he was at home using a cork grinder when it slipped and cut his left thumb. He states that this happened approximately 20 minutes prior to arrival. He states that his last tetanus shot was approximately 2 to 3 years ago. He denies any numbness or tingling. He states that he was previously on a blood thinner but was taken off of it 1.5 to 2 weeks ago. He has no other complaints or concerns at this time. But most of those On arrival, patient is hemodynamically stable, in no acute respiratory distress, breathing comfortably on room air, afebrile. Physical exam, stated above, revealed an overall well-appearing male in no distress. He has a laceration over the distal phalanx of the left thumb along the lateral aspect of the thumb. It measures approximately 3 cm. It does not appear to involve the nailbed or the fingernail itself. There is no subungual hematoma. He is tender over the distal phalanx. There is some mild venous oozing but no arterial bleeding. Differential diagnosis includes, but is not limited to: Simple laceration, open fracture, ligamentous injury, tendinous injury, low concern for arterial injury or nailbed involvement as stated above. Workup in the emergency department included: Left hand x-rays. Patient's thumb was irrigated thoroughly and Hibiclens and sterile water. X-ray imaging was interpreted by me personally. Patient has a significantly comminuted left first digit distal phalanx fracture and evidence of metallic foreign body within the wound. Given this, patient was given 2 g of IV Ancef. Patient's wound was closed by Sharla ENCINAS, using 4-0 nylon suture x 6. I did discuss patient's case with [facility] for further recommendations regarding patient's open distal phalanx fracture. I discussed the case with Dr. Adamson at [facility] who coming into contact with Dr. Jose Moore, plastic surgery resident. He agreed with antibiotics and closure of the wound with plan to follow-up in hand clinic on Thursday of next week with Keyona Jackson. Given this, is felt that patient is appropriate for discharge at this time. Will discharge him with a course of Duricef and strict return precautions. Placed the patient in a finger splint. He will be contacted early next week to schedule a follow-up appointment. All questions were answered. He demonstrated understanding and was in agreement this plan. He was then discharged from the emergency department in stable condition. Procedures Laceration Laceration 1: Site: finger Side (If applicable): left Size (cm): 3 Description: linear Depth: simple, single layer Local Anesthetic: lidocaine 1% Pre-repair: wound explored (Remove foreign body) and irrigated extensively Skin layer closed with: nylon Size (cm): 4-0 Number of sutures: 6 Technique: simple, interrupted Critical Care Critical Care Time Critical Care Time: No
--- NOTE | 2025-05-13 13:51 | PC.NURSE ---
MARYANA Martínez currently on phone with [facility] for a hand consult with ortho
--- NOTE | 2025-05-13 14:06 | PC.NURSE ---
Dr Lanier currently on phone with [facility]
[2025-05-13] MEDS: LIDOCAINE 1% 10ML MDV 10 ML SUBCUT (14:21)
== END 2025-05-13 15:07 | disposition home or self-care (01) ==
PROVIDERS: Emergency Provider Student in an Organized Health Care Education/Training Program; PCP Family Medicine
DX: S61.019A Laceration without foreign body of unspecified thumb without damage to nail, initial encounter (principal); S62.502A Fracture of unspecified phalanx of left thumb, initial encounter for closed fracture; E11.8 Type 2 diabetes mellitus with unspecified complications; G47.33 Obstructive sleep apnea (adult) (pediatric); I10 Essential (primary) hypertension
CPT/HCPCS: 12002; 73120; 96365; 99284; J0690

== ENCOUNTER 2025-08-24 06:31 | Outpatient (CLI) | payer MEDICARE, MEDICAID, SELFPAY ==
--- NOTE | 2025-08-24 | CA_ITS ---
APPROVED REPORT Exam: Pharmacologic Technologist: Virginia Cheema Ht: 5 ft 11 in HR: 48 bpm BP: 116/44 mmHg Rhythm: Bradycardia 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: Diabetes, HTN, Hyperlipidemia Allergies: penicillin Cardiac Risk Factors: HTN, Hyperlipidemia, Diabetes (non-insulin) Stress Test Details Test: Pharmacologic stress testing performed using 0.4 mg of regadenoson per 5 mL given IV over 10 seconds. HR Resting HR: 48 bpm Max Heart Rate (APMHR): 152.254208 bpm Max HR Achieved: 68 bpm Target HR (85% APMHR): 129.371687 bpm % of APMHR: 44.74 Recovery HR: 54 bpm BP Resting BP: 116.0/44.0 mmHg Max BP: 133.0/62.0 mmHg Recovery BP: 130.0/69.0 mmHg ECG Clinical Reason for Termination: Completed protocol Stress ECG Conclusion No symptoms Pac Less than 0.5mm upsloping ST segment changes Nondiagnostic ECG/Lexiscan Electronically signed by : Magui Arias MD 08/26/2025 02:16:10
--- OUTSIDE RECORDS SUMMARY | 2025-08-24 06:34 | XMS_ITS | Clinical Summary ---
Author Organization [facility] Address [address] [place] [address] Care Team Providers Care Youth Nutritional Monitor Name Role Phone Florian Og MD Primary Care Provider [phone] Allergies Active Allergy Reactions Criticality Noted Date Comments Penicillin G Unknown - Patient st ates they do not know rxn details Low 06/22/2017 Medications aspirin 325 MG EC tablet 06/29/20 17 Active atorvastatin (Lipitor) 80 MG tablet Take 1 tablet daily 02/21/20 17 Active canagliflozin (Invokana) 300 MG 06/29/20 17 Active citalopram (CeleXA) 40 MG tablet Take 1 tablet daily 02/20/20 17 Active furosemide (Lasix) 40 MG tablet Take 1 tablet daily as directed 02/20/20 17 Active gabapentin (Neurontin) 600 MG tablet Take 1 tablet 3 times daily 02/20/20 17 Active glimepiride (Amaryl) 4 MG tablet Take 1 tablet twice daily 02/20/20 17 Active isosorbide mononitrate ER (Imdur) 120 MG 24 hr tablet Take 1 tablet daily 03/30/20 17 Active levothyroxine (Synthroid, Levoxyl) 200 MCG tablet Take 1 tablet daily 01/10/20 17 Active metFORMIN (Glucophage) 500 MG tablet Take 2 tablets twice daily 03/30/20 17 Active metoprolol succinate XL (Toprol-XL) 25 MG 24 hr tablet Take 1/2 tablet daily 03/30/20 17 Active Neomycin-Polymy jluis-HC 1 % solution 06/29/20 17 Active potassium chloride CR (Klor-Con M20) 20 MEQ ER tablet Take 1 tablet daily 05/07/20 17 Active SITagliptin (Januvia) 100 MG tablet Take 1 tablet daily 02/25/20 17 Active canagliflozin (Invokana) 300 MG 06/29/20 17 Active Azelastine HCl 137 MCG/SPRAY solution use 1 spray(s) in each nostril twice daily 05/22/20 25 Active Blood Glucose Monitoring Suppl (Accu-Chek Guide Me) w/Device kit USE 1 TO CHECK GLUCOSE TWICE DAILY 06/29/20 24 Active cefadroxil (Duricef) 500 MG capsule take 1 capsule by mouth twice daily for 14 days 05/13/20 25 Active clopidogrel (Plavix) 75 MG tablet Take 1 tablet by mouth daily. 02/25/20 25 Active colistimethate (Colymycin) 150 MG injection 08/18/20 24 Active Continuous Glucose Classified Advertising Supervisor (Dexcom G7 Classified Advertising Supervisor) device 2 times a day. as directed 09/21/20 24 Active Continuous Glucose Sensor (Dexcom G7 Sensor) misc USE DIRECTED AND CHANGE EVERY 10 DAYS 05/18/20 25 Active cyanocobalamin (Vitamin B-12) 1000 MCG/ML injection INJECT 1 ML (CC) INTRAMUSCULARLY ONCE EVERY MONTH 03/10/20 25 Active doxycycline (Vibramycin) 100 MG capsule take 1 capsule by mouth twice daily for 14 days 10/10/20 24 Active fluticasone (Flonase) 50 MCG/ACT nasal spray use 1 spray(s) in each nostril twice daily 05/01/20 25 Active glucose blood test strip use 1 strip to check glucose twice daily 06/29/20 24 Active Lantus SoloStar 100 UNIT/ML injection pen INJECT 30 UNITS SUBCUTANEOUSLY AT BEDTIME FOR DIABETES 05/05/20 25 Active HumaLOG MIX 75/25 KWIKPEN (75-25) 100 UNIT/ML injection pen INJECT 16 UNITS SUBCUTANEOUSLY TWICE DAILY 05/08/20 25 Active Embecta Pen Needle Ultrafine 31G X 5 MM misc USE 1 PEN SUBCUTANEOUSLY TWICE DAILY DIRECTED 05/27/20 25 Active Accu-Chek Softclix Lancets lancets USE 1 TO CHECK GLUCOSE TWICE DAILY 08/31/20 24 Active levothyroxine (Synthroid, Levoxyl) 125 MCG tablet Take 1 tablet by mouth daily. 06/01/20 25 Active gabapentin (Neurontin) 800 MG tablet Take 1 tablet by mouth 3 times a day. 05/30/20 25 Active tobramycin-dexa methasone (Tobradex) ophthalmic suspension INSTILL 4 DROPS INTO LEFT EAR TWICE DAILY FOR 7 DAYS 05/22/20 25 Active testosterone cypionate (Depo-Testoster one) 200 MG/ML injection INJECT 1 ML (CC) INTRAMUSCULARLY ONCE EVERY MONTH 11/09/19 25 Active sulfamethoxazol e-trimethoprim (Bactrim DS) 800-160 MG tablet Take 1 tablet by mouth 2 times a day. for 10 days 04/20/20 25 Active spironolactone (Aldactone) 25 MG tablet 06/05/20 25 Active Ozempic, 2 MG/DOSE, 8 MG/3ML solution pen-injector 06/05/20 25 Active ranolazine (Ranexa) 500 MG 12 hr tablet Take 1 tablet by mouth 1 time each day. 02/01/20 25 Active prasugrel (Effient) 10 MG tablet Take 1 tablet by mouth daily. 02/26/20 25 Active pramipexole (Mirapex) 0.25 MG tablet Take 1 tablet by mouth 3 times a day. 04/16/20 25 Active Na Sulfate-K Sulfate-Mg Sulf 17.5-3.13-1.6 GM/177ML solution DILUTE AND DRINK FULL AMOUNT OF FIRST BOTTLE EARLY EVENING BEFORE AND DRINK SECOND BOTTLE THE NEXT MORNING AT LEAST 4-5 HOURS BEFORE PROCEDURE; FOLLOW WITH 960ML OF WATER 02/11/20 25 Active mupirocin (Bactroban) 2 % ointment APPLY OINTMENT TOPICALLY TWICE DAILY 11/14/19 25 Active lisinopril 10 MG tablet Take 1 tablet by mouth daily. 04/15/20 25 Active levoFLOXacin (Levaquin) 500 MG tablet take 1 tablet by mouth once daily for 10 days 10/12/19 25 Active Active Problems Problem Noted Date Diagnosed Date Class III obesity with body mass index (BMI) of 40.0 or higher 06/15/2025 Acute suppurative otitis media 04/13/2019 CKD (chronic kidney disease) stage 2, GFR 60-89 ml/min 06/29/2017 Hypertension 06/29/2017 Diabetes mellitus 06/22/2017 Microalbuminuria 04/17/2017 Resolved Problems Problem Noted Date Diagnosed Date Resolved Date Chronic otitis media 04/13/2019 025 Encounters Date Type Department Care Team Description 06/06/2025 1:10 PM EDT Office Visit [facility] [address] [place] [address] Mauricio Keith MD Hand pain, left (Primary Dx); Injury of left thumb, initial encounter 06/06/2025 11:53 AM EDT - 06/06/2025 11:59 PM EDT Hospital Encounter [facility] [address], [address] [place] [address] Hand pain, left Discharge Disposition: Home or Self Care 06/06/2025 Travel from Last 3 Months Family History 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 Relation Name Comments Asthma Father Diabetes Father Heart attack Father Hypertension Father Other cancer Father Relation Name Status Comments Father Social History Tobacco Use Types Packs/Day Years Used Date Smoking Tobacco: Never Smokeless Tobacco: Never Tobacco Cessation:Counseling Given: Not Answered Alcohol Use Standard Drinks/Week Comments No 0 (1 standard drink = 0.6 oz pur e alcohol) Sex and Gender Information Value Date Recorded Sex Assigned at Not on file Legal Sex Male 8:49 PM EDT Gender Identity Not on file Sexual Orientation Not on file Last Filed Vital Signs Vital Sign Reading Time Taken Comments Blood Pressure 120/71 06/06/2025 11:37 AM EDT Pulse 63 06/06/2025 11:37 AM EDT Temperature 36.4 C (97.5 F) 06/06/2025 11:37 AM EDT Respiratory Rate 16 05/13/2025 2:08 PM EDT Oxygen Saturation 98% 06/06/2025 11:37 AM EDT Inhaled Oxygen Concentration - - Weight 141 kg (310 lb) 06/06/2025 11:37 AM EDT Height 180.3 cm (5' 11 ) 06/06/2025 11:37 AM EDT Body Mass Index 43.24 06/06/2025 11:37 AM EDT Plan of Treatment Health Maintenance Due Date Last Done Comments [facility]-Depression Screening 1957 [facility]-Hepatitis C Screening 1957 [facility]-Medicare Annual Wellness (AWV) 1957 [facility]-Infant/Child/Adol SDOH Screenings 1957 Diabetes: Dental Exam 1967 [facility]- SDOH Screenings 1975 [facility]-Adult SDOH Screenings 1975 CT Colonography 2002 Colonoscopy 2002 FIT-DNA 2002 FIT 2002 FOBT 2002 Sigmoidoscopy 2002 [facility]-Colorectal Cancer Screening 2002 [facility]-Zoster Vaccines (1 of 2) 2007 [facility]-RSV Vaccine: 60+ Years or (1 - Risk 60-74 years 1-dose series) 2017 [id number] Vaccine (2 - Maria Teresa risk series) 02/14/2021 01/17/2021 [facility]-Diabetes: Hemoglobin A1C 04/14/2021 10/15/2020, 09/18/2020 [facility]-Influenza Vaccine (#1) 06/12/202509/12, 09/10/2022, 08/23/2021, Additional history exists [facility]-DTaP,Tdap,and Td Vaccines (4 - Td or Tdap) 06/20/2033 06/20/2023, 08/21/2018, 07/03/2015 [facility]-Pneumococcal Vaccine: 50+ Years Completed 09/29/2022, 03/24/2017, 03/24/2017 [facility]-Obesity Intervention Completed 06/06/2025 HPV Vaccines Aged Out No longer eligi [...] on patient's age to complete this topic Procedures Procedure Name Priority Date/Time Associated Diagnosis Comments XR HAND LEFT 3+ VIEWS Routine 06/06/2025 11:58 AM EDT Hand pain, left from Last 3 Months Results * XR Hand Left 3+ Views (06/06/2025 11:58 AM EDT) Anatomical Region Laterality Modality Upper Extremities, Hand Left Digital Radiography Impressions 06/06/2025 1:02 PM EDT Comminuted thumb distal phalanx fracture with associated soft tissue foreign bodies and swelling. CRITICAL RESULT: No. COMMUNICATION: Per this written report. Drafted by Larry Lord MD on 06/06/2025 1:01 PM Final report signed by Larry Lord MD on 06/06/2025 1:02 PM Narrative 06/06/2025 1:02 PM EDT CLINICAL INDICATION: pain TECHNIQUE: XR HAND LEFT 3+ VIEWS COMPARISON: None. 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 Flexion deformity of the small finger PIP joint. Comminuted fracture of the diaphysis of the thumb distal phalanx with radiopaque metallic foreign body seen at the level of the fracture and in the palmar soft tissues with overlying palmar soft tissue swelling. Procedure Note Larry Lord MD - 06/06/2025 CLINICAL INDICATION: pain TECHNIQUE: XR HAND LEFT 3+ VIEWS COMPARISON: None. 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 Flexiondeformity of the small finger PIP joint. Comminuted fracture of the diaphysis of the thumb distal phalanx withradiopaque metallic foreign body seen at the level of the fracture and inthe palmar soft tissues with overlying palmar soft tissue swelling. IMPRESSION: Comminuted thumb distal phalanx fracture with associated soft tissueforeign bodies and swelling. CRITICAL RESULT: No. COMMUNICATION: Per this written report. Drafted by Larry Lord MD on 06/06/2025 1:01 PM Final report signed by Larry Lord MD on 06/06/2025 1:02 PM Mauricio Keith MD IMG XR PROCEDURES Final Resul t from Last 3 Months Insurance [facility] MEDICAID [facility] MEDICARE Care Teams Youth Nutritional Monitor Relationship Specialty Start Date End Date Florian Og MD [address] [place] [address] PCP - General 05/16/25
--- OUTSIDE RECORDS SUMMARY | 2025-08-24 06:34 | XMS_ITS | Clinical Summary ---
Author Organization [facility] Address [address] [place] [address] Care Team Providers Care Meter Shop Superintendent Name Role Phone Leonard Madrigal MD Primary [...] Active vitamin D (ERGOCALCIFEROL ) 1.25 MG (68178 UT) capsule capsule Take 1 capsule by [...] R ICA stenosis (S/P Right CEA 10/17/2020) Encounters Date Type Department Care Team Description 06/07/2025 Refill [facility] [address] [place], [place] [address] Lety Berman, CLAIM PROCESSOR Med Refill from Last 3 Months Family History Medical [...] WELLNESS VISIT 09/11/2020 HEPATITIS C SCREENING 09/11/2020 COVID-19 Vaccine (2 - Jansse n risk series) 02/14/2021 01/17/2021 HEMOGLOBIN A1C 04/14/2021 10/15/2020, 09/18/2020 AAA SCREEN ONCE 2022 INFLUENZA VACCINE 05/12/2025 09/10/2022, , 07/26/2020, Additional history exists TDAP/TD VACCINES (4 - Td or Tdap) 06/20/2033 06/20/2023, 08/21/2018, 07/03/2015 Pneumococcal Vaccine 50+ Completed 022, 03/24/2017, 03/24/2017 Medical Devices Implanted Type Area Accounts Receivable Manager Device Identifier Shelf Expiration Date Model / Serial / Lot Ptch Vascuguard 1x6cm - [id number] Implanted:Qty: 1 on 10/17/2020 by Marcelo Sung MD at [facility] Implant Right: Carotid SYNOVIS 05/09/2025 [id number] / / [id number] Implant Description:bilat cataract a nd x7 [...] - 5.60 % 10/15/2020 9:45 AM EST [facility] Blood Venipuncture / Unknown 10/15/2020 9:01 AM EST 10/15/2020 9:24 AM EST Narrative [facility] - 10/15/2020 9:45 AM EST Hemoglobin A1C Ranges: Increased Risk for Diabetes 5.7% to 6.4% Diabetes >= 6.5% Diabetic Goal < 7.0% Maddy Rasmussen PA-C LAB BLOOD ORDERABLES Final R esult [facility]
[address] [place] [address], from Last 3 Months or Most Recently Relevant to Health Maintenance Additional Health Concerns Infection Onset Date Last Indicated COVID (History) 09/18/2020 10/16/2020 Insurance [employer] MEDICAID [facility] MEDICARE ADVANTAGE [facility] HMO NON PAR Advance Directives * CPR (Attempt to Resuscitate) (Latest Code Status on File) Date Activated Date Inactivated Comments 10/17/2020 12:52 PM 10/18/2020 3:02 PM Question Answer Comments Code Status (Patient has no pulse and is not breathing): CPR (Attempt to Resuscitate) Medical Interventions (Patie nt has pulse or is breathing): Full Care Teams Meter Shop Superintendent Relationship Specialty Start Date End Date Leonard Madrigal MD [address] ATTN: [place] [address] PCP - General Emergency Medicine 09/15/16
--- OUTSIDE RECORDS SUMMARY | 2025-08-24 06:34 | XMS_ITS | Clinical Summary ---
Author Organization [facility] [place] [address] Care Team Providers Care Motor Vehicle Or Caravan Salesperson Name Role Phone Unavailable Primary Care Provider [...] Zoster (1 of 2) 2007 COVID-19 Vaccine (2024-2 6 season) 2025 Influenza Vaccine (#1) 2025 Hepatitis B Vaccine Aged Out No longe r eligible based on patient's age to complete this topic Meningococcal B Vaccine Aged Out No l onger eligible based on patient's age to complete this topic
--- NOTE | 2025-08-24 07:30 | NM_ITS ---
APPROVED REPORT Exam: Nuclear Stress Test Indication: cp..soa..fatigue Patient Location: Outpatient Stress Tech: Virginia Cheema NM Tech:Chichi FranklinRENY RT(R)(N) Ht: 5 ft 11 in Wt: 324 lbs HR: 48 bpm BP: 116/44 mmHg BSA: 2.59 m2 TID: 0.89 BMI: 45.1 History: cp..soa..fatigue Procedure: Patient received 0.4 mg of intravenous Lexiscan, resting heart rate 48 bpm, resting blood pressure 116/44 mmHg, with Lexiscan maximum heart rate achieved was 60 bpm which is 85 % of the maximum predicted heart rate and blood pressure was 120/61 mmHg. With Lexiscan, patient denied any complaint of chest pain. Patient was very barrel chested. Cardiac Stress and Resting SPECT Images: Cardiac Stress and Resting SPECT images were obtained using technetium 99m Myoview 31.9 mCi stress and 10.98 mCi at rest. Technically difficult study due to significant soft tissue overlap with the cardiac borders. Stress imaging in supine position is not well-visualized. This may affect the diagnostic interpretation of the study findings. Resting and stress imaging in prone positions demonstrate no evidence of fixed or reversible perfusion defects. Gated imaging demonstrates normal global LV systolic function. LVEF is calculated at 53%. Conclusion: Technically difficult study due to significant soft tissue overlap with the cardiac borders. Stress imaging in supine position is not well-visualized. Resting and stress imaging in prone positions demonstrate no evidence of fixed or reversible perfusion defects. Gated imaging demonstrates normal global LV systolic function. LVEF is calculated at 53%. Electronically signed by : Magui Arias MD 08/28/2025 14:04:15
[2025-08-24 08:00] VITALS: BP 116/44; PULSE 48; RESP 16
[2025-08-24] MEDS: SODIUM CHLORIDE 0.9% 10ML SYR (RAD ONLY) 10 ML IV ×2 (08:58→08:59)
[2025-08-24] MEDS: ISOTOPE MYOVIEW (PER STUDY) 1 DOSE IV (08:58)
== END 2025-08-24 23:59 | disposition home or self-care (01) ==
LOC: RAD 06:32
PROVIDERS: PCP Family Medicine; Visit Provider Nurse Practitioner Family
DX: I49.1 Atrial premature depolarization (principal); I25.10 Atherosclerotic heart disease of native coronary artery without angina pectoris
CPT/HCPCS: 78452; 93017; 93018; A9502; J2785

== ENCOUNTER 2025-08-31 14:54 | Outpatient (CLI) | payer MEDICARE, MEDICAID, SELFPAY ==
[2025-08-31 18:57] LABS: Hematocrit 36.9 % (42.0-52.0); Hemoglobin 11.8 g/dL (14.1-18.0); Immature Granulocytes % 0.5 %; Mean Corpuscular HGB Conc 32.0 g/dL (31.8-35.4); Mean Corpuscular Hemoglobin 29.9 pg (27.0-31.2); Mean Corpuscular Volume 93.4 fl (80-94); Nucleated Red Blood Cells % 0 %; Platelet Count 225 K/mm3 (142-424); Red Blood Count 3.95 M/mm3 (4.60-6.20); Red Cell Distribution Width-SD 45.7 fL; White Blood Count 7.4 K/mm3 (4.8-10.8)
[2025-08-31 19:26] LABS: Chloride 97 mmol/L (98-107); Sodium 137 mmol/L (136-145)
[2025-08-31 19:27] LABS: Potassium 5.4 mmoL/L (3.5-5.1)
[2025-08-31 19:29] LABS: Alanine Aminotransferase 33 U/L (12-78); Alkaline Phosphatase 94 U/L (38-126); Aspartate Amino Transferase 34 U/L (17-59); Bilirubin,Total 0.5 mg/dl (0.2-1.3); Blood Urea Nitrogen 18 mg/dl (9-20); Creatinine,Serum 1.20 mg/dl (0.66-1.25); Estimated Glomerular Filt Rate 60 ml/min (>60); GFR (African American) 73 ML/MIN (>60); Total Protein,Serum 7.2 g/dl (6.3-8.2)
[2025-08-31 19:30] LABS: Calcium 9.6 mg/dl (8.4-10.2); Cholesterol 134 mg/dl (140-200); Glucose 353 mg/dl (74-100); HDL Cholesterol 39 mg/dl (40-60); Triglycerides 217 mg/dl (30-150)
[2025-08-31 19:45] LABS: Free T4 (Free Thyroxine) 1.20 ng/dl (0.78-2.19)
[2025-08-31 19:59] LABS: Thyroid Stimulating Hormone 6.35 uIU/mL (0.465-4.68)
[2025-08-31 23:16] LABS: Albumin Level 4.1 g/dl (3.5-5.0); Albumin/Globulin Ratio 1.3 (1.1-1.8); Anion Gap 20.4 mEq/L (5-15); Carbon Dioxide 25 mmol/L (22.0-30.0); Globulin 3.1 g/dL (1.3-3.2)
[2025-09-01 03:59] LABS: Hemoglobin A1C 10.4 % (4.0-6.0)
--- OUTSIDE RECORDS SUMMARY | 2025-09-01 12:48 | XMS_ITS | Clinical Summary ---
[facility] Address [address] [place] [address] Care Team Providers Care Nursery Nurse Name Role Phone Leonard Madrigal MD Primary [...] Active vitamin D (ERGOCALCIFEROL ) 1.25 MG (12283 UT) capsule capsule Take 1 capsule by [...] Type Department Care Team Description 06/07/2025 Refill [facility] [address] [place], [place] [phone] Lety Berman, LOBBYIST Med Refill from Last 3 Months Family [...] 03/24/2017, 03/24/2017 Medical Devices Implanted Type Area Associate Account Executive Device Identifier Shelf Expiration Date Model / Serial / Lot Ptch Vascuguard 1x6cm - [id number] Implanted:Qty: 1 on 10/17/2020 by Marcelo Sung MD at [facility] Implant Right: Carotid SYNOVIS 05/09/2025 [id number] / / [id number] Implant Description:bilat cataract a nd x7 [...] - 5.60 % 10/15/2020 9:45 AM EST [facility] Blood Venipuncture / Unknown 10/15/2020 9:01 AM EST 10/15/2020 9:24 AM EST Narrative [facility] - 10/15/2020 9:45 AM EST Hemoglobin A1C Ranges: Increased Risk for Diabetes 5.7% to 6.4% Diabetes >= 6.5% Diabetic Goal < 7.0% Maddy Rasmussen PA-C LAB BLOOD ORDERABLES Final R esult [facility]
[address] [place] [address], from Last 3 Months or Most Recently Relevant to Health Maintenance Additional Health Concerns Infection Onset Date Last Indicated COVID (History) 09/18/2020 10/16/2020 Insurance [place] [address] [facility] MEDICARE ADVANTAGE [facility] [place] [address] Advance Directives * CPR (Attempt to Resuscitate) (Latest Code Status on File) Date Activated Date Inactivated Comments 10/17/2020 12:52 PM 10/18/2020 3:02 PM Question Answer Comments Code Status (Patient has no pulse and is not breathing): CPR (Attempt to Resuscitate) Medical Interventions (Patie nt has pulse or is breathing): Full Care Teams Nursery Nurse Relationship Specialty Start Date End Date Leonard Madrigal MD [address] ATTN: [place] [address] PCP - General Emergency Medicine 09/15/16
--- OUTSIDE RECORDS SUMMARY | 2025-09-01 12:48 | XMS_ITS | Clinical Summary ---
Author Organization [facility] [place] [address] Care Team Providers Care Framing Specialist Name Role Phone Unavailable Primary Care Provider [...]
--- OUTSIDE RECORDS SUMMARY | 2025-09-01 12:48 | XMS_ITS | Clinical Summary ---
Author Organization [facility] Address [address] [place] [address] Care Team Providers Care Counter Tender Name Role Phone Florian Og MD Primary Care Provider [phone] Allergies Active Allergy Reactions Criticality Noted Date [...] MG injection 08/18/20 24 Active Continuous Glucose Maintenance Technician (Dexcom G7 Maintenance Technician) device 2 times a day. as directed [...] Description 06/06/2025 1:10 PM EDT Office Visit [facility] [address] [place] [address] Mauricio Keith MD Hand pain, left (Primary Dx); Injury of left thumb, initial encounter 06/06/2025 11:53 AM EDT - 06/06/2025 11:59 PM EDT Hospital Encounter [facility] [address] [place] [address] Hand pain, left Discharge Disposition: [...] Date Last Done Comments [facility]-Depression Screening 1957 [facility]-Hepatitis C Screening 1957 [facility]-Medicare Annual Wellness (AWV) 1957 [facility]-/Child/Adol SDOH Screenings 1957 Diabetes: Dental Exam 1967 [facility]- SDOH Screenings 1975 [facility]-Adult SDOH Screenings 1975 CT Colonography 2002 Colonoscopy 2002 FIT-DNA 2002 FIT 2002 FOBT 2002 Sigmoidoscopy 2002 [facility]-Colorectal Cancer Screening 2002 [facility]-Zoster Vaccines (1 of 2) 2007 [facility]-RSV Vaccine: 60+ Years or (1 - Risk 60-74 years 1-dose series) 2017 [id number] Vaccine (2 - Maria Teresa risk series) [...] Resul t from Last 3 Months Insurance [facility] MEDICAID [facility] MEDICARE Care Teams Counter Tender Relationship Specialty [place] [address] PCP - General 05/16/25
== END 2025-08-31 23:59 ==
LOC: LAB.DROPOF 09-01 12:46
PROVIDERS: PCP Family Medicine; Visit Provider Family Medicine
DX: E03.9 Hypothyroidism, unspecified (principal); E11.9 Type 2 diabetes mellitus without complications; D64.9 Anemia, unspecified
CPT/HCPCS: 80053; 80061; 83036; 84439; 84443; 85025

== ENCOUNTER 2025-09-06 08:35 | Outpatient (CLI) | payer MEDICARE, MEDICAID, SELFPAY ==
--- OUTSIDE RECORDS SUMMARY | 2025-09-06 08:39 | XMS_ITS | Clinical Summary ---
[facility] Organization [facility] Address [address] [place] [address] Care Team Providers Care Energy Efficiency Finance Manager Name Role Phone Leonard Madrigal MD Primary [...] Active vitamin D (ERGOCALCIFEROL ) 1.25 MG (52149 UT) capsule capsule Take 1 capsule by [...] Type Department Care Team Description 06/07/2025 Refill [facility] [address] [place], [place] [address] Lety Berman, PILOT PLANT RESEARCH TECHNICIAN Med Refill from Last 3 Months Family [...] 03/24/2017, 03/24/2017 Medical Devices Implanted Type Area Lvn Lpn Device Identifier Shelf Expiration Date Model / Serial / Lot Ptch Vascuguard 1x6cm - [id number] Implanted:Qty: 1 on 10/17/2020 by Marcelo Sung MD at [facility] Implant Right: Carotid SYNOVIS 05/09/2025 [id number] / / [id number] Implant Description:bilat cataract a nd x7 [...] - 5.60 % 10/15/2020 9:45 AM EST [facility] Blood Venipuncture / Unknown 10/15/2020 9:01 AM EST 10/15/2020 9:24 AM EST Narrative [facility] - 10/15/2020 9:45 AM EST Hemoglobin A1C Ranges: Increased Risk for Diabetes 5.7% to 6.4% Diabetes >= 6.5% Diabetic Goal < 7.0% Maddy Rasmussen PA-C LAB BLOOD ORDERABLES Final R esult [facility]
[address] [place] [address], from Last 3 Months or Most Recently Relevant to Health Maintenance Additional Health Concerns Infection Onset Date Last Indicated COVID (History) 09/18/2020 10/16/2020 Insurance [employer] [facility] MEDICARE ADVANTAGE [facility] HMO NON PAR Advance Directives * CPR (Attempt to Resuscitate) (Latest Code Status on File) Date Activated Date Inactivated Comments 10/17/2020 12:52 PM 10/18/2020 3:02 PM Question Answer Comments Code Status (Patient has no pulse and is not breathing): CPR (Attempt to Resuscitate) Medical Interventions (Patie nt has pulse or is breathing): Full Care Teams Energy Efficiency Finance Manager Relationship Specialty Start Date End Date Leonard Madrigal MD [address] ATTN: [place] [address] PCP - General Emergency Medicine 09/15/16
--- OUTSIDE RECORDS SUMMARY | 2025-09-06 08:39 | XMS_ITS | Clinical Summary ---
Author Organization [facility] Address [address] [place] [address] Care Team Providers Care Telemetry Technician Name Role Phone Florian Og MD Primary Care Provider [phone] Allergies Active Allergy Reactions Criticality Noted Date [...] MG injection 08/18/20 24 Active Continuous Glucose Recruiting Assistant (Dexcom G7 Recruiting Assistant) device 2 times a day. as directed [...] 1:10 PM EDT Office Visit [facility] [address] [place] [address] Mauricio Keith MD Hand pain, left (Primary Dx); Injury of left thumb, initial encounter 06/06/2025 11:53 AM EDT - 06/06/2025 11:59 PM EDT Hospital Encounter [facility] [address] [place] [address] Hand pain, left Discharge Disposition: [...] - Risk 60-74 years 1-dose series) 2017 [id number] Vaccine (2 - Maria Teresa risk series) [...] 06/06/2025 1:01 PM Final report signed by aLrry Lord MD on 06/06/2025 1:02 PM Narrative [...] Resul t from Last 3 Months Insurance [facility] MEDICAID [facility] MEDICARE Care Teams Telemetry Technician Relationship Specialty [place] [address] PCP - General 05/16/25
--- OUTSIDE RECORDS SUMMARY | 2025-09-06 08:39 | XMS_ITS | Clinical Summary ---
Author Organization [facility] [place] [address] Care Team Providers Care Hand I Cutter Name Role Phone Unavailable Primary Care Provider [...]
--- NOTE | 2025-09-06 09:00 | CT_ITS ---
FINAL REPORT TECHNIQUE: Thin section axial CT images of the temporal bones were obtained. Coronal and sagittal reformatted images were also obtained. This study was performed with techniques to keep radiation doses as low as reasonably achievable (ALARA). Individualized dose reduction techniques using automated exposure control or adjustment of mA and/or kV according to the patient''s size were employed. CLINICAL HISTORY: HEARING LOSS, COMPARISON: None FINDINGS: Right temporal bone: The external auditory canal has an unremarkable appearance. The middle ear ossicles are abnormal. Only the head of the malleus is identified. The others are not identified. There is complete opacification of the mastoid air cells. Abnormal soft tissue is noted in the middle ear, cholesteatoma difficult to exclude. The internal auditory canal has an unremarkable appearance. The inner ear structures are unremarkable. Left temporal bone: Soft tissue thickening in noted along the external auditory canal, otitis externa not excluded. Middle ear ossicles are also abnormal on the left and not identified. Abnormal soft tissue left middle ear cavity. There is opacification of the left mastoid air cell with destruction of normal mastoid septa and discontinuity along the lateral wall of the mastoids. There is extension of abnormal soft tissue through this defect. This may represent malignant mastoiditis. The internal auditory canal has an unremarkable appearance. The inner ear structures are unremarkable. Other: Mucous retention cyst or polyp in the left maxillary sinus. Paranasal sinuses otherwise unremarkable. IMPRESSION: Bilateral mastoiditis. Associated defect of the lateral wall on the left could indicate malignant mastoiditis on the left. Abnormal middle ear ossicles bilaterally. Destruction of ossicles by infectious or inflammatory process suspected. Abnormal soft tissue in the middle ear cavity bilaterally. Cholesteatoma not excluded. Recommend ENT consult. Reviewed, Interpreted and Dictated by Nola Ware MD Transcribed by Tatiana Jenkins Authenticated and [facility]
== END 2025-09-06 23:59 | disposition home or self-care (01) ==
LOC: RAD 08:36
PROVIDERS: PCP Family Medicine; Visit Provider Otolaryngology
DX: H70.93 Unspecified mastoiditis, bilateral (principal); H92.12 Otorrhea, left ear; H66.92 Otitis media, unspecified, left ear; R93.0 Abnormal findings on diagnostic imaging of skull and head, not elsewhere classified
CPT/HCPCS: 70480

== ENCOUNTER 2025-09-14 10:09 | Outpatient (CLI) | payer MEDICARE, MEDICAID, SELFPAY ==
[2025-09-14 15:44] LABS: Anion Gap 12.6 mEq/L (5-15); Blood Urea Nitrogen 15 mg/dl (9-20); Calcium 9.4 mg/dl (8.4-10.2); Carbon Dioxide 23 mmol/L (22.0-30.0); Chloride 101 mmol/L (98-107); Creatinine,Serum 1.10 mg/dl (0.66-1.25); Estimated Glomerular Filt Rate 67 ml/min (>60); GFR (African American) 81 ML/MIN (>60); Glucose 186 mg/dl (74-100); Potassium 4.6 mmoL/L (3.5-5.1); Sodium 132 mmol/L (136-145)
[2025-09-14 15:54] LABS: Free T4 (Free Thyroxine) 1.28 ng/dl (0.78-2.19)
[2025-09-14 16:13] LABS: Thyroid Stimulating Hormone 4.97 uIU/mL (0.465-4.68)
--- OUTSIDE RECORDS SUMMARY | 2025-09-17 10:12 | XMS_ITS | Clinical Summary ---
Author Organization [facility] Address [address] [place] [address] Care Team Providers Care Fur Comber Name Role Phone Florian Og MD Primary Care Provider + [phone] Allergies Active Allergy Reactions Criticality Noted Date [...] MG injection 08/18/20 24 Active Continuous Glucose Shower Screen Installer (Dexcom G7 Shower Screen Installer) device 2 times a day. as directed [...] Resolved Date Chronic otitis media 04/13/2019 025 Family History 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 Relation Name Comments [...] Screening 1955 [place] Annual Wellness (AWV) 1957 [facility]-/Child/Adol SDOH Screenings 1957 Diabetes: Dental Exam 1967 [facility]- SDOH Screenings 1975 [facility]-Adult SDOH Screenings 1975 CT Colonography 2002 Colonoscopy 2002 FIT-DNA 2002 FIT 2002 FOBT 2002 Sigmoidoscopy 2002 [facility]-Colorectal Cancer Screening 2002 [facility]-Zoster Vaccines (1 of 2) 2007 [facility]-RSV Vaccine: 60+ Years or (1 - Risk 60-74 years 1-dose series) 2017 [id number] Vaccine (2 - Maria Teresa risk series) [...] to complete this topic Insurance [employer] [facility] MEDICARE Care Teams Fur Comber Relationship Specialty Start Date End Date Florian Og MD [id number] PCP - General 05/16/25
--- OUTSIDE RECORDS SUMMARY | 2025-09-17 10:12 | XMS_ITS | Clinical Summary ---
Author Organization [facility] Address [address] [place] [address] Care Team Providers Care Supervisor Stage Carpentry Name Role Phone Leonard Madrigal MD Primary Care Provider [phone] Allergies Active Allergy Reactions Criticality Noted Date [...] Active vitamin D (ERGOCALCIFEROL ) 1.25 MG (76712 UT) capsule capsule Take 1 capsule by [...] 03/24/2017, 03/24/2017 Medical Devices Implanted Type Area Car Cleaning Supervisor Device Identifier Shelf Expiration Date Model / Serial / Lot [facility] Vascuguard 1x6cm - [id number] Implanted:Qty: 1 on 10/17/2020 by Marcelo Sung MD at [facility] Implant Right: Carotid SY[employer]IS 05/09/2025 [id number] / / [id number] Implant Description:bilat cataract a nd x7 [...] - 5.60 % 10/15/2020 9:45 AM EST [facility] Blood Venipuncture / Unknown 10/15/2020 9:01 AM EST 10/15/2020 9:24 AM EST Narrative [facility] - 10/15/2020 9:45 AM EST Hemoglobin A1C Ranges: Increased Risk for Diabetes 5.7% to 6.4% Diabetes >= 6.5% Diabetic Goal < 7.0% Maddy Rasmussen PA-C LAB BLOOD ORDERABLES Final R esult [facility]
[address] [place] [address], from Last 3 Months or Most Recently Relevant to Health Maintenance Additional Health Concerns Infection Onset Date Last Indicated COVID (History) 09/18/2020 10/16/2020 Insurance [employer] [facility] MEDICARE ADVANTAGE [facility] HMO NON PAR Advance Directives * CPR (Attempt to Resuscitate) (Latest Code Status on File) Date Activated Date Inactivated Comments 10/17/2020 12:52 PM 10/18/2020 3:02 PM Question Answer Comments Code Status (Patient has no pulse and is not breathing): CPR (Attempt to Resuscitate) Medical Interventions (Patie nt has pulse or is breathing): Full Care Teams Supervisor Stage Carpentry Relationship Specialty Start Date End Date Leonard Madrigal MD [address] [facility] [address] ATTN: [place] [id number] PCP - General Emergency Medicine 09/15/16
--- OUTSIDE RECORDS SUMMARY | 2025-09-17 10:12 | XMS_ITS | Clinical Summary ---
Author Organization [facility] [place] [place] [address] Care Team Providers Care Recovery Agent Name Role Phone Unavailable Primary Care Provider [...]
== END 2025-09-14 23:59 | disposition home or self-care (01) ==
LOC: LAB.DROPOF 09-17 10:10
PROVIDERS: PCP Family Medicine; Visit Provider Family Medicine
DX: E03.9 Hypothyroidism, unspecified (principal); E11.40 Type 2 diabetes mellitus with diabetic neuropathy, unspecified
CPT/HCPCS: 80048; 84439; 84443